=== PATIENT | male | born 1970 | race Caucasian/White ===

== ENCOUNTER 2020-08-12 10:00 | Outpatient (REF) | payer OTHER, SELFPAY ==
[2020-08-12 13:56] LABS: MANUAL DIFF FLAG NO
[2020-08-12 14:04] LABS: Basophils Absolute Auto 0.1 X10*3/uL (0.0-0.2); Basophils Percent Auto 1.5 % (0-2); Eosinophils Absolute Auto 0.2 X10*3/uL (0.0-0.4); Eosinophils Percent Auto 1.8 % (0-4); Hematocrit 46.7 % (42-52); Hemoglobin 15.3 g/dl (14.0-18.0); Imm Gran Abs Auto 0.03 X10*3/uL (0.00-0.03); Imm Gran Pct Auto 0.4 % (0.0-0.4); Lymphocytes Percent Auto 23.3 % (20-40); Mean Corpuscular HGB Conc 32.8 g/dl (31.0-36.0); Mean Corpuscular Hemoglobin 30.8 pg (27.0-33.0); Mean Platelet Volume 10.3 fL (9.4-12.4); Monocytes Absolute Auto 0.8 X10*3/uL (0.1-1.2); Monocytes Percent Auto 9.3 % (2-11); Neutrophils Absolute Auto 5.4 X10*3/uL (2.0-8.3); Neutrophils Percent Auto 63.7 % (45-73); Platelet Count 306 X10*3/uL (160-400); Red Blood Count 4.97 X10*6/uL (4.60-5.80); White Blood Count 8.5 X10*3/uL (4.8-10.8)
[2020-08-12 14:21] LABS: Estimated Average Glucose 146 mg/dL; Hemoglobin A1c % 6.7 %
[2020-08-12 14:29] LABS: Alanine Aminotransferase 18 U/L (0-40); Albumin Level 4.5 g/dL (3.5-5.0); Alkaline Phosphatase 87 U/L (39-117); Anion Gap 15 (12-20); Aspartate Amino Transferase 15 U/L (5-37); Bilirubin Total 0.6 mg/dL (0.0-1.0); Blood Urea Nitrogen 14 mg/dL (9-16); Calcium 9.1 mg/dL (8.4-10.2); Carbon Dioxide 24 mmol/L (22-29); Chloride 102 mmol/L (96-108); Cholesterol 213 mg/dL; Estimated Glomerular Filt Rate > 60; Glucose Fasting 120 mg/dL (60-99); HDL Cholesterol 40 mg/dL; LDL Cholesterol Calculated 154 mg/dl; Potassium 4.4 mmol/l (3.3-5.1); Sodium 137 mmol/L (135-145); Total Protein 7.1 g/dL (6.5-8.0); Triglycerides 99 mg/dL
[2020-08-12 14:50] LABS: Thyroid Stimulating Hormone 1.18 uIU/mL (0.32-4.0)
== END 2020-08-12 10:01 | disposition home or self-care (01) ==
LOC: HO.10HDL 10:00
PROVIDERS: Visit Provider Internal Medicine
DX: Z00.01 Encounter for general adult medical examination with abnormal findings (principal); E11.40 Type 2 diabetes mellitus with diabetic neuropathy, unspecified; E78.00 Pure hypercholesterolemia, unspecified; F31.70 Bipolar disorder, currently in remission, most recent episode unspecified
CPT/HCPCS: 36415; 80053; 80061; 83036; 84443; 85025

== ENCOUNTER 2021-01-03 08:11 | Outpatient (REF) | payer MEDICARE, MEDICAID, SELFPAY ==
[2021-01-03 10:49] LABS: Alanine Aminotransferase 17 U/L (0-40); Albumin Level 4.3 g/dL (3.5-5.0); Alkaline Phosphatase 70 U/L (39-117); Anion Gap 15 (12-20); Aspartate Amino Transferase 12 U/L (5-37); Bilirubin Total 0.4 mg/dL (0.0-1.0); Blood Urea Nitrogen 12 mg/dL (9-16); Calcium 9.4 mg/dL (8.4-10.2); Carbon Dioxide 28 mmol/L (22-29); Chloride 100 mmol/L (96-108); Cholesterol 172 mg/dL; Estimated Glomerular Filt Rate > 60; Glucose Fasting 107 mg/dL (60-99); HDL Cholesterol 40 mg/dL; LDL Cholesterol Calculated 113 mg/dl; Potassium 4.2 mmol/L (3.3-5.1); Sodium 139 mmol/L (135-145); Total Protein 6.9 g/dL (6.5-8.0); Triglycerides 96 mg/dL
[2021-01-03 10:53] LABS: Estimated Average Glucose 148 mg/dL; Hemoglobin A1c % 6.8 %
== END 2021-01-03 08:12 | disposition home or self-care (01) ==
LOC: HO.10HDL 08:11
PROVIDERS: Visit Provider Internal Medicine
DX: E11.40 Type 2 diabetes mellitus with diabetic neuropathy, unspecified (principal); E78.00 Pure hypercholesterolemia, unspecified; I10 Essential (primary) hypertension; Z72.0 Tobacco use
CPT/HCPCS: 36415; 80053; 80061; 83036

== ENCOUNTER 2021-06-06 09:59 | Outpatient (REF) | payer MEDICARE, MEDICAID, SELFPAY ==
[2021-06-06 10:53] LABS: MANUAL DIFF FLAG NO
[2021-06-06 11:04] LABS: Basophils Absolute Auto 0.1 X10*3/uL (0.0-0.2); Basophils Percent Auto 1.1 % (0-2); Eosinophils Absolute Auto 0.2 X10*3/uL (0.0-0.4); Eosinophils Percent Auto 1.3 % (0-4); Hematocrit 42.3 % (42-52); Hemoglobin 14.9 g/dl (14.0-18.0); Imm Gran Abs Auto 0.04 X10*3/uL (0.00-0.03); Imm Gran Pct Auto 0.4 % (0.0-0.4); Lymphocytes Absolute Auto 2.5 X10*3/uL (1.2-4.9); Lymphocytes Percent Auto 21.8 % (20-40); Mean Corpuscular HGB Conc 35.2 g/dl (31.0-36.0); Mean Corpuscular Hemoglobin 31.4 pg (27.0-33.0); Mean Corpuscular Volume 89.1 fL (80-98); Mean Platelet Volume 9.4 fL (9.4-12.4); Monocytes Absolute Auto 1.1 X10*3/uL (0.1-1.2); Monocytes Percent Auto 9.5 % (2-11); Neutrophils Absolute Auto 7.5 X10*3/uL (2.0-8.3); Neutrophils Percent Auto 65.9 % (45-73); Platelet Count 311 X10*3/uL (160-400); Red Blood Count 4.75 X10*6/uL (4.60-5.80); White Blood Count 11.4 X10*3/uL (4.8-10.8)
[2021-06-06 11:15] LABS: Estimated Average Glucose 131 mg/dL; Hemoglobin A1c % 6.2 %
[2021-06-06 11:30] LABS: Alanine Aminotransferase 16 U/L (0-40); Albumin Level 4.4 g/dL (3.5-5.0); Alkaline Phosphatase 66 U/L (39-117); Anion Gap 12 (12-20); Aspartate Amino Transferase 13 U/L (5-37); Bilirubin Total 0.4 mg/dL (0.0-1.0); Blood Urea Nitrogen 13 mg/dL (9-16); Calcium 10.1 mg/dL (8.4-10.2); Carbon Dioxide 32 mmol/L (22-29); Chloride 91 mmol/L (96-108); Cholesterol 153 mg/dL; Estimated Glomerular Filt Rate > 60; Glucose Fasting 124 mg/dL (60-99); HDL Cholesterol 40 mg/dL; LDL Cholesterol Calculated 96 mg/dl; Potassium 4.7 mmol/L (3.3-5.1); Sodium 130 mmol/L (135-145); Triglycerides 89 mg/dL
[2021-06-06 14:30] LABS: Creatinine Urine 69.63 mg/dL; Microalbumin Urine < 5.0 mg/L
== END 2021-06-06 10:00 | disposition home or self-care (01) ==
LOC: HO.10HDL 09:59
PROVIDERS: Visit Provider Internal Medicine
DX: E11.40 Type 2 diabetes mellitus with diabetic neuropathy, unspecified (principal); E78.00 Pure hypercholesterolemia, unspecified; I10 Essential (primary) hypertension; Z72.0 Tobacco use
CPT/HCPCS: 36415; 80053; 80061; 82043; 83036; 85025

== ENCOUNTER 2021-10-19 08:16 | Outpatient (REF) | payer MEDICARE, MEDICAID, SELFPAY ==
[2021-10-19 10:59] LABS: Estimated Average Glucose 140 mg/dL; Hemoglobin A1c % 6.5 %
[2021-10-19 11:00] LABS: Alanine Aminotransferase 12 U/L (0-40); Albumin Level 4.6 g/dL (3.5-5.0); Alkaline Phosphatase 73 U/L (39-117); Anion Gap 13 (12-20); Aspartate Amino Transferase 13 U/L (5-37); Bilirubin Total 0.5 mg/dL (0.0-1.0); Blood Urea Nitrogen 11 mg/dL (9-16); Calcium 9.4 mg/dL (8.4-10.2); Carbon Dioxide 29 mmol/L (22-29); Chloride 96 mmol/L (96-108); Cholesterol 199 mg/dL; Estimated Glomerular Filt Rate > 60; Glucose Fasting 137 mg/dL (60-99); HDL Cholesterol 34 mg/dL; LDL Cholesterol Calculated 149 mg/dl; Potassium 3.9 mmol/L (3.3-5.1); Sodium 134 mmol/L (135-145); Total Protein 7.6 g/dL (6.5-8.0); Triglycerides 81 mg/dL
== END 2021-10-19 08:17 | disposition home or self-care (01) ==
LOC: HO.10HDL 08:16
PROVIDERS: Visit Provider Internal Medicine
DX: E11.40 Type 2 diabetes mellitus with diabetic neuropathy, unspecified (principal); E78.00 Pure hypercholesterolemia, unspecified; I10 Essential (primary) hypertension
CPT/HCPCS: 36415; 80053; 80061; 83036

== ENCOUNTER 2022-02-10 15:10 | Outpatient (REF) | payer MEDICARE, MEDICAID, SELFPAY ==
--- NOTE | ~2022-02-10 | CT_ITS ---
EXAMINATION: CT CHEST SCREENING CLINICAL INFORMATION: Current smoker. 30 pack year history COMPARISON: Previous chest CT September 2019 TECHNIQUE: Multidetector volumetric CT imaging of the chest is performed without contrast using low dose technique. Additional 2D coronal and sagittal reformatted images and axial 3D maximum intensity projection (MIP) images are generated on the CT workstation. This CT examination was performed using dose optimization techniques as appropriate, variously including the following: *Automated exposure control *Adjustment of mA and/or kV according to patient size (this includes techniques or standardized protocols for targeted exams where dose is matched to indication/reason for exam; i.e. extremities or head) *Use of iterative reconstruction technique DLP: 68 mGy-cm FINDINGS: LUNGS: There is dependent atelectasis. The lungs are otherwise clear. No endobronchial or endotracheal lesion. MEDIASTINUM: Mild coronary artery calcification. Very small pericardial effusion. The mediastinum is otherwise normal. PLEURA: There is no pleural effusion. No pleural mass or thickening. AXILLA: No lymphadenopathy. UPPER ABDOMEN: Unremarkable. OSSEOUS STRUCTURES: Unremarkable. CT/CT lung screening IMPRESSION: Minimal dependent subsegmental atelectasis. Coronary artery calcification. ASSESSMENT: Lung-RADS category 1: Negative RECOMMENDATION: Annual low-dose chest CT follow-up recommended.
== END 2022-02-10 15:11 | disposition home or self-care (01) ==
LOC: HO.CT 15:10
PROVIDERS: PCP Internal Medicine; Visit Provider Physician Assistant Medical
DX: Z12.2 Encounter for screening for malignant neoplasm of respiratory organs (principal); F17.210 Nicotine dependence, cigarettes, uncomplicated
CPT/HCPCS: 71271; G0296

== ENCOUNTER 2022-02-17 09:18 | Day surgery (SDC) | payer MEDICARE, MEDICAID, SELFPAY ==
[2022-02-13 10:10] VITALS: BMI 30.8
--- NOTE | 2022-02-16 09:32 | HO.ANESPROP2 ---
Documented by User: Cassy Judge NP 02/16/22 09:34 HPI - Anesthesia Eval Consult details Narrative: 51yo M for Colonoscopy PMFSH Active Problems Active Problems: All Active Problems (Updated 02/10/22 @ 15:21 by Naty Jacobo PA-C) Personal history of nicotine dependence (Acute) Past Medical History Medical History (Updated 02/17/22 @ 11:43 by Leticia Zhu MD) Anxiety and depression COPD (chronic obstructive pulmonary disease) Depression Fibromyalgia Glaucoma Hypercholesterolemia Hypertension Personal history of nicotine dependence Seizure disorder Tubular adenoma of colon Type 2 diabetes mellitus with diabetic neuropathy Surgical History Surgical History (Updated 02/17/22 @ 11:32 by Leticia Zhu MD) H/O colonoscopy History of cervical discectomy History of eye surgery Social History Social History (Updated 02/17/22 @ 11:46 by Leticia Zhu MD) Patient Tobacco Use Status: Current everyday Tobacco user Tobacco use type: Cigarette Cigarette Packs Per Day: 1 Cigarettes Per Day: 20.0 Years Smoked: onset 22 - 1ppd x 29yrs, 29pyh Smoked in Last 30 Days: Yes Patient Given Instructions on How to Stop Smoking: Yes Date Education Initiated: 02/17/22 Second Hand Smoke Exposure: Yes Substance Use Type: Marijuana Substance Use Frequency: Daily Last Used Substance: Hours (ago) Are you DNR?: No Advance Directives: No Advance Directives Information Provided: Yes Recently lost weight without trying: No Meds Allergies Allergy/AdvReac Type Severity Reaction Status Date / Time shellfish derived Allergy Severe ANAPHYLAXIS Unverified 06/10/20 16:37 [SHELLFISH DERIVED] buspirone [From BUSPAR] Allergy Unknown nausea Unverified 06/10/20 16:37 bupropion [From WELLBUTRIN] AdvReac Unknown NAUSEA Unverified 06/10/20 16:37 seafood Allergy Unknown Uncoded 10/14/19 00:00 Home Medications Medication Instructions Recorded Confirmed Last Taken Type amlodipine 5 mg tablet 1 tab PO DAILY 02/16/22 02/16/22 Unknown History budesonide 160 mcg-glycopyr 9 2 puff INHALATION BID 02/16/22 02/16/22 Unknown History mcg-formot 4.8 mcg/actuation HFA inhaler (Breztri Aerosphere) dorzolamide 22.3 mg-timolol 6.8 1 drp OPHTHALMIC (EYE) BID 02/16/22 02/16/22 Unknown History mg/mL eye drops gabapentin 400 mg capsule 1 cap PO TID 02/16/22 02/17/22 02/17/22 History lisinopril 20 1 tab PO DAILY 02/16/22 02/17/22 02/17/22 History mg-hydrochlorothiazide 25 mg tablet Exam Exam Date and Time: February 16, 2022 0932 Height,Weight and Vital Signs: Height 5 ft 7 in Weight 89.358 kg Pertinent Lab Results Pertinent Lab Results: Laboratory Tests 06/06/21 10/19/21 10:05 08:20 WBC 11.4 H Hgb 14.9 Hct 42.3 Plt Count 311 Sodium 134 L Potassium 3.9 Chloride 96 Carbon Dioxide 29 BUN 11 Creatinine 0.93 Assessment and Plan Assessment Anesthesia Assessment: Chart Reviewed Documented by User: Leticia Zhu MD 02/17/22 11:48 PMFSH Active Problems Active Problems: All Active Problems (Updated 02/10/22 @ 15:21 by Naty Jacobo PA-C) Personal history of nicotine dependence (Acute) Confidential history(obtained from chart- H/o ETOH abuse, H/o Major depression ??? H/o CVA, NE in chart but patient denies both COPD- Uses inhalers as needed Past Medical History Medical History (Updated 02/17/22 @ 11:43 by Leticia Zhu MD) Anxiety and depression COPD (chronic obstructive pulmonary disease) Depression Fibromyalgia Glaucoma Hypercholesterolemia Hypertension Personal history of nicotine dependence Seizure disorder Tubular adenoma of colon Type 2 diabetes mellitus with diabetic neuropathy Family History Family history of problems with anesthesia: No Surgical History Surgical History (Updated 02/17/22 @ 11:32 by Leticia Zhu MD) H/O colonoscopy History of cervical discectomy History of eye surgery History of Problems with Anesthesia: No Social History Social History (Updated 02/17/22 @ 11:46 by Leticia Zhu MD) Patient Tobacco Use Status: Current everyday Tobacco user Tobacco use type: Cigarette Cigarette Packs Per Day: 1 Cigarettes Per Day: 20.0 Years Smoked: onset 22 - 1ppd x 29yrs, 29pyh Smoked in Last 30 Days: Yes Patient Given Instructions on How to Stop Smoking: Yes Date Education Initiated: 02/17/22 Second Hand Smoke Exposure: Yes Substance Use Type: Marijuana Substance Use Frequency: Daily Last Used Substance: Hours (ago) Are you DNR?: No Advance Directives: No Advance Directives Information Provided: Yes Recently lost weight without trying: No Meds Allergies Allergy/AdvReac Type Severity Reaction Status Date / Time shellfish derived Allergy Severe ANAPHYLAXIS Unverified 06/10/20 16:37 [SHELLFISH DERIVED] buspirone [From BUSPAR] Allergy Unknown nausea Unverified 06/10/20 16:37 bupropion [From WELLBUTRIN] AdvReac Unknown NAUSEA Unverified 06/10/20 16:37 seafood Allergy Unknown Uncoded 10/14/19 00:00 Home Medications Medication Instructions Recorded Confirmed Last Taken Type amlodipine 5 mg tablet 1 tab PO DAILY 02/16/22 02/16/22 Unknown History budesonide 160 mcg-glycopyr 9 2 puff INHALATION BID 02/16/22 02/16/22 Unknown History mcg-formot 4.8 mcg/actuation HFA inhaler (Breztri Aerosphere) dorzolamide 22.3 mg-timolol 6.8 1 drp OPHTHALMIC (EYE) BID 02/16/22 02/16/22 Unknown History mg/mL eye drops gabapentin 400 mg capsule 1 cap PO TID 02/16/22 02/17/22 02/17/22 History lisinopril 20 1 tab PO DAILY 02/16/22 02/17/22 02/17/22 History mg-hydrochlorothiazide 25 mg tablet Exam Height,Weight and Vital Signs: Height 5 ft 7 in Weight 89.358 kg Vital Signs Temp Pulse Resp BP Pulse Ox 02/17/22 11:18 98.0 F 68 18 124/78 98 Pertinent Lab Results Pertinent Lab Results: Laboratory Tests 06/06/21 10/19/21 10:05 08:20 WBC 11.4 H Hgb 14.9 Hct 42.3 Plt Count 311 Sodium 134 L Potassium 3.9 Chloride 96 Carbon Dioxide 29 BUN 11 Creatinine 0.93 Lab Results 05/27/22 Range/Units 11:09 POC Glucose 103 (60-115) mg/dL Airway Mallampati Class: III TM Dist: >3cm Neck ROM: Full Loose/Missing/Broken Teeth: Yes (Some broken, some missing) Heart: RRR Lungs: CTAB Assessment and Plan Assessment Anesthesia Assessment: Anesthesia Plan Discussed Final Anesthetic Review Family History of Problems with Anesthesia: No History of Problems with Anesthesia: No NPO: Yes ASA Class: III Final Preanesthetic Review: No Changes in Pt Med Stat, Meds/Allgs Chart Reviewed, Consent Obtained/Reviewed and Anes Risks/Benef Reviewed Patient Risk: Intermediate Procedure Risk: Low Assessment/Block/Sedation in SS: Assess/Block/Sedation-SS Anesthetic Plan Anesthetic Plan: MAC: Disposition: Standard PACU
[2022-02-17 11:14] LABS: Glucose, Whole Blood 103 mg/dL (60-115)
[2022-02-17 11:18] VITALS: BP 124/78; PULSE 68; RESP 18; TEMP 36.7; O2SAT 98
[2022-02-17] MEDS: Lactated Ringers 1,000 ML 50 ML IVCONT (11:21)
--- NOTE | 2022-02-17 12:54 | P.BOP_ITS ---
Brief Operative Note Date of Service: 02/17/22 Pre-op diagnosis: Screening Post-op diagnosis: other (Colon polyp) Procedure: Colonoscopy to the cecum and TI with cold snare polypectomy Surgeon: Clitnon Huston Anesthesia: MAC Was an Development Officer used for this Procedure?: No Estimated blood loss (mL): 2.0 Pathology: other (Polyp at 20cm) Condition: stable Disposition: PACU
[2022-02-17 12:55] VITALS: BP 88/56; PULSE 75; RESP 16; TEMP 37; O2SAT 98
[2022-02-17 13:10] VITALS: BP 117/71; PULSE 80; RESP 18; TEMP 36.7; O2SAT 99
--- NOTE | 2022-02-17 22:14 | OP_ITS ---
SURGEON: Clinton Huston MD INDICATIONS: The patient presents for evaluation of colorectal cancer screening and personal history of colon polyps. Full consent was obtained from him for this, including risks of bleeding and perforation. PREOPERATIVE DIAGNOSIS: POSTOPERATIVE DIAGNOSIS: PROCEDURE PERFORMED: Colonoscopy to cecum and terminal ileum with cold snare polypectomy. ESTIMATED BLOOD LOSS: COMPLICATIONS: ANESTHESIA: Monitored anesthesia care. ASSISTANTS: SPECIMENS: PREOPERATIVE DIAGNOSES: Colorectal cancer screening and personal history of colon polyps. POSTOPERATIVE DIAGNOSES: Colorectal cancer screening and personal history of colon polyps, colon polyp, diverticulosis and internal hemorrhoids. DESCRIPTION OF PROCEDURE: The patient was placed in left lateral decubitus position. The digital rectal exam revealed no abnormalities. The Olympus video pediatric colonoscope was entered into the rectum and advanced easily to the cecum. Once in the cecum, I did identify cecal pouch with appendiceal orifice and a normal-appearing ileocecal valve. The terminal ileum was cannulated and appeared normal. The scope was withdrawn back into the colon. After copious irrigation and suction, I was able to obtain a good visualization of the cecum, which appeared normal. The scope was then slowly withdrawn assessing all mucosal surfaces carefully. Preparation throughout the colon for the most part was good, but there were other areas of liquid stool, particularly in the left colon. I visualized an approximately 6 mm polyp at 20 cm, which was removed with cold snare polypectomy and recovered by suction. The polypectomy site appeared clean, without any sign of residual polyp nor bleeding. I did not visualize any other polyps, colitis, or angiodysplasia. There was a mild amount of sigmoid diverticulosis. In the rectum, scope was retroflexed visualizing internal hemorrhoids, but no other pathology. The rectal mucosa appeared normal. The scope was straightened and withdrawn from the patient. He tolerated the procedure well and was returned to recovery area in stable condition. IMPRESSION: 1. Colon polyp, status post cold snare polypectomy. 2. Diverticulosis. 3. Internal hemorrhoids. 4. Limited prep. PLAN: The results of the pathology will be checked. I would recommend a repeat colonoscopy in 3 years for further surveillance. He was advised not to use any aspirin or NSAIDs for 1 week. MD AMANDA Ervin/ALYSIA / [id number] ALBERT
== END 2022-02-17 13:27 | disposition home or self-care (01) ==
PROVIDERS: PCP Internal Medicine; Visit Provider Internal Medicine
PROC: 0DJD8ZZ Inspection of Lower Intestinal Tract, Via Natural or Artificial Opening Endoscopic (ICD-10-PCS; CPT 45378; principal; 2022-02-17 12:00)
DX: Z12.11 Encounter for screening for malignant neoplasm of colon (principal); Z86.010 Personal history of colon polyps; K63.5 Polyp of colon; K57.30 Diverticulosis of large intestine without perforation or abscess without bleeding; K64.8 Other hemorrhoids; I10 Essential (primary) hypertension; E11.40 Type 2 diabetes mellitus with diabetic neuropathy, unspecified; E78.00 Pure hypercholesterolemia, unspecified; J45.909 Unspecified asthma, uncomplicated; F10.21 Alcohol dependence, in remission; F17.210 Nicotine dependence, cigarettes, uncomplicated; F12.90 Cannabis use, unspecified, uncomplicated; Z79.899 Other long term (current) drug therapy
CPT/HCPCS: 45385; 82947; 88305

== ENCOUNTER 2022-04-03 09:57 | Outpatient (REF) | payer MEDICARE, SELFPAY ==
[2022-04-03 10:55] LABS: Estimated Average Glucose 114 mg/dL; Hemoglobin A1c % 5.6 %
[2022-04-03 11:08] LABS: Alanine Aminotransferase 34 U/L (0-40); Albumin Level 4.2 g/dL (3.5-5.0); Alkaline Phosphatase 76 U/L (39-117); Anion Gap 12 (12-20); Aspartate Amino Transferase 22 U/L (5-37); Bilirubin Total 0.4 mg/dL (0.0-1.0); Blood Urea Nitrogen 12 mg/dL (9-16); Calcium 9.1 mg/dL (8.4-10.2); Carbon Dioxide 26 mmol/L (22-29); Chloride 96 mmol/L (96-108); Cholesterol 181 mg/dL; Estimated Glomerular Filt Rate > 60; Glucose Fasting 127 mg/dL (60-99); HDL Cholesterol 36 mg/dL; LDL Cholesterol Calculated 132 mg/dl; Potassium 3.8 mmol/L (3.3-5.1); Sodium 130 mmol/L (135-145); Total Protein 6.9 g/dL (6.5-8.0); Triglycerides 68 mg/dL
== END 2022-04-03 09:58 | disposition home or self-care (01) ==
LOC: HO.10HDL 09:57
PROVIDERS: Visit Provider Internal Medicine
DX: E11.40 Type 2 diabetes mellitus with diabetic neuropathy, unspecified (principal); E78.00 Pure hypercholesterolemia, unspecified; I10 Essential (primary) hypertension; J44.9 Chronic obstructive pulmonary disease, unspecified
CPT/HCPCS: 36415; 80053; 80061; 83036

== ENCOUNTER 2022-04-11 08:00 | Outpatient (RCR) | payer MEDICARE, SELFPAY ==
--- NOTE | ~2022-04-11 | XR_ITS ---
EXAMINATION: XR FOOT, LEFT CLINICAL INFORMATION: Nonhealing wound COMPARISON: Foot radiographs 10/11/2019 TECHNIQUE: AP, lateral, and oblique views of the left foot. FINDINGS: No acute fracture or dislocation. Chronic healed fracture deformity of the fifth metatarsal diaphysis. Marked soft tissue swelling associated with the first digit with irregularity along the plantar surface. No cortical erosion, focal osteopenia or periosteal reaction to favor osteomyelitis. Plantar calcaneal and Achilles tendon enthesopathy. No tibiotalar joint effusion. XR/XR foot LT min 3V IMPRESSION: Marked soft tissue swelling associated with the first digit with associated irregularity along the plantar surface which may correspond to the reported ulcer. No cortical erosion, focal osteopenia or periosteal reaction to favor osteomyelitis, however MRI would be more sensitive for evaluation.
== END 2023-01-22 15:00 | disposition home or self-care (01) ==
LOC: HO.WCC 08:00
PROVIDERS: PCP Internal Medicine; Visit Provider Physician Assistant
DX: E11.621 Type 2 diabetes mellitus with foot ulcer (principal); L97.523 Non-pressure chronic ulcer of other part of left foot with necrosis of muscle; E11.40 Type 2 diabetes mellitus with diabetic neuropathy, unspecified; E11.69 Type 2 diabetes mellitus with other specified complication; M86.472 Chronic osteomyelitis with draining sinus, left ankle and foot; R60.9 Edema, unspecified; I10 Essential (primary) hypertension; J44.9 Chronic obstructive pulmonary disease, unspecified; F17.210 Nicotine dependence, cigarettes, uncomplicated; Z79.2 Long term (current) use of antibiotics
CPT/HCPCS: 11042; 11043; 29445; 73630; 97597; 99212; 99213

== ENCOUNTER 2022-05-18 16:15 | Outpatient (REF) | payer MEDICARE, SELFPAY ==
--- NOTE | ~2022-05-18 | XR_ITS ---
EXAMINATION: PRE-MRI ORBITS CLINICAL INFORMATION: Foreign body exposure. COMPARISON: None TECHNIQUE: 3 views of orbits pre-MRI. FINDINGS: There is no radiopaque metallic foreign body seen in the orbits. The bony orbits are maintained normal. The paranasal sinuses and the soft tissues are normal. XR/XR pre mri screening IMPRESSION: No radiopaque metallic foreign body seen in the orbits.
--- NOTE | ~2022-05-18 | MR_ITS ---
EXAMINATION: MR FOOT WITH AND WITHOUT CONTRAST, LEFT CLINICAL INFORMATION: Nonhealing wound of the left great toe. Evaluate for osteomyelitis. COMPARISON: Radiograph dated 04/12/2022. TECHNIQUE: Multiplanar MR imaging was obtained through the left forefoot before and after intravenous administration of 9 mL Gadavist. FINDINGS: A plantar wound at the level of the great toe IP joint measures 1 x 1 cm in area and has a peripherally enhancing tract which extends to the underlying IP joint. Synovial enhancement and fluid at the IP joint is consistent with septic arthritis in the context of the wound. Foci of gas are present in the soft tissues surrounding the medial aspect of the distal phalangeal base. Hyperenhancement and edema signal are evident within the distal two-thirds of the great toe proximal phalanx and throughout the distal phalanx with slightly diminished signal intensity on T1-weighted images at the medial margin of the great toe proximal phalangeal head and the plantar aspect of the distal phalangeal base. The plantar joint capsule appears disrupted at the level of the IP joint with dorsal subluxation of the distal phalanx. There is mild osteoarthritis at the great toe MTP joint without appreciable findings of septic arthritis or osteomyelitis. The other bones of the forefoot appear normal in signal intensity. Joints are otherwise relatively well preserved. There is edema signal and fatty replacement of the intrinsic foot musculature, commonly seen in the setting of diabetes, likely related to diabetic neuropathy. No tenosynovitis. Imaged plantar fascia is unremarkable. MR/MR foot LT wo/w con IMPRESSION: Septic arthritis of the great toe interphalangeal joint with a peripherally enhancing tract extending to the underlying plantar wound. In the context of septic arthritis and an adjacent wound, the signal abnormality in the proximal and distal phalanges of the great toe indicate a high likelihood of osteomyelitis.
== END 2022-05-18 16:16 | disposition home or self-care (01) ==
LOC: HO.MRI 16:15
PROVIDERS: Visit Provider Surgery
DX: S91.102A Unspecified open wound of left great toe without damage to nail, initial encounter (principal); X58.XXXA Exposure to other specified factors, initial encounter; Y93.9 Activity, unspecified; Y92.9 Unspecified place or not applicable; Y99.9 Unspecified external cause status
CPT/HCPCS: 73720; A9585

== ENCOUNTER → 2022-06-12 10:11 | Outpatient (BNVA) | payer MEDICARE, SELFPAY | PROVIDERS: PCP Internal Medicine; Visit Provider Internal Medicine | DX: M86.9 Osteomyelitis, unspecified (principal) | CPT/HCPCS: 99202 ==

== ENCOUNTER 2022-06-13 09:05 | Outpatient (REF) | payer MEDICARE, SELFPAY ==
[2022-06-13 11:02] LABS: MANUAL DIFF FLAG NO
[2022-06-13 11:13] LABS: Basophils Absolute Auto 0.2 X10*3/uL (0.0-0.2); Basophils Percent Auto 1.1 % (0-2); Eosinophils Absolute Auto 0.2 X10*3/uL (0.0-0.4); Eosinophils Percent Auto 1.3 % (0-4); Hematocrit 42.4 % (42.0-52.0); Hemoglobin 14.8 g/dl (14.0-18.0); Imm Gran Abs Auto 0.07 X10*3/uL (0.00-0.03); Imm Gran Pct Auto 0.5 % (0.0-0.4); Lymphocytes Absolute Auto 2.3 X10*3/uL (1.2-4.9); Lymphocytes Percent Auto 15.5 % (20-40); Mean Corpuscular HGB Conc 34.9 g/dl (31.0-36.0); Mean Corpuscular Hemoglobin 31.9 pg (27.0-33.0); Mean Corpuscular Volume 91.4 fL (80.0-98.0); Mean Platelet Volume 10.1 fL (9.4-12.4); Monocytes Absolute Auto 1.1 X10*3/uL (0.1-1.2); Monocytes Percent Auto 7.3 % (2-11); Neutrophils Absolute Auto 10.8 x10*3/uL (2.0-8.3); Neutrophils Percent Auto 74.3 % (45-73); Platelet Count 260 X10*3/uL (160-400); Red Blood Count 4.64 X10*6/uL (4.60-5.80); Red Cell Distribution Width 12.7 % (11.0-16.0); White Blood Count 14.6 X10*3/uL (4.8-10.8)
[2022-06-13 11:40] LABS: Alanine Aminotransferase 20 U/L (0-40); Albumin Level 4.5 g/dL (3.5-5.0); Alkaline Phosphatase 62 U/L (39-117); Anion Gap 17 (12-20); Aspartate Amino Transferase 17 U/L (5-37); Bilirubin Direct 0.3 mg/dL (0.0-0.5); Bilirubin Total 0.6 mg/dL (0.0-1.0); Blood Urea Nitrogen 12 mg/dL (9-16); Calcium 9.5 mg/dL (8.4-10.2); Carbon Dioxide 24 mmol/L (22-29); Chloride 96 mmol/L (96-108); Estimated Glomerular Filt Rate > 60; Glucose Random 121 mg/dL (60-115); Potassium 4.2 mmol/L (3.3-5.1); Sodium 133 mmol/L (135-145); Total Protein 7.3 g/dL (6.5-8.0)
== END 2022-06-13 09:06 | disposition home or self-care (01) ==
LOC: HO.10HDL 09:05
PROVIDERS: Visit Provider Internal Medicine
DX: M86.9 Osteomyelitis, unspecified (principal)
CPT/HCPCS: 36415; 80048; 80076; 85025

== ENCOUNTER → 2022-06-27 08:03 | Day surgery (SDC) | payer MEDICARE, SELFPAY ==
--- NOTE | 2022-06-27 10:00 | HO.PICC ---
PICC Line Insertion NPICC Diagnosis: Osteomyelitis left foot Indication: machine long goods helper antibiotics Pertinent Labs: reviewed Technique: Following informed consent including risks, benefits and alternatives and using sterile technique including cap and mask, sterile gown, glove and drape, the right arm was prepped and draped in the usual sterile fashion of full barrier technique with CHG. Following completion of Fairborn Protocol the skin and soft tissues were anesthetized with 1% Lidocaine plain. Using ultrasound guidance, right basilic vein access was obtained. Over an 0.018 wire through peel-away sheath, a 4 mauritian PASV PowerPICC Solo line was positioned. Catheter length is 50 cm internal length, 0 cm external length, for a total trimmed length of 50cm. The procedure was performed in S272. Tip verification was performed by Cande Shirley with Jennifer 3CG. Tip located in SVC. Ultrasound was used to document vein patency and for needle entry. A formal ultrasound picture and cardiac rhythm strip was recorded. Vascular Processing Manager has released the line for use and it is currently dressed with a StatLock, Tegaderm, and CHG disc. Verification has been performed for blood return and line patency. Arm Circumference: 30 cm Equipment: PASV PowerPICC Catheter Type: 4 mauritian PASV PowerPICC Solo Lot #: [id number]
== END ==
PROVIDERS: PCP Internal Medicine; Visit Provider Radiology Diagnostic Radiology
DX: M86.9 Osteomyelitis, unspecified (principal)
CPT/HCPCS: 36573; C1751

== ENCOUNTER 2022-06-27 09:54 | Outpatient (REF) | payer MEDICARE, SELFPAY | END 2022-06-27 09:55 | disposition home or self-care (01) | LOC: HO.MDS 09:54 | PROVIDERS: PCP Internal Medicine; Visit Provider Internal Medicine | DX: Z45.2 Encounter for adjustment and management of vascular access device (principal); M86.172 Other acute osteomyelitis, left ankle and foot | CPT/HCPCS: 96365; J0878 ==

== ENCOUNTER 2022-06-28 07:38 | Outpatient (REF) | payer MEDICARE, MEDICAID, SELFPAY | END 2022-06-28 07:39 | disposition home or self-care (01) | LOC: HO.MDS 07:38 | PROVIDERS: Visit Provider Internal Medicine | DX: Z45.2 Encounter for adjustment and management of vascular access device (principal); M86.172 Other acute osteomyelitis, left ankle and foot | CPT/HCPCS: 96365; J0878 ==

== ENCOUNTER 2022-06-29 19:19 | Outpatient (REF) | payer MEDICARE, SELFPAY ==
[2022-06-29 19:25] LABS: MANUAL DIFF FLAG NO
[2022-06-29 19:34] LABS: Basophils Absolute Auto 0.2 X10*3/uL (0.0-0.2); Basophils Percent Auto 1.5 % (0-2); Eosinophils Absolute Auto 0.2 X10*3/uL (0.0-0.4); Hematocrit 42.2 % (42.0-52.0); Hemoglobin 14.5 g/dl (14.0-18.0); Imm Gran Abs Auto 0.03 X10*3/uL (0.00-0.03); Imm Gran Pct Auto 0.3 % (0.0-0.4); Lymphocytes Absolute Auto 3.1 X10*3/uL (1.2-4.9); Lymphocytes Percent Auto 29.5 % (20-40); Mean Corpuscular HGB Conc 34.4 g/dl (31.0-36.0); Mean Corpuscular Hemoglobin 30.9 pg (27.0-33.0); Mean Corpuscular Volume 89.8 fL (80.0-98.0); Monocytes Absolute Auto 0.9 X10*3/uL (0.1-1.2); Monocytes Percent Auto 8.2 % (2-11); Neutrophils Absolute Auto 6.2 x10*3/uL (2.0-8.3); Neutrophils Percent Auto 58.5 % (45-73); Platelet Count 268 X10*3/uL (160-400); Red Cell Distribution Width 12.6 % (11.0-16.0); White Blood Count 10.5 X10*3/uL (4.8-10.8)
[2022-06-29 19:49] LABS: Blood Urea Nitrogen 7 mg/dL (9-16); Cholesterol 114 mg/dL; Estimated Glomerular Filt Rate > 60; HDL Cholesterol 44 mg/dL; LDL Cholesterol Calculated 59 mg/dl; Triglycerides 57 mg/dL
[2022-06-29 20:17] LABS: Erythrocyte Sedimentation Rate 3 MM/HR (0-15)
== END 2022-06-29 19:20 | disposition home or self-care (01) ==
LOC: HO.LNP 19:19
PROVIDERS: Visit Provider Internal Medicine
DX: M86.9 Osteomyelitis, unspecified (principal)
CPT/HCPCS: 80061; 82550; 82565; 84520; 85025; 85652

== ENCOUNTER 2022-07-07 14:16 | Outpatient (REF) | payer MEDICARE, SELFPAY ==
[2022-07-07 14:55] LABS: Alanine Aminotransferase 18 U/L (0-40); Albumin Level 4.6 g/dL (3.5-5.0); Alkaline Phosphatase 65 U/L (39-117); Anion Gap 19 (12-20); Aspartate Amino Transferase 21 U/L (5-37); Bilirubin Total 0.7 mg/dL (0.0-1.0); Blood Urea Nitrogen 8 mg/dL (9-16); Calcium 9.5 mg/dL (8.4-10.2); Carbon Dioxide 24 mmol/L (22-29); Chloride 95 mmol/L (96-108); Estimated Glomerular Filt Rate > 60; Glucose Random 170 mg/dL (60-115); Potassium 3.7 mmol/L (3.3-5.1); Sodium 134 mmol/L (135-145); Total Protein 7.3 g/dL (6.5-8.0)
[2022-07-07 15:07] LABS: Erythrocyte Sedimentation Rate 1 MM/HR (0-15)
== END 2022-07-07 14:17 | disposition home or self-care (01) ==
LOC: HO.LNP 14:16
PROVIDERS: Visit Provider Internal Medicine
DX: M86.9 Osteomyelitis, unspecified (principal)
CPT/HCPCS: 80053; 82550; 85652

== ENCOUNTER 2022-07-13 14:55 | Outpatient (REF) | payer MEDICARE, SELFPAY ==
[2022-07-13 15:01] LABS: MANUAL DIFF FLAG NO
[2022-07-13 15:15] LABS: Basophils Absolute Auto 0.2 X10*3/uL (0.0-0.2); Basophils Percent Auto 1.4 % (0-2); Eosinophils Absolute Auto 0.2 X10*3/uL (0.0-0.4); Eosinophils Percent Auto 1.5 % (0-4); Hematocrit 44.2 % (42.0-52.0); Hemoglobin 14.9 g/dl (14.0-18.0); Imm Gran Abs Auto 0.04 X10*3/uL (0.00-0.03); Imm Gran Pct Auto 0.3 % (0.0-0.4); Lymphocytes Absolute Auto 3.5 X10*3/uL (1.2-4.9); Lymphocytes Percent Auto 28.1 % (20-40); Mean Corpuscular HGB Conc 33.7 g/dl (31.0-36.0); Mean Corpuscular Hemoglobin 30.5 pg (27.0-33.0); Mean Corpuscular Volume 90.6 fL (80.0-98.0); Mean Platelet Volume 10.1 fL (9.4-12.4); Monocytes Absolute Auto 0.9 X10*3/uL (0.1-1.2); Monocytes Percent Auto 7.5 % (2-11); Neutrophils Absolute Auto 7.5 x10*3/uL (2.0-8.3); Neutrophils Percent Auto 61.2 % (45-73); Platelet Count 282 X10*3/uL (160-400); Red Blood Count 4.88 X10*6/uL (4.60-5.80); Red Cell Distribution Width 12.7 % (11.0-16.0); White Blood Count 12.3 X10*3/uL (4.8-10.8)
[2022-07-13 15:29] LABS: Anion Gap 18 (12-20); Blood Urea Nitrogen 8 mg/dL (9-16); C Reactive Protein 0.14 mg/dL (< or = 0.50); Calcium 9.6 mg/dL (8.4-10.2); Carbon Dioxide 24 mmol/L (22-29); Chloride 94 mmol/L (96-108); Estimated Glomerular Filt Rate > 60; Glucose Random 133 mg/dL (60-115); Potassium 3.7 mmol/L (3.3-5.1); Sodium 132 mmol/L (135-145)
[2022-07-13 16:02] LABS: Erythrocyte Sedimentation Rate 5 MM/HR (0-15)
== END 2022-07-13 14:56 | disposition home or self-care (01) ==
LOC: HO.LNP 14:55
PROVIDERS: Visit Provider Internal Medicine
DX: M86.9 Osteomyelitis, unspecified (principal)
CPT/HCPCS: 80048; 85025; 85652; 86140

== ENCOUNTER 2022-07-20 11:32 | Outpatient (REF) | payer MEDICARE, SELFPAY ==
[2022-07-20 12:19] LABS: Basophils Absolute Auto 0.1 X10*3/uL (0.0-0.2); Basophils Percent Auto 0.4 % (0-2); Eosinophils Percent Auto 0.2 % (0-4); Hematocrit 42.5 % (42.0-52.0); Imm Gran Pct Auto 0.7 % (0.0-0.4); Lymphocytes Absolute Auto 1.4 X10*3/uL (1.2-4.9); Lymphocytes Percent Auto 10.2 % (20-40); Mean Corpuscular Volume 80.8 fL (80.0-98.0); Mean Platelet Volume 9.8 fL (9.4-12.4); Monocytes Absolute Auto 1.4 X10*3/uL (0.1-1.2); Monocytes Percent Auto 10.5 % (2-11); Neutrophils Absolute Auto 10.5 x10*3/uL (2.0-8.3); Platelet Count 262 X10*3/uL (160-400); Red Blood Count 5.26 X10*6/uL (4.60-5.80); Red Cell Distribution Width 11.9 % (11.0-16.0); White Blood Count 13.5 X10*3/uL (4.8-10.8)
[2022-07-20 12:22] LABS: Hemoglobin 14.3 g/dl (14.0-18.0); Mean Corpuscular Hemoglobin 27.1 pg (27.0-33.0)
[2022-07-20 12:23] LABS: Mean Corpuscular HGB Conc 33.6 g/dl (31.0-36.0)
[2022-07-20 13:55] LABS: Anion Gap 19 (12-20); Blood Urea Nitrogen 15 mg/dL (9-16); Calcium 9.6 mg/dL (8.4-10.2); Carbon Dioxide 24 mmol/L (22-29); Chloride 72 mmol/L (96-108); Estimated Glomerular Filt Rate > 60; Glucose Random 86 mg/dL (60-115); Potassium 2.3 mmol/L (3.3-5.1); Sodium 113 mmol/L (135-145)
[2022-07-20 16:01] LABS: Erythrocyte Sedimentation Rate 2 MM/HR (0-15)
== END 2022-07-20 11:33 | disposition home or self-care (01) ==
LOC: HO.LNP 11:32
PROVIDERS: Visit Provider Internal Medicine
DX: M86.9 Osteomyelitis, unspecified (principal)
CPT/HCPCS: 80048; 82550; 85025; 85652

== ENCOUNTER 2022-07-24 13:45 | Inpatient (IN) | payer MEDICARE, SELFPAY ==
[2022-07-24] VITALS (8 sets, daily range): BP systolic 108–126; BP diastolic 70–80; PULSE 64–95; RESP 15–26; TEMP 36.6–36.9; O2SAT 98–100; BMI 30.7; BMI 28.1
--- NOTE | ~2022-07-24 | XR_ITS ---
EXAMINATION: PORTABLE CHEST 1 VIEW CLINICAL INFORMATION: picc placement . COMPARISON: 02/10/2022 CT scan. TECHNIQUE: Portable frontal view of the chest was obtained. FINDINGS: The lungs are well expanded. No focal infiltrate, effusion, edema, or pneumothorax. Cardiac and mediastinal silhouettes are within normal limits for technique. Right arm PICC line is in place with the tip near the expected cavoatrial junction. No acute bony abnormality seen. XR/XR chest 1V IMPRESSION: No evidence of acute disease.
--- NOTE | 2022-07-24 15:20 | ECG_ITS ---
Test Reason : ELECTROLYTE IMBALANCE Blood Pressure : / mmHG Vent. Rate : 081 BPM Atrial Rate : 081 BPM P-R Int : 160 ms QRS Dur : 096 ms QT Int : 472 ms P-R-T Axes : 039 051 031 degrees QTc Int : 548 ms Normal sinus rhythm Prolonged QT Intra-ventricular conduction delay Nonspecific T wave abnormality Inferior leads Abnormal ECG When compared with ECG of 30-SEP-2019 11:12, QT has lengthened T wave inversion more evident in Inferior leads Referred By: Kristal Iglesias Electronically Signed By:TONE VEGA MD
--- NOTE | 2022-07-24 15:29 | ED.RECABL ---
HPI - Recheck/Abnormal Lab/Rx General Chief Complaint: Recheck/Abnormal Lab/Rx Stated Complaint: Abnormal labs sent by pcp Time Seen by Provider: 07/24/22 14:50 Source: patient Mode of arrival: ambulatory History of Present Illness HPI narrative: 52-year-old male history of diabetes and osteomyelitis who has been discharged home with a PICC line and on vancomycin but states that for the past week he has had little appetite and has not been eating or drinking. He denies any fever, chills, shortness of breath, chest pain/palpitations but does report muscle cramping and otherwise denies any GI or symptoms. Related Data Home Medications Medication Instructions Recorded Confirmed amlodipine 5 mg tablet 1 tab PO DAILY 02/16/22 02/16/22 budesonide 160 mcg-glycopyr 9 2 puff inhalation BID 02/16/22 02/16/22 mcg-formot 4.8 mcg/actuation HFA inhaler (Breztri Aerosphere) dorzolamide 22.3 mg-timolol 6.8 1 drp ophthalmic (eye) BID 02/16/22 02/16/22 mg/mL eye drops gabapentin 400 mg capsule 1 cap PO TID 02/16/22 02/17/22 lisinopril 20 1 tab PO DAILY 02/16/22 02/17/22 mg-hydrochlorothiazide 25 mg tablet Previous Rx's Medication Instructions Recorded daptomycin 500 mg intravenous 352 mg IV Q24H 42 days #42 ea 06/20/22 solution Allergies Allergy/AdvReac Type Severity Reaction Status Date / Time shellfish derived Allergy Severe ANAPHYLAXIS Unverified 06/10/20 16:37 [SHELLFISH DERIVED] buspirone [From BUSPAR] Allergy Unknown nausea Unverified 06/10/20 16:37 bupropion [From WELLBUTRIN] AdvReac Unknown NAUSEA Unverified 06/10/20 16:37 seafood Allergy Unknown Uncoded 10/14/19 00:00 Review of Systems Review of Systems: Pertinent positives and negatives as stated in HPI 10 point review of systems is otherwise negative. PMFSH Past Medical History Source: nursing notes reviewed Medical History (Updated 07/24/22 @ 17:03 by Kristal Iglesias MD) Anxiety and depression COPD (chronic obstructive pulmonary disease) COPD (chronic obstructive pulmonary disease) Depression Fibromyalgia Glaucoma Hypercholesterolemia Hypertension Osteomyelitis Personal history of nicotine dependence Seizure disorder Tubular adenoma of colon Type 2 diabetes mellitus Type 2 diabetes mellitus with diabetic neuropathy Surgical History H/O colonoscopy History of cervical discectomy History of eye surgery Social History Social History Patient Tobacco Use Status: Current everyday Tobacco user Tobacco use type: Cigarette Cigarette Packs Per Day: 1 Cigarettes Per Day: 20.0 Years Smoked: onset 22 - 1ppd x 29yrs, 29pyh Second Hand Smoke Exposure: Yes Substance Use Type: Marijuana Advance Directives: No Advance Directives Information Provided: No Physical Exam Vital Signs: Vital Signs: Last Vital Signs Temp 98 F 07/24/22 13:57 Pulse 80 07/24/22 15:50 Resp 20 07/24/22 15:50 BP 117/73 07/24/22 15:50 Pulse Ox 98 07/24/22 15:50 O2 Del Method 07/24/22 15:50 BMI result Body Mass Index 30.7 VITAL SIGNS: Reviewed. GENERAL: On well, cachectic, in no acute distress. HEAD: Normocephalic/atraumatic EYES: PERRLA, EOMI, scleral icterus EARS: Ext canals without abnormality OROPHARYNX: no oral lesions noted, posterior pharynx clear LUNGS: Normal breath sounds. No adventitious sounds or accessory muscle use. SpO2<100> CARDIOVASCULAR: Regular rate and rhythm without noted murmurs, no JVD or lower extremity edema. ABDOMEN: Soft, non-tender, non-distended with bowel sounds. MUSCULOSKELETAL: No tenderness, deformities, or effusions noted on gross inspection. EXTREMITIES: No cyanosis, clubbing or edema. SKIN: Inspection of the skin reveals no rashes, poor skin turgor,+jaundice NEUROLOGIC: Alert and oriented x 4. Strength and sensation to light touch were grossly intact x 4. Course Course Course Narrative: 52-year-old male is here for re-evaluation after lab work showed that he had a low potassium, low sodium on 07/20 and is just now presenting. Patient's CPK was also noted to be elevated but renal function at that time appeared to be intact. Patient appears clinically dehydrated will test for COVID, re-obtain lab work and given isolated bolus of 500 cc of normal saline until remaining lab results have returned. Also, will provide 2 g of magnesium sulfate. Review of all investigations significant for severe dehydration with TIM and rhabdomyolysis, patient evaluated by the energy and sustainability manager and is currently accepted for admission. MDM - Recheck/Abnormal Lab/Rx Lab Data Result diagrams: 07/24/22 15:31 07/24/22 15:31 Labs: Lab Results 07/24/22 07/24/22 07/24/22 Range/Units 15:31 15:31 15:31 WBC 19.5 H (4.8-10.8) X10*3/uL RBC 5.35 (4.60-5.80) X10*6/uL Hgb 16.5 (14.0-18.0) g/dl Hct 43.5 (42.0-52.0) % MCV 81.3 (80.0-98.0) fL MCH 30.8 (27.0-33.0) pg MCHC 37.9 H (31.0-36.0) g/dl RDW 11.9 (11.0-16.0) % Plt Count 230 (160-400) X10*3/uL MPV 10.1 (9.4-12.4) fL Immature Gran % (Auto) 1.0 H (0.0-0.4) % Neut % (Auto) 88.7 H (45-73) % Lymph % (Auto) 3.1 L (20-40) % [place] % (Auto) 6.9 (2-11) % Eos % (Auto) 0.3 (0-4) % Baso % (Auto) 0.0 (0-2) % Lymph # (Auto) 0.1 L (1.2-4.9) X10*3/uL [place] # (Auto) 0.3 (0.1-1.2) X10*3/uL Eos # (Auto) 0.0 (0.0-0.4) X10*3/uL Baso # (Auto) 0.0 (0.0-0.2) X10*3/uL Abs Immat Gran (auto) 0.04 H (0.00-0.03) X10*3/uL Absolute Neuts (auto) 3.5 (2.0-8.3) x10*3/uL Absolute Nucleated RBC 0.000 (0.0-0.012) X10*3/uL Nucleated RBC % (auto) 0.0 (0.0-0.2) /100WBC Smear Tech's Comments VERIFIED PT 10.9 (10.0-13.1) SEC INR 1.0 (0.9-1.1) VBG pH (7.32-7.43) VBG pCO2 mmHg VBG pO2 mmHg VBG HCO3 (22-26) mmol/L VBG O2 Saturation % VBG Base Excess mmol/L Sodium 116 L* (135-145) mmol/L Potassium 2.8 L D (3.3-5.1) mmol/L Chloride 70 L (96-108) mmol/L Carbon Dioxide 27 (22-29) mmol/L Anion Gap 22 H (12-20) BUN 24 H D (9-16) mg/dL Creatinine 1.42 H (0.5-1.4) mg/dL Estim Creat Clear Calc 63.3 Estimated GFR 53 Random Glucose 153 H D (60-115) mg/dL Calcium 10.6 H D (8.4-10.2) mg/dL Magnesium 2.3 (1.6-2.6) mg/dL Total Bilirubin 2.6 H (0.0-1.0) mg/dL AST 70 H (5-37) U/L ALT 69 H (0-40) U/L Alkaline Phosphatase 104 D (39-117) U/L Total Protein 8.9 H D (6.5-8.0) g/dL Albumin 5.5 H (3.5-5.0) g/dL COVID-19 (LUZ MARIA) (Negative) COVID-19 Clin Com 07/24/22 07/24/22 Range/Units 15:31 15:44 WBC (4.8-10.8) X10*3/uL RBC (4.60-5.80) X10*6/uL Hgb (14.0-18.0) g/dl Hct (42.0-52.0) % MCV (80.0-98.0) fL MCH (27.0-33.0) pg MCHC (31.0-36.0) g/dl RDW (11.0-16.0) % Plt Count (160-400) X10*3/uL MPV (9.4-12.4) fL Immature Gran % (Auto) (0.0-0.4) % Neut % (Auto) (45-73) % Lymph % (Auto) (20-40) % [place] % (Auto) (2-11) % Eos % (Auto) (0-4) % Baso % (Auto) (0-2) % Lymph # (Auto) (1.2-4.9) X10*3/uL [place] # (Auto) (0.1-1.2) X10*3/uL Eos # (Auto) (0.0-0.4) X10*3/uL Baso # (Auto) (0.0-0.2) X10*3/uL Abs Immat Gran (auto) (0.00-0.03) X10*3/uL Absolute Neuts (auto) (2.0-8.3) x10*3/uL Absolute Nucleated RBC (0.0-0.012) X10*3/uL Nucleated RBC % (auto) (0.0-0.2) /100WBC Smear Tech's Comments PT (10.0-13.1) SEC INR (0.9-1.1) VBG pH 7.43 (7.32-7.43) VBG pCO2 35 mmHg VBG pO2 36 mmHg VBG HCO3 24 (22-26) mmol/L VBG O2 Saturation 58.0 % VBG Base Excess 0.7 mmol/L Sodium (135-145) mmol/L Potassium (3.3-5.1) mmol/L Chloride (96-108) mmol/L Carbon Dioxide (22-29) mmol/L Anion Gap (12-20) BUN (9-16) mg/dL Creatinine (0.5-1.4) mg/dL Estim Creat Clear Calc Estimated GFR Random Glucose (60-115) mg/dL Calcium (8.4-10.2) mg/dL Magnesium (1.6-2.6) mg/dL Total Bilirubin (0.0-1.0) mg/dL AST (5-37) U/L ALT (0-40) U/L Alkaline Phosphatase (39-117) U/L Total Protein (6.5-8.0) g/dL Albumin (3.5-5.0) g/dL COVID-19 (LUZ MARIA) Negative (Negative) COVID-19 Clin Com See Note ECG Data Attestation: I personally reviewed and interpreted this ECG as follows: Prior ECG tracings: not available for review Interpretation: Normal sinus rhythm, HR-81, no STEMI, OK/QRS is within normal limits but QTC is prolonged at 548 Critical Care Time Critical Care Time Critical Care Time: Yes Total Critical Care Time: 30 Attestation: I personally attest to this time spent taking care of the patient. Discharge Plan Discharge Clinical Impression: Severe dehydration, TIM (acute kidney injury), Rhabdomyolysis, Hyponatremia, Hypokalemia Patient Disposition: Admitted As Inpatient Prescriptions: No Action gabapentin 400 mg capsule 1 cap PO TID amlodipine 5 mg tablet 1 tab PO DAILY lisinopril-hydrochlorothiazide 20-25 mg tablet 1 tab PO DAILY dorzolamide-timolol 22.3-6.8 mg/mL drops 1 drp ophthalmic (eye) BID Breztri Aerosphere 160-9-4.8 mcg/actuation HFA aerosol inhaler 2 puff inhalation BID daptomycin 500 mg recon soln 352 mg IV Q24H 42 Days Qty: 42 0RF Rx Instructions: administer over 30 mins
[2022-07-24] MEDS: Magnesium Sulfate/H2O 2 GM/50 ML PIGGYBACK IV (15:39)
[2022-07-24 15:54] LABS: COVID-19 Test Negative (Negative); IDNOW Serial# 55D5AD1C
[2022-07-24 15:55] LABS: VBG Base Excess 0.7 mmol/L; VBG HCO3 24 mmol/L (22-26); VBG pCO2 35 mmHg; VBG pH 7.43 (7.32-7.43); VBG pO2 36 mmHg
[2022-07-24 16:04] LABS: Venous Blood Gas Refer to POC result
[2022-07-24 16:07] LABS: Prothrombin Time 10.9 SEC (10.0-13.1)
[2022-07-24 16:21] LABS: Alanine Aminotransferase 69 U/L (0-40); Albumin Level 5.5 g/dL (3.5-5.0); Alkaline Phosphatase 104 U/L (39-117); Anion Gap 22 (12-20); Aspartate Amino Transferase 70 U/L (5-37); Bilirubin Total 2.6 mg/dL (0.0-1.0); Blood Urea Nitrogen 24 mg/dL (9-16); Calcium 10.6 mg/dL (8.4-10.2); Carbon Dioxide 27 mmol/L (22-29); Chloride 70 mmol/L (96-108); Creatinine Clr Calc Pharmacy 63.3; Estimated Glomerular Filt Rate 53; Glucose Random 153 mg/dL (60-115); Magnesium 2.3 mg/dL (1.6-2.6); Potassium 2.8 mmol/L (3.3-5.1); Sodium 116 mmol/L (135-145); Total Protein 8.9 g/dL (6.5-8.0)
[2022-07-24 16:30] LABS: Eosinophils Percent Auto 0.3 % (0-4); Imm Gran Abs Auto 0.04 X10*3/uL (0.00-0.03); Lymphocytes Absolute Auto 0.1 X10*3/uL (1.2-4.9); Lymphocytes Percent Auto 3.1 % (20-40); Mean Corpuscular Hemoglobin 30.8 pg (27.0-33.0); Mean Corpuscular Volume 81.3 fL (80.0-98.0); Mean Platelet Volume 10.1 fL (9.4-12.4); Monocytes Absolute Auto 0.3 X10*3/uL (0.1-1.2); Monocytes Percent Auto 6.9 % (2-11); Neutrophils Absolute Auto 3.5 x10*3/uL (2.0-8.3); Neutrophils Percent Auto 88.7 % (45-73); Red Cell Distribution Width 11.9 % (11.0-16.0); SCAN SMEAR FLAG 1
[2022-07-24 16:31] LABS: Hematocrit 43.5 % (42.0-52.0); Hemoglobin 16.5 g/dl (14.0-18.0); Mean Corpuscular HGB Conc 37.9 g/dl (31.0-36.0); Platelet Count 230 X10*3/uL (160-400); Red Blood Count 5.35 X10*6/uL (4.60-5.80); White Blood Count 19.5 X10*3/uL (4.8-10.8)
[2022-07-24 16:32] LABS: MANUAL DIFF FLAG SCAN
[2022-07-24 16:33] LABS: SLIDE REVIEW VERIFIED
[2022-07-24] MEDS: Potassium Chloride Packet 20 MEQ PACKET 40 MEQ PO (16:40)
[2022-07-24] MEDS: 0.9 % Sodium Chloride 500 ML IV (16:42)
--- NOTE | 2022-07-24 16:42 | P.HPCC_ITS ---
History of Present Illness Date of Service: 07/24/22 Attending physician on admission: Ofelia Douglass Chief Complaint: Weakness 52-year-old type 2 diabetic with underlying COPD an active smoking who was fishing a little over a month ago standing in some muddy river water and already had an open wound on the bottom of his left 1st toe after that he developed a swelling and redness do a deep tissue infection was noted and MRI positive for osteomyelitis patient had been on vancomycin the no through a PICC line and apparently most recently daptomycin and developed anorexia and weakness and had this for several days presented today and was noted to be markedly hypo Jesse remake and hypokalemic EKG with prolonged QT interval of 560 milliseconds probably in part because of AU wave but in sinus rhythm and said he had no cardiac history and only uses inhalers on a p.r.n. basis for his COPD which is not bad is no oxygen dependence and he was awake alert with no altered mental status no loss of consciousness no witnessed seizure activity etc. but has an elevated CPK as well as well as those electrolyte abnormalities and my bedside echo revealed excellent LV and RV function with no primary valve or pericardial disease and I hyperdynamic ventricle with a flat inferior vena cava so he clearly is markedly hypovolemic with a BUN and creatinine that are double his baseline so there is an acute kidney injury in part pre renal in all likelihood but in part potentially nephrotoxicity related to 1 of the above antibiotics either vancomycin or daptomycin Review of Systems Review of Systems: most importantly no recent constitutional complaints of fever shaking chills and no other system apparently positive Yes all other systems are reviewed and are negative PMFSH Past Medical History Medical History (Updated 07/24/22 @ 16:49 by Ofelia Douglass MD) Anxiety and depression COPD (chronic obstructive pulmonary disease) COPD (chronic obstructive pulmonary disease) Depression Fibromyalgia Glaucoma Hypercholesterolemia Hypertension Osteomyelitis Personal history of nicotine dependence Seizure disorder Tubular adenoma of colon Type 2 diabetes mellitus Type 2 diabetes mellitus with diabetic neuropathy Surgical History Surgical History H/O colonoscopy History of cervical discectomy History of eye surgery Social History Social History Patient Tobacco Use Status: Current everyday Tobacco user Tobacco use type: Cigarette Cigarette Packs Per Day: 1 Cigarettes Per Day: 20.0 Years Smoked: onset 22 - 1ppd x 29yrs, 29pyh Second Hand Smoke Exposure: Yes Substance Use Type: Marijuana Advance Directives: No Advance Directives Information Provided: No Meds Allergies Allergy/AdvReac Type Severity Reaction Status Date / Time shellfish derived Allergy Severe ANAPHYLAXIS Unverified 06/10/20 16:37 [SHELLFISH DERIVED] buspirone [From BUSPAR] Allergy Unknown nausea Unverified 06/10/20 16:37 bupropion [From WELLBUTRIN] AdvReac Unknown NAUSEA Unverified 06/10/20 16:37 seafood Allergy Unknown Uncoded 10/14/19 00:00 Active Medications: Current Medications Heparin Sodium (Porcine) (Heparin Sodium,Porcine 5,000 Unit/Ml Vial) 5,000 unit SUBCUT Q8H ISAIAH Hydromorphone HCl (Hydromorphone Hcl 1 Mg/Ml Syringe) 0.5 mg IVPUSH Q6H PRN; Protocol PRN Reason: Pain, Severe (Pain Scale 7-10) Magnesium Sulfate (Magnesium Sulfate/H2o) 2 gm in 50 mls @ 25 mls/hr IV ONCE ONE Stop: 07/24/22 17:19 Last Admin: 07/24/22 15:39 Dose: 25 mls/hr Potassium Chloride/Sodium Chloride (Kcl 40 Meq In 0.9 % Sodium Chl) 40 meq in 1,000 mls @ 125 mls/hr IVCONT .Q8H ISAIAH Insulin Human Lispro (Insulin Lispro 100 Unit/Ml 3 Ml Vial) 0 unit SUBCUT QIDACHS ISAIAH; Protocol Home Medications Medication Instructions Recorded Confirmed Last Taken Type amlodipine 5 mg tablet 1 tab PO DAILY 02/16/22 02/16/22 Unknown History budesonide 160 mcg-glycopyr 9 2 puff inhalation BID 02/16/22 02/16/22 Unknown History mcg-formot 4.8 mcg/actuation HFA inhaler (Breztri Aerosphere) dorzolamide 22.3 mg-timolol 6.8 1 drp ophthalmic (eye) BID 02/16/22 02/16/22 Unknown History mg/mL eye drops gabapentin 400 mg capsule 1 cap PO TID 02/16/22 02/17/22 02/17/22 History lisinopril 20 1 tab PO DAILY 05/26/22 05/27/22 05/27/22 History mg-hydrochlorothiazide 25 mg tablet Physical Exam Vital Signs: Vital Signs: Last Vital Signs Temp 98 F 07/24/22 13:57 Pulse 80 07/24/22 15:50 Resp 20 07/24/22 15:50 BP 117/73 07/24/22 15:50 Pulse Ox 98 07/24/22 15:50 O2 Del Method 07/24/22 15:50 BMI result Body Mass Index 30.7 awake alert oriented and nonfocal neurologically lungs clear without adventitious sounds bedside echo normal/hyperdynamic EKG with prolonged QT probable U wave due to hypokalemia abdomen soft no organomegaly left greater toe is covered with a bandage but there is no extended redness or warmth over his foot Results Labs CBC and Chem 7: 07/24/22 15:31 07/24/22 15:31 Labs: Laboratory Results - last 24 hr 07/24/22 07/24/22 07/24/22 15:31 15:31 15:31 MCV 81.3 MCH 30.8 MCHC 37.9 H RDW 11.9 Plt Count 230 MPV 10.1 Immature Gran % (Auto) 1.0 H Neut % (Auto) 88.7 H Lymph % (Auto) 3.1 L [place] % (Auto) 6.9 Eos % (Auto) 0.3 Baso % (Auto) 0.0 Lymph # (Auto) 0.1 L [place] # (Auto) 0.3 Eos # (Auto) 0.0 Baso # (Auto) 0.0 Abs Immat Gran (auto) 0.04 H Absolute Neuts (auto) 3.5 Absolute Nucleated RBC 0.000 Nucleated RBC % (auto) 0.0 Smear Tech's Comments VERIFIED PT 10.9 INR 1.0 VBG pH VBG pCO2 VBG pO2 VBG HCO3 VBG O2 Saturation VBG Base Excess Anion Gap 22 H Estim Creat Clear Calc 63.3 Estimated GFR 53 Random Glucose 153 H D Calcium 10.6 H D Magnesium 2.3 Total Bilirubin 2.6 H AST 70 H ALT 69 H Alkaline Phosphatase 104 D Total Protein 8.9 H D Albumin 5.5 H COVID-19 ([facility]Z MARIA) COVID-19 Clin Com 07/24/22 07/24/22 15:31 15:44 MCV MCH MCHC RDW Plt Count MPV Immature Gran % (Auto) Neut % (Auto) Lymph % (Auto) [place] % (Auto) Eos % (Auto) Baso % (Auto) Lymph # (Auto) [place] # (Auto) Eos # (Auto) Baso # (Auto) Abs Immat Gran (auto) Absolute Neuts (auto) Absolute Nucleated RBC Nucleated RBC % (auto) Smear Tech's Comments PT INR VBG pH 7.43 VBG pCO2 35 VBG pO2 36 VBG HCO3 24 VBG O2 Saturation 58.0 VBG Base Excess 0.7 Anion Gap Estim Creat Clear Calc Estimated GFR Random Glucose Calcium Magnesium Total Bilirubin AST ALT Alkaline Phosphatase Total Protein Albumin COVID-19 (LUZ MARIA) Negative COVID-19 Clin Com See Note Assessment and Plan (1) Osteomyelitis: Status: Acute (2) Personal history of nicotine dependence: Status: Acute (3) COPD (chronic obstructive pulmonary disease): Status: Acute (4) Acute kidney injury due to nephrotoxicity: Status: Acute (5) Hyponatremia: Status: Acute (6) Hypokalemia due to excessive renal loss of potassium: Status: Acute (7) Hypovolemia associated with diuresis: Status: Acute (8) Prolonged QT interval syndrome: Status: Acute (9) Type 2 diabetes mellitus: Status: Acute Plan this 52-year-old male with type 2 diabetes clearly has an acute kidney kidney injury I believe in part related to dehydration because of his appetite loss but I am sure that the either daptomycin or vancomycin is playing a role and as a result and because 1 of his medicines includes lisinopril and hydroch lorothiazide he is not just hypo volemic but clearly has lost electrolyte to a greater degree than then water loss needs to have of volume replacement initially preferentially with normal saline but due to profound hypokalemia and a prolonged QT interval on EKG potassium needs to be replaced aggressively as well and follow-up of renal function in the while withholding his antibiotic because of presumptive nephrotoxicity and then discuss with Infectious Disease possible alternative medicine if this is believed to have caused tubular injury
[2022-07-24 17:40] LABS: Acetone, serum QL Moderate (Negative)
[2022-07-24] MEDS: Heparin Sodium,Porcine 5,000 UNIT/ML VIAL 5000 UNIT SUBCUT (18:03)
[2022-07-24] MEDS: KCl 40 mEq in 0.9 % Sodium Chl 40 MEQ/1,000 ML IV.SOLN 125 MEQ IVCONT (18:26)
--- NOTE | 2022-07-24 18:46 | PHA.MEDREC ---
Pharmacy Consult ? Medication Reconciliation Pharmacy has completed the medication reconciliation.
[2022-07-24 20:42] LABS: Glucose, Whole Blood 115 mg/dL (60-115)
[2022-07-24 21:02] LABS: Anion Gap 18 (12-20); Blood Urea Nitrogen 24 mg/dL (9-16); Calcium 9.3 mg/dL (8.4-10.2); Carbon Dioxide 24 mmol/L (22-29); Chloride 77 mmol/L (96-108); Creatinine Clr Calc Pharmacy 89.1; Estimated Glomerular Filt Rate > 60; Glucose Random 101 mg/dL (60-115); Magnesium 2.7 mg/dL (1.6-2.6); Sodium 116 mmol/L (135-145)
[2022-07-24] MEDS: 0.9 % Sodium Chloride 1,000 ML 999 ML IV (21:31)
[2022-07-24 22:21] LABS: Appearance Urine Clear; Color Urine Dark Yellow; Glucose Urine UA Negative (Negative); Leukocyte Esterase Urine Negative (Negative); Nitrite Urine Negative (Negative); UMIC TRIGGER UACC YES; Urine Blood Negative (Negative); Urine Ketones 40 mg/dL (Negative); Urine Protein 30 (1+) mg/dL (Neg-Trace)
[2022-07-24 22:26] LABS: Bacteria Urine None Seen (None Seen); Hyaline Casts Urine 0-2 /LPF (0-2); RBC Urine 0-2 /HPF (0-2); WBC Urine 0-5 /HPF (0-5)
[2022-07-25] VITALS (13 sets, daily range): BP systolic 98–122; BP diastolic 55–69; PULSE 62–89; RESP 12–20; TEMP 36.3–36.8; O2SAT 95–99; BMI 29.9
[2022-07-25] MEDS: HYDROmorphone HCl 1 MG/ML SYRINGE 0.5 MG IVPUSH ×4 (00:36→21:20)
[2022-07-25] MEDS: Heparin Sodium,Porcine 5,000 UNIT/ML VIAL 5000 UNIT SUBCUT ×3 (00:54→17:50)
[2022-07-25 01:20] LABS: Alanine Aminotransferase 46 U/L (0-40); Alkaline Phosphatase 70 U/L (39-117); Anion Gap 17 (12-20); Aspartate Amino Transferase 51 U/L (5-37); Bilirubin Total 1.4 mg/dL (0.0-1.0); Blood Urea Nitrogen 22 mg/dL (9-16); Calcium 8.5 mg/dL (8.4-10.2); Carbon Dioxide 23 mmol/L (22-29); Chloride 82 mmol/L (96-108); Creatinine Clr Calc Pharmacy 106.7; Estimated Glomerular Filt Rate > 60; Glucose Random 91 mg/dL (60-115); Magnesium 2.2 mg/dL (1.6-2.6); Potassium 2.8 mmol/L (3.3-5.1); Sodium 119 mmol/L (135-145); Total Protein 6.3 g/dL (6.5-8.0)
[2022-07-25] MEDS: Pantoprazole Sodium 40 MG/10 ML VIAL IVPUSH (01:40)
[2022-07-25] MEDS: KCl 40 mEq in 0.9 % Sodium Chl 40 MEQ/1,000 ML IV.SOLN 125 MEQ IVCONT ×2 (01:42→15:14)
[2022-07-25 05:14] LABS: Basophils Absolute Auto 0.2 X10*3/uL (0.0-0.2); Eosinophils Absolute Auto 0.6 X10*3/uL (0.0-0.4); Eosinophils Percent Auto 3.5 % (0-4); Hematocrit 36.9 % (42.0-52.0); Imm Gran Abs Auto 0.09 X10*3/uL (0.00-0.03); Imm Gran Pct Auto 0.5 % (0.0-0.4); Lymphocytes Absolute Auto 2.1 X10*3/uL (1.2-4.9); Lymphocytes Percent Auto 12.7 % (20-40); Mean Corpuscular Volume 81.6 fL (80.0-98.0); Mean Platelet Volume 9.5 fL (9.4-12.4); Monocytes Absolute Auto 1.5 X10*3/uL (0.1-1.2); Neutrophils Absolute Auto 12.1 x10*3/uL (2.0-8.3); Neutrophils Percent Auto 73.3 % (45-73); Platelet Count 197 X10*3/uL (160-400); Red Blood Count 4.52 X10*6/uL (4.60-5.80); Red Cell Distribution Width 11.9 % (11.0-16.0); SCAN SMEAR FLAG 1; White Blood Count 16.5 X10*3/uL (4.8-10.8)
[2022-07-25 05:40] LABS: Alanine Aminotransferase 43 U/L (0-40); Albumin Level 3.8 g/dL (3.5-5.0); Alkaline Phosphatase 67 U/L (39-117); Aspartate Amino Transferase 46 U/L (5-37); Bilirubin Direct 0.7 mg/dL (0.0-0.5); Bilirubin Total 1.3 mg/dL (0.0-1.0); Blood Urea Nitrogen 20 mg/dL (9-16); Creatinine Clr Calc Pharmacy 115.3; Estimated Glomerular Filt Rate > 60; Glucose Random 82 mg/dL (60-115); Magnesium 2.1 mg/dL (1.6-2.6); Phosphorus 1.8 mg/dL (2.7-4.5)
[2022-07-25 05:41] LABS: Anion Gap 14 (12-20); Calcium 8.3 mg/dL (8.4-10.2); Carbon Dioxide 24 mmol/L (22-29); Chloride 85 mmol/L (96-108); Potassium 2.9 mmol/L (3.3-5.1); Sodium 121 mmol/L (135-145)
[2022-07-25 05:51] LABS: Hemoglobin 12.4 g/dl (14.0-18.0); MANUAL DIFF FLAG SCAN; Mean Corpuscular HGB Conc 33.6 g/dl (31.0-36.0); Mean Corpuscular Hemoglobin 27.4 pg (27.0-33.0)
[2022-07-25 05:52] LABS: SLIDE REVIEW VERIFIED
[2022-07-25] MEDS: Potassium Chloride Packet 20 MEQ PACKET 40 MEQ PO (06:45)
[2022-07-25] MEDS: Potassium Phosphate/NS 15 MMOL/250 ML PLAST..BAG 62.5 MMOL IV (06:48)
[2022-07-25 07:43] LABS: Glucose, Whole Blood 83 mg/dL (60-115)
--- NOTE | 2022-07-25 08:44 | PM.CCPN ---
Subjective Subjective Date of Service: 07/25/22 Interval History: 52-year-old male type 2 diabetic and hypertensive who is now 1 month into treatment with daptomycin via PICC line for a right big toe osteomyelitis presents with anorexia for several days with poor p.o. intake but continued use of antihypertensive and diuretic medication and has mild rhabdomyolysis with CPK of 1200 and acute renal insufficiency a lot of constitutional issues with borderline blood pressure but marked hypokalemia and hyponatremia and without and altered mental status bedside echo showing normal LV and RV function with no primary valve or pericardial disease and flat inferior vena cava so clearly he was hypovolemic in the face of the hyponatremia and needed replacement of of volume in as well of course as a increase in his serum sodium and so fluids was to was chosen to replace both potassium as well as sodium and in in the form of normal saline 0.9% and in having done so his sodium increased from 10/06 to currently 121 with marked subjective improvement in overall status and able now to eat with good p.o. intake and because he was on a toward the statin I fear that that could also be related to the and elevated CPK so I would recommend withholding statin drugs as we continue to hydrate as his sodium renal or mellitus no diabetic complications he was neither hyperosmolar nor ketoacidotic and the other concern was because of some peripheral eosinophilia along with the acute renal injury is whether not this could be antibiotic related some form fruste of DRESS syndrome and thus far responding to rehydration but IA and withholding the antibiotic pending review by Infectious Disease because if they have concerns about this representing a reaction to medication medicines might have to be reviewed for what began as a methicillin-resistant Staph aureus infection in my history, interestingly enough, he I asked in the circumstances of how he obtained a wound which was already an open sore on the bottom of the big toe but he was fishing and had his shoes off and he was standing on [place] muddy [place] of the [place] raising questions about the no the potential mixed bag of organisms he might have picked up not just simply these Staph itself and I think that was an issue that if it is felt that he is only being partially treated might be reviewed again with Infectious Disease Critical Care Time (minutes): 35 Physical Exam Vital Signs: Vital Signs: Last Vital Signs Temp 97.8 F 07/25/22 08:00 Pulse 68 07/25/22 08:00 Resp 18 11/01/22 08:00 BP 110/62 07/25/22 08:00 Pulse Ox 99 07/25/22 08:00 O2 Del Method 07/25/22 08:00 BMI result Body Mass Index 29.9 doing very much better much brighter more alert without constitutional complaint adequate bilateral carotid upstrokes no bruits no neck vein distension chest percussing equally no adve ntitious sounds abdomen is soft no organomegaly peripheral scan Objective Data Labs CBC & Chem 7: 07/25/22 05:05 07/25/22 05:05 Labs: Laboratory Results - last 24 hr 07/24/22 07/24/22 07/24/22 15:31 15:31 15:31 WBC 19.5 H RBC 5.35 Hgb 16.5 Hct 43.5 MCV 81.3 MCH 30.8 MCHC 37.9 H RDW 11.9 Plt Count 230 MPV 10.1 Immature Gran % (Auto) 1.0 H Neut % (Auto) 88.7 H Lymph % (Auto) 3.1 L [place] % (Auto) 6.9 Eos % (Auto) 0.3 Baso % (Auto) 0.0 Lymph # (Auto) 0.1 L [place] # (Auto) 0.3 Eos # (Auto) 0.0 Baso # (Auto) 0.0 Abs Immat Gran (auto) 0.04 H Absolute Neuts (auto) 3.5 Absolute Nucleated RBC 0.000 Nucleated RBC % (auto) 0.0 Smear Tech's Comments VERIFIED PT 10.9 INR 1.0 VBG pH VBG pCO2 VBG pO2 VBG HCO3 VBG O2 Saturation VBG Base Excess Sodium 116 L* Potassium 2.8 L D Chloride 70 L Carbon Dioxide 27 Anion Gap 22 H BUN 24 H D Creatinine 1.42 H Estim Creat Clear Calc 63.3 Estimated GFR 53 POC Glucose Random Glucose 153 H D Calcium 10.6 H D Phosphorus Magnesium 2.3 Total Bilirubin 2.6 H Direct Bilirubin AST 70 H ALT 69 H Alkaline Phosphatase 104 D Total Creatine Kinase 781 H D Total Protein 8.9 H D Albumin 5.5 H Urine Color Urine Appearance Urine pH Ur Specific [place] Urine Protein Urine Glucose (UA) Urine Ketones Urine Blood Urine Nitrite Ur Leukocyte Esterase Urine RBC Urine WBC Ur Squamous Epith Cells Urine Bacteria Hyaline Casts Acetone, Qual Moderate H COVID-19 (LUZ MARIA) COVID-19 Clin Com 07/24/22 07/24/22 07/24/22 15:31 15:44 20:24 WBC RBC Hgb Hct MCV MCH MCHC RDW Plt Count MPV Immature Gran % (Auto) Neut % (Auto) Lymph % (Auto) [place] % (Auto) Eos % (Auto) Baso % (Auto) Lymph # (Auto) [place] # (Auto) Eos # (Auto) Baso # (Auto) Abs Immat Gran (auto) Absolute Neuts (auto) Absolute Nucleated RBC Nucleated RBC % (auto) Smear Tech's Comments PT INR VBG pH 7.43 VBG pCO2 35 VBG pO2 36 VBG HCO3 24 VBG O2 Saturation 58.0 VBG Base Excess 0.7 Sodium 116 L* Potassium 3.0 L Chloride 77 L Carbon Dioxide 24 Anion Gap 18 BUN 24 H Creatinine 0.97 Estim Creat Clear Calc 89.1 Estimated GFR > 60 POC Glucose Random Glucose 101 Calcium 9.3 D Phosphorus 3.0 Magnesium 2.7 H Total Bilirubin Direct Bilirubin AST ALT Alkaline Phosphatase Total Creatine Kinase 668 H Total Protein Albumin Urine Color Urine Appearance Urine pH Ur Specific [place] Urine Protein Urine Glucose (UA) Urine Ketones Urine Blood Urine Nitrite Ur Leukocyte Esterase Urine RBC Urine WBC Ur Squamous Epith Cells Urine Bacteria Hyaline Casts Acetone, Qual COVID-19 (LUZ MARIA) Negative COVID-19 [employer] See Note 07/24/22 07/24/22 07/25/22 20:38 Unknown 00:51 WBC RBC Hgb Hct MCV MCH MCHC RDW Plt Count MPV Immature Gran % (Auto) Neut % (Auto) Lymph % (Auto) [place] % (Auto) Eos % (Auto) Baso % (Auto) Lymph # (Auto) [place] # (Auto) Eos # (Auto) Baso # (Auto) Abs Immat Gran (auto) Absolute Neuts (auto) Absolute Nucleated RBC Nucleated RBC % (auto) Smear Tech's Comments PT INR VBG pH VBG pCO2 VBG pO2 VBG HCO3 VBG O2 Saturation VBG Base Excess Sodium 119 L* Potassium 2.8 L Chloride 82 L Carbon Dioxide 23 Anion Gap 17 BUN 22 H Creatinine 0.81 Estim Creat Clear Calc 106.7 Estimated GFR > 60 POC Glucose 115 Random Glucose 91 Calcium 8.5 D Phosphorus Magnesium 2.2 Total Bilirubin 1.4 H Direct Bilirubin AST 51 H ALT 46 H Alkaline Phosphatase 70 D Total Creatine Kinase 611 H Total Protein 6.3 L D Albumin 4.0 D Urine Color Dark Yellow Urine Appearance Clear Urine pH 7.0 Ur Specific [place] 1.020 Urine Protein 30 (1+) H Urine Glucose (UA) Negative Urine Ketones 40 Urine Blood Negative Urine Nitrite Negative Ur Leukocyte Esterase Negative Urine RBC 0-2 Urine WBC 0-5 Ur Squamous Epith Cells 3-5 Urine Bacteria None Seen Hyaline Casts 0-2 Acetone, Qual COVID-19 ([facility] MARIA) COVID-19 Clin Com 07/25/22 07/25/22 07/25/22 05:05 05:05 07:40 WBC 16.5 H RBC 4.52 L Hgb 12.4 L D Hct 36.9 L MCV 81.6 MCH 27.4 MCHC 33.6 RDW 11.9 Plt Count 197 MPV 9.5 Immature Gran % (Auto) 0.5 H Neut % (Auto) 73.3 H Lymph % (Auto) 12.7 L [place] % (Auto) 9.0 Eos % (Auto) 3.5 Baso % (Auto) 1.0 Lymph # (Auto) 2.1 [place] # (Auto) 1.5 H Eos # (Auto) 0.6 H Baso # (Auto) 0.2 Abs Immat Gran (auto) 0.09 H Absolute Neuts (auto) 12.1 H Absolute Nucleated RBC 0.000 Nucleated RBC % (auto) 0.0 Smear Tech's Comments VERIFIED PT INR VBG pH VBG pCO2 VBG pO2 VBG HCO3 VBG O2 Saturation VBG Base Excess Sodium 121 L Potassium 2.9 L Chloride 85 L Carbon Dioxide 24 Anion Gap 14 BUN 20 H Creatinine 0.75 Estim Creat Clear Calc 115.3 Estimated GFR > 60 POC Glucose 83 Random Glucose 82 Calcium 8.3 L Phosphorus 1.8 L Magnesium 2.1 Total Bilirubin 1.3 H Direct Bilirubin 0.7 H AST 46 H ALT 43 H Alkaline Phosphatase 67 Total Creatine Kinase 506 H Total Protein 6.0 L Albumin 3.8 Urine Color Urine Appearance Urine pH Ur Specific [place] Urine Protein Urine Glucose (UA) Urine Ketones Urine Blood Urine Nitrite Ur Leukocyte Esterase Urine RBC Urine WBC Ur Squamous Epith Cells Urine Bacteria Hyaline Casts Acetone, Qual COVID-19 ([facility] MARIA) COVID-19 Clin Com Progress Note: A&P Assessment and plan (1) Severe dehydration: Status: Acute (2) TIM (acute kidney injury): Status: Acute (3) Rhabdomyolysis: Status: Acute (4) Hyponatremia: Status: Acute (5) Hypokalemia: Status: Acute (6) Type 2 diabetes mellitus: Status: Acute (7) Prolonged QT interval syndrome: Status: Acute (8) Hypovolemia associated with diuresis: Status: Acute (9) Hypokalemia due to excessive renal loss of potassium: Status: Acute (10) Hyponatremia: Status: Acute (11) Acute kidney injury due to nephrotoxicity: Status: Acute (12) COPD (chronic obstructive pulmonary disease): Status: Acute (13) Osteomyelitis: Status: Acute Plan so the plan is to continue the in with potassium replacement allow him to eat and withhold antibiotic pending discussion with the Infectious Disease in in case they agree that this potentially could be contributed to by the existing antibiotic in addition because the elevated CPK which is improving now with rehydration as is the acute renal insufficiency I would withhold a tore the statin and any statin in case it contributed Quality Stroke Does the patient have a stroke diagnosis?: No VTE Prior VTE?: No VTE Risk Level:: Medical - moderate - high VTE Device Contraindication: N/A - Device Ordered VTE Drug Contraindication: N/A - Med Ordered
--- NOTE | 2022-07-25 10:46 | PM.EVENT ---
Event Note Date of Service: 07/25/22 Event Note: ICU transfer, discussed with Dr. Douglass Osteomyelitis Previous treatment with daptomycin for 4 weeks Rhabdomyolysis CPK 1200 Hold statin Hyponatremia Secondary to hypovolemia /dehydration and poor oral intake Continue IV fluids Hypokalemia Likely related to hypovolemia /dehydration and poor oral intake replete Hypophosphatemia Same as above Replete TIM. Resolved with IV fluids Diabetes mellitus Sliding scale, ADA diet COPD. No exacerbation Hypertension Hold antihypertensives for soft blood pressures Smoker Offered nicotine replacement Encouraged to stop smoking
[2022-07-25 11:32] LABS: Glucose, Whole Blood 113 mg/dL (60-115)
--- NOTE | 2022-07-25 11:34 | MHC.CM.PN ---
Met with pt who was slightly agitated by the continuous line of people coming to his room to ask questions. Pt states he resides alone, is independent, drives and has no barriers to care. He is active with [facility] for IV ATB (he self administers) - he states an RN comes 1x weely to change the PICC dressing and monitor the site. Pt is vaccinated x 1, declines completing HCP and states he will drive self home as his car is in the ED lot. Re-referred to [facility] for continuation of home IV services.
--- NOTE | 2022-07-25 14:20 | W.PM.IDCN ---
History of Present Illness Data of Consult Service Date: 07/25/22 Requesting physician: Ashley Byrne Primary Care Provider: Martine Mike MD HPI Reason for consult: electrolyte disturbance,muscle weakness He presents to hospital with weakness and nausea and inability to take po for last week. He reports being week four of six of IV Daptomycin for left great toe osteomyelitis. He was seen by ICU and is feeling better now. He has had elevated CPK to 500s. Daptomycin is held Review of Systems Review of Systems: Yes all other systems are reviewed and are negative PMFSH Past Medical History Medical History Anxiety and depression COPD (chronic obstructive pulmonary disease) COPD (chronic obstructive pulmonary disease) Depression Fibromyalgia Glaucoma Hypercholesterolemia Hypertension Osteomyelitis Personal history of nicotine dependence Seizure disorder Tubular adenoma of colon Type 2 diabetes mellitus Type 2 diabetes mellitus with diabetic neuropathy Family History Family History Mother Lung cancer metastatic to brain Family history: reviewed and not pertinent Surgical History Surgical History H/O colonoscopy History of cervical discectomy History of eye surgery Social History Social History Household Members: None Housing: Apartment Do you presently have visiting nurse or other home services: Yes Patient Tobacco Use Status: Current someday Tobacco user Tobacco use type: Cigarette Cigarette Packs Per Day: 1 Cigarettes Per Day: 30 Years Smoked: onset 22 - 1ppd x 29yrs, 29pyh Smoked in Last 30 Days: Yes e-Cigarette/Vaping Use: Never Used Patient Interested in Nicotine Replacement: Yes Patient Given Instructions on How to Stop Smoking: No Second Hand Smoke Exposure: Yes Use of substances other than those prescribed or required for medical reasons: Yes Substance Use Type: Marijuana Substance Use Frequency: Daily Last Used Substance: Weeks (ago) Last Used Substance Other:: 1 Currently Displaying Signs/Symptoms of Drug Intoxication Withdrawal: No Any prior treatment program specific to substance use: No Have you been hit, kicked, punched, or otherwise hurt by someone within the past year? If so, by whom?: No Do you feel safe in your current relationship?: No Is there a partner from a previous relationship who is making you feel unsafe now?: No Are you made to feel afraid or neglected: No Advance Directives: No Advance Directives Information Provided: No Advance Directives on File: No Healthcare Proxy: No Suicidal Behavior: History of suicide attemps Current/Past Psychiatric Disorders: PTSD Rosario Symptoms: Anxiety and Panic Access to Firearms: No Do you have thoughts of harming others: None Do you have a plan to hurt others: No Plan Do you have the means to hurt others: No Recently lost weight without trying: Yes How much weight loss: 14-23 pounds Eating poorly because of decreased appetite: Yes Nutrition screen score: 5 Nutrition Risks: Poor intake 0-25% >4 days Poor oral hygiene: Yes service: No Current occupational status: disabled Current occupational exposures/hazards: No Meds Allergies Allergy/AdvReac Type Severity Reaction Status Date / Time shellfish derived Allergy Severe ANAPHYLAXIS Unverified 06/10/20 16:37 [SHELLFISH DERIVED] buspirone [From BUSPAR] Allergy Unknown nausea Unverified 06/10/20 16:37 bupropion [From WELLBUTRIN] AdvReac Unknown NAUSEA Unverified 06/10/20 16:37 seafood Allergy Unknown Uncoded 10/14/19 00:00 Active Medications: Current Medications Heparin Sodium (Porcine) (Heparin Sodium,Porcine 5,000 Unit/Ml Vial) 5,000 unit SUBCUT Q8H [facility] Last Admin: 07/25/22 07:50 Dose: 5,000 unit Hydromorphone HCl (Hydromorphone Hcl 1 Mg/Ml Syringe) 0.5 mg IVPUSH Q6H PRN; Protocol PRN Reason: Pain, Severe (Pain Scale 7-10) Last Admin: 07/25/22 07:49 Dose: 0.5 mg Potassium Chloride/Sodium Chloride (Kcl 40 Meq In 0.9 % Sodium Chl) 40 meq in 1,000 mls @ 125 mls/hr IVCONT .Q8H [facility] Last Infusion: 07/25/22 12:35 Dose: 125 mls/hr Insulin Human Lispro (Insulin Lispro 100 Unit/Ml 3 Ml Vial) 0 unit SUBCUT QIDACHS [facility]; Protocol Last Admin: 07/25/22 11:30 Dose: Not Given Home Medications Medication Instructions Recorded Confirmed Last Taken Type amlodipine 5 mg tablet 1 tab PO DAILY 02/16/22 07/24/22 07/24/22 History budesonide 160 mcg-glycopyr 9 2 puff inhalation BID 02/16/22 07/24/22 Unknown History mcg-formot 4.8 mcg/actuation HFA inhaler (Breztri Aerosphere) dorzolamide 22.3 mg-timolol 6.8 1 drp ophthalmic (eye) BID 02/16/22 07/24/22 Unknown History mg/mL eye drops gabapentin 400 mg capsule 1 cap PO TID 02/16/22 07/24/22 02/17/22 History lisinopril 20 1 tab PO DAILY 02/16/22 07/24/22 07/24/22 History mg-hydrochlorothiazide 25 mg tablet atorvastatin 80 mg tablet 1 tab PO DAILY 07/24/22 07/24/22 Unknown History metformin 850 mg tablet 1 tab PO BID 07/24/22 07/24/22 Unknown History nicotine (polacrilex) 4 mg gum 4 mg PO Q2H PRN Withdrawal Symptoms 07/24/22 07/24/22 Unknown History nicotine 21 mg/24 hr daily 1 patch topical DAILY 07/24/22 07/24/22 Unknown History transdermal patch Physical Exam Vital Signs: Vital Signs: Last Vital Signs Temp 97.3 F 07/25/22 11:43 Pulse 75 07/25/22 11:43 Resp 18 07/25/22 11:43 BP 117/69 07/25/22 11:43 Pulse Ox 99 07/25/22 11:43 O2 Del Method 07/25/22 11:43 BMI result Body Mass Index 29.9 Const: General: cooperative HEENT: Head: Yes normal to inspection Face and sinus: Yes normal facial exam Mouth: Normal oral and palatal mucosa present Teeth and gingiva: dentition normal Eyes: General: appearance normal, both eyes and all related structures Pupils: Equal, round and reactive pupils present Resp: Effort & Inspection: normal respiratory effort Cardio: Rate: regular rate Rhythm: regular rhythm GI: Palpation (GI): Soft to palpation and nontender : General: Yes no CVA tenderness Back/Spine/Pelvis: Back: no CVA tenderness Skin: General skin exam: no rashes or lesions noted Neuro: General: moves all extremities Cranial nerves: Yes Equal, round and reactive pupils present Extrem: Other: pinpoint healing ulcer plantar left first toe Psych: Appearance: grossly normal Results Labs CBC & Chem 7: 07/25/22 05:05 07/25/22 05:05 Labs: Short CBC 07/24/22 07/25/22 Range/Units 15:31 05:05 WBC 19.5 H 16.5 H (4.8-10.8) X10*3/uL Hgb 16.5 12.4 L D (14.0-18.0) g/dl Hct 43.5 36.9 L (42.0-52.0) % Plt Count 230 197 (160-400) X10*3/uL BMP 07/24/22 07/24/22 07/25/22 15:31 20:24 00:51 Sodium 116 L* 116 L* 119 L* Potassium 2.8 L D 3.0 L 2.8 L Chloride 70 L 77 L 82 L Carbon Dioxide 27 24 23 BUN 24 H D 24 H 22 H Creatinine 1.42 H 0.97 0.81 Calcium 10.6 H D 9.3 D 8.5 D 07/25/22 05:05 Sodium 121 L Potassium 2.9 L Chloride 85 L Carbon Dioxide 24 BUN 20 H Creatinine 0.75 Calcium 8.3 L Cardiac Enzymes 07/24/22 07/24/22 07/25/22 Range/Units 15:31 20:24 00:51 Total Creatine Kinase 781 H D 668 H 611 H (38-174) U/L 07/25/22 Range/Units 05:05 Total Creatine Kinase 506 H (38-174) U/L Liver Function 07/24/22 07/25/22 07/25/22 Range/Units 15:31 00:51 05:05 Total Bilirubin 2.6 H 1.4 H 1.3 H (0.0-1.0) mg/dL Direct Bilirubin 0.7 H (0.0-0.5) mg/dL AST 70 H 51 H 46 H (5-37) U/L ALT 69 H 46 H 43 H (0-40) U/L Alkaline Phosphatase 104 D 70 D 67 (39-117) U/L Albumin 5.5 H 4.0 D 3.8 (3.5-5.0) g/dL Urine 07/24/22 Range/Units Unknown Urine Color Dark Yellow Urine Appearance Clear Urine pH 7.0 (5.0-9.0) Ur Specific [place] 1.020 (1.005-1.025) Urine Protein 30 (1+) H (Neg-Trace) mg/dL Urine Glucose (UA) Negative (Negative) mg/dL Assessment and Plan (1) Severe dehydration: Status: Acute (2) Rhabdomyolysis: Status: Acute (3) Hyponatremia: Status: Acute (4) Hypokalemia: Status: Acute (5) Prolonged QT interval syndrome: Status: Acute (6) Osteomyelitis: Qualifiers: Osteomyelitis type: subacute Status: Acute He has been on Daptomycin for treatment of osteomyelitis. He has probable elevated CK and hyponatremia and hypokalemia Foot looks improved Plan Would stop Daptomycin,label adverse reaction and finish treatment with po Doxycycline for a month Follow Wound Clinic as small wound still remains
[2022-07-25 15:32] LABS: Glucose, Whole Blood 86 mg/dL (60-115)
[2022-07-25 20:09] LABS: Glucose, Whole Blood 135 mg/dL (60-115)
[2022-07-26] VITALS (7 sets, daily range): BP systolic 108–135; BP diastolic 65–81; PULSE 66–78; RESP 16–20; TEMP 36.1–37.1; O2SAT 96–100; BMI 29.7; BMI 29.8
[2022-07-26] MEDS: Heparin Sodium,Porcine 5,000 UNIT/ML VIAL 5000 UNIT SUBCUT ×3 (00:02→15:53)
[2022-07-26] MEDS: KCl 40 mEq in 0.9 % Sodium Chl 40 MEQ/1,000 ML IV.SOLN 125 MEQ IVCONT ×2 (00:03→08:54)
[2022-07-26 07:48] LABS: Glucose, Whole Blood 81 mg/dL (60-115)
[2022-07-26] MEDS: HYDROmorphone HCl 1 MG/ML SYRINGE 0.5 MG IVPUSH ×2 (08:56→18:24)
[2022-07-26 09:58] LABS: Alanine Aminotransferase 41 U/L (0-40); Albumin Level 3.9 g/dL (3.5-5.0); Alkaline Phosphatase 67 U/L (39-117); Anion Gap 12 (12-20); Aspartate Amino Transferase 40 U/L (5-37); Bilirubin Direct 0.5 mg/dL (0.0-0.5); Bilirubin Total 1.1 mg/dL (0.0-1.0); Blood Urea Nitrogen 10 mg/dL (9-16); Calcium 8.4 mg/dL (8.4-10.2); Carbon Dioxide 28 mmol/L (22-29); Chloride 88 mmol/L (96-108); Creatinine Clr Calc Pharmacy 134.5; Estimated Glomerular Filt Rate > 60; Glucose Random 86 mg/dL (60-115); Magnesium 1.8 mg/dL (1.6-2.6); Potassium 3.5 mmol/L (3.3-5.1); Sodium 124 mmol/L (135-145); Total Protein 6.1 g/dL (6.5-8.0)
[2022-07-26 11:12] LABS: Glucose, Whole Blood 120 mg/dL (60-115)
--- NOTE | 2022-07-26 11:28 | HO.PM.IMPN ---
Subjective Subjective Date of Service: 07/26/22 Physical Exam Vital Signs: Vital Signs: Last Vital Signs Temp 97.4 F 07/26/22 11:03 Pulse 68 07/26/22 11:03 Resp 18 07/26/22 11:03 BP 116/74 07/26/22 11:03 Pulse Ox 99 07/26/22 11:03 O2 Del Method 07/26/22 11:03 FiO2 99 07/25/22 20:00 BMI result Body Mass Index 29.8 Objective Data Active Medications Amlodipine Besylate (Amlodipine Besylate 5 Mg Tablet) 5 mg PO DAILY REPLACED BY [facility]; Protocol Daptomycin (Daptomycin 500 Mg/10 Ml Vial) 550 mg IV Q24H REPLACED BY [facility] Dorzolamide/Timolol (Dorzolamide/Timolo 2.23%/0.68% 10 Ml Drbtl) 1 drop EYE-BOTH BID REPLACED BY [facility] Gabapentin (Gabapentin 400 Mg Capsule) 400 mg PO TID REPLACED BY [facility] Heparin Sodium (Porcine) (Heparin Sodium,Porcine 5,000 Unit/Ml Vial) 5,000 unit SUBCUT Q8H REPLACED BY [facility] Last Admin: 07/26/22 09:01 Dose: 5,000 unit Documented By: GHAZALA Hydromorphone HCl (Hydromorphone Hcl 1 Mg/Ml Syringe) 0.5 mg IVPUSH Q6H PRN; Protocol PRN Reason: Pain, Severe (Pain Scale 7-10) Last Admin: 07/26/22 08:56 Dose: 0.5 mg Documented By: GHAZALA Potassium Chloride/Sodium Chloride (Kcl 40 Meq In 0.9 % Sodium Chl) 40 meq in 1,000 mls @ 125 mls/hr IVCONT .Q8H REPLACED BY [facility] Last Admin: 07/26/22 08:54 Dose: 125 mls/hr Documented By: GHAZALA Insulin Human Lispro (Insulin Lispro 100 Unit/Ml 3 Ml Vial) 0 unit SUBCUT QIDACHS REPLACED BY [facility]; Protocol Last Admin: 07/26/22 08:55 Dose: Not Given Documented By: GHAZALA Non-Admin Reason: No Insulin Coverage Non-Formulary Medication ([id number] [Breztri Aerosphere]) 2 puff INHALE BID REPLACED BY [facility] Labs CBC & Chem 7: 07/25/22 05:05 07/26/22 08:57 Labs: Laboratory Results - last 24 hr 07/25/22 07/25/22 07/25/22 11:28 15:27 20:06 Anion Gap Estim Creat Clear Calc Estimated GFR POC Glucose 113 86 135 H Random Glucose Calcium Magnesium Total Bilirubin Direct Bilirubin AST ALT Alkaline Phosphatase Total Protein Albumin 07/26/22 07/26/22 07/26/22 07:01 08:57 11:01 Anion Gap 12 Estim Creat Clear Calc 134.5 Estimated GFR > 60 POC Glucose 81 120 H Random Glucose 86 Calcium 8.4 Magnesium 1.8 Total Bilirubin 1.1 H Direct Bilirubin 0.5 AST 40 H ALT 41 H Alkaline Phosphatase 67 Total Protein 6.1 L Albumin 3.9 Assessment and Plan (1) Severe dehydration: Status: Acute Plan 52 year old man admitted to the ICU for severe dehydration from viral illness with electrolyte abnormalities. He was subsequently transfered to medical floor. Hyponatremia. Trending up 124 Secondary to hypovolemia /dehydration and poor oral intake from viral illness Continue IV fluids Hypokalemia Likely related to hypovolemia /dehydration and poor oral intake replete Hypophosphatemia Same as above Replete TIM.? Resolved with IV fluids Osteomyelitis Previous treatment with daptomycin for 4 weeks, continue Leukocytosis History of osteomyelitis, currently on daptomycin at home Rhabdomyolysis CPK 1200 Hold statin Diabetes mellitus Sliding scale, ADA diet COPD.? No exacerbation Hypertension Hold antihypertensives for soft blood pressures Smoker Offered nicotine replacement Encouraged to stop smoking DVT prophylaxis heparin Attending Dr. Manzano Full code Continue hospitalization for treatment dehydration and electrolyte abnormalities Quality Stroke Does the patient have a stroke diagnosis?: No VTE Prior VTE?: No VTE Risk Level:: Medical - moderate - high VTE Device Contraindication: N/A - Device Ordered VTE Drug Contraindication: N/A - Med Ordered
[2022-07-26] MEDS: Gabapentin 400 MG CAPSULE PO ×2 (12:28→22:45)
[2022-07-26] MEDS: amLODIPine Besylate 5 MG TABLET PO (12:28)
[2022-07-26] MEDS: DAPTOMYCIN IV (13:44)
[2022-07-26] MEDS: SODIUM CHLORIDE 0.9% IV (13:44)
--- NOTE | 2022-07-26 15:01 | MHC.CM.PN ---
Per MD rounds patient is not ready for discharge today. Patients requires continued management of lytes. DP home with resumption of IV ABX. [facility] and [facility] are following. Patient will self transport home.
[2022-07-26 16:16] LABS: Glucose, Whole Blood 105 mg/dL (60-115)
[2022-07-26 16:41] LABS: Glucose, Whole Blood 100 mg/dL (60-115)
[2022-07-26 20:13] LABS: Glucose, Whole Blood 104 mg/dL (60-115)
[2022-07-27] VITALS (7 sets, daily range): BP systolic 121–139; BP diastolic 76–85; PULSE 63–71; RESP 15–20; TEMP 36.1–36.8; O2SAT 96–99
[2022-07-27] MEDS: HYDROmorphone HCl 1 MG/ML SYRINGE 0.5 MG IVPUSH ×3 (02:35→23:31)
[2022-07-27] MEDS: Heparin Sodium,Porcine 5,000 UNIT/ML VIAL 5000 UNIT SUBCUT ×4 (02:35→23:31)
[2022-07-27 07:05] LABS: Anion Gap 14 (12-20); Blood Urea Nitrogen 7 mg/dL (9-16); Calcium 8.9 mg/dL (8.4-10.2); Carbon Dioxide 28 mmol/L (22-29); Chloride 90 mmol/L (96-108); Creatinine Clr Calc Pharmacy 130.5; Estimated Glomerular Filt Rate > 60; Glucose Random 98 mg/dL (60-115); Potassium 3.8 mmol/L (3.3-5.1); Sodium 128 mmol/L (135-145)
[2022-07-27 07:17] LABS: Glucose, Whole Blood 100 mg/dL (60-115)
[2022-07-27] MEDS: Gabapentin 400 MG CAPSULE PO ×3 (08:42→19:59)
[2022-07-27] MEDS: amLODIPine Besylate 5 MG TABLET PO (08:42)
[2022-07-27 09:33] LABS: Hematocrit 40.6 % (42.0-52.0); Hemoglobin 14.6 g/dl (14.0-18.0); Mean Corpuscular Hemoglobin 30.7 pg (27.0-33.0); Mean Corpuscular Volume 85.3 fL (80.0-98.0); Mean Platelet Volume 9.8 fL (9.4-12.4); Platelet Count 229 X10*3/uL (160-400); Red Blood Count 4.76 X10*6/uL (4.60-5.80); Red Cell Distribution Width 12.1 % (11.0-16.0); White Blood Count 11.2 X10*3/uL (4.8-10.8)
[2022-07-27 09:53] LABS: Phosphorus 1.9 mg/dL (2.7-4.5)
[2022-07-27 11:13] LABS: Glucose, Whole Blood 103 mg/dL (60-115)
--- NOTE | 2022-07-27 11:49 | MHC.CM.PN ---
Per ROUNDS discussion, Patient will dc to home on PO Doxy rather than IV ABT. CM will follow.
--- NOTE | 2022-07-27 14:11 | P.PNIM_ITS ---
Subjective Subjective Date of Service: 07/27/22 Interval History: Seen and examined this morning Follow-up for dehydration, hyponatremia Patient now able to tolerate p.o.. Denies abdominal pain, nausea, vomiting Review of Systems Review of Systems: Yes all other systems are reviewed and are negative Constitutional Constitutional: Denies chills and Denies fever(s) Cardiovascular Cardiovascular: Denies chest pain, Denies palpitations and Denies dyspnea Respiratory Respiratory: Denies cough and Denies dyspnea Gastrointestinal Gastrointestinal: Denies abdominal pain, Denies nausea and Denies vomiting Endocrine Endocrine: Denies palpitations Physical Exam Vital Signs: Vital Signs: Last Vital Signs Temp 98.2 F 07/27/22 07:30 Pulse 65 07/27/22 11:07 Resp 18 07/27/22 11:07 BP 125/85 07/27/22 11:07 Pulse Ox 99 07/27/22 11:07 O2 Del Method 07/27/22 11:07 FiO2 99 07/25/22 20:00 BMI result Body Mass Index 0.1 Const: General: cooperative, comfortable, alert and awake Nutritional Appearance: average body habitus Orientation/consciousness: patient oriented x3 Resp: Effort & Inspection: normal respiratory effort and able to speak in complete sentences Auscultation: clear to auscultation bilaterally Cardio: Rate: regular rate Heart sounds: S1 normal heart sound present and S2 normal heart sound present GI: Inspection: No distended Palpation (GI): Soft to palpation and nontender Neuro: General: patient oriented x3 and CN's II-XI intact bilaterally Extrem: General: Yes no pedal edema Objective Data Active Medications Amlodipine Besylate (Amlodipine Besylate 5 Mg Tablet) 5 mg PO DAILY [facility]; Protocol Last Admin: 07/27/22 08:42 Dose: 5 mg Documented By: OZ Dorzolamide/Timolol (Dorzolamide/Timolo 2.23%/0.68% 10 Ml Drbtl) 1 drop EYE- BOTH BID [facility] Last Admin: 07/27/22 08:44 Dose: Not Given Documented By: OZ Non-Admin Reason: Patient Refused Doxycycline Hyclate (Doxycycline Hyclate 100 Mg Tablet) 100 mg PO Q12H [facility] Last Admin: 07/27/22 08:42 Dose: 100 mg Documented By: OZ Gabapentin (Gabapentin 400 Mg Capsule) 400 mg PO TID [facility] Last Admin: 07/27/22 08:42 Dose: 400 mg Documented By: OZ Heparin Sodium (Porcine) (Heparin Sodium,Porcine 5,000 Unit/Ml Vial) 5,000 unit SUBCUT Q8H [facility] Last Admin: 07/27/22 08:43 Dose: 5,000 unit Documented By: OZ Hydromorphone HCl (Hydromorphone Hcl 1 Mg/Ml Syringe) 0.5 mg IVPUSH Q6H PRN; Protocol PRN Reason: Pain, Severe (Pain Scale 7-10) Last Admin: 07/27/22 02:35 Dose: 0.5 mg Documented By: JASON Insulin Human Lispro (Insulin Lispro 100 Unit/Ml 3 Ml Vial) 0 unit SUBCUT QIDACHS [facility]; Protocol Last Admin: 07/27/22 13:04 Dose: Not Given Documented By: OZ Non-Admin Reason: No Insulin Coverage Non-Formulary Medication (Sshfoanoxw-Wktseoco-Htnxajqvet [Breztri Aerosphere]) 2 puff INHALE BID [facility] Labs CBC & Chem 7: 07/27/22 08:40 07/27/22 05:49 Labs: Laboratory Results - last 24 hr 07/26/22 07/26/22 07/26/22 16:12 16:35 19:59 MCV MCH MCHC RDW Plt Count MPV Absolute Nucleated RBC Nucleated RBC % (auto) Anion Gap Estim Creat Clear Calc Estimated GFR POC Glucose 105 100 104 Random Glucose Calcium Phosphorus 07/27/22 07/27/22 07/27/22 05:49 07:13 08:40 MCV 85.3 MCH 30.7 MCHC 36.0 RDW 12.1 Plt Count 229 MPV 9.8 Absolute Nucleated RBC 0.000 Nucleated RBC % (auto) 0.0 Anion Gap 14 Estim Creat Clear Calc 130.5 Estimated GFR > 60 POC Glucose 100 Random Glucose 98 Calcium 8.9 Phosphorus 07/27/22 07/27/22 08:40 11:09 MCV MCH MCHC RDW Plt Count MPV Absolute Nucleated RBC Nucleated RBC % (auto) Anion Gap Estim Creat Clear Calc Estimated GFR POC Glucose 103 Random Glucose Calcium Phosphorus 1.9 L Assessment and Plan (1) Rhabdomyolysis: Status: Acute (2) TIM (acute kidney injury): Status: Acute (3) Hyponatremia: Status: Acute Plan 52 year old man admitted to the ICU for severe dehydration from viral illness with electrolyte abnormalities. He was subsequently transfered to medical floor. Hyponatremia. Trending up sodium 128 Secondary to hypovolemia /dehydration and poor oral intake Encourage po intake Hypokalemia Likely related to hypovolemia /dehydration and poor oral intake Improved follow levels Hypophosphatemia Same as above TIM.? Resolved with IV fluids Osteomyelitis Previous treatment with daptomycin for 4 weeks. seen by ID, recommend to d/c daptomycin and treat with 4 weeks of PO doxycycline Leukocytosis History of osteomyelitis, currently on daptomycin at home Rhabdomyolysis CPK 1200 Hold statin Diabetes mellitus Sliding scale, ADA diet COPD.? No exacerbation Hypertension Hold antihypertensives for soft blood pressures Smoker Offered nicotine replacement Encouraged to stop smoking DVT prophylaxis heparin Attending Dr. Manzano Full code Continue hospitalization for treatment dehydration and electrolyte abnormalities Quality Stroke Does the patient have a stroke diagnosis?: No VTE Prior VTE?: No VTE Risk Level:: Medical - moderate - high VTE Device Contraindication: N/A - Device Ordered VTE Drug Contraindication: N/A - Med Ordered
[2022-07-27 15:45] LABS: Glucose, Whole Blood 99 mg/dL (60-115)
[2022-07-27] MEDS: Nicotine 14 MG PATCH.TD24 TRANSDERMA (18:39)
[2022-07-27 20:15] LABS: Glucose, Whole Blood 135 mg/dL (60-115)
--- NOTE | 2022-07-28 | ECG_ITS ---
Test Reason : qtc check Blood Pressure : / mmHG Vent. Rate : 060 BPM Atrial Rate : 060 BPM P-R Int : 154 ms QRS Dur : 088 ms QT Int : 424 ms P-R-T Axes : 043 018 010 degrees QTc Int : 424 ms Normal sinus rhythm Low voltage QRS Intra-ventricular conduction delay Borderline ECG When compared with ECG of 24-JUL-2022 15:54, QT has shortened Referred By: Pricilla Shane Electronically Signed By:TONE VEGA MD
[2022-07-28 07:22] LABS: Glucose, Whole Blood 126 mg/dL (60-115)
[2022-07-28 07:42] VITALS: BP 137/88; PULSE 72; RESP 20; TEMP 36.6; O2SAT 98
[2022-07-28] MEDS: HYDROmorphone HCl 1 MG/ML SYRINGE 0.5 MG IVPUSH (08:22)
[2022-07-28] MEDS: Heparin Sodium,Porcine 5,000 UNIT/ML VIAL 5000 UNIT SUBCUT (08:23)
[2022-07-28] MEDS: amLODIPine Besylate 5 MG TABLET PO (08:23)
[2022-07-28] MEDS: Gabapentin 400 MG CAPSULE PO (08:23)
[2022-07-28] MEDS: Nicotine 14 MG PATCH.TD24 TRANSDERMA (08:24)
[2022-07-28 09:42] LABS: Anion Gap 16 (12-20); Blood Urea Nitrogen 10 mg/dL (9-16); Calcium 9.6 mg/dL (8.4-10.2); Carbon Dioxide 29 mmol/L (22-29); Chloride 92 mmol/L (96-108); Creatinine Clr Calc Pharmacy 83.7; Estimated Glomerular Filt Rate > 60; Glucose Random 102 mg/dL (60-115); Potassium 4.6 mmol/L (3.3-5.1); Sodium 132 mmol/L (135-145)
[2022-07-28 11:04] LABS: Glucose, Whole Blood 109 mg/dL (60-115)
[2022-07-28 11:25] VITALS: BP 126/86; PULSE 66; RESP 18; TEMP 36.4; O2SAT 99
--- NOTE | 2022-07-28 11:25 | PM.DS ---
DS: Providers Provider Date of Service: 07/28/22 Date of admission: 07/24/22 17:03 Date of discharge: 07/28/22 Primary care physician: Martine Mike MD Consults: 07/25/22 12:49 Consult to Infectious Diseases Routine Consulting Provider: Twila Arredondo Reason for consultation: hx of MSSA Has provider been notified: No Attending physician on discharge: Thomas Manzano Discharging clinician: Pricilla Shane DS: Diagnosis Discharge Diagnosis (1) Rhabdomyolysis: Status: Acute (2) TIM (acute kidney injury): Status: Acute (3) Hyponatremia: Status: Acute DS: Summary Hospital Course Hospital Course: From H&P on day of admission ?52-year-old type 2 diabetic with underlying COPD an active smoking who was fishing a little over a month ago standing in some muddy river water and already had an open wound on the bottom of his left 1st toe after that he developed a swelling and redness do a deep tissue infection was noted and MRI positive for osteomyelitis patient had been on vancomycin the no through a PICC line and apparently most recently daptomycin and developed anorexia and weakness and had this for several days presented today and was noted to be markedly hyponatremic remake and hypokalemic EKG with prolonged QT interval of 560 milliseconds probably in part because of AU wave but in sinus rhythm and said he had no cardiac history and only uses inhalers on a p.r.n. basis for his COPD which is not bad is no oxygen dependence and he was awake alert with no altered mental status no loss of consciousness no witnessed seizure activity etc. but has an elevated CPK as well as well as those electrolyte abnormalities and my bedside echo revealed excellent LV and RV function with no primary valve or pericardial disease and I hyperdynamic ventricle with a flat inferior vena cava so he clearly is markedly hypovolemic with a BUN and creatinine that are double his baseline so there is an acute kidney injury in part pre renal in all likelihood but in part potentially nephrotoxicity related to 1 of the above antibiotics either vancomycin or daptomycin Hyponatremia.?Sodium initially 113 on admission. Secondary to hypovolemia /dehydration and poor oral intake. Increased to 132 on day of discharge after receiving IVF. Hypokalemia Likely related to hypovolemia /dehydration and poor oral intake. improved with replacement and dehydration. Hypophosphatemia. Phosphorus still low. will discharge with two days or oral replacement and repeat levels early next week. TIM.? Resolved with IV fluids. lisinopril/HCTZ has been on hold. Blood pressure has remained stable. Recommend follow-up with PCP as outpatient. Osteomyelitis Previous treatment with daptomycin planned for 4 weeks. seen by ID, recommend to d/c daptomycin and consider rhabdo adverse event and treat with 2 more weeks of PO doxycycline. Should follow up with the wound care clinic for ongoing wound care Rhabdomyolysis. CPK initially 2966, has been trending down with IV fluid. Statin has been placed on hold. Continue to hold statin for the next 1 week and then can resume. Recommend outpatient follow-up with PCP Prolonged QTC. QT on day of admission was well over 500, likely secondary to electrolyte abnormalities. Repeat EKG today shows QTC improved for 24. Time Spent with Patient Time attestation: Total time spent providing and/or coordinating discharge services: Discharge coordination time: Greater than 30 minutes Quality: Safe Use of Opioids Does Pt have an Active Cancer Diagnosis on the Problem List?: No Quality: Stroke Does the patient have a stroke diagnosis?: No Physical Exam Vital Signs: Vital Signs: Last Vital Signs Temp 98 F 07/28/22 07:42 Pulse 72 07/28/22 07:42 Resp 20 07/28/22 07:42 BP 137/88 07/28/22 07:42 Pulse Ox 98 07/28/22 07:42 O2 Del Method 07/28/22 07:42 FiO2 99 07/25/22 20:00 BMI result Body Mass Index 0.1 Const: General: cooperative, comfortable, alert and awake Nutritional Appearance: average body habitus Orientation/consciousness: patient oriented x3 Resp: Effort & Inspection: normal respiratory effort and able to speak in complete sentences Auscultation: clear to auscultation bilaterally Cardio: Rate: regular rate Heart sounds: S1 normal heart sound present and S2 normal heart sound present GI: Inspection: No distended Palpation (GI): Soft to palpation and nontender Neuro: General: patient oriented x3 and CN's II-XI intact bilaterally Extrem: General: Yes no pedal edema DS: Data Data Completed and Pending Labs on day of discharge: Laboratory Results - last 24 hr 07/27/22 07/27/22 07/28/22 15:33 19:40 07:18 Sodium Potassium Chloride Carbon Dioxide Anion Gap BUN Creatinine Estim Creat Clear Calc Estimated GFR POC Glucose 99 135 H 126 H Random Glucose Calcium 07/28/22 07/28/22 08:39 10:59 Sodium 132 L Potassium 4.6 D Chloride 92 L Carbon Dioxide 29 Anion Gap 16 BUN 10 Creatinine 0.79 Estim Creat Clear Calc 83.7 Estimated GFR > 60 POC Glucose 109 Random Glucose 102 Calcium 9.6 D Discharge Plan Discharge Anticipated Discharge Date/Time: 07/28/22 12:05 Patient Disposition: Home, Self-Care Discharge Diagnosis: Hyponatremia hypokalemia prolonged QT Rhabdomyolysis Referrals: Martine Mike MD [Primary Care Provider] - 1 Week Twila Arredondo MD [Physician] - 2 Weeks Mandi Slade MD [Physician] - 1 Week Discharge Medications: New potassium, sodium phosphates [Phos-NaK] 280-160-250 mg powder in packet 1 packet PO QID Qty: 8 0RF doxycycline hyclate 100 mg tablet 100 mg PO BID 14 Days Qty: 28 0RF Continued amlodipine 5 mg tablet 1 tab PO DAILY dorzolamide-timolol 22.3-6.8 mg/mL drops 1 drp ophthalmic (eye) BID Breztri Aerosphere 160-9-4.8 mcg/actuation HFA aerosol inhaler 2 puff inhalation BID metformin 850 mg tablet 1 tab PO BID nicotine (polacrilex) 4 mg gum 4 mg PO Q2H PRN (Reason: Withdrawal Symptoms) nicotine 21 mg/24 hr patch 24 hour 1 patch topical DAILY gabapentin 800 mg Tablet 800 mg PO TID Held lisinopril-hydrochlorothiazide 20-25 mg tablet 1 tab PO DAILY Hold Instructions: BP stable off meds; follow up with PCP for blood pressure monitoring atorvastatin 80 mg tablet 1 tab PO DAILY Hold Instructions: hold for one week or until follow up with PCP Discontinued gabapentin 400 mg capsule 1 cap PO TID daptomycin 500 mg recon soln 352 mg IV Q24H 42 Days Qty: 42 0RF Rx Instructions: administer over 30 mins Discharge Orders: Discharge Order (Routine); Ordered 07/28/22 Ordered By: Pricilla Shane Activity on Discharge: As tolerated Stand Alone Forms: Patient Portal Discharge page Other Ambulatory Orders: Basic Metabolic Panel (Routine) Timeframe: [id number] Facility: [facility], [place] - Location: Laboratory Ordered By: Pricilla Shane Phosphorus (Routine) Timeframe: [id number] Facility: [facility], [place] - Location: Laboratory Ordered By: Pricilla Shane Care Plan Goals: see below Health Concerns: Low potassium, low phosphorus, low sodium levels TIM - kidney function has returned to normal Plan of Treatment: don't take atorvastatin for the next one week, then resume don't take HCTZ/Lisinopril until repeat labs obtained and follow up with PCP to eval blood pressure take phosphorus supplementation as prescribed and repeat labs early next week Daptomycin has been stopped. Take two more weeks of Doxycycline for osteomyelitis Call to schedule follow up in wound care clinic Call to schedule follow up with PCP Assessment: see discharge summary Discharge Date/Time: 07/28/22 15:20
--- NOTE | 2022-07-28 11:56 | PC.NURSE ---
Howard was removed per Pricilla Shane order. due to void 1700 - 1900
--- NOTE | 2022-07-28 13:07 | MHC.CM.PN ---
pt dcd home no skilled servceis ordered by
== END 2022-07-28 15:20 | disposition home or self-care (01) | DRG 699 ==
LOC: HO.ED 17:03 → HO.EDOVER 17:04 → HO.ICU 17:08 → HO.IMC 07-25 09:29
PROVIDERS: Nurse Practitioner Acute Care; Physician Assistant; Admitting Provider Internal Medicine Cardiovascular Disease; Emergency Provider Student in an Organized Health Care Education/Training Program; PCP Internal Medicine; Visit Provider Physician Assistant Medical
DX: N14.19 Nephropathy induced by other drugs, medicaments and biological substances (principal); E87.1 Hypo-osmolality and hyponatremia; M62.82 Rhabdomyolysis; M86.272 Subacute osteomyelitis, left ankle and foot; T36.8X5A Adverse effect of other systemic antibiotics, initial encounter; N17.9 Acute kidney failure, unspecified; J44.9 Chronic obstructive pulmonary disease, unspecified; E11.69 Type 2 diabetes mellitus with other specified complication; M79.7 Fibromyalgia; F17.210 Nicotine dependence, cigarettes, uncomplicated; E86.0 Dehydration; E87.6 Hypokalemia; E86.1 Hypovolemia; E83.39 Other disorders of phosphorus metabolism; I45.81 Long QT syndrome; Z71.6 Tobacco abuse counseling; Z20.822 Contact with and (suspected) exposure to COVID-19; Z91.013 Allergy to seafood; Z88.8 Allergy status to other drugs, medicaments and biological substances; Z79.84 Long term (current) use of oral hypoglycemic drugs; Z79.899 Other long term (current) drug therapy
CPT/HCPCS: 36415; 36573; 71045; 80048; 80053; 80076; 81001; 82009; 82248; 82550; 82803; 82947; 83735; 84100; 85025; 85027; 85610; 87635; 93005; 99284; C1758; J0878; J1170; J3475

== ENCOUNTER 2022-10-23 09:33 | Outpatient (REF) | payer MEDICARE, SELFPAY ==
[2022-10-23 10:28] LABS: MANUAL DIFF FLAG NO
[2022-10-23 10:42] LABS: Basophils Absolute Auto 0.2 X10*3/uL (0.0-0.2); Basophils Percent Auto 1.6 % (0-2); Eosinophils Absolute Auto 0.1 X10*3/uL (0.0-0.4); Hematocrit 41.4 % (42.0-52.0); Hemoglobin 14.6 g/dl (14.0-18.0); Imm Gran Abs Auto 0.02 X10*3/uL (0.00-0.03); Imm Gran Pct Auto 0.2 % (0.0-0.4); Lymphocytes Absolute Auto 1.8 X10*3/uL (1.2-4.9); Lymphocytes Percent Auto 19.8 % (20-40); Mean Corpuscular HGB Conc 35.3 g/dl (31.0-36.0); Mean Corpuscular Hemoglobin 32.4 pg (27.0-33.0); Mean Corpuscular Volume 91.8 fL (80.0-98.0); Monocytes Absolute Auto 0.7 X10*3/uL (0.1-1.2); Monocytes Percent Auto 8.1 % (2-11); Neutrophils Absolute Auto 6.3 x10*3/uL (2.0-8.3); Neutrophils Percent Auto 69.3 % (45-73); Platelet Count 245 X10*3/uL (160-400); Red Blood Count 4.51 X10*6/uL (4.60-5.80); Red Cell Distribution Width 12.2 % (11.0-16.0); White Blood Count 9.1 X10*3/uL (4.8-10.8)
[2022-10-23 11:15] LABS: Creatinine Urine 107.98 mg/dL; Microalbumin Urine < 5.0 mg/L
[2022-10-23 11:24] LABS: Alanine Aminotransferase 13 U/L (0-40); Albumin Level 4.4 g/dL (3.5-5.0); Alkaline Phosphatase 68 U/L (39-117); Anion Gap 13 (12-20); Aspartate Amino Transferase 16 U/L (5-37); Bilirubin Total 0.7 mg/dL (0.0-1.0); Blood Urea Nitrogen 10 mg/dL (9-16); Calcium 9.5 mg/dL (8.4-10.2); Carbon Dioxide 27 mmol/L (22-29); Chloride 100 mmol/L (96-108); Cholesterol 117 mg/dL; Estimated Glomerular Filt Rate > 60; Glucose Fasting 106 mg/dL (60-99); HDL Cholesterol 34 mg/dL; LDL Cholesterol Calculated 71 mg/dl; Potassium 3.9 mmol/L (3.3-5.1); Sodium 136 mmol/L (135-145); Total Protein 7.1 g/dL (6.5-8.0); Triglycerides 62 mg/dL
[2022-10-23 11:56] LABS: Folate 9.5 ng/mL (> or = 4.0); Prostate Specific Antigen Scr 0.39 ng/mL (<0.05-4.0); Vitamin B12 393 pg/mL (200-900)
== END 2022-10-23 09:34 | disposition home or self-care (01) ==
LOC: HO.10HDL 09:33
PROVIDERS: Visit Provider Internal Medicine
DX: Z00.00 Encounter for general adult medical examination without abnormal findings (principal); Z12.5 Encounter for screening for malignant neoplasm of prostate; E11.40 Type 2 diabetes mellitus with diabetic neuropathy, unspecified; E11.621 Type 2 diabetes mellitus with foot ulcer; F32.9 Major depressive disorder, single episode, unspecified; I10 Essential (primary) hypertension; E78.00 Pure hypercholesterolemia, unspecified
CPT/HCPCS: 36415; 80053; 80061; 82043; 82607; 82746; 84153; 85025

== ENCOUNTER 2022-12-25 13:19 | Inpatient (IN) | payer MEDICARE, SELFPAY ==
--- NOTE | ~2022-12-25 | XR_ITS ---
EXAMINATION: XR TOES, LEFT CLINICAL INFORMATION: Great toe osteomyelitis COMPARISON: 04/12/2022 TECHNIQUE: 3 views of the left toes were obtained. FINDINGS: There is chronic deformity of the distal aspect of the first digit proximal phalanx. Suspect subtle additional erosion at the head of the proximal phalanx medially. There is prominent plantar ulcer noted with soft tissue swelling. No acute fracture. Chronic healed fifth metatarsal fracture. No ankle joint effusion. Prominent heel spurs. XR/XR toe LT min 2V IMPRESSION: Prominent plantar ulcer at the first digit with soft tissue swelling. Suspect subtle erosion at the head of the first digit proximal phalanx medially. Osteomyelitis is a consideration. Consider MRI evaluation.
--- NOTE | ~2022-12-25 | US_ITS ---
EXAMINATION: US VENOUS ULTRASOUND WITH DOPPLER LOWER EXTREMITY, LEFT CLINICAL INFORMATION: Left lower extremity swelling. COMPARISON: None available. TECHNIQUE: Ultrasound of the deep veins is performed from the hip to the calf with compression sonography and color and pulse Doppler assessment. Spectral analysis with color-flow imaging is performed. FINDINGS: There is normal venous compression and respiratory variation and augmented flow. The visualized common femoral vein, superficial femoral vein, profunda femoral vein, popliteal vein, and the trifurcation region shows no evidence of deep venous thrombosis. No left popliteal cyst. Left inguinal lymph node measures up to 2.9 cm in long axis. No surrounding abnormality. The subcutaneous soft tissues are unremarkable. US/US venous duplex LE LT IMPRESSION: 1. No evidence for deep venous thrombosis in the visualized veins of the left lower extremity. 2. Mildly enlarged left inguinal lymph node is nonspecific, but demonstrates benign features and may be reactive. Correlate with physical exam. If these findings persist or enlarge, short-term repeat targeted soft tissue ultrasound can be performed as clinically indicated to assess for change.
--- NOTE | ~2022-12-25 | US_ITS ---
EXAMINATION: NONINVASIVE ASSESSMENT OF THE ARTERIES OF LEFT LOWER EXTREMITY Elan Draper MD CLINICAL INFORMATION: Nonhealing ulcer TECHNIQUE: Left lower extremity duplex ultrasound was performed with velocity measurements and waveform analysis in the common femoral arteries, profunda femoris arteries, proximal mid and distal superficial femoral arteries, popliteal arteries and tibial vessels. This study was performed only at rest. COMPARISON: None FINDINGS: Velocities in cm/sec and phasicity as well as the presence of plaque are reported below. LEFT LEG: Triphasic flow is noted throughout minimal plaque is present. Common Femoral: 136 Profunda Femoris: 63 Proximal SFA: 86 Mid SFA: 109 Distal SFA: 100 Popliteal: 1:15 Tibial: 96 US/US arterial duplex LE LT IMPRESSION: There is no evidence of any hemodynamically significant lower extremity arterial disease by pressure, waveform or duplex Doppler criteria at rest.
[2022-12-25 13:33] VITALS: BP 138/76; PULSE 87; RESP 18; TEMP 37.2; O2SAT 98; BMI 30.5
--- NOTE | 2022-12-25 13:33 | ED.GENADULT ---
HPI - General Adult General Chief complaint: Wound/Laceration <ANDREW Delgado - Last Filed: 12/25/22 16:34> Stated complaint: wound check <ANDREW Delgado - Last Filed: 12/25/22 16:34> Time Seen by Provider: 12/25/22 16:42 <ANDREW Delgado - Last Filed: 12/25/22 16:34> Source: patient <Kristal Iglesias MD - Last Filed: 12/25/22 17:02> Mode of arrival: ambulatory <Kristal Iglesias MD - Last Filed: 12/25/22 17:02> History of Present Illness HPI narrative: 52-year-old male with diabetes and worsening left great toe infection and associated left lower extremity redness and mild swelling with warmth. <Kristal Iglesias MD - Last Filed: 12/25/22 17:02> Related Data Home medications: Home Medications Medication Instructions Recorded Confirmed amlodipine 5 mg tablet 1 tab PO DAILY 02/16/22 07/24/22 budesonide 160 mcg-glycopyr 9 2 puff inhalation BID 02/16/22 07/24/22 mcg-formot 4.8 mcg/actuation HFA inhaler (Breztri Aerosphere) dorzolamide 22.3 mg-timolol 6.8 1 drp ophthalmic (eye) BID 02/16/22 07/24/22 mg/mL eye drops lisinopril 20 1 tab PO DAILY 02/16/22 07/24/22 mg-hydrochlorothiazide 25 mg tablet metformin 850 mg tablet 1 tab PO BID 07/24/22 07/24/22 nicotine (polacrilex) 4 mg gum 4 mg PO Q2H PRN Withdrawal Symptoms 07/24/22 07/24/22 nicotine 21 mg/24 hr daily 1 patch topical DAILY 07/24/22 07/24/22 transdermal patch gabapentin 800 mg tablet 800 mg PO TID 07/28/22 07/28/22 atorvastatin 40 mg tablet 40 mg PO DAILY 12/25/22 bupropion HCl 150 mg 24 hr tablet, 150 mg PO DAILY 12/25/22 extended release gabapentin 400 mg capsule 400 mg PO TID 12/25/22 <ANDREW Delgado - Last Filed: 12/25/22 16:34> Allergies/adverse reactions: Allergies Allergy/AdvReac Type Severity Reaction Status Date / Time shellfish derived Allergy Severe ANAPHYLAXIS Verified 12/25/22 13:32 [SHELLFISH DERIVED] buspirone [From BUSPAR] Allergy Unknown nausea Verified 12/25/22 13:32 bupropion [From WELLBUTRIN] AdvReac Unknown NAUSEA Verified 12/25/22 13:32 daptomycin AdvReac Muscle Pain Verified 12/25/22 13:32 seafood Allergy Unknown Unknown Uncoded 12/25/22 13:32 <ANDREW Delgado - Last Filed: 12/25/22 16:34> Review of Systems Review of Systems: Pertinent positives and negatives as stated in HPI <Kristal Iglesias MD - Last Filed: 12/25/22 17:02> PMFSH Past Medical History Source: nursing notes reviewed <Kristal Iglesias MD - Last Filed: 12/25/22 17:02> Medical History: Medical History Anxiety and depression COPD (chronic obstructive pulmonary disease) COPD (chronic obstructive pulmonary disease) Depression Fibromyalgia Glaucoma Hypercholesterolemia Hypertension Osteomyelitis Personal history of nicotine dependence Seizure disorder Tubular adenoma of colon Type 2 diabetes mellitus Type 2 diabetes mellitus with diabetic neuropathy <ANDREW Delgado - Last Filed: 12/25/22 16:34> Surgical History: Surgical History H/O colonoscopy History of cervical discectomy History of eye surgery <ANDREW Delgado - Last Filed: 12/25/22 16:34> Family History Family History: Family History Mother Lung cancer metastatic to brain <ANDREW Delagdo - Last Filed: 12/25/22 16:34> Social History Social History: Social History Household Members: None Housing: Apartment Do you presently have visiting nurse or other home services: Yes Patient Tobacco Use Status: Current someday Tobacco user Tobacco use type: Cigarette Cigarette Packs Per Day: 1 Cigarettes Per Day: 30 Years Smoked: onset 22 - 1ppd x 29yrs, 29pyh e-Cigarette/Vaping Use: Never Used Second Hand Smoke Exposure: Yes Substance Use Type: Marijuana Advance Directives: No Advance Directives Information Provided: No service: No Current occupational status: disabled Current occupational exposures/hazards: No <ANDREW Delgado - Last Filed: 12/25/22 16:34> Physical Exam ED Vital Signs: Vital Signs - 24 hr 12/25/22 13:33 Temperature 98.9 F Pulse Rate 87 Respiratory Rate 18 Blood Pressure 138/76 Pulse Oximetry 98 BMI result Body Mass Index 30.5 <ANDREW Delgado - Last Filed: 12/25/22 16:34> Vital Signs - 24 hr 12/25/22 13:33 Temperature 98.9 F Pulse Rate 87 Respiratory Rate 18 Blood Pressure 138/76 Pulse Oximetry 98 BMI result Body Mass Index 30.5 VITAL SIGNS: Reviewed. GENERAL: Well developed, well nourished, in no acute distress. HEAD: Normocephalic/atraumatic EYES: PERRLA, EOMI LUNGS: Normal breath sounds. No adventitious sounds or accessory muscle use. SpO2<98> CARDIOVASCULAR: Regular rate and rhythm without noted murmurs ABDOMEN: Soft, non-tender, non-distended with bowel sounds. MUSCULOSKELETAL: No tenderness, deformities, or effusions noted on gross inspection. EXTREMITIES: No cyanosis, clubbing or edema; LEFT LOWER EXTREMITY: There is erythema and mild swelling with warmth noted to the distal left lower leg and the great toe is significantly edematous/erythematous with obvious mal perforans ulcer to the plantar surface of the toe pad. SKIN: Inspection of the skin reveals no rashes. NEUROLOGIC: Alert and oriented x 4. Strength and sensation to light touch were grossly intact x 4. <Kristal Iglesias MD - Last Filed: 12/25/22 17:02> Course Course Course Narrative: RME - 52 y/o male with history of DM2, COPD, active smoker, with history of left great toe osteomyelitis s/p IV abx in the past who [facility] of worsening great toe wound. Patient reports they told him it's beyond them and I need to get it cut off today. He has been on doxycyline for the last 1 week. Reports left lower leg was red, hot swollen last week but got better with doxy. No fevers at home. Reports syncope x2 last week and not feeling well. Plan: labs, XR, LE doppler, wound evaluation in treatment room w/ most likely admission <ANDREW Delgado - Last Filed: 12/25/22 16:34> Reevaluation(s) Reevaluation #1: Rena MORALES from Wound care called - she is advocating for surgical evaluation and amputation. toe is not salvagable. <ANDREW Delgado - Last Filed: 12/25/22 16:34> Time: 16:33 <ANDREW Delgado - Last Filed: 12/25/22 16:34> Medical Decision Making Medical Decision Making [facility] Narrative: 1645: I suspect infection, osteomyelitis, lactic acid and blood cultures already obtained in will pursue antibiotics. 52-year-old male with nonhealing left great toe wound and ulcer with associated left lower extremity swelling, I reviewed all investigations my interpretation is that this is an osteomyelitis involving the left great toe with associated lower leg cellulitis. Patient receiving antibiotics and does not meet the criteria for sepsis fluids. 1658: I discussed the case with the inpatient hospitalist who accepts admission <Kristal Iglesias MD - Last Filed: 12/25/22 17:02> Differential Diagnosis Please see the discussion above <Kristal Iglesias MD - Last Filed: 12/25/22 17:02> Consult Healthcare Provider Please see the discussion above <Kristal Iglesias MD - Last Filed: 12/25/22 17:02> Lab Data Please see the discussion above <Kristal Iglesias MD - Last Filed: 12/25/22 17:02> Result Diagrams: 12/25/22 16:07 12/25/22 16:07 <ANDREW Delgado - Last Filed: 12/25/22 16:34> Labs: Lab Results 12/25/22 12/25/22 12/25/22 Range/Units 16:07 16:07 16:07 WBC 14.8 H (4.8-10.8) X10*3/uL RBC 4.16 L (4.60-5.80) X10*6/uL Hgb 12.6 L (14.0-18.0) g/dl Hct 37.3 L (42.0-52.0) % MCV 89.7 (80.0-98.0) fL MCH 30.3 (27.0-33.0) pg MCHC 33.8 (31.0-36.0) g/dl RDW 12.6 (11.0-16.0) % Plt Count 288 (160-400) X10*3/uL MPV 9.0 L (9.4-12.4) fL Immature Gran % (Auto) 0.4 (0.0-0.4) % Neut % (Auto) 73.7 H (45-73) % Lymph % (Auto) 15.5 L (20-40) % Elliott % (Auto) 7.7 (2-11) % Eos % (Auto) 1.5 (0-4) % Baso % (Auto) 1.2 (0-2) % Lymph # (Auto) 2.3 (1.2-4.9) X10*3/uL Elliott # (Auto) 1.1 (0.1-1.2) X10*3/uL Eos # (Auto) 0.2 (0.0-0.4) X10*3/uL Baso # (Auto) 0.2 (0.0-0.2) X10*3/uL Abs Immat Gran (auto) 0.06 H (0.00-0.03) X10*3/uL Absolute Neuts (auto) 10.9 H (2.0-8.3) x10*3/uL Absolute Nucleated RBC 0.000 (0.0-0.012) X10*3/uL Nucleated RBC % (auto) 0.0 (0.0-0.2) /100WBC PT 11.2 (10.0-13.1) SEC INR 1.0 (0.9-1.1) APTT 31.1 (26.0-36.4) SEC Sodium 140 (135-145) mmol/L Potassium 3.4 (3.3-5.1) mmol/L Chloride 100 (96-108) mmol/L Carbon Dioxide 31 H (22-29) mmol/L Anion Gap 12 (12-20) BUN 9 (9-16) mg/dL Creatinine 0.83 (0.5-1.4) mg/dL Estim Creat Clear Calc 111.7 Estimated GFR > 60 Random Glucose 82 (60-115) mg/dL Lactic Acid (0.5-2.0) mmol/L Calcium 9.3 (8.4-10.2) mg/dL Magnesium 1.9 (1.6-2.6) mg/dL Total Bilirubin 0.8 (0.0-1.0) mg/dL Direct Bilirubin 0.2 (0.0-0.5) mg/dL AST 16 (5-37) U/L ALT 16 (0-40) U/L Alkaline Phosphatase 63 (39-117) U/L C-Reactive Protein 5.03 H (< or = 0.50) mg/dL Total Protein 6.7 (6.5-8.0) g/dL Albumin 4.0 (3.5-5.0) g/dL COVID-19 (LUZ MARIA) (Negative) COVID-19 Clin Com 12/25/22 12/25/22 Range/Units 16:07 16:07 WBC (4.8-10.8) X10*3/uL RBC (4.60-5.80) X10*6/uL Hgb (14.0-18.0) g/dl Hct (42.0-52.0) % MCV (80.0-98.0) fL MCH (27.0-33.0) pg MCHC (31.0-36.0) g/dl RDW (11.0-16.0) % Plt Count (160-400) X10*3/uL MPV (9.4-12.4) fL Immature Gran % (Auto) (0.0-0.4) % Neut % (Auto) (45-73) % Lymph % (Auto) (20-40) % Elliott % (Auto) (2-11) % Eos % (Auto) (0-4) % Baso % (Auto) (0-2) % Lymph # (Auto) (1.2-4.9) X10*3/uL Elliott # (Auto) (0.1-1.2) X10*3/uL Eos # (Auto) (0.0-0.4) X10*3/uL Baso # (Auto) (0.0-0.2) X10*3/uL Abs Immat Gran (auto) (0.00-0.03) X10*3/uL Absolute Neuts (auto) (2.0-8.3) x10*3/uL Absolute Nucleated RBC (0.0-0.012) X10*3/uL Nucleated RBC % (auto) (0.0-0.2) /100WBC PT (10.0-13.1) SEC INR (0.9-1.1) APTT (26.0-36.4) SEC Sodium (135-145) mmol/L Potassium (3.3-5.1) mmol/L Chloride (96-108) mmol/L Carbon Dioxide (22-29) mmol/L Anion Gap (12-20) BUN (9-16) mg/dL Creatinine (0.5-1.4) mg/dL Estim Creat Clear Calc Estimated GFR Random Glucose (60-115) mg/dL Lactic Acid 1.0 (0.5-2.0) mmol/L Calcium (8.4-10.2) mg/dL Magnesium (1.6-2.6) mg/dL Total Bilirubin (0.0-1.0) mg/dL Direct Bilirubin (0.0-0.5) mg/dL AST (5-37) U/L ALT (0-40) U/L Alkaline Phosphatase (39-117) U/L C-Reactive Protein (< or = 0.50) mg/dL Total Protein (6.5-8.0) g/dL Albumin (3.5-5.0) g/dL COVID-19 (LUZ MARIA) Negative (Negative) COVID-19 Clin Com See Note <ANDREW Delgado - Last Filed: 12/25/22 16:34> Lab Results 12/25/22 12/25/22 12/25/22 Range/Units 16:07 16:07 16:07 WBC 14.8 H (4.8-10.8) X10*3/uL RBC 4.16 L (4.60-5.80) X10*6/uL Hgb 12.6 L (14.0-18.0) g/dl Hct 37.3 L (42.0-52.0) % MCV 89.7 (80.0-98.0) fL MCH 30.3 (27.0-33.0) pg MCHC 33.8 (31.0-36.0) g/dl RDW 12.6 (11.0-16.0) % Plt Count 288 (160-400) X10*3/uL MPV 9.0 L (9.4-12.4) fL Immature Gran % (Auto) 0.4 (0.0-0.4) % Neut % (Auto) 73.7 H (45-73) % Lymph % (Auto) 15.5 L (20-40) % Elliott % (Auto) 7.7 (2-11) % Eos % (Auto) 1.5 (0-4) % Baso % (Auto) 1.2 (0-2) % Lymph # (Auto) 2.3 (1.2-4.9) X10*3/uL Elliott # (Auto) 1.1 (0.1-1.2) X10*3/uL Eos # (Auto) 0.2 (0.0-0.4) X10*3/uL Baso # (Auto) 0.2 (0.0-0.2) X10*3/uL Abs Immat Gran (auto) 0.06 H (0.00-0.03) X10*3/uL Absolute Neuts (auto) 10.9 H (2.0-8.3) x10*3/uL Absolute Nucleated RBC 0.000 (0.0-0.012) X10*3/uL Nucleated RBC % (auto) 0.0 (0.0-0.2) /100WBC PT 11.2 (10.0-13.1) SEC INR 1.0 (0.9-1.1) APTT 31.1 (26.0-36.4) SEC Sodium 140 (135-145) mmol/L Potassium 3.4 (3.3-5.1) mmol/L Chloride 100 (96-108) mmol/L Carbon Dioxide 31 H (22-29) mmol/L Anion Gap 12 (12-20) BUN 9 (9-16) mg/dL Creatinine 0.83 (0.5-1.4) mg/dL Estim Creat Clear Calc 111.7 Estimated GFR > 60 Random Glucose 82 (60-115) mg/dL Lactic Acid (0.5-2.0) mmol/L Calcium 9.3 (8.4-10.2) mg/dL Magnesium 1.9 (1.6-2.6) mg/dL Total Bilirubin 0.8 (0.0-1.0) mg/dL Direct Bilirubin 0.2 (0.0-0.5) mg/dL AST 16 (5-37) U/L ALT 16 (0-40) U/L Alkaline Phosphatase 63 (39-117) U/L C-Reactive Protein 5.03 H (< or = 0.50) mg/dL Total Protein 6.7 (6.5-8.0) g/dL Albumin 4.0 (3.5-5.0) g/dL COVID-19 (LU[facility] MARIA) (Negative) COVID-19 Clin Com 12/25/22 12/25/22 Range/Units 16:07 16:07 WBC (4.8-10.8) X10*3/uL RBC (4.60-5.80) X10*6/uL Hgb (14.0-18.0) g/dl Hct (42.0-52.0) % MCV (80.0-98.0) fL MCH (27.0-33.0) pg MCHC (31.0-36.0) g/dl RDW (11.0-16.0) % Plt Count (160-400) X10*3/uL MPV (9.4-12.4) fL Immature Gran % (Auto) (0.0-0.4) % Neut % (Auto) (45-73) % Lymph % (Auto) (20-40) % Elliott % (Auto) (2-11) % Eos % (Auto) (0-4) % Baso % (Auto) (0-2) % Lymph # (Auto) (1.2-4.9) X10*3/uL Elliott # (Auto) (0.1-1.2) X10*3/uL Eos # (Auto) (0.0-0.4) X10*3/uL Baso # (Auto) (0.0-0.2) X10*3/uL Abs Immat Gran (auto) (0.00-0.03) X10*3/uL Absolute Neuts (auto) (2.0-8.3) x10*3/uL Absolute Nucleated RBC (0.0-0.012) X10*3/uL Nucleated RBC % (auto) (0.0-0.2) /100WBC PT (10.0-13.1) SEC INR (0.9-1.1) APTT (26.0-36.4) SEC Sodium (135-145) mmol/L Potassium (3.3-5.1) mmol/L Chloride (96-108) mmol/L Carbon Dioxide (22-29) mmol/L Anion Gap (12-20) BUN (9-16) mg/dL Creatinine (0.5-1.4) mg/dL Estim Creat Clear Calc Estimated GFR Random Glucose (60-115) mg/dL Lactic Acid 1.0 (0.5-2.0) mmol/L Calcium (8.4-10.2) mg/dL Magnesium (1.6-2.6) mg/dL Total Bilirubin (0.0-1.0) mg/dL Direct Bilirubin (0.0-0.5) mg/dL AST (5-37) U/L ALT (0-40) U/L Alkaline Phosphatase (39-117) U/L C-Reactive Protein (< or = 0.50) mg/dL Total Protein (6.5-8.0) g/dL Albumin (3.5-5.0) g/dL COVID-19 ([facility]) Negative (Negative) COVID-19 Clin Com See Note <Kristal Iglesias MD - Last Filed: 12/25/22 17:02> Independent Interpretation I performed an independent interpretation of an: EKG <Kristal Iglesias MD - Last Filed: 12/25/22 17:02> Interpretation: Normal sinus rhythm, HR -68, no STEMI, MI/QRS/QTC is within normal limits <Kristal Iglesias MD - Last Filed: 12/25/22 17:02> Radiology Impression Radiologist Impression: My interpretation is in agreement with radiology's impression of the imaging studies. <Kristal Iglesias MD - Last Filed: 12/25/22 17:02> External Record Review External record reviewed: Outpatient record and Prior outpatient labs <Kristal Iglesias MD - Last Filed: 12/25/22 17:02> Discharge Plan Discharge Clinical Impression: Cellulitis of left lower extremity, Left hallux osteomyelitis <ANDREW Delgado - Last Filed: 12/25/22 16:34> Patient Disposition: Admitted As Inpatient <ANDREW Delgado - Last Filed: 12/25/22 16:34> Prescriptions: No Action amlodipine 5 mg tablet 1 tab PO DAILY lisinopril-hydrochlorothiazide 20-25 mg tablet 1 tab PO DAILY Hold Instructions: BP stable off meds; follow up with PCP for blood pressure monitoring dorzolamide-timolol 22.3-6.8 mg/mL drops 1 drp ophthalmic (eye) BID Breztri Aerosphere 160-9-4.8 mcg/actuation HFA aerosol inhaler 2 puff inhalation BID metformin 850 mg tablet 1 tab PO BID nicotine (polacrilex) 4 mg gum 4 mg PO Q2H PRN (Reason: Withdrawal Symptoms) nicotine 21 mg/24 hr patch 24 hour 1 patch topical DAILY gabapentin 800 mg Tablet 800 mg PO TID atorvastatin 40 mg tablet 40 mg PO DAILY gabapentin 400 mg capsule 400 mg PO TID bupropion HCl 150 mg tablet extended release 24 hr 150 mg PO DAILY <ANDREW Delgado - Last Filed: 12/25/22 16:34>
--- NOTE | 2022-12-25 13:36 | ECG_ITS ---
Test Reason : syncope Blood Pressure : / mmHG Vent. Rate : 068 BPM Atrial Rate : 068 BPM P-R Int : 148 ms QRS Dur : 086 ms QT Int : 402 ms P-R-T Axes : 020 028 009 degrees QTc Int : 427 ms Normal sinus rhythm Normal ECG When compared with ECG of 28-JUL-2022 11:42, No significant change was found Referred By: Dominique Bowles Electronically Signed By:Rocky Farias
[2022-12-25 16:14] LABS: MANUAL DIFF FLAG NO
[2022-12-25 16:15] LABS: Basophils Absolute Auto 0.2 X10*3/uL (0.0-0.2); Basophils Percent Auto 1.2 % (0-2); Eosinophils Absolute Auto 0.2 X10*3/uL (0.0-0.4); Eosinophils Percent Auto 1.5 % (0-4); Hematocrit 37.3 % (42.0-52.0); Hemoglobin 12.6 g/dl (14.0-18.0); Imm Gran Abs Auto 0.06 X10*3/uL (0.00-0.03); Imm Gran Pct Auto 0.4 % (0.0-0.4); Lymphocytes Absolute Auto 2.3 X10*3/uL (1.2-4.9); Lymphocytes Percent Auto 15.5 % (20-40); Mean Corpuscular HGB Conc 33.8 g/dl (31.0-36.0); Mean Corpuscular Hemoglobin 30.3 pg (27.0-33.0); Mean Corpuscular Volume 89.7 fL (80.0-98.0); Monocytes Absolute Auto 1.1 X10*3/uL (0.1-1.2); Monocytes Percent Auto 7.7 % (2-11); Neutrophils Absolute Auto 10.9 x10*3/uL (2.0-8.3); Neutrophils Percent Auto 73.7 % (45-73); Platelet Count 288 X10*3/uL (160-400); Red Blood Count 4.16 X10*6/uL (4.60-5.80); Red Cell Distribution Width 12.6 % (11.0-16.0); White Blood Count 14.8 X10*3/uL (4.8-10.8)
[2022-12-25 16:21] LABS: Prothrombin Time 11.2 SEC (10.0-13.1)
[2022-12-25 16:24] LABS: Partial Thromboplastin Time 31.1 SEC (26.0-36.4)
[2022-12-25 16:35] LABS: Alanine Aminotransferase 16 U/L (0-40); Alkaline Phosphatase 63 U/L (39-117); Anion Gap 12 (12-20); Aspartate Amino Transferase 16 U/L (5-37); Bilirubin Direct 0.2 mg/dL (0.0-0.5); Bilirubin Total 0.8 mg/dL (0.0-1.0); Blood Urea Nitrogen 9 mg/dL (9-16); C Reactive Protein 5.03 mg/dL (< or = 0.50); Calcium 9.3 mg/dL (8.4-10.2); Carbon Dioxide 31 mmol/L (22-29); Chloride 100 mmol/L (96-108); Creatinine Clr Calc Pharmacy 111.7; Estimated Glomerular Filt Rate > 60; Glucose Random 82 mg/dL (60-115); Magnesium 1.9 mg/dL (1.6-2.6); Potassium 3.4 mmol/L (3.3-5.1); Sodium 140 mmol/L (135-145); Total Protein 6.7 g/dL (6.5-8.0)
[2022-12-25 16:38] LABS: COVID-19 Test Negative (Negative); IDNOW Serial# 6674DD1D
[2022-12-25 17:11] VITALS: BP 148/92; PULSE 66; RESP 20; TEMP 36.8; O2SAT 100
--- NOTE | 2022-12-25 17:11 | P.HPHOSP_ITS ---
History of Present Illness Date of Service: 12/25/22 Attending physician on admission: Vicente Self Chief Complaint: nonhealing ulcer left great toe 52-year-old male with history of COPD, anxiety and depression, fibromyalgia, glaucoma, hyperlipidemia, hypertension, history of alcohol abuse with remote history of alcohol withdrawal seizure, bor-mifjyek-dobtrlnsb type 2 diabetes, diabetic polyneuropathy, nonhealing ulcer left great toe, and osteomyelitis of the left great toe who is a current 1ppd smoker presented to the ED earlier today [facility] for evaluation of nonhealing ulcer of the left great toe and cellulitis of the left lower extremity. He reports he has had ulceration on the plantar surface of the left great toe for about 7 years and has been following with the wound care clinic for the last 9 months. He was treated with 6 weeks of vancomycin and then daptomycin through PICC line for treatment of osteomyelitis which developed after standing in muddy water fishing about 6 months ago. However he developed rhabdomyolysis from the daptomycin resulting in his admission and was evaluated by ID recommending po doxycycline x 1 month which he completed. During recent visit to wound clinic, he was noted to have cellulitis of the left great toe and was given a course of po doxycycline which he reports taking as prescribed. However, has developed worsening erythema, swelling, warmth now spread to the distal half of the left lower leg and was advised to present to ED for further evaluation. He reports feeling fatigued and generally weak and reports 2 syncopal episodes one week ago which he feels is from poor water intake. Has not had any recurrence and denies lightheadedness. His only other complaint is urinary hesitancy and nocturia which has been ongoing for some time but denies any dysuria, hematuria, urinary incontinence. He is a current 1ppd smoker with 30 pack year history. Reports smoking MJ, no illicit drug use, no etoh use. On arrival, patient afebrile, VSS. Leukocytosis of 14.8. H/H 12.6/37.3%. Renal function baseline, electrolyte levels normal. ESR 34, CRP 5.03. UA unremarkable. X-ray of the left toe showing prominent plantar ulcer at the 1st digit with soft tissue swelling and suspect subtle erosion at the head of the 1st digit proximal phalanx medially with question of osteomyelitis. Venous duplex of the left lower extremity negative for DVT which showing mildly enlarged left inguinal lymph node, likely reactive. In the ED treated with IV vancomycin and zosyn for empiric treatment of osteomyelitis and cellulitis left great toe/lower extremity. Review of Systems Review of Systems: General: No fevers, malaise, unintentional weight loss. +fatigue, +general weakness HEENT: No blurred vision, diplopia. No sore throat, nasal congestion, rhinorrhea, sinus pain, ear pain Cardiovascular: No chest pain, palpitations, or leg edema Respiratory: No shortness of breath, wheezing, cough GI: No abdominal pain, nausea, vomiting, diarrhea, constipation, melena, hematochezia : +urinary hesitancy, +nocturia. No dysuria, hematuria, increased urinary frequency MSK: No myalgia, back pain Neuro: No headaches, weakness, paresthesias Skin: No rashes or lesions. +nonhealing ulcer left great toe, +erythema/swelling/warmth E [facility] Medical History (Updated 12/25/22 @ 18:26 by ANDREW Smith) Anxiety and depression COPD (chronic obstructive pulmonary disease) Depression Fibromyalgia Glaucoma Hypercholesterolemia Hypertension Osteomyelitis Personal history of nicotine dependence Seizure disorder Tubular adenoma of colon Type 2 diabetes mellitus Type 2 diabetes mellitus with diabetic neuropathy Family History Mother Lung cancer metastatic to brain Surgical History H/O colonoscopy History of cervical discectomy History of eye surgery Social History Household Members: None Housing: Apartment Do you presently have visiting nurse or other home services: Yes Patient Tobacco Use Status: Current everyday Tobacco user Tobacco use type: Cigarette Cigarette Packs Per Day: 1 Cigarettes Per Day: 30 Years Smoked: onset 22 - 1ppd x 29yrs, 29pyh e-Cigarette/Vaping Use: Never Used Second Hand Smoke Exposure: Yes Substance Use Type: Marijuana Advance Directives: No Advance Directives Information Provided: No Nutrition Risks: No Nutritional Risk service: No Current occupational status: disabled Current occupational exposures/hazards: No Meds Allergies Allergy/AdvReac Type Severity Reaction Status Date / Time shellfish derived Allergy Severe ANAPHYLAXIS Verified 12/25/22 13:32 [SHELLFISH DERIVED] buspirone [From BUSPAR] Allergy Unknown nausea Verified 12/25/22 13:32 bupropion [From WELLBUTRIN] AdvReac Unknown NAUSEA Verified 12/25/22 13:32 daptomycin AdvReac rhabdomyoli Verified 12/25/22 17:09 sis Active Medications: Current Medications Piperacillin Sod/Tazobactam (Sod 3.375 gm/ Sodium Chloride) 50 mls @ 100 mls/hr IV ONCE ONE Stop: 12/25/22 17:14 Vancomycin HCl 1,500 mg/ (Sodium Chloride) 500 mls @ 333.333 mls/hr IV ONCE ONE Stop: 12/25/22 18:14 Pharmacy Consult (Consult Rx Perform Med Rec) 1 each MISCELLANE ONCE PRN PRN Reason: Consult order Home Medications Medication Instructions Recorded Confirmed Last Taken Type lisinopril 20 1 tab PO DAILY 02/16/22 12/25/22 07/24/22 History mg-hydrochlorothiazide 25 mg tablet gabapentin 800 mg tablet 800 mg PO TID 07/28/22 12/25/22 Unknown History atorvastatin 40 mg tablet 40 mg PO DAILY 12/25/22 12/25/22 Unknown History multivitamin 1 tab PO DAILY 12/25/22 12/25/22 Unknown History Physical Exam 2 Vital Signs and Narrative: Vital Signs: Last Vital Signs Temp 98.9 F 12/25/22 13:33 Pulse 87 12/25/22 13:33 Resp 18 12/25/22 13:33 BP 138/76 12/25/22 13:33 Pulse Ox 98 12/25/22 13:33 BMI result Body Mass Index 30.5 Constitutional - Awake and Alert, No apparent distress Eyes - PERRLA, EOMI Cardiovascular - S1S2, RRR, 2+ pedal pulses Respiratory - Normal lung expansion, Normal respiratory effort, No respiratory distress, diffuse rhonchi and scattered expiratory wheezes Gastrointestinal - NT / ND; +BS; No rebound or guarding Extremities - no calf tenderness bilaterally. 2+ edema LLE with erythema/warmth distal half left lower leg most prominent at left great toe with about 1.5cm ulceration with skin breakdown plantar surface great toe without active drainage. see photo Skin - Warm/Dry. See above Neurological - Alert & oriented x3, CN II-XII in tact, 5/5 strength BUE and BLE Psychological - Appropriate affect Results Labs 12/25/22 16:07 12/25/22 16:07 Labs: Laboratory Results - last 24 hr 12/25/22 12/25/22 12/25/22 16:07 16:07 16:07 MCV 89.7 MCH 30.3 MCHC 33.8 RDW 12.6 Plt Count 288 MPV 9.0 L Immature Gran % (Auto) 0.4 Neut % (Auto) 73.7 H Lymph % (Auto) 15.5 L [place] % (Auto) 7.7 Eos % (Auto) 1.5 Baso % (Auto) 1.2 Lymph # (Auto) 2.3 [place] # (Auto) 1.1 Eos # (Auto) 0.2 Baso # (Auto) 0.2 Abs Immat Gran (auto) 0.06 H Absolute Neuts (auto) 10.9 H Absolute Nucleated RBC 0.000 Nucleated RBC % (auto) 0.0 PT 11.2 INR 1.0 APTT 31.1 Anion Gap 12 Estim Creat Clear Calc 111.7 Estimated GFR > 60 Random Glucose 82 Lactic Acid Calcium 9.3 Magnesium 1.9 Total Bilirubin 0.8 Direct Bilirubin 0.2 AST 16 ALT 16 Alkaline Phosphatase 63 C-Reactive Protein 5.03 H Total Protein 6.7 Albumin 4.0 COVID-19 ([facility]) COVID-19 Clin Com 12/25/22 12/25/22 16:07 16:07 MCV MCH MCHC RDW Plt Count MPV Immature Gran % (Auto) Neut % (Auto) Lymph % (Auto) [place] % (Auto) Eos % (Auto) Baso % (Auto) Lymph # (Auto) [place] # (Auto) Eos # (Auto) Baso # (Auto) Abs Immat Gran (auto) Absolute Neuts (auto) Absolute Nucleated RBC Nucleated RBC % (auto) PT INR APTT Anion Gap Estim Creat Clear Calc Estimated GFR Random Glucose Lactic Acid 1.0 Calcium Magnesium Total Bilirubin Direct Bilirubin AST ALT Alkaline Phosphatase C-Reactive Protein Total Protein Albumin COVID-19 ([facility]IA) Negative COVID-19 Clin Com See Note Imaging Radiologist's Impressions: Impressions Toe X-Ray 12/25/22 13:48 IMPRESSION: Prominent plantar ulcer at the first digit with soft tissue swelling. Suspect subtle erosion at the head of the first digit proximal phalanx medially. Osteomyelitis is a consideration. Consider MRI evaluation. Venous Duplex 12/25/22 15:08 IMPRESSION: 1. No evidence for deep venous thrombosis in the visualized veins of the left lower extremity. 2. Mildly enlarged left inguinal lymph node is nonspecific, but demonstrates benign features and may be reactive. Correlate with physical exam. If these findings persist or enlarge, short-term repeat targeted soft tissue ultrasound can be performed as clinically indicated to assess for change. Assessment and Plan (1) Cellulitis of left lower extremity: Status: Acute (2) Left hallux osteomyelitis: Status: Acute Plan 52-year-old male with history of COPD, anxiety and depression, fibromyalgia, glaucoma, hyperlipidemia, hypertension, history of alcohol abuse with remote history of alcohol withdrawal seizure, jcy-ficxtqa-rmksepwnl type 2 diabetes, diabetic polyneuropathy, nonhealing ulcer left great toe, and osteomyelitis of the left great toe who is a current 1ppd smoker admitted for osteomyelitis left great toe with cellulitis LLE. #Chronic osteomyelitis Left great toe- r/t nonhealing diabetic ulcer left great toe -Completed 6 week tx IV abx 06/2022. Has been following with wound clinic recommending amputation -Arterial doppler LLE pending -IV cefepime and vanco -ESR 34, CRP 5, WBC 14.5 -Appreciate vascular surgery input -Follow CBC #Acute cellulitis LLE -IV cefepime and vanco -As above # psw-[id number]-wfdonfkdm type 2 diabetes -hemoglobin A1c pending -POC glucose -diabetic diet -Humulin sliding scale # diabetic polyneuropathy -continue gabapentin # COPD-without acute exacerbation -lungs are rhonchorous bilaterally with scattered expiratory wheezing. no hypoxia -initiate Breo Ellipta -albuterol p.r.n. -outpatient follow-up for PFT -smoking cessation counseling # hypertension-reasonably controlled -continue home meds # HLD -continue statin # nicotine dependence -currently smokes 1 pack per day with 30 pack-year history -nicotine patches for NRT -smoking cessation counseling provided DVT prophylaxis-heparin Full code Patient requires inpatient stay at least 2 midnights for management of acute cellulitis of the left lower extremity with osteomyelitis of the left great toe requiring IV antibiotics, expert consultation and possible amputation Time Spent With Patient Time: Total time managing care of this patient today ____ minutes. Quality Stroke Does the patient have a stroke diagnosis?: No VTE Prior VTE?: No VTE Risk Level:: Medical - moderate - high VTE Device Contraindication: Treatment Not Indicated VTE Drug Contraindication: N/A - Med Ordered
[2022-12-25 17:18] LABS: Erythrocyte Sedimentation Rate 34 MM/HR (0-15)
--- NOTE | 2022-12-25 17:18 | PHA.MEDREC ---
Patient stated he is no longer taking amlodipine , metformin and bupropion xl . Pharmacy Consult ? Medication Reconciliation Pharmacy has completed the medication reconciliation.
[2022-12-25] MEDS: Piperacillin Sodium/Tazobactam 3.375 GM in 0.9 % Sodium Chloride 50 ML IV (17:37)
[2022-12-25] MEDS: vancomycin HCL 1,500 MG in 0.9 % Sodium Chloride 500 ML 333.33 MG IV (17:44)
[2022-12-25 17:48] LABS: Appearance Urine Clear; Color Urine Yellow; Glucose Urine UA Negative (Negative); Leukocyte Esterase Urine Negative (Negative); Nitrite Urine Negative (Negative); PH 7.5 (5.0-9.0); Specific Gravity - Urine <= 1.005 (1.005-1.025); Urine Blood Negative (Negative); Urine Ketones Negative (Negative); Urine Protein Negative (Neg-Trace)
[2022-12-25 18:28] LABS: Estimated Average Glucose 123 mg/dL; Hemoglobin A1C 138.5783 umol/L; Hemoglobin A1c % 5.9 %
[2022-12-25] MEDS: Heparin Sodium,Porcine 5,000 UNIT/ML VIAL 5000 UNIT SUBCUT (18:38)
--- NOTE | 2022-12-25 18:43 | PC.NURSE ---
report given to floor nurse, all questions answered, pt aware. Transport alerted of move
[2022-12-25 19:11] VITALS: BP 139/88; PULSE 67; RESP 18; TEMP 36.6; O2SAT 99
[2022-12-25 19:17] VITALS: BMI 30.7
--- NOTE | 2022-12-25 19:27 | PHA.PROG ---
Admission Date/Time: December 25, 2022 18:02 Indication: BONE AND JOINT Weight in k.451 kg Serum Creatinine - Last 168 Hours 12/25/22 16:07 Creatinine 0.83 Estimated CrCl and GFR - Last 168 Hours 12/25/22 16:07 Estim Creat Clear Calc 111.7 Estimated GFR > 60 Vancomycin Loading Dose:1500 Current Vancomycin Dosing Regimen: 1250 Q 12H Vancomycin Monitoring using AUC goal of 400 - 600 range with trough as surrogate marker: 512 Date and Time for next Vancomycin Level to be drawn: 12/27 @ 0600 Pharmacist Comments on Vancomycin Plan: Vancomycin dosing will take advantage of [employer] as a clinical decision support tool that uses Bayesian modeling to calculate individual patient's pharmacokinetic parameters and forecast the patient's drug concentration time course with the target goal AUC 24 range of 400 - 600 mg/L/hr.
[2022-12-25 20:20] LABS: Glucose, Whole Blood 102 mg/dL (60-115)
[2022-12-25] MEDS: Tamsulosin HCL 0.4 MG CAPSULE PO (21:07)
[2022-12-25] MEDS: 0.9 % Sodium Chloride Flush 3 ML SYRINGE IVFLUSH (21:07)
[2022-12-25] MEDS: oxyCODONE HCl Immed Release 5 MG TABLET PO (21:07)
[2022-12-25] MEDS: Gabapentin 400 MG CAPSULE 800 MG PO (21:07)
[2022-12-25] MEDS: cefEPime HCl 2 GM in 0.9 % Sodium Chloride 50 ML IV (23:19)
[2022-12-26] VITALS (9 sets, daily range): BP systolic 122–150; BP diastolic 71–87; PULSE 60–82; RESP 16–20; TEMP 36.2–36.7; O2SAT 96–97
[2022-12-26] MEDS: Heparin Sodium,Porcine 5,000 UNIT/ML VIAL 5000 UNIT SUBCUT ×2 (05:49→17:11)
[2022-12-26 06:00] LABS: MANUAL DIFF FLAG NO
[2022-12-26 06:02] LABS: Basophils Absolute Auto 0.2 X10*3/uL (0.0-0.2); Eosinophils Absolute Auto 0.3 X10*3/uL (0.0-0.4); Eosinophils Percent Auto 4.5 % (0-4); Hematocrit 35.2 % (42.0-52.0); Hemoglobin 12.2 g/dl (14.0-18.0); Imm Gran Abs Auto 0.01 X10*3/uL (0.00-0.03); Imm Gran Pct Auto 0.1 % (0.0-0.4); Lymphocytes Absolute Auto 1.9 X10*3/uL (1.2-4.9); Lymphocytes Percent Auto 25.9 % (20-40); Mean Corpuscular HGB Conc 34.7 g/dl (31.0-36.0); Mean Corpuscular Hemoglobin 30.7 pg (27.0-33.0); Mean Corpuscular Volume 88.7 fL (80.0-98.0); Mean Platelet Volume 9.1 fL (9.4-12.4); Monocytes Absolute Auto 0.7 X10*3/uL (0.1-1.2); Monocytes Percent Auto 9.9 % (2-11); Neutrophils Absolute Auto 4.3 x10*3/uL (2.0-8.3); Neutrophils Percent Auto 57.6 % (45-73); Platelet Count 288 X10*3/uL (160-400); Red Blood Count 3.97 X10*6/uL (4.60-5.80); Red Cell Distribution Width 12.5 % (11.0-16.0); White Blood Count 7.4 X10*3/uL (4.8-10.8)
[2022-12-26 06:49] LABS: Anion Gap 13 (12-20); Blood Urea Nitrogen 8 mg/dL (9-16); Calcium 8.7 mg/dL (8.4-10.2); Carbon Dioxide 27 mmol/L (22-29); Chloride 105 mmol/L (96-108); Creatinine Clr Calc Pharmacy 132.8; Estimated Glomerular Filt Rate > 60; Glucose Random 95 mg/dL (60-115); Potassium 3.6 mmol/L (3.3-5.1); Sodium 141 mmol/L (135-145)
[2022-12-26 07:14] LABS: Glucose, Whole Blood 105 mg/dL (60-115)
--- NOTE | 2022-12-26 07:41 | HE.PHANOTE ---
RE MARK CONTINUE CURRENT DOSE. BASED ON NEW SCR, SUSPECTED AUC IS 461. TROUGH IS 13.6. NEXT LEVEL IS 4/5 @0600 FABIAN
[2022-12-26] MEDS: Fluticasone/Vilanterol 100/25 BLST.W.DEV 1 PUFF INHALE (07:43)
--- NOTE | 2022-12-26 07:45 | P.CONGS_ITS ---
History of Present Illness Consult details Consult date: 12/26/22 Reason for consult: wound care Narrative: Complex 52-year-old gentleman presents for follow-up regarding nonhealing left great toe. It has been present for some time. Was actually admitted back in July of last year and was treated with daptomycin. [facility] a significant period of time. It is unclear of his progress but it continues to remain nonhealing. He now presents to us for vascular follow-up regarding this nonhealing left great toe ulcer. Of note he does smoke about a pack of cigarettes daily in addition he has a longstanding history of diabetes. Review of Systems Review of Systems: Yes all other systems are reviewed and are negative Constitutional: Constitutional: Reports no additional constitutional c omplaints ENT: Reports Normal hearing present Cardiovascular: Cardiovascular: Denies chest pain, Denies chest pain at rest, Denies chest pain with activity and Denies pedal edema Respiratory: Respiratory: Denies cough Gastrointestinal: Gastrointestinal: Denies abdominal pain Musculoskeletal: Musculoskeletal: Denies abnormal gait, Denies muscle cramps a nd Denies radiating pain into limb Integumentary/Breasts: Skin/Breast: Denies skin ulcer and Denies wounds Neurologic: Reports Normal hearing present and Denies abnormal gait Psychiatric: Psychiatric: Reports no additional psychiatric complaints PMFSH Past Medical History Medical History (Updated 12/26/22 @ 07:49 by Abdoulaye Lepe MD) Anxiety and depression COPD (chronic obstructive pulmonary disease) Depression Fibromyalgia Glaucoma Hypercholesterolemia Hypertension Osteomyelitis Personal history of nicotine dependence Seizure disorder Tubular adenoma of colon Type 2 diabetes mellitus Type 2 diabetes mellitus with diabetic neuropathy Family History Family History Mother Lung cancer metastatic to brain Surgical History Surgical History H/O colonoscopy History of cervical discectomy History of eye surgery Social History Social History Household Members: None Housing: Apartment Do you presently have visiting nurse or other home services: No Patient Tobacco Use Status: Current everyday Tobacco user Tobacco use type: Cigarette Cigarette Packs Per Day: 1 Cigarettes Per Day: 20.0 Years Smoked: 13 e-Cigarette/Vaping Use: Never Used Second Hand Smoke Exposure: No Substance Use Type: Marijuana service: No Current occupational status: disabled Current occupational exposures/hazards: No Meds Allergies Allergy/AdvReac Type Severity Reaction Status Date / Time shellfish derived Allergy Severe ANAPHYLAXIS Verified 12/25/22 13:32 [SHELLFISH DERIVED] buspirone [From BUSPAR] Allergy Unknown nausea Verified 12/25/22 13:32 bupropion [From WELLBUTRIN] AdvReac Unknown NAUSEA Verified 12/25/22 13:32 daptomycin AdvReac rhabdomyoli Verified 12/25/22 17:09 sis Active Medications: Current Medications Acetaminophen (Acetaminophen 325 Mg Tablet) 650 mg PO Q6H PRN PRN Reason: Pain, Mild (Pain Scale 1-3) Albuterol Sulfate (Albuterol Sulfate 90 Mcg 8 Gm Inhaler) 2 puff INHALE RQ4H PRN PRN Reason: Shortness of Breath/Wheezing Atorvastatin Calcium (Atorvastatin Calcium 40 Mg Tablet) 40 mg PO DAILY [facility] Docusate Sodium (Docusate Sodium 100 Mg Capsule) 100 mg PO DAILY PRN PRN Reason: Constipation Fluticasone/Vilanterol (Fluticasone/Vilanterol 100/25 Blst.W.Dev) 1 puff INHALE RDAILY [facility] Last Admin: 12/26/22 07:43 Dose: 1 puff Gabapentin (Gabapentin 400 Mg Capsule) 800 mg PO TID [facility] Last Admin: 12/25/22 21:07 Dose: 800 mg Glucose (Glucose Gel 15 Gm Gel..Gram.) 15 gm PO Q15M PRN; Protocol PRN Reason: per Hypoglycemia Standing Ord. Heparin Sodium (Porcine) (Heparin Sodium,Porcine 5,000 Unit/Ml Vial) 5,000 unit SUBCUT Q12H [facility] Last Admin: 12/26/22 05:49 Dose: 5,000 unit Hydrochlorothiazide (Hydrochlorothiazide 25 Mg Tablet) 25 mg PO DAILY [facility] Dextrose (D10) 250 mls @ 750 mls/hr IV Q15M PRN; Protocol PRN Reason: per Hypoglycemia Standing Ord. Cefepime HCl 2 gm/ Sodium (Chloride) 50 mls @ 100 mls/hr IV Q8H [facility] Last Infusion: 12/25/22 23:57 Dose: Infused Vancomycin HCl 1,250 mg/ (Sodium Chloride) 250 mls @ 166.667 mls/hr IV Q12H [facility] Insulin Human Lispro (Insulin Lispro 100 Unit/Ml 3 Ml Vial) 0 unit SUBCUT QIDACHS [facility]; Protocol Last Admin: 12/26/22 07:15 Dose: Not Given Lisinopril (Lisinopril 20 Mg Tablet) 20 mg PO DAILY [facility] Morphine Sulfate (Morphine Sulfate 2 Mg/Ml Cartridge) 2 mg IVPUSH Q4H PRN; Protocol PRN Reason: moderate pain Multivitamins/Vitamin C (Multivitamin Tablet) 1 tab PO DAILY [facility] Nicotine (Nicotine 21 Mg Patch.Td24) 21 mg TRANSDERMA DAILY [facility] Ondansetron HCl (Ondansetron Hcl 4 Mg/2 Ml Vial) 4 mg IVPUSH Q8H PRN PRN Reason: Nausea and Vomiting Pharmacy Consult (Consult Rx Perform Med Rec) 1 each MISCELLANE ONCE PRN PRN Reason: Consult order Pharmacy Consult (Consult Rx Vancomycin Dosing) 1 each MISCELLANE DAILY PRN PRN Reason: Consult order Sodium Chloride (0.9 % Sodium Chloride Flush 3 Ml Syringe) 3 ml IVFLUSH QSHIFT [facility] Last Admin: 12/25/22 21:07 Dose: 3 ml Tamsulosin HCl (Tamsulosin Hcl 0.4 Mg Capsule) 0.4 mg PO BEDTIME [facility] Last Admin: 12/25/22 21:07 Dose: 0.4 mg Home Medications Medication Instructions Recorded Confirmed Last Taken Type lisinopril 20 1 tab PO DAILY 02/16/22 12/25/22 07/24/22 History mg-hydrochlorothiazide 25 mg tablet gabapentin 800 mg tablet 800 mg PO TID 07/28/22 12/25/22 Unknown History atorvastatin 40 mg tablet 40 mg PO DAILY 12/25/22 12/25/22 Unknown History multivitamin 1 tab PO DAILY 12/25/22 12/25/22 Unknown History Physical Exam Vital Signs: Vital Signs: Last Vital Signs Temp 97.2 F 12/26/22 07:25 Pulse 60 12/26/22 07:25 Resp 18 12/26/22 07:25 BP 124/84 12/26/22 07:25 Pulse Ox 96 12/26/22 07:25 O2 Del Method Room Air 12/26/22 07:25 BMI result Body Mass Index 30.7 Const: General: cooperative, healthy appearing and comfortable Orientation/consciousness: oriented to person, oriented to place and oriented to time HEENT: Head: Yes normal to inspection Neck: Neck: Yes normal visual inspection Carotids: no bruits Chest: Chest palpation & inspection: normal inspection of the chest Resp: Effort & Inspection: normal respiratory effort and able to speak in complete sentences Auscultation: clear to auscultation bilaterally, no crackles, no rales, no rhonchi and no wheezes Cardio: Rate: regular rate Rhythm: regular rhythm Heart sounds: S1 normal heart sound present and S2 normal heart sound present Bruits: no carotid bruits Peripheral pulses: Peripheral pulses 2+ throughout GI: Inspection: Yes normal to inspection Skin: Other: Nonhealing left great toe Wounds: no wounds Hair: normal Neuro: General: oriented to person, oriented to place and oriented to time Cranial nerves: Yes CN's II-XII intact bilaterally and Yes Normal hearing pres ent Cognition (Neuro): normal cognition Motor exam (neuro): 5/5 motor strength present throughout Extrem: Other: venous exam: No significant superficial varicosities or spider te langiectasias, minimal edema General: No clubbing, No cyanosis and No edema Psych: Appearance: grossly normal Mental Status: mental status grossly normal Speech and movement: Normal speech and movement present Results Labs 12/26/22 05:20 12/26/22 05:20 Labs: Abnormal lab results 12/25/22 12/25/22 12/25/22 Range/Units 16:07 16:07 16:07 WBC 14.8 H (4.8-10.8) X10*3/uL RBC 4.16 L (4.60-5.80) X10*6/uL Hgb 12.6 L (14.0-18.0) g/dl Hct 37.3 L (42.0-52.0) % MPV 9.0 L (9.4-12.4) fL Neut % (Auto) 73.7 H (45-73) % Lymph % (Auto) 15.5 L (20-40) % Eos % (Auto) (0-4) % Abs Immat Gran (auto) 0.06 H (0.00-0.03) X10*3/uL Absolute Neuts (auto) 10.9 H (2.0-8.3) x10*3/uL ESR 34 H (0-15) MM/HR Carbon Dioxide 31 H (22-29) mmol/L BUN (9-16) mg/dL C-Reactive Protein 5.03 H (< or = 0.50) mg/dL 12/26/22 12/26/22 Range/Units 05:20 05:20 WBC (4.8-10.8) X10*3/uL RBC 3.97 L (4.60-5.80) X10*6/uL Hgb 12.2 L (14.0-18.0) g/dl Hct 35.2 L (42.0-52.0) % MPV 9.1 L (9.4-12.4) fL Neut % (Auto) (45-73) % Lymph % (Auto) (20-40) % Eos % (Auto) 4.5 H (0-4) % Abs Immat Gran (auto) (0.00-0.03) X10*3/uL Absolute Neuts (auto) (2.0-8.3) x10*3/uL ESR (0-15) MM/HR Carbon Dioxide (22-29) mmol/L BUN 8 L (9-16) mg/dL C-Reactive Protein (< or = 0.50) mg/dL Short CBC 12/25/22 12/26/22 Range/Units 16:07 05:20 WBC 14.8 H 7.4 (4.8-10.8) X10*3/uL Hgb 12.6 L 12.2 L (14.0-18.0) g/dl Hct 37.3 L 35.2 L (42.0-52.0) % Plt Count 288 288 (160-400) X10*3/uL BMP 12/25/22 12/26/22 16:07 05:20 Sodium 140 141 Potassium 3.4 3.6 Chloride 100 105 Carbon Dioxide 31 H 27 BUN 9 8 L Creatinine 0.83 0.70 Calcium 9.3 8.7 D Liver Function 12/25/22 Range/Units 16:07 Total Bilirubin 0.8 (0.0-1.0) mg/dL Direct Bilirubin 0.2 (0.0-0.5) mg/dL AST 16 (5-37) U/L ALT 16 (0-40) U/L Alkaline Phosphatase 63 (39-117) U/L Albumin 4.0 (3.5-5.0) g/dL Urine 12/25/22 Range/Units 17:09 Urine Color Yellow Urine Appearance Clear Urine pH 7.5 (5.0-9.0) Ur Specific [place] <= 1.005 (1.005-1.025) Urine Protein Negative (Neg-Trace) mg/dL Urine Glucose (UA) Negative (Negative) mg/dL All other labs normal. Imaging Additional studies: Arterial ultrasound was reviewed and was within normal limits. Assessment and Plan (1) Diabetic ulcer of left foot: Status: Acute Plan In short patient has diabetic foot ulcer. Arterial appears to be within normal limits. Will have to touch base with the primary team and Infectious Disease team. It appears that this has been treated in the past with antibiotics and has failed to heal. He may require an amputation. We will continue to follow with you. Thank you for allowing us to assist in his care. Time Spent With Patient Time: Total time managing care of this patient today ____ minutes. Procedures Date of Service Date of Service: 12/26/22
[2022-12-26] MEDS: 0.9 % Sodium Chloride Flush 3 ML SYRINGE IVFLUSH ×3 (07:51→19:58)
[2022-12-26] MEDS: hydroCHLOROthiazide 25 MG TABLET PO (07:51)
[2022-12-26] MEDS: Morphine Sulfate 2 MG/ML CARTRIDGE IVPUSH ×2 (07:51→13:15)
[2022-12-26] MEDS: Nicotine 21 MG PATCH.TD24 TRANSDERMA (07:51)
[2022-12-26] MEDS: Multivitamin TABLET 1 TAB PO (07:52)
[2022-12-26] MEDS: cefEPime HCl 2 GM in 0.9 % Sodium Chloride 50 ML IV ×3 (07:52→23:43)
[2022-12-26] MEDS: Gabapentin 400 MG CAPSULE 800 MG PO ×3 (07:52→19:58)
[2022-12-26] MEDS: Atorvastatin Calcium 40 MG TABLET PO (07:52)
[2022-12-26] MEDS: lisinopriL 20 MG TABLET PO (07:52)
--- NOTE | 2022-12-26 08:31 | P.PNIM_ITS ---
Subjective Subjective Date of Service: 12/26/22 Interval History: toe pain Physical Exam Vital Signs: Vital Signs: Last Vital Signs Temp 97.2 F 12/26/22 07:25 Pulse 60 12/26/22 07:45 Resp 19 12/26/22 07:51 BP 124/84 12/26/22 07:25 Pulse Ox 96 12/26/22 07:25 O2 Del Method Room Air 12/26/22 07:25 BMI result Body Mass Index 30.7 LLE erythema, left 1st toe ulcer Objective Data Active Medications Acetaminophen (Acetaminophen 325 Mg Tablet) 650 mg PO Q6H PRN PRN Reason: Pain, Mild (Pain Scale 1-3) Albuterol Sulfate (Albuterol Sulfate 90 Mcg 8 Gm Inhaler) 2 puff INHALE RQ4H PRN PRN Reason: Shortness of Breath/Wheezing Atorvastatin Calcium (Atorvastatin Calcium 40 Mg Tablet) 40 mg PO DAILY [facility] Last Admin: 12/26/22 07:52 Dose: 40 mg Documented By: ABIOLAEMA Docusate Sodium (Docusate Sodium 100 Mg Capsule) 100 mg PO DAILY PRN PRN Reason: Constipation Fluticasone/Vilanterol (Fluticasone/Vilanterol 100/25 Blst.W.Dev) 1 puff INHALE RDAILY [facility] Last Admin: 12/26/22 07:43 Dose: 1 puff Documented By: ULRICC Gabapentin (Gabapentin 400 Mg Capsule) 800 mg PO TID [facility] Last Admin: 12/26/22 07:52 Dose: 800 mg Documented By: ABIOLAEMA Glucose (Glucose Gel 15 Gm Gel..Gram.) 15 gm PO Q15M PRN; Protocol PRN Reason: per Hypoglycemia Standing Ord. Heparin Sodium (Porcine) (Heparin Sodium,Porcine 5,000 Unit/Ml Vial) 5,000 unit SUBCUT Q12H [facility] Last Admin: 12/26/22 05:49 Dose: 5,000 unit Documented By: LIZA Hydrochlorothiazide (Hydrochlorothiazide 25 Mg Tablet) 25 mg PO DAILY [facility] Last Admin: 12/26/22 07:51 Dose: 25 mg Documented By: ABIOLAEMA Dextrose (D10) 250 mls @ 750 mls/hr IV Q15M PRN; Protocol PRN Reason: per Hypoglycemia Standing Ord. Cefepime HCl 2 gm/ Sodium (Chloride) 50 mls @ 100 mls/hr IV Q8H [facility] Last Admin: 12/26/22 07:52 Dose: 100 mls/hr Documented By: COTEMA Vancomycin HCl 1,250 mg/ (Sodium Chloride) 250 mls @ 166.667 mls/hr IV Q12H [facility] Insulin Human Lispro (Insulin Lispro 100 Unit/Ml 3 Ml Vial) 0 unit SUBCUT QIDACHS [facility]; Protocol Last Admin: 12/26/22 07:15 Dose: Not Given Documented By: ABIOLAEMA Non-Admin Reason: No Insulin Coverage Lisinopril (Lisinopril 20 Mg Tablet) 20 mg PO DAILY [facility] Last Admin: 12/26/22 07:52 Dose: 20 mg Documented By: COTEMA Morphine Sulfate (Morphine Sulfate 2 Mg/Ml Cartridge) 2 mg IVPUSH Q4H PRN; Protocol PRN Reason: moderate pain Last Admin: 12/26/22 07:51 Dose: 2 mg Documented By: SILKE Multivitamins/Vitamin C (Multivitamin Tablet) 1 tab PO DAILY [facility] Last Admin: 12/26/22 07:52 Dose: 1 tab Documented By: SILKE Nicotine (Nicotine 21 Mg Patch.Td24) 21 mg TRANSDERMA DAILY [facility] Last Admin: 12/26/22 07:51 Dose: 21 mg Documented By: SILKE Ondansetron HCl (Ondansetron Hcl 4 Mg/2 Ml Vial) 4 mg IVPUSH Q8H PRN PRN Reason: Nausea and Vomiting Pharmacy Consult (Consult Rx Perform Med Rec) 1 each MISCELLANE ONCE PRN PRN Reason: Consult order Pharmacy Consult (Consult Rx Vancomycin Dosing) 1 each MISCELLANE DAILY PRN PRN Reason: Consult order Sodium Chloride (0.9 % Sodium Chloride Flush 3 Ml Syringe) 3 ml IVFLUSH QSHIFT [facility] Last Admin: 12/26/22 07:51 Dose: 3 ml Documented By: COTEMA Tamsulosin HCl (Tamsulosin Hcl 0.4 Mg Capsule) 0.4 mg PO BEDTIME [facility] Last Admin: 12/25/22 21:07 Dose: 0.4 mg Documented By: JAMMIEP Labs 12/26/22 05:20 12/26/22 05:20 Labs: Laboratory Results - last 24 hr 12/25/22 12/25/22 12/25/22 16:07 16:07 16:07 MCV 89.7 MCH 30.3 MCHC 33.8 RDW 12.6 Plt Count 288 MPV 9.0 L Immature Gran % (Auto) 0.4 Neut % (Auto) 73.7 H Lymph % (Auto) 15.5 L Cannon % (Auto) 7.7 Eos % (Auto) 1.5 Baso % (Auto) 1.2 Lymph # (Auto) 2.3 Cannon # (Auto) 1.1 Eos # (Auto) 0.2 Baso # (Auto) 0.2 Abs Immat Gran (auto) 0.06 H Absolute Neuts (auto) 10.9 H Absolute Nucleated RBC 0.000 Nucleated RBC % (auto) 0.0 ESR 34 H PT 11.2 INR 1.0 APTT 31.1 Anion Gap Estim Creat Clear Calc Estimated GFR POC Glucose Random Glucose Estimat Average Glucose Hemoglobin A1c % Lactic Acid Calcium Magnesium Total Bilirubin Direct Bilirubin AST ALT Alkaline Phosphatase C-Reactive Protein Total Protein Albumin Urine Color Urine Appearance Urine pH Ur Specific [place] Urine Protein Urine Glucose (UA) Urine Ketones Urine Blood Urine Nitrite Ur Leukocyte Esterase COVID-19 (LUZ MARIA) COVID-19 [employer] [place] 12/25/22 12/25/22 12/25/22 16:07 16:07 16:07 MCV MCH MCHC RDW Plt Count MPV Immature Gran % (Auto) Neut % (Auto) Lymph % (Auto) Cannon % (Auto) Eos % (Auto) Baso % (Auto) Lymph # (Auto) Cannon # (Auto) Eos # (Auto) Baso # (Auto) Abs Immat Gran (auto) Absolute Neuts (auto) Absolute Nucleated RBC Nucleated RBC % (auto) ESR PT INR APTT Anion Gap 12 Estim Creat Clear Calc 111.7 Estimated GFR > 60 POC Glucose Random Glucose 82 Estimat Average Glucose Hemoglobin A1c % Lactic Acid 1.0 Calcium 9.3 Magnesium 1.9 Total Bilirubin 0.8 Direct Bilirubin 0.2 AST 16 ALT 16 Alkaline Phosphatase 63 C-Reactive Protein 5.03 H Total Protein 6.7 Albumin 4.0 Urine Color Urine Appearance Urine pH Ur Specific [place] Urine Protein Urine Glucose (UA) Urine Ketones Urine Blood Urine Nitrite Ur Leukocyte Esterase COVID-19 (LUZ MARIA) Negative COVID-19 Clin Com See Note 04/03/23 04/03/23 04/03/23 16:07 17:09 20:08 MCV MCH MCHC RDW Plt Count MPV Immature Gran % (Auto) Neut % (Auto) Lymph % (Auto) Cannon % (Auto) Eos % (Auto) Baso % (Auto) Lymph # (Auto) Cannon # (Auto) Eos # (Auto) Baso # (Auto) Abs Immat Gran (auto) Absolute Neuts (auto) Absolute Nucleated RBC Nucleated RBC % (auto) ESR PT INR APTT Anion Gap Estim Creat Clear Calc Estimated GFR POC Glucose 102 Random Glucose Estimat Average Glucose 123 Hemoglobin A1c % 5.9 Lactic Acid Calcium Magnesium Total Bilirubin Direct Bilirubin AST ALT Alkaline Phosphatase C-Reactive Protein Total Protein Albumin Urine Color Yellow Urine Appearance Clear Urine pH 7.5 Ur Specific [place] <= 1.005 Urine Protein Negative Urine Glucose (UA) Negative Urine Ketones Negative Urine Blood Negative Urine Nitrite Negative Ur Leukocyte Esterase Negative COVID-19 ([facility]Z MARIA) COVID-19 Clin Com 12/26/22 12/26/22 12/26/22 05:20 05:20 07:10 MCV 88.7 MCH 30.7 MCHC 34.7 RDW 12.5 Plt Count 288 MPV 9.1 L Immature Gran % (Auto) 0.1 Neut % (Auto) 57.6 Lymph % (Auto) 25.9 Cannon % (Auto) 9.9 Eos % (Auto) 4.5 H Baso % (Auto) 2.0 Lymph # (Auto) 1.9 Cannon # (Auto) 0.7 Eos # (Auto) 0.3 Baso # (Auto) 0.2 Abs Immat Gran (auto) 0.01 Absolute Neuts (auto) 4.3 Absolute Nucleated RBC 0.000 Nucleated RBC % (auto) 0.0 ESR PT INR APTT Anion Gap 13 Estim Creat Clear Calc 132.8 Estimated GFR > 60 POC Glucose 105 Random Glucose 95 Estimat Average Glucose Hemoglobin A1c % Lactic Acid Calcium 8.7 D Magnesium Total Bilirubin Direct Bilirubin AST ALT Alkaline Phosphatase C-Reactive Protein Total Protein Albumin Urine Color Urine Appearance Urine pH Ur Specific [place] Urine Protein Urine Glucose (UA) Urine Ketones Urine Blood Urine Nitrite Ur Leukocyte Esterase COVID-19 ([facility] MARIA) COVID-19 Clin Com Assessment and Plan (1) Diabetic ulcer of left foot: Status: Acute Plan 52M PMH COPD, anxiety and depression, fibromyalgia, glaucoma, hyperlipidemia, hypertension, history of alcohol abuse with remote history of alcohol withdrawal seizure, [id number] type 2 diabetes, diabetic polyneuropathy, nonhealing ulcer left great toe, and osteomyelitis of the left great toe who is a current 1ppd smoker admitted for osteomyelitis left great toe with cellulitis LLE. Chronic osteomyelitis Left great toe- due to nonhealing diabetic ulcer left g reat toe complicated by acute bacterial cellulitis Completed 6 week tx IV abx 06/2022. Has been following with wound clinic recommending amputation Arterial doppler unremarkable IV cefepime and vanco vascular and ID eval [id number] type 2 diabetes Humulin sliding scale diabetic polyneuropathy continue gabapentin COPD-without acute exacerbation Breo Ellipta albuterol p.r.n. outpatient follow-up for PFT smoking cessation counseling hypertension lisinopril HLD continue statin nicotine dependence currently smokes 1 pack per day with 30 pack-year history nicotine patches for NRT smoking cessation counseling provided DVT prophylaxis-heparin Full code reason for continued hospitalization:infection needing iv abx, plan for possible amputation Time Spent With Patient Time: Total time managing care of this patient today ____ minutes. Quality Stroke Does the patient have a stroke diagnosis?: No VTE Prior VTE?: No VTE Risk Level:: Medical - moderate - high VTE Device Contraindication: Treatment Not Indicated VTE Drug Contraindication: N/A - Med Ordered
[2022-12-26] MEDS: vancomycin HCL 1,250 MG in 0.9 % Sodium Chloride 250 ML 166.67 MG IV ×2 (08:43→19:48)
[2022-12-26 11:30] LABS: Glucose, Whole Blood 86 mg/dL (60-115)
--- NOTE | 2022-12-26 12:39 | MHC.CM.PN ---
pt lives alone is covid vax x 1 will need a ride home dc plan home no servceis
--- NOTE | 2022-12-26 15:05 | P.CNID_ITS ---
History of Present Illness Data of Consult Service Date: 12/26/22 Requesting physician: Vicente Self Primary Care Provider: Martine Mike MD [facility] Reason for consult: left foot infection He presents to hospital with left foot worsening redness and swelling advised to come by [facility]. He has has open wound under left foot and has seen Wound Clinic about nine months. He reports having open ulcer for several years,up to seven. He has had worsening over last several months and I started him on IV Daptomycin June 24 and developed increased CK muscle enzymes and this discontinued July 25 He started to have some improvement which he didnt have with Vancomycin earlier. He has seen Dr Lepe of Vascular as well. He is very angry about foot not healing. Review of Systems Review of Systems: Yes all other systems are reviewed and are negative PMFSH Past Medical History Medical History Anxiety and depression COPD (chronic obstructive pulmonary disease) Depression Fibromyalgia Glaucoma Hypercholesterolemia Hypertension Osteomyelitis Personal history of nicotine dependence Seizure disorder Tubular adenoma of colon Type 2 diabetes mellitus Type 2 diabetes mellitus with diabetic neuropathy Family History Family History Mother Lung cancer metastatic to brain Family history: reviewed and not pertinent Surgical History Surgical History H/O colonoscopy History of cervical discectomy History of eye surgery Social History Social History Household Members: None Housing: Apartment Do you presently have visiting nurse or other home services: No Patient Tobacco Use Status: Current everyday Tobacco user Tobacco use type: Cigarette Cigarette Packs Per Day: 1 Cigarettes Per Day: 20.0 Years Smoked: 13 e-Cigarette/Vaping Use: Never Used Second Hand Smoke Exposure: No Substance Use Type: Marijuana service: No Current occupational status: disabled Current occupational exposures/hazards: No Meds Allergies Allergy/AdvReac Type Severity Reaction Status Date / Time shellfish derived Allergy Severe ANAPHYLAXIS Verified 12/25/22 13:32 [SHELLFISH DERIVED] buspirone [From BUSPAR] Allergy Unknown nausea Verified 12/25/22 13:32 bupropion [From WELLBUTRIN] AdvReac Unknown NAUSEA Verified 12/25/22 13:32 daptomycin AdvReac rhabdomyoli Verified 12/25/22 17:09 sis Active Medications: Current Medications Acetaminophen (Acetaminophen 325 Mg Tablet) 650 mg PO Q6H PRN PRN Reason: Pain, Mild (Pain Scale 1-3) Albuterol Sulfate (Albuterol Sulfate 90 Mcg 8 Gm Inhaler) 2 puff INHALE RQ4H PRN PRN Reason: Shortness of Breath/Wheezing Atorvastatin Calcium (Atorvastatin Calcium 40 Mg Tablet) 40 mg PO DAILY [facility] Last Admin: 12/26/22 07:52 Dose: 40 mg Docusate Sodium (Docusate Sodium 100 Mg Capsule) 100 mg PO DAILY PRN PRN Reason: Constipation Fluticasone/Vilanterol (Fluticasone/Vilanterol 100/25 Blst.W.Dev) 1 puff INHALE RDAILY [facility] Last Admin: 12/26/22 07:43 Dose: 1 puff Gabapentin (Gabapentin 400 Mg Capsule) 800 mg PO TID [facility] Last Admin: 12/26/22 07:52 Dose: 800 mg Glucose (Glucose Gel 15 Gm Gel..Gram.) 15 gm PO Q15M PRN; Protocol PRN Reason: per Hypoglycemia Standing Ord. Heparin Sodium (Porcine) (Heparin Sodium,Porcine 5,000 Unit/Ml Vial) 5,000 unit SUBCUT Q12H [facility] Last Admin: 12/26/22 05:49 Dose: 5,000 unit Hydrochlorothiazide (Hydrochlorothiazide 25 Mg Tablet) 25 mg PO DAILY [facility] Last Admin: 12/26/22 07:51 Dose: 25 mg Dextrose (D10) 250 mls @ 750 mls/hr IV Q15M PRN; Protocol PRN Reason: per Hypoglycemia Standing Ord. Cefepime HCl 2 gm/ Sodium (Chloride) 50 mls @ 100 mls/hr IV Q8H [facility] Last Infusion: 12/26/22 08:40 Dose: Infused Vancomycin HCl 1,250 mg/ (Sodium Chloride) 250 mls @ 166.667 mls/hr IV Q12H [facility] Last Infusion: 12/26/22 10:23 Dose: Infused Insulin Human Lispro (Insulin Lispro 100 Unit/Ml 3 Ml Vial) 0 unit SUBCUT QIDACHS [facility]; Protocol Last Admin: 12/26/22 11:44 Dose: Not Given Lisinopril (Lisinopril 20 Mg Tablet) 20 mg PO DAILY [facility] Last Admin: 12/26/22 07:52 Dose: 20 mg Morphine Sulfate (Morphine Sulfate 2 Mg/Ml Cartridge) 2 mg IVPUSH Q4H PRN; Protocol PRN Reason: moderate pain Last Admin: 12/26/22 13:15 Dose: 2 mg Multivitamins/Vitamin C (Multivitamin Tablet) 1 tab PO DAILY [facility] Last Admin: 12/26/22 07:52 Dose: 1 tab Nicotine (Nicotine 21 Mg Patch.Td24) 21 mg TRANSDERMA DAILY [facility] Last Admin: 12/26/22 07:51 Dose: 21 mg Ondansetron HCl (Ondansetron Hcl 4 Mg/2 Ml Vial) 4 mg IVPUSH Q8H PRN PRN Reason: Nausea and Vomiting Pharmacy Consult (Consult Rx Perform Med Rec) 1 each MISCELLANE ONCE PRN PRN Reason: Consult order Pharmacy Consult (Consult Rx Vancomycin Dosing) 1 each MISCELLANE DAILY PRN PRN Reason: Consult order Sodium Chloride (0.9 % Sodium Chloride Flush 3 Ml Syringe) [facility] Last Admin: 12/26/22 07:51 Dose: 3 ml Tamsulosin HCl (Tamsulosin Hcl 0.4 Mg Capsule) 0.4 mg PO BEDTIME [facility] Last Admin: 12/25/22 21:07 Dose: 0.4 mg Home Medications Medication Instructions Recorded Confirmed Last Taken Type lisinopril 20 1 tab PO DAILY 02/16/22 12/25/22 07/24/22 History mg-hydrochlorothiazide 25 mg tablet gabapentin 800 mg tablet 800 mg PO TID 07/28/22 12/25/22 Unknown History atorvastatin 40 mg tablet 40 mg PO DAILY 12/25/22 12/25/22 Unknown History multivitamin 1 tab PO DAILY 12/25/22 12/25/22 Unknown History Physical Exam Vital Signs: Vital Signs: Last Vital Signs Temp 97.2 F 12/26/22 07:25 Pulse 60 12/26/22 07:45 Resp 20 12/26/22 13:15 BP 124/84 12/26/22 07:25 Pulse Ox 96 12/26/22 07:25 O2 Del Method Room Air 12/26/22 07:25 BMI result Body Mass Index 30.7 Const: Other: angry frustrated male HEENT: Head: Yes normal to inspection Face and sinus: Yes normal facial exam Mouth: Normal oral and palatal mucosa present Teeth and gingiva: dentition normal Eyes: General: appearance normal, both eyes and all related structures Pupils: Equal, round and reactive pupils present Resp: Effort & Inspection: normal respiratory effort Cardio: Rate: regular rate Rhythm: regular rhythm GI: Palpation (GI): Soft to palpation and nontender : General: Yes no CVA tenderness Back/Spine/Pelvis: Back: no CVA tenderness Skin: General skin exam: no rashes or lesions noted Neuro: General: moves all extremities Cranial nerves: Yes Equal, round and reactive pupils present Extrem: Other: left great toe swollen and painful Psych: Appearance: grossly normal Results Labs 12/26/22 05:20 12/26/22 05:20 Labs: Short CBC 12/25/22 12/26/22 Range/Units 16:07 05:20 WBC 14.8 H 7.4 (4.8-10.8) X10*3/uL Hgb 12.6 L 12.2 L (14.0-18.0) g/dl Hct 37.3 L 35.2 L (42.0-52.0) % Plt Count 288 288 (160-400) X10*3/uL BMP 12/25/22 12/26/22 16:07 05:20 Sodium 140 141 Potassium 3.4 3.6 Chloride 100 105 Carbon Dioxide 31 H 27 BUN 9 8 L Creatinine 0.83 0.70 Calcium 9.3 8.7 D Liver Function 12/25/22 Range/Units 16:07 Total Bilirubin 0.8 (0.0-1.0) mg/dL Direct Bilirubin 0.2 (0.0-0.5) mg/dL AST 16 (5-37) U/L ALT 16 (0-40) U/L Alkaline Phosphatase 63 (39-117) U/L Albumin 4.0 (3.5-5.0) g/dL Urine 12/25/22 Range/Units 17:09 Urine Color Yellow Urine Appearance Clear Urine pH 7.5 (5.0-9.0) Ur Specific [place] <= 1.005 (1.005-1.025) Urine Protein Negative (Neg-Trace) mg/dL Urine Glucose (UA) Negative (Negative) mg/dL Assessment and Plan (1) Diabetic ulcer of left foot: Status: Acute He has chronic nonhealing foot with appearance of nonhealing area chronically Staph strep other organisms and possible general debility issues Plan Would continue current antibiotics broadspectrum for now. Would also advise amputation,definitive cure. Time Spent With Patient Time: Total time managing care of this patient today ____ minutes.
[2022-12-26 16:46] LABS: Glucose, Whole Blood 87 mg/dL (60-115)
[2022-12-26] MEDS: Morphine Sulfate 2 MG/ML CARTRIDGE 4 MG IVPUSH ×2 (17:10→21:26)
--- NOTE | 2022-12-26 18:37 | PC.NURSE ---
pt had a previous fall so pt scores as high fall risk. pt refuses bed alarm and chair alarm. pt educated about risks and encouraged to ring when needing to use the bathroom or getting up.
[2022-12-26] MEDS: Tamsulosin HCL 0.4 MG CAPSULE PO (19:58)
[2022-12-26 20:26] LABS: Glucose, Whole Blood 178 mg/dL (60-115)
[2022-12-26] MEDS: Insulin Lispro 100 UNIT/ML 3 ML VIAL SUBCUT (21:25)
[2022-12-27 03:41] VITALS: BP 123/68; PULSE 66; RESP 18; TEMP 36.2; O2SAT 97
[2022-12-27] MEDS: Morphine Sulfate 2 MG/ML CARTRIDGE 4 MG IVPUSH (06:01)
[2022-12-27 06:32] LABS: Hematocrit 39.4 % (42.0-52.0); Hemoglobin 13.5 g/dl (14.0-18.0); Mean Corpuscular HGB Conc 34.3 g/dl (31.0-36.0); Mean Corpuscular Hemoglobin 30.8 pg (27.0-33.0); Mean Platelet Volume 9.3 fL (9.4-12.4); Platelet Count 312 X10*3/uL (160-400); Red Blood Count 4.38 X10*6/uL (4.60-5.80); Red Cell Distribution Width 12.4 % (11.0-16.0); White Blood Count 8.5 X10*3/uL (4.8-10.8)
[2022-12-27 06:54] LABS: Vancomycin Random 12.6 mcg/mL (15-20)
[2022-12-27 06:55] LABS: Anion Gap 17 (12-20); Blood Urea Nitrogen 10 mg/dL (9-16); Calcium 9.1 mg/dL (8.4-10.2); Carbon Dioxide 25 mmol/L (22-29); Chloride 103 mmol/L (96-108); Creatinine Clr Calc Pharmacy 127.4; Estimated Glomerular Filt Rate > 60; Glucose Fasting 82 mg/dL (60-99); Potassium 3.9 mmol/L (3.3-5.1); Sodium 141 mmol/L (135-145)
--- NOTE | 2022-12-27 07:14 | HE.PHANOTE ---
VANCOMYCIN DOSE ADJUSTMENT BASED ON SCR OF 0.73 AND TROUGH 12.6 DOSE INCREASED TO [id number]. NEXT TROUGH AT 1800 4/6 EXPECTED AUC OF 542
[2022-12-27 07:28] VITALS: BP 121/75; PULSE 68; RESP 18; TEMP 36.6; O2SAT 96
[2022-12-27 07:35] LABS: Glucose, Whole Blood 94 mg/dL (60-115)
[2022-12-27] MEDS: cefEPime HCl 2 GM in 0.9 % Sodium Chloride 50 ML IV (07:55)
[2022-12-27] MEDS: Gabapentin 400 MG CAPSULE 800 MG PO ×2 (07:56→14:21)
[2022-12-27] MEDS: Nicotine 21 MG PATCH.TD24 TRANSDERMA (07:57)
[2022-12-27] MEDS: Atorvastatin Calcium 40 MG TABLET PO (07:57)
[2022-12-27] MEDS: hydroCHLOROthiazide 25 MG TABLET PO (07:57)
[2022-12-27] MEDS: lisinopriL 20 MG TABLET PO (07:57)
[2022-12-27] MEDS: 0.9 % Sodium Chloride Flush 3 ML SYRINGE IVFLUSH (07:58)
[2022-12-27] MEDS: traMADoL HCL 50 MG TABLET PO ×2 (08:41→12:53)
[2022-12-27] MEDS: vancomycin HCL 1,500 MG in 0.9 % Sodium Chloride 500 ML 333.33 MG IV (08:42)
--- NOTE | 2022-12-27 10:41 | P.PNIM_ITS ---
Subjective Subjective Date of Service: 12/27/22 Interval History: seen and evaluated feels more comfortable decrease swelling plan for amputation tomorrow Review of Systems Review of Systems: Yes all other systems are reviewed and are negative Physical Exam Vital Signs: Vital Signs: Last Vital Signs Temp 97.8 F 12/27/22 07:28 Pulse 68 12/27/22 07:28 Resp 18 12/27/22 07:28 BP 121/75 12/27/22 07:28 Pulse Ox 96 12/27/22 07:28 O2 Del Method Room Air 12/27/22 07:28 BMI result Body Mass Index 30.7 Const: Other: Constitutional : Awake, interactive, not in distress Neck : Normal inspection, Supple Cardiovascular : RRR, no JVP, no lower extremity edema Respiratory : good bilateral air entry, no crackles, wheezes or rhonchi Gastrointestinal: soft, lax, Normal bowel sounds, Non tender Skin : Warm, Dry, +nonhealing ulcer left great toe, +erythema/swelling/warmth LLE Neurological : Alert & oriented x3, No focal deficit Objective Data Active Medications Acetaminophen (Acetaminophen 325 Mg Tablet) 650 mg PO Q6H PRN PRN Reason: Pain, Mild (Pain Scale 1-3) Albuterol Sulfate (Albuterol Sulfate 90 Mcg 8 Gm Inhaler) 2 puff INHALE RQ4H PRN PRN Reason: Shortness of Breath/Wheezing Atorvastatin Calcium (Atorvastatin Calcium 40 Mg Tablet) 40 mg PO DAILY [facility] Last Admin: 12/27/22 07:57 Dose: 40 mg Documented By: YOSELYN Docusate Sodium (Docusate Sodium 100 Mg Capsule) 100 mg PO DAILY PRN PRN Reason: Constipation Fluticasone/Vilanterol (Fluticasone/Vilanterol 100/25 Blst.W.Dev) 1 puff INHALE RDAILY [facility] Last Admin: 12/27/22 07:38 Dose: Not Given Documented By: BO Non-Admin Reason: Patient Refused Gabapentin (Gabapentin 400 Mg Capsule) 800 mg PO TID [facility] Last Admin: 12/27/22 07:56 Dose: 800 mg Documented By: YOSELYN Glucose (Glucose Gel 15 Gm Gel..Gram.) 15 gm PO Q15M PRN; Protocol PRN Reason: per Hypoglycemia Standing Ord. Heparin Sodium (Porcine) (Heparin Sodium,Porcine 5,000 Unit/Ml Vial) 5,000 unit SUBCUT Q12H [facility] Last Admin: 12/27/22 05:32 Dose: Not Given Documented By: RACHELL Non-Admin Reason: possible surgery Hydrochlorothiazide (Hydrochlorothiazide 25 Mg Tablet) 25 mg PO DAILY [facility] Last Admin: 12/27/22 07:57 Dose: 25 mg Documented By: YOSELYN Dextrose (D10) 250 mls @ 750 mls/hr IV Q15M PRN; Protocol PRN Reason: per Hypoglycemia Standing Ord. Cefepime HCl 2 gm/ Sodium (Chloride) 50 mls @ 100 mls/hr IV Q8H [facility] Last Infusion: 12/27/22 08:41 Dose: 0 mls/hr Documented By: YOSELYN Vancomycin HCl 1,500 mg/ (Sodium Chloride) 500 mls @ 333.333 mls/hr IV Q12H [facility] Last Infusion: 12/27/22 10:20 Dose: 0 mls/hr Documented By: YOSELYN Insulin Human Lispro (Insulin Lispro 100 Unit/Ml 3 Ml Vial) 0 unit SUBCUT QIDACHS [facility]; Protocol Last Admin: 12/27/22 07:38 Dose: Not Given Documented By: YOSELYN Non-Admin Reason: No Insulin Coverage Lisinopril (Lisinopril 20 Mg Tablet) 20 mg PO DAILY [facility] Last Admin: 12/27/22 07:57 Dose: 20 mg Documented By: YOSELYN Morphine Sulfate (Morphine Sulfate 2 Mg/Ml Cartridge) 4 mg IVPUSH Q4H PRN; Protocol PRN Reason: moderate pain Last Admin: 12/27/22 06:01 Dose: 4 mg Documented By: RACHELL Multivitamins/Vitamin C (Multivitamin Tablet) 1 tab PO DAILY [facility] Last Admin: 12/27/22 07:57 Dose: Not Given Documented By: YOSELYN Non-Admin Reason: Patient Refused Nicotine (Nicotine 21 Mg Patch.Td24) 21 mg TRANSDERMA DAILY [facility] Last Admin: 12/27/22 07:57 Dose: 21 mg Documented By: YOSELYN Ondansetron HCl (Ondansetron Hcl 4 Mg/2 Ml Vial) 4 mg IVPUSH Q8H PRN PRN Reason: Nausea and Vomiting Pharmacy Consult (Consult Rx Perform Med Rec) 1 each MISCELLANE ONCE PRN PRN Reason: Consult order Pharmacy Consult (Consult Rx Vancomycin Dosing) 1 each MISCELLANE DAILY PRN PRN Reason: Consult order Sodium Chloride (0.9 % Sodium Chloride Flush 3 Ml Syringe) 3 ml IVFLUSH QSHIFT [facility] Last Admin: 12/27/22 07:58 Dose: 3 ml Documented By: YOSELYN Tamsulosin HCl (Tamsulosin Hcl 0.4 Mg Capsule) 0.4 mg PO BEDTIME [facility] Last Admin: 12/26/22 19:58 Dose: 0.4 mg Documented By: RACHELL Tramadol HCl (Tramadol Hcl 50 Mg Tablet) 50 mg PO Q4H PRN PRN Reason: Pain, Moderate (Pain Scale 4-6 Last Admin: 12/27/22 08:41 Dose: 50 mg Documented By: YOSELYN Labs 12/27/22 05:40 12/27/22 05:40 Labs: Laboratory Results - last 24 hr 12/26/22 12/26/22 12/26/22 11:13 16:32 20:23 MCV MCH MCHC RDW Plt Count MPV Absolute Nucleated RBC Nucleated RBC % (auto) Anion Gap Estim Creat Clear Calc Estimated GFR POC Glucose 86 87 178 H Fasting Glucose Calcium Random Vancomycin 12/27/22 12/27/22 12/27/22 05:40 05:40 05:40 MCV 90.0 MCH 30.8 MCHC 34.3 RDW 12.4 Plt Count 312 MPV 9.3 L Absolute Nucleated RBC 0.000 Nucleated RBC % (auto) 0.0 Anion Gap 17 Estim Creat Clear Calc 127.4 Estimated GFR > 60 POC Glucose Fasting Glucose 82 Calcium 9.1 Random Vancomycin 12.6 L 12/27/22 07:30 MCV MCH MCHC RDW Plt Count MPV Absolute Nucleated RBC Nucleated RBC % (auto) Anion Gap Estim Creat Clear Calc Estimated GFR POC Glucose 94 Fasting Glucose Calcium Random Vancomycin Microbiology Microbiology Results: Microbiology 12/25/22 17:37 Blood Culture - Preliminary Blood - Venous No growth after 24 hours. 12/25/22 17:09 Blood Culture - Preliminary Blood - Venous No growth after 24 hours. Assessment and Plan (1) Diabetic ulcer of left foot: Status: Acute (2) Left hallux osteomyelitis: Status: Acute (3) Cellulitis of left lower extremity: Status: Acute Plan 52M PMH COPD, anxiety and depression, fibromyalgia, glaucoma, hyperlipidemia, hypertension, history of alcohol abuse with remote history of alcohol withdrawal seizure, [id number] type 2 diabetes, diabetic polyneuropathy, nonhealing ulcer left great toe, and osteomyelitis of the left great toe who is a current 1ppd smoker admitted for osteomyelitis left great toe with cellulitis LLE. Chronic osteomyelitis Left great toe- due to nonhealing diabetic ulcer left great toe complicated by acute bacterial cellulitis Completed 6 week tx IV abx 06/2022. Has been following with wound clinic recommending amputation Arterial doppler unremarkable IV cefepime and vanco vascular and ID suggested amputation, to be scheduled for tomorrow follow vanco trough NPO post midnight [id number] type 2 diabetes Humulin sliding scale diabetic polyneuropathy continue gabapentin COPD-without acute exacerbation Breo Ellipta albuterol p.r.n. outpatient follow-up for PFT smoking cessation counseling hypertension lisinopril HLD continue statin nicotine dependence currently smokes 1 pack per day with 30 pack-year history nicotine patches for NRT smoking cessation counseling provided DVT prophylaxis-heparin Full code reason for continued hospitalization:infection needing iv abx, plan for amputation Time Spent With Patient Time: Total time managing care of this patient today ____ minutes. Quality Stroke Does the patient have a stroke diagnosis?: No VTE Prior VTE?: No VTE Risk Level:: Medical - moderate - high VTE Device Contraindication: Treatment Not Indicated VTE Drug Contraindication: N/A - Med Ordered
[2022-12-27 11:18] LABS: Glucose, Whole Blood 79 mg/dL (60-115)
--- NOTE | 2022-12-27 11:58 | HO.VASCPN ---
Subjective Subjective Date of Service: 12/27/22 Patient reports: no new complaints Interval history: Very pleasant 52-year-old gentleman presents for follow-up regarding nonhealing left great toe ulcer. He has had prior history of this diabetic foot ulcer which has been treated with antibiotics. Id remains nonhealing and a source of discomfort for him. He now presents to us for vascular follow-up. Physical Exam Vital Signs: Vital Signs: Last Vital Signs Temp 97.8 F 12/27/22 07:28 Pulse 68 12/27/22 07:28 Resp 18 12/27/22 07:28 BP 121/75 12/27/22 07:28 Pulse Ox 96 12/27/22 07:28 O2 Del Method Room Air 12/27/22 07:28 BMI result Body Mass Index 30.7 Const: General: cooperative, healthy appearing and no acute distress Orientation/consciousness: oriented to person, oriented to place and oriented to time HEENT: Head: Yes normal to inspection Neck: Carotids: no bruits Chest: Chest palpation & inspection: normal inspection of the chest Resp: Effort & Inspection: normal respiratory effort and able to speak in complete sentences Auscultation: clear to auscultation bilaterally Cardio: Rate: regular rate Heart sounds: S1 normal heart sound present and S2 normal heart sound present GI: Inspection: Yes normal to inspection Skin: Other: Left great toe ulcer General skin exam: no rashes or lesions noted Wounds: wounds noted Neuro: General: oriented to person, oriented to place, oriented to time and CN's II-XI intact bilaterally Extrem: General: Yes normal to inspection, Yes full ROM and Yes no clubbing, cyanosis or edema Psych: Appearance: grossly normal and well kempt Speech and movement: Normal speech and movement present Affect: normal affect Progress Note: A&P Assessment and plan (1) Diabetic ulcer of left foot: Status: Acute Assessment and Plan: In short the patient has a nonhealing left great toe ulcer with underlying osteomyelitis. This has been recurrent despite multiple attempts for treatment with conservative measures including IV antibiotics. Upon discussion with the medical team may was determined that amputation is best option for this patient. This was discussed with the patient and he is in agreement. The patient will require left great toe amputation. Risks benefits complications including bleeding infection and nonhealing were discussed in detail with the patient. He understood and consented and would like to move forward. We will schedule for tomorrow. Thank you for allowing us to assist in his care. (2) Osteomyelitis: Status: Acute Time Spent With Patient Time: Total time managing care of this patient today ____ minutes. Procedures Date of Service Date of Service: 12/27/22 Quality Stroke Does the patient have a stroke diagnosis?: No VTE Prior VTE?: No VTE Risk Level:: Medical - moderate - high VTE Device Contraindication: Treatment Not Indicated VTE Drug Contraindication: N/A - Med Ordered
--- NOTE | 2022-12-27 13:10 | MHC.CM.PN ---
Addendum entered by Eve Soto 12/27/22 13:56: Correction LT GR Toe. The Hospitalist met with the patient re surgical intervention. The patient will discharge today at his request. He will follow up with Dr Lepe to schedule amp of LT GR toe. Patient will need assist from [facility] with transport home. Original Note: CM was called to room by RN at the request of the Surgeon. Surgery had been planned for tomorrow. Initially the patient was in agreement with amputation tomorrow. After speaking with his father(lives in [place]), He realized that he needs to prepare his home for the post op course. The Surgeon and hospitalist have been notified that the patient requests discharge; which will allow him time to prepare for the surgery. He requests to be scheduled or be allowed to return in a few days for the RT GR toe amp.
--- NOTE | 2022-12-27 14:17 | P.DS_ITS ---
DS: Providers Provider Date of Service: 12/27/22 Date of admission: 12/25/22 18:02 Primary care physician: Martine Mike MD Consults: 12/25/22 18:05 Consult to Vascular Surgery Routine Consulting Provider: [facility] Reason for consultation: nonhealing DM ulcer L great toe, osteo, failed abx 12/26/22 08:30 Consult to Infectious Diseases Routine Consulting Provider: [facility] Reason for consultation: DFU/OM recurrent after IV abx DS: Diagnosis Discharge Diagnosis (1) Diabetic ulcer of left foot: Status: Acute (2) Osteomyelitis: Status: Acute (3) Cellulitis of left lower extremity: Status: Acute (4) Left hallux osteomyelitis: Status: Acute DS: Summary Hospital Course Hospital Course: Admission note HPI 52-year-old male with history of COPD, anxiety and depression, fibromyalgia, glaucoma, hyperlipidemia, hypertension, history of alcohol abuse with remote history of alcohol withdrawal seizure, [id number] type 2 diabetes, diabetic polyneuropathy, nonhealing ulcer left great toe, and osteomyelitis of the left great toe who is a current 1ppd smoker presented to the ED [facility] evaluation of nonhealing ulcer of the left great toe and cellulitis of the left lower extremity.? He reports he has had ulceration on the plantar surface of the left great toe for about 7 years and has been following with the wound care clinic for the last 9 months.? He was treated with 6 weeks of vancomycin and then daptomycin through PICC line for treatment of osteomyelitis which developed after standing in muddy water fishing about 6 months ago. However he developed rhabdomyolysis from the daptomycin resulting in his admission and was evaluated by ID recommending po doxycycline x 1 month which he completed. During recent visit to wound clinic, he was noted to have cellulitis of the left great toe and was given a course of po doxycycline which he reports taking as prescribed. However, has developed worsening erythema, swelling, warmth now spread to the distal half of the left lower leg and was advised to present to ED for further evaluation. He reports feeling fatigued and generally weak and reports 2 syncopal episodes one week ago which he feels is from poor water intake. Has not had any recurrence and denies lightheadedness. His only other complaint is urinary hesitancy and nocturia which has been ongoing for some time but denies any dysuria, hematuria, urinary incontinence. He is a current 1ppd smoker with 30 pack year history. Reports smoking MJ, no illicit drug use, no etoh use. On arrival, patient afebrile, VSS.? Leukocytosis of 14.8.? H/H 12.6/37.3%.? Renal function baseline, electrolyte levels normal.? ESR 34, CRP 5.03.? UA unremarkable.? X-ray of the left toe showing prominent plantar ulcer at the 1st digit with soft tissue swelling and suspect subtle erosion at the head of the 1st digit proximal phalanx medially with question of osteomyelitis.? Venous duplex of the left lower extremity negative for DVT which showing mildly enlarged left inguinal lymph node, likely reactive. In the ED treated with IV vancomycin and zosyn for empiric treatment of osteomyelitis and cellulitis left great toe/lower extremity. Hospital course The patient was admitted for treatment of cellulitis 2/2 Chronic osteomyelitis Left great toe due to nonhealing diabetic ulcer left great toe complicated by acute bacterial cellulitis. Treated with IV Abx of Vancomycin and Cefepime. blood cultures remained negative at time of discharge. Arterial doppler unremarkable. evaluated by vascular and ID teams who suggested amputation, the patient was scheduled for 12/28/22 to do surgery but he became anxious about being unable to bear weight for 2 weeks after it and asked to be discharged home so he can take care of urgent errands he needs to run before any surgery as he has no support and lives alone. i explained to him the urgency and need to get the surgery done GHASSAN but he insisted on leaving and following up as outpatient to arrange for surgery. not interested in IV Abx treatment right now as he finished a 6 weeks course last June. Will be discharged on Doxycyline and Augmentin for 1 week with a plan to follow up with dr Lepe in office. Call dr Lepe office for follow up and arrangements for surgery as soon as possible Continue Augmentin and Doxycycline for 1 week Start Tamsulosin to help with urine flow Come back to the hospital with any fever, worsening swelling and drainage from the infection site. Time Spent with Patient Time attestation: Total time managing care of this patient today ____ minutes. Discharge coordination time: Greater than 30 minutes Quality: Safe Use of Opioids Does Pt have an Active Cancer Diagnosis on the Problem List?: No Quality: Stroke Does the patient have a stroke diagnosis?: No Physical Exam Vital Signs: Vital Signs: Last Vital Signs Temp 97.8 F 12/27/22 07:28 Pulse 68 12/27/22 07:28 Resp 18 12/27/22 07:28 BP 121/75 12/27/22 07:28 Pulse Ox 96 12/27/22 07:28 O2 Del Method Room Air 12/27/22 07:28 BMI result Body Mass Index 30.7 Const: Other: Constitutional : Awake, interactive, not in distress Neck : Normal inspection, Supple Cardiovascular : RRR, no JVP, no lower extremity edema Respiratory : good bilateral air entry, no crackles, wheezes or rhonchi Gastrointestinal: soft, lax, Normal bowel sounds, Non tender Skin : Warm, Dry, +nonhealing ulcer left great toe, no significant erythema swelling warmth LLE Neurological : Alert & oriented x3, No focal deficit DS: Data Data Completed and Pending Labs on day of discharge: Laboratory Results - last 24 hr 12/26/22 12/26/22 12/27/22 16:32 20:23 05:40 WBC RBC Hgb Hct MCV MCH MCHC RDW Plt Count MPV Absolute Nucleated RBC Nucleated RBC % (auto) Sodium 141 Potassium 3.9 Chloride 103 Carbon Dioxide 25 Anion Gap 17 BUN 10 Creatinine 0.73 Estim Creat Clear Calc 127.4 Estimated GFR > 60 POC Glucose 87 178 H Fasting Glucose 82 Calcium 9.1 Random Vancomycin 12/27/22 12/27/22 12/27/22 05:40 05:40 07:30 WBC 8.5 RBC 4.38 L Hgb 13.5 L Hct 39.4 L MCV 90.0 MCH 30.8 MCHC 34.3 RDW 12.4 Plt Count 312 MPV 9.3 L Absolute Nucleated RBC 0.000 Nucleated RBC % (auto) 0.0 Sodium Potassium Chloride Carbon Dioxide Anion Gap BUN Creatinine Estim Creat Clear Calc Estimated GFR POC Glucose 94 Fasting Glucose Calcium Random Vancomycin 12.6 L 12/27/22 11:15 WBC RBC Hgb Hct MCV MCH MCHC RDW Plt Count MPV Absolute Nucleated RBC Nucleated RBC % (auto) Sodium Potassium Chloride Carbon Dioxide Anion Gap BUN Creatinine Estim Creat Clear Calc Estimated GFR POC Glucose 79 Fasting Glucose Calcium Random Vancomycin Preliminary micro results at discharge 12/25/22 17:37 Blood Culture - Preliminary Blood - Venous No growth after 24 hours. 12/25/22 17:09 Blood Culture - Preliminary Blood - Venous No growth after 24 hours. Imaging XR : Radiologist's impression: ITS Impressions Toe X-Ray 12/25/22 13:48 IMPRESSION: Prominent plantar ulcer at the first digit with soft tissue swelling. Suspect subtle erosion at the head of the first digit proximal phalanx medially. Osteomyelitis is a consideration. Consider MRI evaluation. Venous Duplex 12/25/22 15:08 IMPRESSION: 1. No evidence for deep venous thrombosis in the visualized veins of the left lower extremity. 2. Mildly enlarged left inguinal lymph node is nonspecific, but demonstrates benign features and may be reactive. Correlate with physical exam. If these findings persist or enlarge, short-term repeat targeted soft tissue ultrasound can be performed as clinically indicated to assess for change. Duplex Scan Lower Extremity Artery 12/25/22 18:20 IMPRESSION: There is no evidence of any hemodynamically significant lower extremity arterial disease by pressure, waveform or duplex Doppler criteria at rest. Discharge Plan Discharge Anticipated Discharge Date/Time: 12/27/22 14:16 Patient Disposition: Home, Self-Care Discharge Diagnosis: Osteomyelitis left big toe Referrals: Martine Mike MD [Primary Care Provider] - 1 Week Discharge Medications: New tamsulosin 0.4 mg Capsule 0.4 mg PO BEDTIME Qty: 30 0RF doxycycline monohydrate 100 mg capsule 100 mg PO BID Qty: 14 0RF amoxicillin-pot clavulanate 875-125 mg tablet 1 tab PO BID Qty: 14 0RF Continued lisinopril-hydrochlorothiazide 20-25 mg tablet 1 tab PO DAILY Hold Instructions: BP stable off meds; follow up with PCP for blood pressure monitoring gabapentin 800 mg Tablet 800 mg PO TID atorvastatin 40 mg tablet 40 mg PO DAILY multivitamin Tablet 1 tab PO DAILY Discharge Orders: Discharge Order (Routine); Ordered 12/27/22 Ordered By: Miriam Rouse Diet: Advance to usual diet Activity on Discharge: As tolerated Stand Alone Forms: Patient Portal Discharge page Care Plan Goals: Read below Health Concerns: Read below Plan of Treatment: Read below Assessment: Call dr Lepe office for follow up and arrangements for surgery as soon as possible Continue Augmentin and Doxycycline for 1 week Start Tamsulosin to help with urine flow Come back to the hospital with any fever, worsening swelling and drainage from the infection site. Discharge Date/Time: 12/27/22 14:51
--- NOTE | 2022-12-27 14:37 | MHC.CM.PN ---
pt dcd home no skilled servcies ordered by
== END 2022-12-27 14:51 | disposition home or self-care (01) | DRG 638 ==
LOC: HO.ED 17:02 → HO.EDOVER 18:11 → HO.S3 18:19
PROVIDERS: Internal Medicine; Physician Assistant; Admitting Provider Physician Assistant; Emergency Provider Student in an Organized Health Care Education/Training Program; PCP Internal Medicine; Visit Provider Student in an Organized Health Care Education/Training Program
DX: E11.69 Type 2 diabetes mellitus with other specified complication (principal); L03.116 Cellulitis of left lower limb; M86.672 Other chronic osteomyelitis, left ankle and foot; J44.9 Chronic obstructive pulmonary disease, unspecified; E78.00 Pure hypercholesterolemia, unspecified; F17.210 Nicotine dependence, cigarettes, uncomplicated; Z71.6 Tobacco abuse counseling; E11.40 Type 2 diabetes mellitus with diabetic neuropathy, unspecified; F10.11 Alcohol abuse, in remission; E11.621 Type 2 diabetes mellitus with foot ulcer; L97.529 Non-pressure chronic ulcer of other part of left foot with unspecified severity; Z20.822 Contact with and (suspected) exposure to COVID-19; Z79.899 Other long term (current) drug therapy
CPT/HCPCS: 36415; 73660; 80048; 80076; 80202; 81003; 82947; 83036; 83605; 83735; 85025; 85027; 85610; 85652; 85730; 86140; 87040; 87635; 93005; 93926; 93971; 94640; 99285; J0692; J1643; J2270; J2543; J3371

== ENCOUNTER → 2023-01-16 10:45 | Outpatient (BNVA) | payer MEDICARE, SELFPAY | PROVIDERS: PCP Internal Medicine; Visit Provider Surgery Vascular Surgery | DX: E11.621 Type 2 diabetes mellitus with foot ulcer (principal); L97.529 Non-pressure chronic ulcer of other part of left foot with unspecified severity | CPT/HCPCS: 99212 ==

== ENCOUNTER 2023-01-22 09:34 | Inpatient (IN) | payer MEDICARE, SELFPAY ==
--- NOTE | 2023-01-19 10:53 | HO.ANESPROP2 ---
Documented by User: Cassy Judge NP 01/19/23 10:54 HPI - Anesthesia Eval Consult details Narrative: 52yo M for Left Great Toe Amputation PMFSH Active Problems Active Problems: All Active Problems (Updated 12/26/22 @ 07:49 by Abdoulaye Lepe MD) Diabetic ulcer of left foot (Acute) Cellulitis of left lower extremity (Acute) Left hallux osteomyelitis (Acute) Osteomyelitis (Acute) Personal history of nicotine dependence (Acute) Past Medical History Medical History Anxiety and depression COPD (chronic obstructive pulmonary disease) Depression Fibromyalgia Glaucoma Hypercholesterolemia Hypertension Osteomyelitis Personal history of nicotine dependence Seizure disorder Tubular adenoma of colon Type 2 diabetes mellitus Type 2 diabetes mellitus with diabetic neuropathy Family History Family History Mother Lung cancer metastatic to brain Family history of problems with anesthesia: No Surgical History Surgical History H/O colonoscopy History of cervical discectomy History of eye surgery History of Problems with Anesthesia: No Social History Social History Household Members: None Housing: Apartment Do you presently have visiting nurse or other home services: No Patient Tobacco Use Status: Current everyday Tobacco user Tobacco use type: Cigarette Cigarette Packs Per Day: 1 Cigarettes Per Day: 20.0 Years Smoked: 13 e-Cigarette/Vaping Use: Never Used Second Hand Smoke Exposure: No Use of substances other than those prescribed or required for medical reasons: No Substance Use Type: Marijuana Are you DNR?: No Advance Directives: No Advance Directives Information Provided: No Nutrition Risks: No Nutritional Risk service: No Current occupational status: disabled Current occupational exposures/hazards: No Meds Allergies Allergy/AdvReac Type Severity Reaction Status Date / Time shellfish derived Allergy Severe ANAPHYLAXIS Verified 01/16/23 10:57 [SHELLFISH DERIVED] buspirone [From BUSPAR] Allergy Unknown nausea Verified 01/16/23 10:57 bupropion [From WELLBUTRIN] AdvReac Unknown NAUSEA Verified 01/16/23 10:57 daptomycin AdvReac rhabdomyoli Verified 01/16/23 10:57 sis Home Medications Medication Instructions Recorded Confirmed Last Taken Type lisinopril 20 1 tab PO DAILY 02/16/22 01/22/23 01/22/23 History mg-hydrochlorothiazide 25 mg tablet gabapentin 800 mg tablet 800 mg PO TID 07/28/22 01/22/23 01/22/23 History atorvastatin 40 mg tablet 40 mg PO DAILY 12/25/22 01/22/23 01/21/23 History multivitamin 1 tab PO DAILY 12/25/22 01/22/23 01/21/23 History Exam Exam Date and Time: January 19, 2023 1053 Pertinent Lab Results Pertinent Lab Results: Laboratory Tests 12/27/22 12/27/22 05:40 05:40 WBC 8.5 Hgb 13.5 L Hct 39.4 L Plt Count 312 Sodium 141 Potassium 3.9 Chloride 103 Carbon Dioxide 25 BUN 10 Creatinine 0.73 Narrative Narrative: EKG 12/2022 Vent. Rate : 068 BPM ? ? Atrial Rate : 068 BPM ?? P-R Int : 148 ms? QRS Dur : 086 ms ? ? QT Int : 402 ms ? ? ? P-R-T Axes : 020 028 009 degrees ?? QTc Int : 427 ms ? Normal sinus rhythm Normal ECG When compared with ECG of 28-JUL-2022 11:42, No significant change was found Assessment and Plan Assessment Anesthesia Assessment: Chart Reviewed Final Anesthetic Review Family History of Problems with Anesthesia: No History of Problems with Anesthesia: No Documented by User: Monalisa Triana MD 01/22/23 13:02 [facility] Past Medical History Medical History Anxiety and depression COPD (chronic obstructive pulmonary disease) Depression Fibromyalgia Glaucoma Hypercholesterolemia Hypertension Osteomyelitis Personal history of nicotine dependence Seizure disorder Tubular adenoma of colon Type 2 diabetes mellitus Type 2 diabetes mellitus with diabetic neuropathy Family History Family History Mother Lung cancer metastatic to brain Surgical History Surgical History H/O colonoscopy History of cervical discectomy History of eye surgery Social History Social History Household Members: None Housing: Apartment Do you presently have visiting nurse or other home services: No Patient Tobacco Use Status: Current everyday Tobacco user Tobacco use type: Cigarette Cigarette Packs Per Day: 1 Cigarettes Per Day: 20.0 Years Smoked: 13 e-Cigarette/Vaping Use: Never Used Second Hand Smoke Exposure: No Use of substances other than those prescribed or required for medical reasons: No Substance Use Type: Marijuana Are you DNR?: No Advance Directives: No Advance Directives Information Provided: No Nutrition Risks: No Nutritional Risk service: No Current occupational status: disabled Current occupational exposures/hazards: No Meds Allergies Allergy/AdvReac Type Severity Reaction Status Date / Time shellfish derived Allergy Severe ANAPHYLAXIS Verified 01/16/23 10:57 [SHELLFISH DERIVED] buspirone [From BUSPAR] Allergy Unknown nausea Verified 01/16/23 10:57 bupropion [From WELLBUTRIN] AdvReac Unknown NAUSEA Verified 01/16/23 10:57 daptomycin AdvReac rhabdomyoli Verified 01/16/23 10:57 sis Home Medications Medication Instructions Recorded Confirmed Last Taken Type lisinopril 20 1 tab PO DAILY 02/16/22 01/22/23 01/22/23 History mg-hydrochlorothiazide 25 mg tablet gabapentin 800 mg tablet 800 mg PO TID 07/28/22 01/22/23 01/22/23 History atorvastatin 40 mg tablet 40 mg PO DAILY 12/25/22 01/22/23 01/21/23 History multivitamin 1 tab PO DAILY 12/25/22 01/22/23 01/21/23 History Exam Airway Mallampati Class: III TM Dist: >3cm Neck ROM: Full Assessment and Plan Assessment Anesthesia Assessment: Anesthesia Plan Discussed Final Anesthetic Review NPO: Yes ASA Class: III Final Preanesthetic Review: No Changes in Pt Med Stat, Meds/Allgs Chart Reviewed, Consent Obtained/Reviewed and Anes Risks/Benef Reviewed Anesthetic Plan Anesthetic Plan: GA Disposition: Standard PACU
[2023-01-22] VITALS (9 sets, daily range): BP systolic 119–138; BP diastolic 77–86; PULSE 53–76; RESP 16–20; TEMP 36.1–37; O2SAT 96–99; BMI 30.5; BMI 31.8
--- OUTSIDE RECORDS SUMMARY | 2023-01-22 09:38 | XMS_ITS ---
Author Name Clinton Huston Address [address] [place] [address] Organization [facility] Address [address] [place] [address] Care Team Providers Care Child Protective Services Specialist Name Role Phone Clinton Huston Unavailable [phone] PROBLEMS Type Condition ICD9-CM Code [id number] Code Onset Dates Condition Status SNOMED Code Problem History of colon polyps Z86.010 Active 281900428 Problem Diverticulosis of colon K57.30 Active 797082094 Problem Preprocedural examination Z01.818 Active 653905946959415 Problem Encounter for screening for malignant neoplasm of colon Z12.11 Active 432003142 ALLERGIES Substance Reaction Event Type Date Status Shellfish-derived Products Unknown Drug Allergy Dec, Active ENCOUNTERS Encounter Location Date Diagnosis [facility] [address] [place] [id number] January, Colon polyp K63.5 ; Diverticulosis of colon K57.30 and Internal hemorrhoid K64.8 [facility] [address] [place] [phone] January, [facility] [address] [place] [phone] Dec, [facility] [address] [place] [phone] Dec, Encounter for screening for malignant neoplasm of colon Z12.11 ; Preprocedural examination Z01.818 and History of colon polyps Z86.010 [facility] [address] [place] [address] Sep, IMMUNIZATIONS No Known Immunizations SOCIAL HISTORY Qualifiers Date Current Smoker REASON FOR REFERRAL FUNCTIONAL STATUS PLAN OF CARE Activity Details VITAL SIGNS Weight 197 lbs 2022-01-19 Height 67 in 2022-01-19 BMI 30.85 kg/m2 2022-01-19 Temperature 97.7 degrees Fahrenheit Blood pressure systolic 000 mm Hg Blood pressure diastolic 00 mm Hg 2021-12 MEDICATIONS Medication Instructions Dosage Frequency Start Date End Date Duration Status Breztri Aerosphere 160-9-4.8 MCG/ACT INHALE 2 PUFFS INTO THE LUNGS TWICE DAILY 30 Active MiraLax (colon prep) 17 GM/SCOOP Orally begin at 5:00 p.m. the day before the procedure 1 238Gm bottle mixed with Gatorade or Crystal Light January, 1 day Active Lisinopril-hydr oCHLOROthiazide 20-25 MG 90 Active MiraLax (colon prep) 17 GM/SCOOP Orally begin at 5:00 p.m. the day before the procedure 1 238Gm bottle mixed with Gatorade or Crystal Light Dec, 1 day Active Dulcolax (colon prep) 5 MG Orally two tablets twice a day for one day take at 3:00 p.m and 7:00p.m. Dec, 1 day Active amLODIPine Besylate 5 MG TAKE 1 TABLET BY MOUTH EVERY DAY 90 Active Gabapentin 400 MG TAKE ONE CAPSULE BY MOUTH THREE TIMES DAILY 90 Active Dulcolax (colon prep) 5 MG Orally two tablets twice a day for one day take at 3:00 p.m and 7:00p.m. January, 1 day Active Dorzolamide HCl-Timolol Mal 22.3-6.8 MG/ML INSTILL 1 DROP IN BOTH EYES TWICE DAILY 50 Active PROCEDURES Procedure Date Ordered Result Body Site [facility] [place] [facility] January 19, 2022 BP SCR NOT PRFRM REC REASON NOS January 19, 2022 RCMND FLW-UP 10 YRS DOCD February 17, 2022 INTRVL 3+YRS PTS CLNSCP DOCD February 17, 2022 DOC MEDS VERIFIED W/PT OR RE January 19, 2022 COLORECTAL CA SCREEN DOC REV January 19, 2022 LESION REMOVAL COLONOSCOPY February 17, 2022 RESULTS Name Result Date Reference Range Glucose, Whole Blood 2022-02-17 Glucose, Whole Blood 103 60-115 REASON FOR VISIT hx polyps,screening, Needs prep sent to pharmacy, bowel prep, Patient presents for a colon screening, New pt no show, Patient presents today for a COLON SCREENING Insurance Providers Health Insurance Type Health Plan Insurance Address Health Plan Insurance Phone Health Plan Insurance Name Health Plan Coverage Dates Member ID Patient Relationship to Subscriber Patient Address Patient Phone Patient Name Patient Date of Subscriber ID Subscriber Name Subscriber Date of Group No [place] OF [place] [address] [facility] [address] [place] self LUIZA RAO [id number] MEDICAID OF [facility] [address] [facility] [phone] MEDICAID OF [facility] self LUIZA RAO [id number]
[2023-01-22 09:55] LABS: Glucose, Whole Blood 113 mg/dL (60-115)
[2023-01-22 10:04] LABS: Hematocrit 41.6 % (42.0-52.0); Mean Corpuscular HGB Conc 33.7 g/dl (31.0-36.0); Mean Corpuscular Hemoglobin 30.8 pg (27.0-33.0); Mean Corpuscular Volume 91.4 fL (80.0-98.0); Mean Platelet Volume 9.7 fL (9.4-12.4); Platelet Count 260 X10*3/uL (160-400); Red Blood Count 4.55 X10*6/uL (4.60-5.80); Red Cell Distribution Width 13.6 % (11.0-16.0)
[2023-01-22] MEDS: Lactated Ringers 1,000 ML 100 ML IVCONT (10:11)
[2023-01-22] MEDS: Albuterol Sulfate (0.083%) 2.5 MG/3 ML VIAL.NEB INHALE (10:12)
[2023-01-22 10:30] LABS: COVID-19 Test Negative (Negative); IDNOW Serial# 08D9AD1C
[2023-01-22 11:39] LABS: Anion Gap 13 (12-20); Blood Urea Nitrogen 16 mg/dL (9-16); Calcium 9.6 mg/dL (8.4-10.2); Carbon Dioxide 26 mmol/L (22-29); Chloride 103 mmol/L (96-108); Creatinine Clr Calc Pharmacy 104.2; Estimated Glomerular Filt Rate > 60; Glucose Random 112 mg/dL (60-115); Potassium 4.1 mmol/L (3.3-5.1); Sodium 138 mmol/L (135-145)
--- NOTE | 2023-01-22 12:45 | MHC.SHP ---
Pre-Procedural Eval Section A Date of Service: 01/22/23 The patient is an INPATIENT: No Changes since office visit: Yes Patient answered all questions The History & Physical has been completed within 30 days and I have reviewed it.: Yes Section B Chief Complaint: Postop Allergies: Allergies Allergy/AdvReac Type Severity Reaction Status Date / Time shellfish derived Allergy Severe ANAPHYLAXIS Verified 01/16/23 10:57 [SHELLFISH DERIVED] buspirone [From BUSPAR] Allergy Unknown nausea Verified 01/16/23 10:57 bupropion [From WELLBUTRIN] AdvReac Unknown NAUSEA Verified 01/16/23 10:57 daptomycin AdvReac rhabdomyoli Verified 01/16/23 10:57 sis Plan I have reviewed the history and physical and performed a pertinent physical examination on my patient. No changes have occurred unless specified. Time Spent With Patient Time: Total time managing care of this patient today ____ minutes.
--- NOTE | 2023-01-22 13:32 | P.OP_ITS ---
Operative Note Operative Note Date of Service: 01/22/23 Narrative: Operative note by [facility] Preoperative diagnosis: Atherosclerosis with Nonhealing left great toe ulcer Postoperative diagnosis: Same Procedure: Left great toe amputation Surgeon:Abdoulaye Lepe M.D. [employer] Teacher: Angie Anesthesia: General Specimens: 1 Drains: None Estimated blood loss: 25 mL Indications: 52-year-old gentleman with history of nonhealing ulcer and diet- controlled diabetes presents with a nonhealing left great toe ulcer fracture. Has been [facility] by the [facility] and has been nonhealing. He now presents for amputation. The patient has signed the informed consent after reviewing risks, complications, benefits, and alternatives previously discussed with the patient. The patient was given the opportunity to ask any additional questions or voice any concerns. All questions were answered to the patient's satisfaction. Procedure in detail: Patient was brought to the operating room prior to which a time-out was called for patient identification site verification. Left foot was prepped and draped in standard surgical fashion. [place] incision was created over the great toe down to the metatarsal head. We then dissected around to the metatarsal. We removed the toe in its entirety. The toe was fractured. Once the toe was removed in its entirety of thoroughly irrigated clean. Adequate hemostasis was achieved. Deep layer was reapproximated using 2 0 Polysorb superficial layer with a 2-0 nylon in a mattress fashion. Xeroform and a sterile dressing were applied. At the end of the case sponge instrument counts were correct. Patient tolerated the procedure well returned to recovery with stable vitals. This note is constructed using voice recognition software. While every effort has been made to ensure accuracy, supervisor grinding errors may have been included. Thank you for allowing me to participate in the care of your patient. Yours sincerely, Abdoulaye Lepe MD, FACS, R.P.V.I.
[2023-01-22] MEDS: oxyCODONE HCl Immed Release 5 MG TABLET PO ×3 (13:46→22:01)
[2023-01-22] MEDS: Acetaminophen 325 MG TABLET 650 MG PO ×2 (13:46→21:19)
[2023-01-22] MEDS: 0.9 % Sodium Chloride 1,000 ML 80 ML IVCONT (14:41)
[2023-01-22] MEDS: Morphine Sulfate 2 MG/ML CARTRIDGE IVPUSH ×3 (14:41→22:56)
--- NOTE | 2023-01-22 15:00 | PC.NURSE ---
Assumed care of patient at this time.
[2023-01-22] MEDS: 0.9 % Sodium Chloride Flush 3 ML SYRINGE IVFLUSH ×2 (15:13→21:25)
[2023-01-22] MEDS: Gabapentin 400 MG CAPSULE 800 MG PO ×2 (15:13→21:19)
[2023-01-22 16:38] LABS: Glucose, Whole Blood 98 mg/dL (60-115)
--- NOTE | 2023-01-22 19:46 | HO.PM.IMCN ---
History of Present Illness Data of Consult Service Date: 01/22/23 Primary Care Provider: Martine Mike MD [facility] Reason for consult: Medical mangement Patient is a 52-year-old male with a PMH significant for COPD, anxiety, depression, fibromyalgia, glaucoma, hyperlipidemia, hypertension, history of alcohol abuse with remote history of alcohol withdrawal seizure, non insulin-dependent diabetes type 2, diabetic polyneuropathy, nonhealing ulcer with osteomyelitis of left great toe who was admitted to the hospital for amputation of his left great toe earlier this morning. Hospitalist consult for medical management. Pt currently complains of mild throbbing pain at surgical site. Otherwise has no acute complaints. Denies chest pain/pressure, palpitations. No shortness of breath, wheezing, dyspnea. No fever, chills, nausea, vomiting, diarrhea, abdominal pain. Review of Systems Review of Systems: Mild throbbing pain at surgical site No fever, chills, N/V Denies chest pain/pressure, palpitations No SOB Denies abdominal pain Yes all other systems are reviewed and are negative [facility] Medical History Anxiety and depression COPD (chronic obstructive pulmonary disease) Depression Fibromyalgia Glaucoma Hypercholesterolemia Hypertension Osteomyelitis Personal history of nicotine dependence Seizure disorder Tubular adenoma of colon Type 2 diabetes mellitus Type 2 diabetes mellitus with diabetic neuropathy Family History Mother Lung cancer metastatic to brain Surgical History H/O colonoscopy History of cervical discectomy History of eye surgery Social History Household Members: None Housing: Apartment Do you presently have visiting nurse or other home services: No Patient Tobacco Use Status: Current everyday Tobacco user Tobacco use type: Cigarette Cigarette Packs Per Day: 1 Cigarettes Per Day: 20.0 Years Smoked: 13 Smoked in Last 30 Days: No e-Cigarette/Vaping Use: Never Used Patient Interested in Nicotine Replacement: Yes Patient Given Instructions on How to Stop Smoking: Yes Date Education Initiated: 01/22/23 Second Hand Smoke Exposure: No Use of substances other than those prescribed or required for medical reasons: Yes Substance Use Type: Marijuana Substance Use Frequency: Daily Currently Displaying Signs/Symptoms of Drug Intoxication Withdrawal: No Any prior treatment program specific to substance use: No Have you been hit, kicked, punched, or otherwise hurt by someone within the past year? If so, by whom?: No Do you feel safe in your current relationship?: No Current Relationship Is there a partner from a previous relationship who is making you feel unsafe now?: No Are you made to feel afraid or neglected: No Are you DNR?: No Advance Directives: No Advance Directives Information Provided: No Do you have thoughts of harming others: None Do you have a plan to hurt others: No Plan Recently lost weight without trying: No Eating poorly because of decreased appetite: No Nutrition Risks: No Nutritional Risk Poor oral hygiene: No service: No Current occupational status: disabled Current occupational exposures/hazards: No Meds Allergies Allergy/AdvReac Type Severity Reaction Status Date / Time shellfish derived Allergy Severe ANAPHYLAXIS Verified 01/16/23 10:57 [SHELLFISH DERIVED] buspirone [From BUSPAR] Allergy Unknown nausea Verified 01/16/23 10:57 bupropion [From WELLBUTRIN] AdvReac Unknown NAUSEA Verified 01/16/23 10:57 daptomycin AdvReac rhabdomyoli Verified 01/16/23 10:57 sis Active Medications: Current Medications Acetaminophen (Acetaminophen 325 Mg Tablet) 650 mg PO Q6H PRN PRN Reason: Pain, Mild (Pain Scale 1-3) Last Admin: 01/22/23 13:46 Dose: 650 mg Atorvastatin Calcium (Atorvastatin Calcium 40 Mg Tablet) 40 mg PO BEDTIME [facility] Gabapentin (Gabapentin 400 Mg Capsule) 800 mg PO TID [facility] Last Admin: 01/22/23 15:13 Dose: 800 mg Hydrochlorothiazide (Hydrochlorothiazide 25 Mg Tablet) 25 mg PO DAILY [facility] Sodium Chloride (Ns) 1,000 mls @ 80 mls/hr IVCONT .[id number] [facility] Last Admin: 01/22/23 14:41 Dose: 80 mls/hr Cefazolin Sodium/Dextrose (Ancef) 2 gm in 50 mls @ 100 mls/hr IV Q8H [facility] Lisinopril (Lisinopril 20 Mg Tablet) 20 mg PO DAILY [facility] Morphine Sulfate (Morphine Sulfate 2 Mg/Ml Cartridge) 2 mg IVPUSH Q4H PRN; Protocol PRN Reason: Pain, Severe (Pain Scale 8-10) Last Admin: 01/22/23 18:56 Dose: 2 mg Nicotine (Nicotine 21 Mg Patch.Td24) 21 mg TRANSDERMA DAILY [facility] Non-Formulary Medication (Uygydzqiir-Puvowbad-Xtumntlvxp [Breztri Aerosphere]) 2 inhalation INHALE BID [facility] Oxycodone HCl (Oxycodone Hcl Immed Release 5 Mg Tablet) 5 mg PO Q4H PRN PRN Reason: Pain, Moderate(Pain Scale 4-7) Last Admin: 01/22/23 17:41 Dose: 5 mg Sodium Chloride (0.9 % Sodium Chloride Flush 3 Ml Syringe) 3 ml IVFLUSH QSHIFT [facility] Last Admin: 01/22/23 15:13 Dose: 3 ml Home Medications Medication Instructions Recorded Confirmed Last Taken Type lisinopril 20 1 tab PO DAILY 02/16/22 01/22/23 01/22/23 History mg-hydrochlorothiazide 25 mg tablet gabapentin 800 mg tablet 800 mg PO TID 07/28/22 01/22/23 01/22/23 History atorvastatin 40 mg tablet 40 mg PO DAILY 12/25/22 01/22/23 01/21/23 History multivitamin 1 tab PO DAILY 12/25/22 01/22/23 01/21/23 History amoxicillin 875 mg tablet 875 mg PO Q12H 01/22/23 01/22/23 01/22/23 History budesonide 160 mcg-glycopyr 9 2 inh inhalation BID 01/22/23 01/22/23 Unknown History mcg-formot 4.8 mcg/actuation HFA inhaler (Breztri Aerosphere) Physical Exam Vital Signs and Narrative: Vital Signs: Last Vital Signs Temp 96.9 F 01/22/23 16:00 Pulse 53 01/22/23 16:00 Resp 16 01/22/23 16:00 BP 124/77 01/22/23 16:00 Pulse Ox 97 01/22/23 16:00 O2 Del Method Room Air 01/22/23 16:00 BMI result Body Mass Index 31.8 General: AOx3, no acute distress Resp: CTA bilaterally CVS: S1, S2, RRR GI: +BS, NT, no distention Skin: No rash Neuro: Cranial nerves II-XII grossly intact bilaterally. Motor grossly intact bilaterally Extremities: No edema, clean intact bandage over left foot Psych: Appropriate affect Results Labs 01/22/23 09:57 01/22/23 09:57 Labs: Laboratory Results - last 24 hr 01/22/23 01/22/23 01/22/23 09:51 09:57 09:57 MCV 91.4 MCH 30.8 MCHC 33.7 RDW 13.6 Plt Count 260 MPV 9.7 Absolute Nucleated RBC 0.000 Nucleated RBC % (auto) 0.0 Anion Gap 13 Estim Creat Clear Calc 104.2 Estimated GFR > 60 POC Glucose 113 Random Glucose 112 Calcium 9.6 COVID-19 (LUZ MARIA) COVID-19 Clin Com 01/22/23 01/22/23 16:34 Unknown MCV MCH MCHC RDW Plt Count MPV Absolute Nucleated RBC Nucleated RBC % (auto) Anion Gap Estim Creat Clear Calc Estimated GFR POC Glucose 98 Random Glucose Calcium COVID-19 (LUZ AMRIA) Negative COVID-19 Clin Com See Note Assessment and Plan (1) Diabetic ulcer of left foot: Status: Acute (2) Amputation of left great toe: Status: Acute Plan Patient is a 52-year-old male with a PMH significant for COPD, anxiety, depression, fibromyalgia, glaucoma, hyperlipidemia, hypertension, history of alcohol abuse with remote history of alcohol withdrawal seizure, non insulin-dependent diabetes type 2, diabetic polyneuropathy, nonhealing ulcer with osteomyelitis of left great toe who was admitted to the hospital for amputation of his left great toe earlier this morning. Hospitalist consult for medical management. Pt currently complains of mild throbbing pain at surgical site. Otherwise has no acute complaints. Amputation of left great toe d/t to osteomyelitis and nonhealing diabetic ulcer Pain management Plan as per vascular surgery Zxe-lcnyiik-rlpmvanup type 2 diabetes Patient not on home meds SSI Diabetic diet Diabetic neuropathy Continue gabapentin HLD Continue statin HTN Continue lisinopril hydrochlorothiazide Nicotine dependence Currently a 1 pack-a-day smoker Nicotine patches for NRT Thank you for allowing us to participate in the care of this patient. Will continue to follow at this time. Please let us know if there are any acute complaints or questions. Time Spent With Patient Time: Total time managing care of this patient today ____ minutes.
[2023-01-22 20:39] LABS: Glucose, Whole Blood 124 mg/dL (60-115)
[2023-01-22] MEDS: Atorvastatin Calcium 40 MG TABLET PO (21:19)
[2023-01-22] MEDS: ceFAZolin Sodium/Dextrose,Iso 2 GM/50 ML PIGGYBACK IV (21:20)
[2023-01-23] MEDS: 0.9 % Sodium Chloride 1,000 ML 80 ML IVCONT (03:05)
[2023-01-23] MEDS: ceFAZolin Sodium/Dextrose,Iso 2 GM/50 ML PIGGYBACK IV ×3 (03:05→21:28)
[2023-01-23] MEDS: Morphine Sulfate 2 MG/ML CARTRIDGE IVPUSH ×4 (03:05→20:23)
[2023-01-23 03:15] VITALS: BP 145/77; PULSE 71; RESP 16; TEMP 37; O2SAT 96
[2023-01-23 05:44] LABS: MANUAL DIFF FLAG NO
[2023-01-23 05:46] LABS: Basophils Absolute Auto 0.2 X10*3/uL (0.0-0.2); Basophils Percent Auto 1.2 % (0-2); Eosinophils Absolute Auto 0.3 X10*3/uL (0.0-0.4); Eosinophils Percent Auto 1.7 % (0-4); Hematocrit 39.8 % (42.0-52.0); Hemoglobin 13.2 g/dl (14.0-18.0); Imm Gran Abs Auto 0.08 X10*3/uL (0.00-0.03); Imm Gran Pct Auto 0.5 % (0.0-0.4); Lymphocytes Absolute Auto 1.9 X10*3/uL (1.2-4.9); Lymphocytes Percent Auto 12.5 % (20-40); Mean Corpuscular HGB Conc 33.2 g/dl (31.0-36.0); Mean Corpuscular Hemoglobin 30.9 pg (27.0-33.0); Mean Corpuscular Volume 93.2 fL (80.0-98.0); Mean Platelet Volume 9.9 fL (9.4-12.4); Monocytes Absolute Auto 1.3 X10*3/uL (0.1-1.2); Monocytes Percent Auto 8.3 % (2-11); Neutrophils Absolute Auto 11.5 x10*3/uL (2.0-8.3); Neutrophils Percent Auto 75.8 % (45-73); Platelet Count 204 X10*3/uL (160-400); Red Blood Count 4.27 X10*6/uL (4.60-5.80); Red Cell Distribution Width 13.8 % (11.0-16.0); White Blood Count 15.1 X10*3/uL (4.8-10.8)
[2023-01-23 06:10] LABS: Anion Gap 12 (12-20); Blood Urea Nitrogen 9 mg/dL (9-16); Carbon Dioxide 27 mmol/L (22-29); Chloride 106 mmol/L (96-108); Creatinine Clr Calc Pharmacy 115.2; Estimated Glomerular Filt Rate > 60; Glucose Random 106 mg/dL (60-115); Potassium 4.2 mmol/L (3.3-5.1); Sodium 141 mmol/L (135-145)
[2023-01-23 07:14] VITALS: BP 150/90; PULSE 68; RESP 18; TEMP 36.6; O2SAT 98
[2023-01-23 07:21] LABS: Glucose, Whole Blood 102 mg/dL (60-115)
[2023-01-23] MEDS: Gabapentin 400 MG CAPSULE 800 MG PO ×3 (08:16→21:28)
[2023-01-23] MEDS: Nicotine 21 MG PATCH.TD24 TRANSDERMA (08:16)
[2023-01-23] MEDS: hydroCHLOROthiazide 25 MG TABLET PO (08:16)
[2023-01-23] MEDS: lisinopriL 20 MG TABLET PO (08:16)
--- NOTE | 2023-01-23 09:43 | P.PNIM_ITS ---
Subjective Subjective Date of Service: 01/23/23 Review of Systems Follow up toe amputation, consult having difficulty with wifi and is upset he cant get his work done denies pain Physical Exam Vital Signs: Vital Signs: Last Vital Signs Temp 98 F 01/23/23 07:14 Pulse 68 01/23/23 07:14 Resp 18 01/23/23 07:14 BP 150/90 H 01/23/23 07:14 Pulse Ox 98 01/23/23 07:14 O2 Del Method Room Air 01/23/23 07:14 BMI result Body Mass Index 31.8 Appearing in no acute distress lung sounds are clear to auscultation heart regular rate rhythm, clear S1, S2 positive bowel sounds, abdomen is soft, nontender neuro patient is alert x3, no focal deficits Right foot, dressing intact Objective Data Active Medications Acetaminophen (Acetaminophen 325 Mg Tablet) 650 mg PO Q6H PRN PRN Reason: Pain, Mild (Pain Scale 1-3) Last Admin: 01/22/23 21:19 Dose: 650 mg Documented By: SYDNEY Atorvastatin Calcium (Atorvastatin Calcium 40 Mg Tablet) 40 mg PO BEDTIME [facility] Last Admin: 01/22/23 21:19 Dose: 40 mg Documented By: SYDNEY Gabapentin (Gabapentin 400 Mg Capsule) 800 mg PO TID [facility] Last Admin: 01/23/23 08:16 Dose: 800 mg Documented By: RUSTAM Hydrochlorothiazide (Hydrochlorothiazide 25 Mg Tablet) 25 mg PO DAILY [facility] Last Admin: 01/23/23 08:16 Dose: 25 mg Documented By: RUSTAM Sodium Chloride (Ns) 1,000 mls @ 80 mls/hr IVCONT .[id number] [facility] Last Admin: 01/23/23 03:05 Dose: 80 mls/hr Documented By: NAVEEN Cefazolin Sodium/Dextrose (Ancef) 2 gm in 50 mls @ 100 mls/hr IV Q8H [facility] Last Infusion: 01/23/23 03:56 Dose: 0 mls/hr Documented By: NAVEEN Lisinopril (Lisinopril 20 Mg Tablet) 20 mg PO DAILY [facility] Last Admin: 01/23/23 08:16 Dose: 20 mg Documented By: RUSTAM Morphine Sulfate (Morphine Sulfate 2 Mg/Ml Cartridge) 2 mg IVPUSH Q4H PRN; Protocol PRN Reason: Pain, Severe (Pain Scale 8-10) Last Admin: 01/23/23 08:13 Dose: 2 mg Documented By: RUSTAM Nicotine (Nicotine 21 Mg Patch.Td24) 21 mg TRANSDERMA DAILY [facility] Last Admin: 01/23/23 08:16 Dose: 21 mg Documented By: RUSTAM Non-Formulary Medication (Fzoomlqzmh-Egdjrflv-Vygxmfqyzb [Breztri Aerosphere]) 2 inhalation INHALE BID [facility] Oxycodone HCl (Oxycodone Hcl Immed Release 5 Mg Tablet) 5 mg PO Q4H PRN PRN Reason: Pain, Moderate(Pain Scale 4-7) Last Admin: 01/22/23 22:01 Dose: 5 mg Documented By: SYDNEY Sodium Chloride (0.9 % Sodium Chloride Flush 3 Ml Syringe) 3 ml IVFLUSH QSHIFT [facility] Last Admin: 01/23/23 08:21 Dose: Not Given Documented By: RUSTAM Non-Admin Reason: IV Running Labs 01/23/23 05:38 01/23/23 05:38 Labs: Laboratory Results - last 24 hr 01/22/23 01/22/23 01/22/23 09:51 09:57 09:57 MCV 91.4 MCH 30.8 MCHC 33.7 RDW 13.6 Plt Count 260 MPV 9.7 Immature Gran % (Auto) Neut % (Auto) Lymph % (Auto) [place] % (Auto) Eos % (Auto) Baso % (Auto) Lymph # (Auto) [place] # (Auto) Eos # (Auto) Baso # (Auto) Abs Immat Gran (auto) Absolute Neuts (auto) Absolute Nucleated RBC 0.000 Nucleated RBC % (auto) 0.0 Anion Gap 13 Estim Creat Clear Calc 104.2 Estimated GFR > 60 POC Glucose 113 Random Glucose 112 Calcium 9.6 COVID-19 ([facility] MARIA) COVID-19 Clin Com 01/22/23 01/22/23 01/22/23 16:34 20:28 Unknown MCV MCH MCHC RDW Plt Count MPV Immature Gran % (Auto) Neut % (Auto) Lymph % (Auto) [place] % (Auto) Eos % (Auto) Baso % (Auto) Lymph # (Auto) [place] # (Auto) Eos # (Auto) Baso # (Auto) Abs Immat Gran (auto) Absolute Neuts (auto) Absolute Nucleated RBC Nucleated RBC % (auto) Anion Gap Estim Creat Clear Calc Estimated GFR POC Glucose 98 124 H Random Glucose Calcium COVID-19 ([facility]Z MARIA) Negative COVID-19 Clin Com See Note 01/23/23 01/23/23 01/23/23 05:38 05:38 07:13 MCV 93.2 MCH 30.9 MCHC 33.2 RDW 13.8 Plt Count 204 MPV 9.9 Immature Gran % (Auto) 0.5 H Neut % (Auto) 75.8 H Lymph % (Auto) 12.5 L [place] % (Auto) 8.3 Eos % (Auto) 1.7 Baso % (Auto) 1.2 Lymph # (Auto) 1.9 [place] # (Auto) 1.3 H Eos # (Auto) 0.3 Baso # (Auto) 0.2 Abs Immat Gran (auto) 0.08 H Absolute Neuts (auto) 11.5 H Absolute Nucleated RBC 0.000 Nucleated RBC % (auto) 0.0 Anion Gap 12 Estim Creat Clear Calc 115.2 Estimated GFR > 60 POC Glucose 102 Random Glucose 106 Calcium 9.0 D COVID-19 ([facility]Z MARIA) COVID-19 Clin Com Assessment and Plan (1) Amputation of left great toe: Status: Acute Plan Patient is a 52-year-old male with a PMH significant for COPD, anxiety, depression, fibromyalgia, glaucoma, hyperlipidemia, hypertension, history of alcohol abuse with remote history of alcohol withdrawal seizure, non insulin- dependent diabetes type 2, diabetic polyneuropathy, nonhealing ulcer with osteomyelitis of left great toe who was admitted to the hospital for amputation of his left great toe earlier this morning.? Hospitalist consult for medical management. Pt currently complains of mild throbbing pain at surgical site.? Otherwise has no acute complaints. Amputation of left great toe d/t to osteomyelitis and nonhealing diabetic ulcer Pain management Plan as per vascular surgery Moh-nlyxmss-kmkilodgs type 2 diabetes Patient not on home meds SSI Diabetic diet Diabetic neuropathy Continue gabapentin HLD Continue statin HTN Continue lisinopril, hydrochlorothiazide Nicotine dependence Currently a 1 pack-a-day smoker Nicotine patches for NRT Obese. BMI 31.8 Discussed importance of weight management as this may be contributing to worsening of other comorbidities Medical Consultation complete. Will sign off Time Spent With Patient Time: Total time managing care of this patient today ____ minutes. Quality Stroke Does the patient have a stroke diagnosis?: No VTE Prior VTE?: No VTE Risk Level:: Medical - moderate - high VTE Device Contraindication: N/A - Device Ordered VTE Drug Contraindication: Treatment Not Indicated
--- NOTE | 2023-01-23 09:45 | MHC.CM.PN ---
Addendum entered by Huyen Shelby RN 01/23/23 09:47: NO HCP ON FILE PATIENT NOT INTERESTED IN COMPLETING ONE. MOTHER PASSED RECENTLY AND HE REPORTS A STRAINED RELATIONSHIP WITH STEP-FATHER. CASE MANAGEMENT AVAILABLE IF NEEDED Original Note: PATIENT IS INDEPENDENT WITH ADLS HE LIVES ALONE AND IS ASKING FOR [facility] SERVICES PLAN IS HOME TOMORROW WITH REQUEST FOR [facility]. CASE MANAGEMENT FOLLOWING FOR DC IMM 01/23 IN CHART
--- NOTE | 2023-01-23 09:56 | HO.VASCPN ---
Subjective Subjective Date of Service: 01/23/23 Patient reports: no new complaints and feels better Interval history: Complex 52-year-old gentleman status post left great toe amp. He is postop day 1. Reports he is doing fairly well but pain seems to be an issue. He was resting comfortably in bed working on his computer at the time of my visit. Physical Exam Vital Signs: Vital Signs: Last Vital Signs Temp 98 F 01/23/23 07:14 Pulse 68 01/23/23 07:14 Resp 18 01/23/23 07:14 BP 150/90 H 01/23/23 07:14 Pulse Ox 98 01/23/23 07:14 O2 Del Method Room Air 01/23/23 07:14 BMI result Body Mass Index 31.8 Const: General: cooperative, healthy appearing and comfortable Orientation/consciousness: oriented to person, oriented to place and oriented to time HEENT: Head: Yes normal to inspection Neck: Neck: Yes normal visual inspection Carotids: no bruits Chest: Chest palpation & inspection: normal inspection of the chest Resp: Effort & Inspection: normal respiratory effort and able to speak in complete sentences Auscultation: clear to auscultation bilaterally, no crackles, no rales, no rhonchi and no wheezes Cardio: Rate: regular rate Rhythm: regular rhythm Heart sounds: S1 normal heart sound present and S2 normal heart sound present Bruits: no carotid bruits Peripheral pulses: Peripheral pulses 2+ throughout GI: Inspection: Yes normal to inspection Skin: Other: Dressing clean dry intact Wounds: no wounds Hair: normal Neuro: General: oriented to person, oriented to place and oriented to time Cranial nerves: Yes CN's II-XII intact bilaterally and Yes Normal hearing present Cognition (Neuro): normal cognition Motor exam (neuro): 5/5 motor strength present throughout Extrem: Other: venous exam: No significant superficial varicosities or spider telangiectasias, minimal edema General: No clubbing, No cyanosis and No edema Psych: Appearance: grossly normal Mental Status: mental status grossly normal Speech and movement: Normal speech and movement present Progress Note: A&P Assessment and plan (1) Amputation of left great toe: Status: Acute Assessment and Plan: In short patient is doing relatively well with left great toe amputation. Will continue antibiotics for now as there was some mild surrounding cellulitis. DC IV fluids pain control. Will plan for dressing change for tomorrow. Thank you for allowing us to assist in his care Time Spent With Patient Time: Total time managing care of this patient today ____ minutes. Procedures Date of Service Date of Service: 01/23/23 Quality Stroke Does the patient have a stroke diagnosis?: No VTE Prior VTE?: No VTE Risk Level:: Medical - moderate - high VTE Device Contraindication: N/A - Device Ordered VTE Drug Contraindication: Treatment Not Indicated
[2023-01-23] MEDS: oxyCODONE HCl Immed Release 5 MG TABLET PO ×2 (11:07→16:52)
[2023-01-23 11:17] LABS: Glucose, Whole Blood 77 mg/dL (60-115)
--- NOTE | 2023-01-23 14:01 | HO.POSTANES ---
Post Anesthesia Evaluation Post Anesthesia Evaluation Vital Signs: Vital Signs Temp Pulse Resp BP Pulse Ox O2 Del Method 01/23/23 11:49 Room Air 01/23/23 07:14 98 F 68 18 150/90 H 98 Room Air 01/23/23 03:15 98.6 F 71 16 145/77 H 96 Room Air Anesthesia: General Mental Status: Awake Pain Control: Satisfactory (issues with pain control) Nausea/Vomiting: None Hydration: Adequate Anesthesia-Related Issues: No Anes. Related Issues
[2023-01-23 16:00] VITALS: BP 143/88; PULSE 63; RESP 18; TEMP 36.4; O2SAT 96
[2023-01-23] MEDS: 0.9 % Sodium Chloride Flush 3 ML SYRINGE IVFLUSH (16:51)
--- NOTE | 2023-01-23 17:03 | PC.NURSE ---
Addendum entered by Lulu Fleming RN 01/23/23 17:12: Dr Lepe made aware patient refuses sequentials Original Note: Patient refuses to wear sequentials,risk of DVT explained,ANDREW Ramirez notified,activity encouraged
[2023-01-23 17:33] LABS: Glucose, Whole Blood 110 mg/dL (60-115)
[2023-01-23 19:36] VITALS: BP 141/75; PULSE 59; RESP 18; TEMP 36.6; O2SAT 97
[2023-01-23 20:23] LABS: Glucose, Whole Blood 86 mg/dL (60-115)
[2023-01-23] MEDS: Atorvastatin Calcium 40 MG TABLET PO (21:28)
[2023-01-24] MEDS: 0.9 % Sodium Chloride Flush 3 ML SYRINGE IVFLUSH ×2 (00:15→08:39)
[2023-01-24 04:00] VITALS: BP 118/75; PULSE 66; RESP 16; TEMP 36.3; O2SAT 97
[2023-01-24] MEDS: ceFAZolin Sodium/Dextrose,Iso 2 GM/50 ML PIGGYBACK IV (04:35)
[2023-01-24] MEDS: oxyCODONE HCl Immed Release 5 MG TABLET PO ×2 (05:47→12:28)
[2023-01-24 07:24] VITALS: BP 140/87; PULSE 72; RESP 18; TEMP 36.3; O2SAT 94
[2023-01-24 07:33] LABS: Glucose, Whole Blood 115 mg/dL (60-115)
[2023-01-24] MEDS: Nicotine 21 MG PATCH.TD24 TRANSDERMA (08:39)
[2023-01-24] MEDS: lisinopriL 20 MG TABLET PO (08:39)
[2023-01-24] MEDS: Gabapentin 400 MG CAPSULE 800 MG PO ×2 (08:39→12:38)
[2023-01-24] MEDS: hydroCHLOROthiazide 25 MG TABLET PO (08:39)
[2023-01-24] MEDS: Morphine Sulfate 2 MG/ML CARTRIDGE IVPUSH (08:48)
--- NOTE | 2023-01-24 10:58 | PM.DS ---
DS: Providers Provider Date of Service: 01/24/23 Date of admission: 01/22/23 09:34 Primary care physician: Martine Mike MD Consults: 01/22/23 13:30 Consult to Hospitalist Routine Comment: Consulting Provider: Hospitalist Reason For Exam: medical mgmt DS: Diagnosis Discharge Diagnosis (1) Amputation of left great toe: Status: Acute DS: Summary Hospital Course Hospital Course: Patient presented on Sunday to undergo elective outpatient great toe amputation. Operation went without incident. He was admitted for postoperative follow-up and due to pain. Was observed for 2 days. Dressing was changed incision line appear to be healing. There is mild erythema associated with it. IV antibiotics was given during hospital stay. Upon discharge he was discharged with Keflex and Percocet for pain. He is scheduled for 2 week follow-up with me for suture and staple removal. Status at Discharge Functional status at discharge: independent ambulation Overall status at discharge: patient is back to baseline Time Spent with Patient Time attestation: Total time managing care of this patient today ____ minutes. Discharge coordination time: Greater than 30 minutes Quality: Safe Use of Opioids Does Pt have an Active Cancer Diagnosis on the Problem List?: No Quality: Stroke Does the patient have a stroke diagnosis?: No Physical Exam Vital Signs: Vital Signs: Last Vital Signs Temp 97.4 F 01/24/23 07:24 Pulse 72 01/24/23 07:24 Resp 18 01/24/23 07:24 BP 140/87 H 01/24/23 07:24 Pulse Ox 94 01/24/23 07:24 O2 Del Method Room Air 01/24/23 07:24 BMI result Body Mass Index 31.8 Const: General: cooperative, healthy appearing and no acute distress Orientation/consciousness: oriented to person, oriented to place and oriented to time HEENT: Head: Yes normal to inspection Neck: Carotids: no bruits Chest: Chest palpation & inspection: normal inspection of the chest Resp: Effort & Inspection: normal respiratory effort and able to speak in complete sentences Auscultation: clear to auscultation bilaterally Cardio: Rate: regular rate Heart sounds: S1 normal heart sound present and S2 normal heart sound present GI: Inspection: Yes normal to inspection Skin: Other: Amp site healing well General skin exam: no rashes or lesions noted Wounds: amputation site Neuro: General: oriented to person, oriented to place, oriented to time and CN's II-XI intact bilaterally Extrem: General: Yes normal to inspection, Yes full ROM and Yes no clubbing, cyanosis or edema Psych: Appearance: grossly normal and well kempt Speech and movement: Normal speech and movement present Affect: normal affect DS: Data Data Completed and Pending Pending studies at discharge: Pending at discharge 01/22/23 13:16 Surgical [PTH] Routine Labs on day of discharge: Laboratory Results - last 24 hr 01/23/23 01/23/23 01/23/23 11:10 17:27 20:11 POC Glucose 77 110 86 01/24/23 07:23 POC Glucose 115 Discharge Plan Discharge Anticipated Discharge Date/Time: 01/24/23 10:53 Patient Disposition: Home Health Service Discharge Diagnosis: Status post left great toe amputation Referrals: Martine Mike MD [Primary Care Provider] - 1 Week Discharge Medications: New cephalexin 500 mg capsule 500 mg PO BID Qty: 20 0RF oxycodone-acetaminophen [Percocet] 5-325 mg tablet 1 tab PO Q8H PRN (Reason: pain) Qty: 14 0RF Rx Instructions: Partial Fill upon patient request. Continued lisinopril-hydrochlorothiazide 20-25 mg tablet 1 tab PO DAILY Hold Instructions: BP stable off meds; follow up with PCP for blood pressure monitoring gabapentin 800 mg Tablet 800 mg PO TID atorvastatin 40 mg tablet 40 mg PO DAILY multivitamin Tablet 1 tab PO DAILY Breztri Aerosphere 160-9-4.8 mcg/actuation HFA aerosol inhaler 2 inh inhalation BID Discontinued amoxicillin 875 mg tablet 875 mg PO Q12H Discharge Orders: Discharge Order (Routine); Ordered 01/24/23 Ordered By: Abdoulaye Lepe Diet: Advance to usual diet Activity on Discharge: As tolerated Stand Alone Forms: Patient Portal Discharge page Activity Restrictions/Additional Instructions: Wound care upon discharge: xeroform, 4x4 and Kerlix wrap to be changed 3 times a week. Please call Dr. Lepe at [phone] for 2 week follow up for suture and staple removal Care Plan Goals: Heel amputated toe Health Concerns: Heal all diabetic ulcers Plan of Treatment: Postop follow-up for suture and staple removal Assessment: Status post left great toe and
--- NOTE | 2023-01-24 11:01 | W.MHC.F2F ---
Service Date Service Date: 01/24/23 Encounter Date of encounter: 01/24/23 Reasons for Services Signs and symptoms assessed: Amputation site for erythema drainage and nonhealing of the toe Reason for nursing home: wound care and postoperative assessment and/or care Homebound: Leaving the home is medically contraindicated at this time without the asist of a device and/or another person due th the listed conditions above and below. Reason homebound: unsteady gait / fall risk and non-weight bearing Certification: Based on the above findings, I certify that this patient is confined to the home and needs intermittent nursing home care, physical therapy and/or speech therapy, or continues to need occupational therapy. The patient is under my care, and I have initiated the establishment of the plan of care. The patient will be followed by a physician who will periodically review the plan of care. Time Spent With Patient Time: Total time managing care of this patient today ____ minutes.
[2023-01-24 11:15] LABS: Glucose, Whole Blood 116 mg/dL (60-115)
--- NOTE | 2023-01-24 12:10 | MHC.CM.PN ---
Addendum entered by Huyen Shelby RN 01/24/23 12:21: [facility] [place] 13:00 Original Note: PATIENT IS DC HOME WITH NEW [facility] RN AWARE OF PLAN. PATIENT WILL NEED TRANSPORT ASSIST
== END 2023-01-24 12:45 | disposition home health service (06) | DRG 256 ==
LOC: HO.SSSA 09:37 → HO.S3 13:46
PROVIDERS: Admitting Provider Surgery Vascular Surgery; PCP Internal Medicine; Responsible Provider Nurse Practitioner Acute Care; Visit Provider Surgery Vascular Surgery
PROC: 0Y6Q0Z0 Detachment at Left 1st Toe, Complete, Open Approach (ICD-10-PCS; principal; 2023-01-22 11:00)
DX: E11.51 Type 2 diabetes mellitus with diabetic peripheral angiopathy without gangrene (principal); M86.172 Other acute osteomyelitis, left ankle and foot; M86.672 Other chronic osteomyelitis, left ankle and foot; E11.69 Type 2 diabetes mellitus with other specified complication; L97.529 Non-pressure chronic ulcer of other part of left foot with unspecified severity; I70.245 Atherosclerosis of native arteries of left leg with ulceration of other part of foot; M79.7 Fibromyalgia; J44.9 Chronic obstructive pulmonary disease, unspecified; E11.42 Type 2 diabetes mellitus with diabetic polyneuropathy; E66.9 Obesity, unspecified; Z68.31 Body mass index [BMI] 31.0-31.9, adult; F17.210 Nicotine dependence, cigarettes, uncomplicated; Z71.6 Tobacco abuse counseling; Z88.8 Allergy status to other drugs, medicaments and biological substances; Z79.899 Other long term (current) drug therapy
CPT/HCPCS: 36415; 80048; 82947; 85025; 85027; 87635; 88305; 88311; J0690; J2250; J2270; J2405; J2795; J3010

== ENCOUNTER 2023-02-13 | Outpatient (REF) | payer MEDICARE, SELFPAY | END 2023-02-13 00:01 | LOC: CF | PROVIDERS: PCP Internal Medicine; Visit Provider Surgery Vascular Surgery | DX: S98.112D Complete traumatic amputation of left great toe, subsequent encounter (principal) | CPT/HCPCS: 99212 ==

== ENCOUNTER → 2023-02-27 10:25 | Outpatient (BNVA) | payer MEDICARE, SELFPAY | PROVIDERS: PCP Internal Medicine; Visit Provider Surgery Vascular Surgery | DX: Z47.81 Encounter for orthopedic aftercare following surgical amputation (principal); Z89.412 Acquired absence of left great toe | CPT/HCPCS: 99212 ==

== ENCOUNTER → 2023-03-20 10:18 | Outpatient (BNVA) | payer MEDICARE, SELFPAY | PROVIDERS: PCP Internal Medicine; Visit Provider Surgery Vascular Surgery | DX: T81.89XA Other complications of procedures, not elsewhere classified, initial encounter (principal) | CPT/HCPCS: 99212 ==

== ENCOUNTER 2023-04-09 08:58 | Day surgery (SDC) | payer MEDICARE, SELFPAY ==
[2023-04-05 10:21] VITALS: BMI 31.8
[2023-04-09] VITALS (8 sets, daily range): BP systolic 111–149; BP diastolic 69–97; PULSE 59–82; RESP 16–20; TEMP 36.1–36.5; O2SAT 97–100
[2023-04-09] MEDS: Lactated Ringers 1,000 ML 100 ML IVCONT (09:28)
[2023-04-09 09:40] LABS: Hematocrit 42.4 % (42.0-52.0); Hemoglobin 14.2 g/dl (14.0-18.0); Mean Corpuscular HGB Conc 33.5 g/dl (31.0-36.0); Mean Corpuscular Hemoglobin 30.9 pg (27.0-33.0); Mean Corpuscular Volume 92.2 fL (80.0-98.0); Mean Platelet Volume 9.4 fL (9.4-12.4); Platelet Count 240 X10*3/uL (160-400); Red Cell Distribution Width 13.3 % (11.0-16.0); White Blood Count 10.1 X10*3/uL (4.8-10.8)
[2023-04-09 09:54] LABS: Anion Gap 13 (12-20); Blood Urea Nitrogen 17 mg/dL (9-16); Calcium 9.6 mg/dL (8.4-10.2); Carbon Dioxide 27 mmol/L (22-29); Chloride 105 mmol/L (96-108); Creatinine Clr Calc Pharmacy 84.3; Estimated Glomerular Filt Rate > 60; Glucose Random 99 mg/dL (60-115); Sodium 141 mmol/L (135-145)
--- NOTE | 2023-04-09 11:46 | MHC.SHP ---
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 No changes have occurred unless specified. Time Spent With Patient Time: Total time managing care of this patient today ____ minutes.
--- NOTE | 2023-04-09 11:48 | P.CONAN_ITS ---
HPI - Anesthesia Eval Consult details Narrative: 52 yo male patient for Revision of Left great toe amputation PMFSH Active Problems Active Problems: All Active Problems (Updated 04/09/23 @ 11:50 by Leticia Zhu MD) Ulcer of left foot due to type 2 diabetes mellitus (Acute) Amputation of left great toe (Acute) Cellulitis of left lower extremity (Acute) Left hallux osteomyelitis (Acute) Osteomyelitis (Acute) Personal history of nicotine dependence (Acute) Past Medical History Medical History Anxiety and depression COPD (chronic obstructive pulmonary disease) Depression Fibromyalgia Glaucoma Hypercholesterolemia Hypertension Osteomyelitis Personal history of nicotine dependence Seizure disorder Tubular adenoma of colon Type 2 diabetes mellitus Type 2 diabetes mellitus with diabetic neuropathy Family History Family History Mother Lung cancer metastatic to brain Family history of problems with anesthesia: No Surgical History Surgical History H/O colonoscopy History of cervical discectomy History of eye surgery History of Problems with Anesthesia: No Social History Social History Household Members: None Housing: Apartment Do you presently have visiting nurse or other home services: No Patient Tobacco Use Status: Current everyday Tobacco user Tobacco use type: Cigarette Cigarette Packs Per Day: 1 Cigarettes Per Day: 10 Years Smoked: 13 e-Cigarette/Vaping Use: Never Used Second Hand Smoke Exposure: No Use of substances other than those prescribed or required for medical reasons: Yes Substance Use Type: Marijuana Substance Use Frequency: Daily Are you DNR?: No Advance Directives: No Advance Directives Information Provided: Yes Advance Directives on File: No service: No Current occupational status: disabled Current occupational exposures/hazards: No Meds Allergies Allergy/AdvReac Type Severity Reaction Status Date / Time shellfish derived Allergy Severe ANAPHYLAXIS Verified 03/20/23 10:24 [SHELLFISH DERIVED] buspirone [From BUSPAR] Allergy Unknown nausea Verified 03/20/23 10:24 bupropion [From WELLBUTRIN] AdvReac Unknown NAUSEA Verified 03/20/23 10:24 daptomycin AdvReac rhabdomyoli Verified 03/20/23 10:24 sis Active Medications: Current Medications Albuterol Sulfate (Albuterol Sulfate (0.083%) 2.5 Mg/3 Ml Vial.Neb) 2.5 mg INHALE ONCE PRN PRN Reason: Shortness of Breath/Wheezing Lactated Ringer's (Lr) 1,000 mls @ 100 mls/hr IVCONT .Q10H ISAIAH Last Admin: 04/09/23 09:28 Dose: 100 mls/hr Home Medications Medication Instructions Recorded Confirmed Last Taken Type lisinopril 20 1 tab PO DAILY 02/16/22 01/22/23 01/22/23 History mg-hydrochlorothiazide 25 mg tablet gabapentin 800 mg tablet 800 mg PO TID 07/28/22 01/22/23 01/22/23 History atorvastatin 40 mg tablet 40 mg PO DAILY 12/25/22 01/22/23 01/21/23 History multivitamin 1 tab PO DAILY 12/25/22 01/22/23 01/21/23 History budesonide 160 mcg-glycopyr 9 2 inh inhalation BID 01/22/23 01/22/23 Unknown History mcg-formot 4.8 mcg/actuation HFA inhaler (GenSpera) Exam Exam Date and Time: April 09, 2023 1148 Height,Weight and Vital Signs: Height 5 ft 7 in Weight 92 kg Last Vital Signs Temp 97.6 F 04/09/23 09:22 Pulse 71 04/09/23 09:22 Resp 16 04/09/23 09:22 BP 111/69 04/09/23 09:22 Pulse Ox 97 04/09/23 09:22 O2 Del Method Room Air 04/09/23 09:22 Pertinent Lab Results Pertinent Lab Results: Laboratory Tests 04/09/23 04/09/23 09:33 09:33 WBC 10.1 RBC 4.60 Hgb 14.2 Hct 42.4 MCV 92.2 MCH 30.9 MCHC 33.5 RDW 13.3 Plt Count 240 MPV 9.4 Absolute Nucleated RBC 0.000 Nucleated RBC % (auto) 0.0 Sodium 141 Potassium 4.0 Chloride 105 Carbon Dioxide 27 Anion Gap 13 BUN 17 H Creatinine 1.12 Estim Creat Clear Calc 84.3 Estimated GFR > 60 Random Glucose 99 Calcium 9.6 D Airway Mallampati Class: III TM Dist: >3cm Neck ROM: Full Loose/Missing/Broken Teeth: Yes (Many missing teeth. Denies broken or loose teeth) Heart: RRR Lungs: CTAB Assessment and Plan Assessment Anesthesia Assessment: Anesthesia Plan Discussed and Chart Reviewed Final Anesthetic Review Family History of Problems with Anesthesia: No History of Problems with Anesthesia: No NPO: Yes ASA Class: III Final Preanesthetic Review: No Changes in Pt Med Stat, Meds/Allgs Chart Reviewed, Consent Obtained/Reviewed and Anes Risks/Benef Reviewed Patient Risk: Intermediate Procedure Risk: Low Assessment/Block/Sedation in SS: Assess/Block/Sedation-SS Anesthetic Plan Anesthetic Plan: GA Disposition: Standard PACU
--- NOTE | 2023-04-09 13:10 | P.OP_ITS ---
Operative Note Operative Note Date of Service: 04/09/23 Narrative: Operative note by [facility] Preoperative diagnosis: Nonhealing left great toe amputation site 2. Osteomyelitis Postoperative diagnosis: Same Procedure: Left great toe ray amputation Surgeon:Abdoulaye Lepe M.D. Sheet Combining Operator: Angie Anesthesia: General Specimens: 1 - metatarsal head Drains: None Estimated blood loss: Minimal Indications: 52-year-old diabetic gentleman who underwent a left great toe amputation had a nonhealing incision site in exposed bone. He now presents for revision. The patient has signed the informed consent after reviewing risks, complications, benefits, and alternatives previously discussed with the patient. The patient was given the opportunity to ask any additional questions or voice any concerns. All questions were answered to the patient's satisfaction. Procedure in detail: Patient was brought to the operating room prior to which a time-out was called for patient identification and site verification along the dorsum of the metatarsal head we made an incision from the prior opening on back. We then dissected out using electrocautery down into the metatarsal head and circumferentially dissected out the metatarsal. Using a power saw we transected the metatarsal and removed that. There was callused and hard tissue underlying. This had to be resected in its entirety. Once this was all done it was for the bone was filed down. The wound was irrigated out thoroughly. Electrocautery was used to obtain good hemostasis. Deep layer was reapproximated using 2 0 Polysorb superficial layer with 3-0 poly Sorb and finally skin with a 2 0 nylon in a mattress fashion along with skin clips. Xeroform and a sterile dressing were applied at the end of that case. Patient tolerated the procedure well. Returned to recovery with stable vitals. This note is constructed using voice recognition software. While every effort has been made to ensure accuracy, flying squad salesperson errors may have been included. Thank you for allowing me to participate in the care of your patient. Yours sincerely, Abdoulaye Lepe MD, FACS, R.P.V.I.
[2023-04-09] MEDS: oxyCODONE HCl Immed Release 5 MG TABLET PO (13:29)
[2023-04-09] MEDS: fentaNYL citrate/PF 100 MCG/2 ML VIAL 25 MCG IVPUSH (13:30)
== END 2023-04-09 15:13 | disposition home or self-care (01) ==
PROVIDERS: PCP Internal Medicine; Visit Provider Surgery Vascular Surgery
PROC: (CPT 28810; principal; 2023-04-09 10:40)
DX: T87.89 Other complications of amputation stump (principal); L97.529 Non-pressure chronic ulcer of other part of left foot with unspecified severity; M86.172 Other acute osteomyelitis, left ankle and foot; E11.621 Type 2 diabetes mellitus with foot ulcer; E11.40 Type 2 diabetes mellitus with diabetic neuropathy, unspecified; M79.7 Fibromyalgia; J44.9 Chronic obstructive pulmonary disease, unspecified; G40.909 Epilepsy, unspecified, not intractable, without status epilepticus; E78.00 Pure hypercholesterolemia, unspecified; I10 Essential (primary) hypertension; F41.8 Other specified anxiety disorders; Z79.899 Other long term (current) drug therapy; Z88.8 Allergy status to other drugs, medicaments and biological substances; Z98.890 Other specified postprocedural states; F17.210 Nicotine dependence, cigarettes, uncomplicated
CPT/HCPCS: 28810; 36415; 80048; 85027; 88304; 88311; J0131; J0690; J2250; J2405; J2795; J3010

== ENCOUNTER → 2023-04-09 08:58 | Outpatient (BNV) | payer MEDICARE, SELFPAY | PROVIDERS: PCP Internal Medicine; Visit Provider Surgery Vascular Surgery | DX: T87.89 Other complications of amputation stump (principal); Z89.412 Acquired absence of left great toe; M86.8X7 Other osteomyelitis, ankle and foot | CPT/HCPCS: 28810 ==

== ENCOUNTER 2023-04-17 10:50 | Outpatient (AMB) | payer MEDICARE, SELFPAY ==
--- NOTE | 2023-04-17 10:58 | MHC.OFFVIS ---
Intake Intake Visit Reasons: Add-On incision open s/p toe amp revision 04/09/23 Intake Note: follow up Left great toe amp 04/09/2023, [facility] called to state that incision opened Allergies shellfish derived [SHELLFISH DERIVED] Allergy (Severe, Verified 04/17/23 11:02) ANAPHYLAXIS buspirone [From BUSPAR] Allergy (Unknown, Verified 04/17/23 11:02) nausea bupropion [From WELLBUTRIN] Adverse Reaction (Unknown, Verified 04/17/23 11:02) NAUSEA daptomycin Adverse Reaction (Verified 04/17/23 11:02) rhabdomyolisis HPI Add-On incision open s/p toe amp revision 04/09/23 HPI Details Patient is status post left great toe amputation revision. He was performed as same-day surgery subsequently went home. He had been seen by visiting nurses and of note he has a nonhealing incision line. Been doing relatively well. No other significant complaints. He was unable to tolerate Percocet but has been taking tramadol. No other postprocedure issues at the current time. He now presents for routine follow-up. [facility] Medical History Anxiety and depression COPD (chronic obstructive pulmonary disease) Depression Fibromyalgia Glaucoma Hypercholesterolemia Hypertension Osteomyelitis Personal history of nicotine dependence Seizure disorder Tubular adenoma of colon Type 2 diabetes mellitus Type 2 diabetes mellitus with diabetic neuropathy Surgical History H/O colonoscopy History of cervical discectomy History of eye surgery Family History Mother Lung cancer metastatic to brain Social History Household Members: None Housing: Apartment Do you presently have visiting nurse or other home services: No Patient Tobacco Use Status: Current everyday Tobacco user Tobacco use type: Cigarette Cigarette Packs Per Day: 1 Cigarettes Per Day: 10 Years Smoked: 13 e-Cigarette/Vaping Use: Never Used Second Hand Smoke Exposure: No Substance Use Type: Marijuana service: No Current occupational status: disabled Current occupational exposures/hazards: No Review of Systems Const All systems reviewed & are unremarkable except as noted in HPI and below Reports no additional complaints ENT Reports Normal hearing present Card Denies chest pain, Denies chest pain at rest, Denies chest pain with activity and Denies pedal edema Resp Denies cough GI Denies abdominal pain Musc Denies abnormal gait, Denies muscle cramps and Denies radiating pain into limb Skin/Breast Denies skin ulcer and Denies wounds Neuro Reports Normal hearing present and Denies abnormal gait Psych Reports no additional complaints Physical Exam Const General: cooperative, healthy appearing and comfortable Orientation/consciousness: oriented to person, oriented to place and oriented to time HEENT Head: Yes normal to inspection Neck Neck: Yes normal visual inspection Carotids: no bruits Chest Chest palpation & inspection: normal inspection of the chest Resp Effort & Inspection: normal respiratory effort and able to speak in complete sentences Auscultation: clear to auscultation bilaterally, no crackles, no rales, no rhonchi and no wheezes Cardio Rate: regular rate Rhythm: regular rhythm Heart sounds: S1 normal heart sound present and S2 normal heart sound present Bruits: no carotid bruits Peripheral pulses: Peripheral pulses 2+ throughout GI Inspection: Yes normal to inspection Skin Other: Left great toe amputation site - opening 3.5 x 1 x 0.1 cm. Clean with good granulation base mild erythema Wounds: no wounds Hair: normal Neuro General: oriented to person, oriented to place and oriented to time Cranial nerves: Yes CN's II-XII intact bilaterally and Yes Normal hearing present Cognition (Neuro): normal cognition Motor exam (neuro): 5/5 motor strength present throughout Extrem Other: venous exam: No significant superficial varicosities or spider telangiectasias, minimal edema General: No clubbing, No cyanosis and No edema Psych Appearance: grossly normal Mental Status: mental status grossly normal Speech and movement: Normal speech and movement present Assessment & Plan Assessment & Plan (1) Amputation of left great toe: Code(s): S98.112A - Complete traumatic amputation of left great toe, initial encounter Plan: In short patient has a nonhealing left great toe amputation site. I do believe it is healing and will ventrally close. We will pyridine recovery operator to alginate dressings. In addition there is some mild erythema that I would like to treat with Keflex. He will follow up with us in approximately 1 weeks time to ensure that it is going in the right direction. Thank you for allowing us to assist in this patient's care. Medications: New cephalexin 500 mg PO BID 20 caps 0RF S98.112A - Complete traumatic amputation of left great toe, initial encounter Coding Level of Care Code Est Pt Level 4 (99700) Diagnoses Amputation of left great toe S98.112A
== END 2023-04-17 11:31 | disposition home or self-care (01) ==
PROVIDERS: PCP Internal Medicine; Visit Provider Surgery Vascular Surgery
DX: S98.112D Complete traumatic amputation of left great toe, subsequent encounter (principal)
CPT/HCPCS: 99024

== ENCOUNTER → 2023-04-17 10:50 | Outpatient (BNVA) | payer MEDICARE, SELFPAY | PROVIDERS: PCP Internal Medicine; Visit Provider Surgery Vascular Surgery | DX: T81.89XA Other complications of procedures, not elsewhere classified, initial encounter (principal); Z89.412 Acquired absence of left great toe | CPT/HCPCS: 99212 ==

== ENCOUNTER 2023-04-24 10:13 | Outpatient (REF) | payer MEDICARE, SELFPAY ==
[2023-04-24 13:55] LABS: Estimated Average Glucose 111 mg/dL; Hemoglobin A1c % 5.5 %
[2023-04-24 14:00] LABS: Alanine Aminotransferase 14 U/L (0-40); Albumin Level 4.2 g/dL (3.5-5.0); Alkaline Phosphatase 84 U/L (39-117); Anion Gap 17 (12-20); Aspartate Amino Transferase 15 U/L (5-37); Bilirubin Total 0.3 mg/dL (0.0-1.0); Blood Urea Nitrogen 14 mg/dL (9-16); Calcium 9.6 mg/dL (8.4-10.2); Carbon Dioxide 22 mmol/L (22-29); Chloride 104 mmol/L (96-108); Estimated Glomerular Filt Rate > 60; Glucose Random 94 mg/dL (60-115); Potassium 4.1 mmol/L (3.3-5.1); Sodium 139 mmol/L (135-145); Total Protein 7.3 g/dL (6.5-8.0)
== END 2023-04-24 10:14 | disposition home or self-care (01) ==
LOC: HO.10HDL 10:13
PROVIDERS: Visit Provider Internal Medicine
DX: S92.112A Displaced fracture of neck of left talus, initial encounter for closed fracture (principal); E11.40 Type 2 diabetes mellitus with diabetic neuropathy, unspecified; E78.00 Pure hypercholesterolemia, unspecified; M86.171 Other acute osteomyelitis, right ankle and foot; Z72.0 Tobacco use
CPT/HCPCS: 36415; 80053; 83036; 99212

== ENCOUNTER 2023-04-24 10:56 | Outpatient (AMB) | payer MEDICARE, SELFPAY ==
--- NOTE | 2023-04-24 10:58 | A.OFFVIS_ITS ---
Intake Intake Visit Reasons: 2wk post Left great toe amp revision 04/09/23 Intake Note: Patient is here for a 2 week post left great toe amp revision 04/09/23, Allergies shellfish derived [SHELLFISH DERIVED] Allergy (Severe, Verified 04/24/23 10:59) ANAPHYLAXIS buspirone [From BUSPAR] Allergy (Unknown, Verified 04/24/23 10:59) nausea bupropion [From WELLBUTRIN] Adverse Reaction (Unknown, Verified 04/24/23 10:59) NAUSEA daptomycin Adverse Reaction (Verified 04/24/23 10:59) rhabdomyolisis HPI 2wk post Left great toe amp revision 04/09/23 HPI Details Very pleasant 52-year-old gentleman who underwent left great toe amp and revision presents for routine follow-up. He has a nonhealing incision line. He has been fairly noncompliant with his dressing care. He reports that over the weekend his toilet overflowed in the dressing got wet. He did not change his dressing since that time. He has refused visiting nursing care as well. Now presents for follow-up. Of note he did complete his course of antibiotics. [facility] Medical History Anxiety and depression COPD (chronic obstructive pulmonary disease) Depression Fibromyalgia Glaucoma Hypercholesterolemia Hypertension Osteomyelitis Personal history of nicotine dependence Seizure disorder Tubular adenoma of colon Type 2 diabetes mellitus Type 2 diabetes mellitus with diabetic neuropathy Surgical History H/O colonoscopy History of cervical discectomy History of eye surgery Family History Mother Lung cancer metastatic to brain Social History Household Members: None Housing: Apartment Do you presently have visiting nurse or other home services: No Patient Tobacco Use Status: Current everyday Tobacco user Tobacco use type: Cigarette Cigarette Packs Per Day: 1 Cigarettes Per Day: 10 Years Smoked: 13 e-Cigarette/Vaping Use: Never Used Second Hand Smoke Exposure: No Substance Use Type: Marijuana service: No Current occupational status: disabled Current occupational exposures/hazards: No Review of Systems Const All systems reviewed & are unremarkable except as noted in HPI and below Reports no additional complaints ENT Reports Normal hearing present Card Denies chest pain, Denies chest pain at rest, Denies chest pain with activity and Denies pedal edema Resp Denies cough GI Denies abdominal pain Musc Denies abnormal gait, Denies muscle cramps and Denies radiating pain into limb Skin/Breast Denies skin ulcer and Denies wounds Neuro Reports Normal hearing present and Denies abnormal gait Psych Reports no additional complaints Physical Exam Const General: cooperative, healthy appearing and comfortable Orientation/consciousness: oriented to person, oriented to place and oriented to time HEENT Head: Yes normal to inspection Neck Neck: Yes normal visual inspection Carotids: no bruits Chest Chest palpation & inspection: normal inspection of the chest Resp Effort & Inspection: normal respiratory effort and able to speak in complete sentences Auscultation: clear to auscultation bilaterally, no crackles, no rales, no rhonchi and no wheezes Cardio Rate: regular rate Rhythm: regular rhythm Heart sounds: S1 normal heart sound present and S2 normal heart sound present Bruits: no carotid bruits Peripheral pulses: Peripheral pulses 2+ throughout GI Inspection: Yes normal to inspection Skin Other: Left great toe amputation site sutures removed. Nonhealing incision line opening measures 3.5 x 1 x 0.3 cm. Reasonable granulation base. Wounds: no wounds Hair: normal Neuro General: oriented to person, oriented to place and oriented to time Cranial nerves: Yes CN's II-XII intact bilaterally and Yes Normal hearing present Cognition (Neuro): normal cognition Motor exam (neuro): 5/5 motor strength present throughout Extrem Other: venous exam: No significant superficial varicosities or spider telangiectasias, minimal edema General: No clubbing, No cyanosis and No edema Psych Appearance: grossly normal Mental Status: mental status grossly normal Speech and movement: Normal speech and movement present Assessment & Plan Assessment & Plan (1) Amputation of left great toe: Code(s): S98.112A - Complete traumatic amputation of left great toe, initial encounter Plan: In short patient has nonhealing left great toe ulcer. We did discuss the importance of local wound care. I also reiterated the importance of having care by visiting nurses. The patient will follow up with us in approximately 2-3 weeks time. Should there be any interval changes happy to see him back sooner. Thank you for allowing us to assist in his care. If there are any questions or concerns please do not hesitate to contact us. Coding Level of Care Code Est Pt Level 4 (79391) Diagnoses Amputation of left great toe S98.112A
== END 2023-04-24 11:16 | disposition home or self-care (01) ==
PROVIDERS: PCP Internal Medicine; Visit Provider Surgery Vascular Surgery
DX: L97.529 Non-pressure chronic ulcer of other part of left foot with unspecified severity (principal); Z89.412 Acquired absence of left great toe
CPT/HCPCS: 99024

== ENCOUNTER 2023-05-29 11:35 | Outpatient (AMB) | payer MEDICARE, SELFPAY ==
--- NOTE | 2023-05-29 11:36 | MHC.OFFVIS ---
Intake Intake Visit Reasons: follow up left toe amp Intake Note: 1 mo follow up Left Great toe amputation revision 04/09/23. Changes bandage QOD by [facility] Accompanied by: Self / Same As Patient Allergies shellfish derived [SHELLFISH DERIVED] Allergy (Severe, Verified 05/29/23 11:39) ANAPHYLAXIS buspirone [From BUSPAR] Allergy (Unknown, Verified 05/29/23 11:39) nausea bupropion [From WELLBUTRIN] Adverse Reaction (Unknown, Verified 05/29/23 11:39) NAUSEA daptomycin Adverse Reaction (Verified 05/29/23 11:39) rhabdomyolisis HPI follow up left toe amp HPI Details 52-year-old gentleman is status post left great toe amp revision. He has a nonhealing incision line. It appears to be doing significantly better. Of note in the interim he has quit his job from [employer]. He appears to be doing much better with that. He does have visiting nurse care. He now presents for routine follow-up. [facility] Medical History Anxiety and depression COPD (chronic obstructive pulmonary disease) Depression Fibromyalgia Glaucoma Hypercholesterolemia Hypertension Osteomyelitis Personal history of nicotine dependence Seizure disorder Tubular adenoma of colon Type 2 diabetes mellitus Type 2 diabetes mellitus with diabetic neuropathy Surgical History H/O colonoscopy History of cervical discectomy History of eye surgery Family History Mother Lung cancer metastatic to brain Social History Household Members: None Housing: Apartment Do you presently have visiting nurse or other home services: No Patient Tobacco Use Status: Current everyday Tobacco user Tobacco use type: Cigarette Cigarette Packs Per Day: 1 Cigarettes Per Day: 10 Years Smoked: 13 e-Cigarette/Vaping Use: Never Used Second Hand Smoke Exposure: No Substance Use Type: Marijuana service: No Current occupational status: disabled Current occupational exposures/hazards: No Review of Systems Const All systems reviewed & are unremarkable except as noted in HPI and below Reports no additional complaints ENT Reports Normal hearing present Card Denies chest pain, Denies chest pain at rest, Denies chest pain with activity and Denies pedal edema Resp Denies cough GI Denies abdominal pain Musc Denies abnormal gait, Denies muscle cramps and Denies radiating pain into limb Skin/Breast Denies skin ulcer and Denies wounds Neuro Reports Normal hearing present and Denies abnormal gait Psych Reports no additional complaints Physical Exam Const General: cooperative, healthy appearing and comfortable Orientation/consciousness: oriented to person, oriented to place and oriented to time HEENT Head: Yes normal to inspection Neck Neck: Yes normal visual inspection Carotids: no bruits Chest Chest palpation & inspection: normal inspection of the chest Resp Effort & Inspection: normal respiratory effort and able to speak in complete sentences Auscultation: clear to auscultation bilaterally, no crackles, no rales, no rhonchi and no wheezes Cardio Rate: regular rate Rhythm: regular rhythm Heart sounds: S1 normal heart sound present and S2 normal heart sound present Bruits: no carotid bruits Peripheral pulses: Peripheral pulses 2+ throughout GI Inspection: Yes normal to inspection Skin Other: Left great toe amputation site measures 0.5 x 2 x 0.3 cm opening clean with excellent granulation base Wounds: no wounds Hair: normal Neuro General: oriented to person, oriented to place and oriented to time Cranial nerves: Yes CN's II-XII intact bilaterally and Yes Normal hearing present Cognition (Neuro): normal cognition Motor exam (neuro): 5/5 motor strength present throughout Extrem Other: venous exam: No significant superficial varicosities or spider telangiectasias, minimal edema General: No clubbing, No cyanosis and No edema Psych Appearance: grossly normal Mental Status: mental status grossly normal Speech and movement: Normal speech and movement present Assessment & Plan Assessment & Plan (1) Amputation of left great toe: Code(s): S98.112A - Complete traumatic amputation of left great toe, initial encounter Plan: In short amputation site appears to be doing extremely well. We will continue with local wound care. We did discuss the importance of offloading. He will follow up with us in approximately 3 weeks time. Coding Level of Care Code Est Pt Level 3 (41396) Diagnoses Amputation of left great toe S98.112A
== END 2023-05-29 12:02 | disposition home or self-care (01) ==
PROVIDERS: PCP Internal Medicine; Visit Provider Surgery Vascular Surgery
DX: S98.112A Complete traumatic amputation of left great toe, initial encounter (principal)
CPT/HCPCS: 99024

== ENCOUNTER → 2023-05-29 11:35 | Outpatient (BNVA) | payer MEDICARE, SELFPAY | PROVIDERS: PCP Internal Medicine; Visit Provider Surgery Vascular Surgery ==

== ENCOUNTER 2023-06-19 09:57 | Outpatient (AMB) | payer MEDICARE, SELFPAY ==
--- NOTE | 2023-06-19 09:58 | MHC.OFFVIS ---
Intake Vital Signs 06/19/23 10:03 Height 5 ft Weight 190 lb BMI 37.1 Intake Visit Reasons: 3 week wound check Intake Note: 1 month fu for left great toe amputation revision 04/09/23.Pt stats he is still having pain in the left foot Allergies shellfish derived [SHELLFISH DERIVED] Allergy (Severe, Verified 06/19/23 10:04) ANAPHYLAXIS buspirone [From BUSPAR] Allergy (Unknown, Verified 06/19/23 10:04) nausea bupropion [From WELLBUTRIN] Adverse Reaction (Unknown, Verified 06/19/23 10:04) NAUSEA daptomycin Adverse Reaction (Verified 06/19/23 10:04) rhabdomyolisis HPI 3 week wound check HPI Details Complex 52-year-old gentleman with prior history left great toe amputation and subsequent revision. Appears to be doing relatively well. He has been offloading it much better. He has quit working in appears to be doing somewhat better. He now presents to us for follow-up for nonhealing incision line. He has had no significant interval changes. [facility] Medical History Anxiety and depression COPD (chronic obstructive pulmonary disease) Depression Fibromyalgia Glaucoma Hypercholesterolemia Hypertension Osteomyelitis Personal history of nicotine dependence Seizure disorder Tubular adenoma of colon Type 2 diabetes mellitus Type 2 diabetes mellitus with diabetic neuropathy Surgical History H/O colonoscopy History of cervical discectomy History of eye surgery Family History Mother Lung cancer metastatic to brain Social History Household Members: None Housing: Apartment Do you presently have visiting nurse or other home services: No Patient Tobacco Use Status: Current everyday Tobacco user Tobacco use type: Cigarette Cigarette Packs Per Day: 1 Cigarettes Per Day: 10 Years Smoked: 13 e-Cigarette/Vaping Use: Never Used Second Hand Smoke Exposure: No Substance Use Type: Marijuana service: No Current occupational status: disabled Current occupational exposures/hazards: No Review of Systems Const All systems reviewed & are unremarkable except as noted in HPI and below Reports no additional complaints ENT Reports Normal hearing present Card Denies chest pain, Denies chest pain at rest, Denies chest pain with activity and Denies pedal edema Resp Denies cough GI Denies abdominal pain Musc Denies abnormal gait, Denies muscle cramps and Denies radiating pain into limb Skin/Breast Denies skin ulcer and Denies wounds Neuro Reports Normal hearing present and Denies abnormal gait Psych Reports no additional complaints Physical Exam Vital Signs: BMI result Body Mass Index 37.1 Const General: cooperative, healthy appearing and comfortable Orientation/consciousness: oriented to person, oriented to place and oriented to time HEENT Head: Yes normal to inspection Neck Neck: Yes normal visual inspection Carotids: no bruits Chest Chest palpation & inspection: normal inspection of the chest Resp Effort & Inspection: normal respiratory effort and able to speak in complete sentences Auscultation: clear to auscultation bilaterally, no crackles, no rales, no rhonchi and no wheezes Cardio Rate: regular rate Rhythm: regular rhythm Heart sounds: S1 normal heart sound present and S2 normal heart sound present Bruits: no carotid bruits Peripheral pulses: Peripheral pulses 2+ throughout GI Inspection: Yes normal to inspection Skin Other: Amputation incision line measures 1.5 x 0.5 x 0.3 cm. Callus and dry eschar was removed. Wounds: no wounds Hair: normal Neuro General: oriented to person, oriented to place and oriented to time Cranial nerves: Yes CN's II-XII intact bilaterally and Yes Normal hearing present Cognition (Neuro): normal cognition Motor exam (neuro): 5/5 motor strength present throughout Extrem Other: venous exam: No significant superficial varicosities or spider telangiectasias, minimal edema General: No clubbing, No cyanosis and No edema Psych Appearance: grossly normal Mental Status: mental status grossly normal Speech and movement: Normal speech and movement present Assessment & Plan Assessment & Plan (1) Amputation of left great toe: Code(s): S98.112A - Complete traumatic amputation of left great toe, initial encounter Plan: In short patient has a nonhealing incision line status post amputation of left great toe. It appears to be doing relatively well. Did discussed local wound care and offloading. The patient will follow up with us in approximately 3 weeks time for wound surveillance. Thank you for allowing us to assist in his care. If there are any questions or concerns please do not hesitate to contact us. Coding Level of Care Code Est Pt Level 3 (91630) Diagnoses Amputation of left great toe S98.112A
[2023-06-19 10:03] VITALS: BMI 37.1
== END 2023-06-19 10:38 | disposition home or self-care (01) ==
PROVIDERS: PCP Internal Medicine; Visit Provider Surgery Vascular Surgery
DX: S98.112A Complete traumatic amputation of left great toe, initial encounter (principal)
CPT/HCPCS: 99024

== ENCOUNTER → 2023-06-19 09:57 | Outpatient (BNVA) | payer MEDICARE, SELFPAY | PROVIDERS: PCP Internal Medicine; Visit Provider Surgery Vascular Surgery ==

== ENCOUNTER 2023-07-12 10:44 | Outpatient (AMB) | payer MEDICARE, SELFPAY ==
[2023-07-12 10:52] VITALS: BMI 37.1
--- NOTE | 2023-07-12 10:52 | A.OFFVIS_ITS ---
Intake Vital Signs 07/12/23 10:52 Height 5 ft Weight 190 lb BMI 37.1 Intake Visit Reasons: 3 week follow up wound check Intake Note: 3 week follow up Left Great toe amp 04/09/23, Pt states some pain and difficulty walking, has some scabbing over amp incision, wrapped w/ alginate, no drainage Accompanied by: Self / Same As Patient Allergies shellfish derived [SHELLFISH DERIVED] Allergy (Severe, Verified 07/12/23 10:58) ANAPHYLAXIS buspirone [From BUSPAR] Allergy (Unknown, Verified 07/12/23 10:58) nausea bupropion [From WELLBUTRIN] Adverse Reaction (Unknown, Verified 07/12/23 10:58) NAUSEA daptomycin Adverse Reaction (Verified 07/12/23 10:58) rhabdomyolisis HPI 3 week follow up wound check HPI Details 52-year-old gentleman presents for follo w-up status post left great toe amputation. He had subsequent revision. It appears that he is doing much better. In addition he has quit working. He has developed a callus on this area. He does complain of occasional pain and discomfort. In general it appears to be healing relatively well. [facility] Medical History Type 2 diabetes mellitus Osteomyelitis Seizure disorder Anxiety and depression Fibromyalgia Depression Glaucoma COPD (chronic obstructive pulmonary disease) Tubular adenoma of colon Hypercholesterolemia Hypertension Type 2 diabetes mellitus with diabetic neuropathy Personal history of nicotine dependence Surgical History H/O colonoscopy History of eye surgery History of cervical discectomy Family History Mother Lung cancer metastatic to brain Social History Household Members: None Housing: Apartment Do you presently have visiting nurse or other home services: No Patient Tobacco Use Status: Current everyday Tobacco user Tobacco use type: Cigarette Cigarette Packs Per Day: 1 Cigarettes Per Day: 10 Years Smoked: 13 e-Cigarette/Vaping Use: Never Used Second Hand Smoke Exposure: No Substance Use Type: Marijuana service: No Current occupational status: disabled Current occupational exposures/hazards: No Review of Systems Const All systems reviewed & are unremarkable except as noted in HPI and below Reports no additional complaints ENT Reports Normal hearing present Card Denies chest pain, Denies chest pain at rest, Denies chest pain with activity and Denies pedal edema Resp Denies cough GI Denies abdominal pain Musc Denies abnormal gait, Denies muscle cramps and Denies radiating pain into limb Skin/Breast Denies skin ulcer and Denies wounds Neuro Reports Normal hearing present and Denies abnormal gait Psych Reports no additional complaints Physical Exam Vital Signs: BMI result Body Mass Index 37.1 Const General: cooperative, healthy appearing and comfortable Orientation/consciousness: oriented to person, oriented to place and oriented to time HEENT Head: Yes normal to inspection Neck Neck: Yes normal visual inspection Carotids: no bruits Chest Chest palpation & inspection: normal inspection of the chest Resp Effort & Inspection: normal respiratory effort and able to speak in complete sentences Auscultation: clear to auscultation bilaterally, no crackles, no rales, no rhonchi and no wheezes Cardio Rate: regular rate Rhythm: regular rhythm Heart sounds: S1 normal heart sound present and S2 normal heart sound present Bruits: no carotid bruits Peripheral pulses: Peripheral pulses 2+ throughout GI Inspection: Yes normal to inspection Skin Other: Callus was removed and underlying tissue demonstrates about a 0.2 cm opening. Overall excellent granulation bed. Wounds: wounds noted Hair: normal Neuro General: oriented to person, oriented to place and oriented to time Cranial nerves: Yes CN's II-XII intact bilaterally and Yes Normal hearing present Cognition (Neuro): normal cognition Motor exam (neuro): 5/5 motor strength present throughout Extrem Other: venous exam: No significant superficial varicosities or spider telangiectasias, minimal edema General: No clubbing, No cyanosis and No edema Psych Appearance: grossly normal Mental Status: mental status grossly normal Speech and movement: Normal speech and movement present Assessment & Plan Assessment & Plan (1) Amputation of left great toe: Code(s): S98.112A - Complete traumatic amputation of left great toe, initial encounter Plan: In short it appears to be healing relatively well. We did discuss offloading and routine wound care. He will follow up with us in approximately 3 weeks time. Thank you for allowing us to assist in his care. Coding Level of Care Code Est Pt Level 3 (95175) Diagnoses Amputation of left great toe S98.112A
== END 2023-07-12 12:10 | disposition home or self-care (01) ==
PROVIDERS: PCP Internal Medicine; Visit Provider Surgery Vascular Surgery
DX: S98.112A Complete traumatic amputation of left great toe, initial encounter (principal)
CPT/HCPCS: 99213

== ENCOUNTER → 2023-07-12 10:44 | Outpatient (BNVA) | payer MEDICARE, SELFPAY | PROVIDERS: PCP Internal Medicine; Visit Provider Surgery Vascular Surgery | DX: Z47.81 Encounter for orthopedic aftercare following surgical amputation (principal); Z89.412 Acquired absence of left great toe | CPT/HCPCS: 99212 ==

== ENCOUNTER 2023-08-14 09:41 | Outpatient (AMB) | payer MEDICARE, SELFPAY ==
--- NOTE | 2023-08-14 10:03 | MHC.OFFVIS ---
Intake Intake Visit Reasons: Incontinence Intake Note: New Patient presents for initial visit for family history of prostate cancer/urinary issues Urology Medications: none Blood Thinner: none PVR: 0ml's Gas Check Pad Maker Required: No Accompanied by: Self / Same As Patient Allergies shellfish derived [SHELLFISH DERIVED] Allergy (Severe, Verified 08/14/23 10:44) ANAPHYLAXIS buspirone [From BUSPAR] Allergy (Unknown, Verified 08/14/23 10:44) nausea bupropion [From WELLBUTRIN] Adverse Reaction (Unknown, Verified 08/14/23 10:44) NAUSEA daptomycin Adverse Reaction (Verified 08/14/23 10:44) rhabdomyolisis Medication List - Last Reconciled 08/14/23 by GEORGINA Mari atorvastatin 40 mg PO DAILY bvjpoztrez-hqjbpmvh-vgiwlplozt 160-9-4.8 mcg/actuation (Breztri Aerosphere) 2 inhalations inhalation BID gabapentin 800 mg PO TID lisinopril-hydrochlorothiazide 20-25 mg 1 tab PO DAILY multivitamin 1 tab PO DAILY oxycodone-acetaminophen 5-325 mg (Percocet) 1 tab PO Q6H PRN HPI HPI Comments History of Present Illness Details Hardeep is a 53-year-old male patient of Dr. Mike. He has a past medical history of type 2 diabetes, osteomyelitis, seizures, anxiety, depression, fibromyalgia, glaucoma, COPD, hypercholesteremia, hypertension, and nicotine dependence. He presents to the office today as a new patient for a family history of prostate cancer and urinary urgency. Discussion with the patient today he reports his father and maternal uncle to have had prostate cancer. In review of patient's chart it appears PSA from 10-16 0.4. BRANDON offered however deferred. Discussed obtaining retroperitoneal ultrasound for further assessment evaluation. Patient otherwise denies nocturia, hematuria, dysuria, foul smelling urine, changes to urinary stream, flank pain, fever, and or chills. He reports at times urinary urgency with episodes of incontinence if not near a bathroom. Discussed at length importance of managing diabetes for improvement lower urinary tract symptoms. In review of patient's chart it appears last A1c 04/12--7.5. Unable to obtain urine for urinalysis due to patient unable to void, however PVR 0 mL. He otherwise offers no other issues or concerns at this. [facility] Medical History Type 2 diabetes mellitus Osteomyelitis Seizure disorder Anxiety and depression Fibromyalgia Depression Glaucoma COPD (chronic obstructive pulmonary disease) Tubular adenoma of colon Hypercholesterolemia Hypertension Type 2 diabetes mellitus with diabetic neuropathy Personal history of nicotine dependence Surgical History H/O colonoscopy History of eye surgery History of cervical discectomy Family History Mother Lung cancer metastatic to brain Household Members: None Housing: Apartment Do you presently have visiting nurse or other home services: No Patient Tobacco Use Status: Current everyday Tobacco user Tobacco use type: Cigarette Cigarette Packs Per Day: 1 Cigarettes Per Day: 10 Years Smoked: 13 e-Cigarette/Vaping Use: Never Used Second Hand Smoke Exposure: No Substance Use Type: Marijuana service: No Current occupational status: disabled Current occupational exposures/hazards: No Review of Systems Eyes Reports as per HPI ENT Reports no additional complaints Card Reports as per HPI Resp Reports as per HPI GI Reports no additional complaints Reports as per HPI Musc Reports as per HPI Neuro Reports as per HPI Psych Reports as per HPI Endo Reports as per HPI Dheeraj/Lymph Reports no additional complaints Aller/Immun Reports no additional complaints Physical Exam Const General: cooperative, comfortable, no acute distress, well developed, alert and awake Orientation/consciousness: patient oriented x3 Limitations: no limitations HEENT Head: Yes normal to inspection, Yes normocephalic and Yes atraumatic Ears: hearing grossly normal bilaterally Eyes General: appearance normal, both eyes and all related structures Neck Neck: Yes normal visual inspection and Yes trachea midline Chest Chest palpation & inspection: normal inspection of the chest Resp Effort & Inspection: normal respiratory effort and able to speak in complete sentences Cardio Rate: regular rate GI Inspection: Yes normal to inspection General: Yes no CVA tenderness Back/Spine/Pelvis Back: no CVA tenderness Skin General skin exam: no rashes or lesions noted Neuro General: patient oriented x3 Extrem General: Yes normal to inspection Psych Appearance: grossly normal Mental Status: mental status grossly normal Speech and movement: Normal speech and movement present and Clear speech present Affect: normal affect Attitude: cooperative and Avoids eye contact (attititude/behavior) Thought process: Normal thought process present Thought content: Normal thought content present Insight: Fair insight present (Psych) Judgement: Fair judgement present (Psych) Office Procedures Post Void Residual Post Residual Void Post Void Residual (PVR): 0 [id number] Void Residual by ultrasound Assessment & Plan Assessment & Plan (1) Family history of prostate cancer: Code(s): Z80.42 - Family history of malignant neoplasm of prostate (2) Urinary urgency: Code(s): R39.15 - Urgency of urination (3) Urinary frequency: Code(s): R35.0 - Frequency of micturition Plan Unable to obtain urine for urinalysis however PVR 0 mL. Discussed at length potential causes for urinary urgency. Discussed timed voiding and scheduled toileting Will obtain retroperitoneal ultrasound for further assessment evaluation. Will obtain PSA for further assessment evaluation. BRANDON offered however deferred. Discussed at length importance of managing diabetes for improvement in lower urinary tract symptoms as well as overall health and well-being. Follow-up in 4-6 weeks with labs and imaging to be completed prior; or sooner with any issues, concerns, and or questions. Orders: Orders AMB Post Void Residual by ultrasound Today Z13.9 - Encounter for screening, unspecified US retroperitoneal comp Today R35.0 - Frequency of micturition, R39.15 - Urgency of urination AMB Urinalysis Automated Today Z13.9 - Encounter for screening, unspecified Prostate Specific Antigen Today Z80.42 - Family history of malignant neoplasm of prostate Medications: Discontinued oxycodone-acetaminophen 5-325 mg (Percocet) Partial Fill upon patient request. Discontinued Reason: Duplicate 1 tab PO Q8H PRN 14 tabs 0RF pain Patient Instructions: The patient had an opportunity to ask questions regarding the treatment plan. All questions were answered. Physical exam, labs, and imaging were discussed and reviewed in detail. As well as risks, benefits, and discussion of treatment choices. No major barriers to understanding were identified. The patient expressed understanding and agreement with the above treatment plan. The patient was made aware they should contact our office by phone for worsening of their current condition, the appearance of new symptoms, or with any questions or concerns. Compliance is encouraged with any medications and follow up testing that is ordered. It is a privilege to be allowed the opportunity to participate in? your urological care.? Again, if you have any questions or concerns If you have any questions or concerns please do not hesitate to contact me. The office is [phone]. This note is constructed using voice recognition software. While every effort has been made to ensure accuracy metal mold dresser errors may have been included. Yours sincerely, NICK Mari- Coding Level of Care Code New Pt Level 3 (53324) Diagnoses Family history of prostate cancer Z80.42 Urinary urgency R39.15 Urinary frequency R35.0 CPT Codes Post Residual Void - PVR CPT Code: 70224-[id number] Void Residual by ultrasound ([id number])
== END 2023-08-14 10:45 | disposition home or self-care (01) ==
PROVIDERS: PCP Internal Medicine; Visit Provider Nurse Practitioner Family
DX: Z80.42 Family history of malignant neoplasm of prostate (principal); R39.15 Urgency of urination; R35.0 Frequency of micturition
CPT/HCPCS: 99203

== ENCOUNTER → 2023-08-14 09:41 | Outpatient (BNVA) | payer MEDICARE, SELFPAY | PROVIDERS: PCP Internal Medicine; Visit Provider Nurse Practitioner Family | DX: Z47.81 Encounter for orthopedic aftercare following surgical amputation (principal); I73.9 Peripheral vascular disease, unspecified; R39.15 Urgency of urination; R35.0 Frequency of micturition; Z89.412 Acquired absence of left great toe; Z80.42 Family history of malignant neoplasm of prostate | CPT/HCPCS: 51798; 99202; 99212 ==

== ENCOUNTER 2023-08-14 11:16 | Outpatient (AMB) | payer MEDICARE, SELFPAY ==
[2023-08-14 11:24] VITALS: BMI 37.1
--- NOTE | 2023-08-14 11:24 | MHC.OFFVIS ---
Intake Vital Signs 08/14/23 11:24 Height 5 ft Weight 190 lb BMI 37.1 Intake Visit Reasons: 3 week wound check Intake Note: 3 week wound check Left great toe amp non-healing wound. Pt incision is scabbed over, VNA stopped coming last month. Dry, no drainage. Allergies shellfish derived [SHELLFISH DERIVED] Allergy (Severe, Verified 08/14/23 11:27) ANAPHYLAXIS buspirone [From BUSPAR] Allergy (Unknown, Verified 08/14/23 11:) nausea bupropion [From WELLBUTRIN] Adverse Reaction (Unknown, Verified 08/14/23 11:) NAUSEA daptomycin Adverse Reaction (Verified 08/14/23 11:) rhabdomyolisis HPI 3 week wound check HPI Details 53-year-old gentleman presents for follow-up status post left great toe amp. It was slow to heal. He had a callused area and appears to be significantly better. He reports no other significant complaints. Now for routine wound check follow-up. Of note last arterial testing was 12/26/2019 [facility] Medical History Type 2 diabetes mellitus Osteomyelitis Seizure disorder Anxiety and depression Fibromyalgia Depression Glaucoma COPD (chronic obstructive pulmonary disease) Tubular adenoma of colon Hypercholesterolemia Hypertension Type 2 diabetes mellitus with diabetic neuropathy Personal history of nicotine dependence Surgical History H/O colonoscopy History of eye surgery History of cervical discectomy Family History Mother Lung cancer metastatic to brain Household Members: None Housing: Apartment Do you presently have visiting nurse or other home services: No Patient Tobacco Use Status: Current everyday Tobacco user Tobacco use type: Cigarette Cigarette Packs Per Day: 1 Cigarettes Per Day: 10 Years Smoked: 13 e-Cigarette/Vaping Use: Never Used Second Hand Smoke Exposure: No Substance Use Type: Marijuana service: No Current occupational status: disabled Current occupational exposures/hazards: No Review of Systems Const All systems reviewed & are unremarkable except as noted in HPI and below Reports no additional complaints ENT Reports Normal hearing present Card Denies chest pain, Denies chest pain at rest, Denies chest pain with activity and Denies pedal edema Resp Denies cough GI Denies abdominal pain Musc Denies abnormal gait, Denies muscle cramps and Denies radiating pain into limb Skin/Breast Denies skin ulcer and Denies wounds Neuro Reports Normal hearing present and Denies abnormal gait Psych Reports no additional complaints Physical Exam Vital Signs: BMI result Body Mass Index 37.1 Const General: cooperative, healthy appearing and comfortable Orientation/consciousness: oriented to person, oriented to place and oriented to time HEENT Head: Yes normal to inspection Neck Neck: Yes normal visual inspection Carotids: no bruits Chest Chest palpation & inspection: normal inspection of the chest Resp Effort & Inspection: normal respiratory effort and able to speak in complete sentences Auscultation: clear to auscultation bilaterally, no crackles, no rales, no rhonchi and no wheezes Cardio Rate: regular rate Rhythm: regular rhythm Heart sounds: S1 normal heart sound present and S2 normal heart sound present Bruits: no carotid bruits Peripheral pulses: Peripheral pulses 2+ throughout GI Inspection: Yes normal to inspection Skin Other: Left great toe amp site completely healed over callus was removed Wounds: no wounds Hair: normal Neuro General: oriented to person, oriented to place and oriented to time Cranial nerves: Yes CN's II-XII intact bilaterally and Yes Normal hearing present Cognition (Neuro): normal cognition Motor exam (neuro): 5/5 motor strength present throughout Extrem Other: venous exam: No significant superficial varicosities or spider telangiectasias, minimal edema General: No clubbing, No cyanosis and No edema Psych Appearance: grossly normal Mental Status: mental status grossly normal Speech and movement: Normal speech and movement present Results Reviewed Results Reviewed: Noninvasive arterial testing dated 12/25/2022 was reviewed demonstrates no significant hemodynamic stenosis. Assessment & Plan Assessment & Plan (1) PAD (peripheral artery disease): Code(s): I73.9 - Peripheral vascular disease, unspecified Plan: In short patient has done extremely well status post toe amp. We discussed moisturize Ng and local protection. Along with meticulous foot care. Will schedule for 6 month arterial surveillance. Thank you for allowing us to assist in his care. Orders: Orders US arterial duplex LE BI 6 Months I73.9 - Peripheral vascular disease, unspecified Coding Level of Care Code Est Pt Level 4 (85269) Diagnoses PAD (peripheral artery disease) I73.9
== END 2023-08-14 12:21 | disposition home or self-care (01) ==
PROVIDERS: PCP Internal Medicine; Visit Provider Surgery Vascular Surgery
DX: I73.9 Peripheral vascular disease, unspecified (principal)
CPT/HCPCS: 99213

== ENCOUNTER 2023-08-22 09:51 | Outpatient (REF) | payer MEDICARE, SELFPAY ==
--- NOTE | ~2023-08-22 | CT_ITS ---
EXAMINATION: CT CHEST SCREENING CLINICAL INFORMATION: Cigarette smoker, nicotine dependence COMPARISON: None available. TECHNIQUE: Multidetector volumetric CT imaging of the chest is performed without contrast using low dose technique. Additional 2D coronal and sagittal reformatted images and axial 3D maximum intensity projection (MIP) images are generated on the CT workstation. This CT examination was performed using dose optimization techniques as appropriate, variously including the following: *Automated exposure control *Adjustment of mA and/or kV according to patient size (this includes techniques or standardized protocols for targeted exams where dose is matched to indication/reason for exam; i.e. extremities or head) *Use of iterative reconstruction technique DLP: 178 mGy-cm FINDINGS: MANAGER OF ORGANIZATIONAL DEVELOPMENT: Clear lungs. Lower cervical surgical hardware LUNGS: Trachea and bronchi are patent. No consolidations, groundglass opacities or measurable nodules. Few right upper lobe micronodules. MEDIASTINUM: Unremarkable thyroid. No pathologic lymphadenopathy. Nonenlarged heart. Trace pericardial thickening/fluid. Nonaneurysmal aorta with atherosclerotic calcifications. Nonenlarged pulmonary arteries. CORONARY ARTERY CALCIFICATION: Moderate to moderately severe. PLEURA: There is no pleural effusion. No pleural mass or thickening. AXILLA: No lymphadenopathy. UPPER ABDOMEN: Unremarkable OSSEOUS STRUCTURES: Disc spacer lower cervical spine. No suspicious osseous lesions. CT/CT lung screening IMPRESSION: Unremarkable examination. ASSESSMENT: Lung-RADS category 1: Negative RECOMMENDATION: Routine annual low-dose CT screening in 12 months.
== END 2023-08-22 09:52 | disposition home or self-care (01) ==
LOC: HO.CT 09:51
PROVIDERS: PCP Internal Medicine; Visit Provider Physician Assistant Medical
DX: Z12.2 Encounter for screening for malignant neoplasm of respiratory organs (principal); F17.210 Nicotine dependence, cigarettes, uncomplicated
CPT/HCPCS: 71271

== ENCOUNTER 2023-09-12 12:09 | Outpatient (REF) | payer MEDICARE, SELFPAY ==
--- NOTE | ~2023-09-12 | US_ITS ---
EXAMINATION: US RETROPERITONEAL COMPLETE (RENAL) CLINICAL INFORMATION: Frequency of micturition. COMPARISON: CT chest, abdomen and pelvis without contrast 09/30/2019. TECHNIQUE: Real-time imaging of the kidneys and bladder. Limited visualization due to bowel gas. FINDINGS: RIGHT KIDNEY: 10.8 x 3.6 x 4.5 cm (SAG x AP x TRV). No hydronephrosis. No renal calculi. Renal cortical thickness is normal. Limited visualization. LEFT KIDNEY: 11.5 x 5.5 x 5.7 cm (SAG x AP x TRV). Mildly dilated renal collecting system with caliectasis. Lobulated renal contour is difficult to evaluate due to bowel gas. No renal calculi. BLADDER: Well distended. Bilateral ureteral jets are not demonstrated. Prevoid bladder volume is 128.9 mL. Postvoid bladder volume is 72.4 mL. Diffuse thickening and trabeculations of the bladder wall. Prostate volume 43.5 mm, enlarged. Prostate gland appears enlarged and heterogeneous, protruding into the bladder. ADDITIONAL FINDINGS: Incidental note on limited views of the gallbladder by 0.8 x 0.5 x 0.8 cm possible gallstone. Dedicated gallbladder ultrasound recommended for further evaluation. US/US retroperitoneal comp IMPRESSION: 1. Mildly dilated left renal collecting system with caliectasis. Lobulated left renal contour is difficult to evaluate due to bowel gas. 2. Incidental note of a 0.8 cm possible gallstone on limited views of the gallbladder. Dedicated gallbladder ultrasound recommended for further evaluation.
== END 2023-09-12 12:10 | disposition home or self-care (01) ==
LOC: HO.US 12:09
PROVIDERS: PCP Internal Medicine; Visit Provider Nurse Practitioner Family
DX: R35.0 Frequency of micturition (principal); R39.15 Urgency of urination
CPT/HCPCS: 76770

== ENCOUNTER 2023-09-14 09:54 | Outpatient (REF) | payer MEDICARE, SELFPAY ==
[2023-09-14 11:18] LABS: Prostate Specific Antigen 0.48 ng/mL (<0.05-4.0)
== END 2023-09-14 09:55 | disposition home or self-care (01) ==
LOC: HO.10HDL 09:54
PROVIDERS: Visit Provider Nurse Practitioner Family
DX: Z12.5 Encounter for screening for malignant neoplasm of prostate (principal); Z80.42 Family history of malignant neoplasm of prostate
CPT/HCPCS: 36415; 84153

== ENCOUNTER 2023-10-01 08:45 | Outpatient (AMB) | payer MEDICARE, SELFPAY ==
--- NOTE | 2023-10-01 08:49 | A.OFFVIS_ITS ---
Intake Intake Visit Reasons: US f/u Intake Note: Patient presents for follow up visit for ultrasound and PSA lab results/urinary frequency Urology Medications: none Blood Thinner: none PVR: 11ml's Hydrocrane Operator Required: No Accompanied by: Self / Same As Patient Allergies shellfish derived [SHELLFISH DERIVED] Allergy (Severe, Verified 10/01/23 18:50) ANAPHYLAXIS buspirone [From BUSPAR] Allergy (Unknown, Verified 10/01/23 18:50) nausea bupropion [From WELLBUTRIN] Adverse Reaction (Unknown, Verified 10/01/23 18:50) NAUSEA daptomycin Adverse Reaction (Verified 10/01/23 18:50) rhabdomyolisis Medication List - Last Reconciled 10/01/23 by GEORGINA Mari atorvastatin 40 mg PO DAILY tyhwngewla-wvfnyzad-jwhqmgdbfh 160-9-4.8 mcg/actuation (Breztri Aerosphere) 2 inhalations inhalation BID gabapentin 800 mg PO TID lisinopril-hydrochlorothiazide 20-25 mg 1 tab PO DAILY multivitamin 1 tab PO DAILY oxycodone-acetaminophen 5-325 mg (Percocet) 1 tab PO Q6H PRN HPI HPI Comments History of Present Illness Details Hardeep is a 53-year-old male patient of Dr. Mike. He has a past medical history of type 2 diabetes, osteomyelitis, seizures, anxiety, depression, fibromyalgia, glaucoma, COPD, hypercholesteremia, hypertension, and nicotine dependence. He presents to the office today for follow-up. Of note, patient was seen approximately 6 weeks ago as a new patient for a family history of prostate cancer and urinary urgency at which time a PSA was ordered as well as a retroperitoneal ultrasound for further assessment evaluation. These results reviewed with the patient today. Bilateral kidneys with no calculi noted. The bladder is well distended. Prevoid bladder volume is approximately 130 mL. Postvoid bladder volume is approximately 70 mL diffuse thickening and trabeculations of bladder wall. Prostate volume is approximately 45ml's.Prost ate gland appears enlarged and heterogeneous, protruding into the bladder. PSA 09/15--0.5. Discussed at length potential causes of urinary urgency patient is experiencing. Discussed lifestyle modifications as well as medications. However patient discusses he does not wish to trial medication as he already feels he is on many medications. However he does fine symptoms bothersome. Discussed in office cystoscopy for further assessment evaluation. Patient otherwise denies nocturia, hematuria, dysuria, foul smelling urine, changes to urinary stream, flank pain, fever, and or chills. He reports at times urinary urgency with episodes of incontinence if not near a bathroom. Discussed at length importance of managing diabetes for improvement lower urinary tract symptoms. In review of patient's chart it appears last A1c 04/12--7.5. Unable to obtain urine for urinalysis due to patient unable to void, however PVR 11mL. He otherwise offers no other issues or concerns at this. [facility] [place] Medical History Type 2 diabetes mellitus Osteomyelitis Seizure disorder Anxiety and depression Fibromyalgia Depression Glaucoma COPD (chronic obstructive pulmonary disease) Tubular adenoma of colon Hypercholesterolemia Hypertension Type 2 diabetes mellitus with diabetic neuropathy Personal history of nicotine dependence Surgical History H/O colonoscopy History of eye surgery History of cervical discectomy Family History Mother Lung cancer metastatic to brain Social History Household Members: None Housing: Apartment Do you presently have visiting nurse or other home services: No Comment: refused bed and chair alarm Patient Tobacco Use Status: Current everyday Tobacco user Tobacco use type: Cigarette Cigarette Packs Per Day: 1 Cigarettes Per Day: 10 Years Smoked: 13 e-Cigarette/Vaping Use: Never Used Second Hand Smoke Exposure: No Substance Use Type: Marijuana service: No Current occupational status: disabled Current occupational exposures/hazards: No Review of Systems Eyes Reports as per HPI ENT Reports no additional complaints Card Reports as per HPI Resp Reports as per HPI GI Reports no additional complaints Reports as per HPI Musc Reports as per HPI Neuro Reports as per HPI Psych Reports as per HPI Endo Reports as per HPI Dheeraj/Lymph Reports no additional complaints Aller/Immun Reports no additional complaints Physical Exam Const General: cooperative, comfortable, no acute distress, well developed, alert and awake Orientation/consciousness: patient oriented x3 Limitations: no limitations HEENT Head: Yes normal to inspection, Yes normocephalic and Yes atraumatic Ears: hearing grossly normal bilaterally Eyes General: appearance normal, both eyes and all related structures Neck Neck: Yes normal visual inspection and Yes trachea midline Chest Chest palpation & inspection: normal inspection of the chest Resp Effort & Inspection: normal respiratory effort and able to speak in complete sentences Cardio Rate: regular rate GI Inspection: Yes normal to inspection General: Yes no CVA tenderness Back/Spine/Pelvis Back: no CVA tenderness Skin General skin exam: no rashes or lesions noted Neuro General: patient oriented x3 Extrem General: Yes normal to inspection Psych Appearance: grossly normal Mental Status: mental status grossly normal Speech and movement: Normal speech and movement present and Clear speech present Affect: normal affect Attitude: cooperative and Avoids eye contact (attititude/behavior) Thought process: Normal thought process present Thought content: Normal thought content present Insight: Fair insight present (Psych) Judgement: Fair judgement present (Psych) Office Procedures Post Void Residual Post Residual Void Post Void Residual (PVR): 11 83582-Oulh Void Residual by ultrasound Results Reviewed Results Reviewed: Date of Service: 09/12/23 EXAMINATION: US RETROPERITONEAL COMPLETE (RENAL) FINDINGS: RIGHT KIDNEY: 10.8 x 3.6 x 4.5 cm (SAG x AP x TRV). No hydronephrosis. No renal calculi. Renal cortical thickness is normal. Limited visualization. LEFT KIDNEY: 11.5 x 5.5 x 5.7 cm (SAG x AP x TRV). Mildly dilated renal collecting system with caliectasis. Lobulated renal contour is difficult to evaluate due to bowel gas. No renal calculi. BLADDER: Well distended. Bilateral ureteral jets are not demonstrated. Prevoid bladder volume is 128.9 mL. Postvoid bladder volume is 72.4 mL. Diffuse thickening and trabeculations of the bladder wall. Prostate volume 43.5 mm, enlarged. Prostate gland appears enlarged and heterogeneous, protruding into the bladder. ADDITIONAL FINDINGS: Incidental note on limited views of the gallbladder by 0.8 x 0.5 x 0.8 cm possible gallstone. Dedicated gallbladder ultrasound recommended for further evaluation. IMPRESSION: 1. Mildly dilated left renal collecting system with caliectasis. Lobulated left renal contour is difficult to evaluate due to bowel gas. 2. Incidental note of a 0.8 cm possible gallstone on limited views of the gallbladder. Dedicated gallbladder ultrasound recommended for further evaluation. Assessment & Plan Assessment & Plan (1) Bladder wall thickening: Code(s): N32.89 - Other specified disorders of bladder (2) Bladder trabeculation: Code(s): N32.89 - Other specified disorders of bladder (3) Urinary urgency: Code(s): R39.15 - Urgency of urination (4) Family history of prostate cancer: Code(s): Z80.42 - Family history of malignant neoplasm of prostate Plan Unable to obtain urine for urinalysis PVR 11 mL Recent retroperitoneal ultrasound results reviewed with the patient today; as noted above. Recent PSA results reviewed with the patient today; as noted above. Discussed at length lifestyle modifications to assist with urinary urgency Discuss trial of medications given lower urinary tract symptoms as well as bladder wall thickening and bladder trabeculations noted on imaging however patient does not wish to trial medications at this time; this was discussed at length Will refer to gastroenterology given gallstone noted on retroperitoneal ultrasound and patient would like to establish gastroenterology care. Discussed at length importance of managing diabetes for improvement in lower urinary symptoms as well as overall health and well-being. Discussed bladder triggers/irritants. Will schedule for in office cystoscopy for further assessment evaluation Orders: Orders AMB Urinalysis Automated Today Z13.9 - Encounter for screening, unspecified AMB Post Void Residual by ultrasound Today R35.0 - Frequency of micturition Referrals Gastroenterology Referral K80.20 - Calculus of gallbladder without cholecystitis without obstruction Patient Instructions: The patient had an opportunity to ask questions regarding the treatment plan. All questions were answered. Physical exam, labs, and imaging were discussed and reviewed in detail. As well as risks, benefits, and discussion of treatment choices. No major barriers to understanding were identified. The patient expressed understanding and agreement with the above treatment plan. The patient was made aware they should contact our office by phone for worsening of their current condition, the appearance of new symptoms, or with any questions or concerns. Compliance is encouraged with any medications and follow up testing that is ordered. It is a privilege to be allowed the opportunity to participate in? your urological care.? Again, if you have any questions or concerns If you have any questions or concerns please do not hesitate to contact me. The office is [phone]. This note is constructed using voice recognition software. While every effort has been made to ensure accuracy division manager errors may have been included. Yours sincerely, GEORGINA Mari Coding Level of Care Code Est Pt Level 3 (09356) Diagnoses Bladder wall thickening N32.89 Bladder trabeculation N32.89 Urinary urgency R39.15 Family history of prostate cancer Z80.42 CPT Codes Post Residual Void - PVR CPT Code: 43496-Kuko Void Residual by ultrasound ([id number])
== END 2023-10-01 09:49 | disposition home or self-care (01) ==
PROVIDERS: PCP Internal Medicine; Visit Provider Nurse Practitioner Family
DX: N32.89 Other specified disorders of bladder (principal); R39.15 Urgency of urination; Z80.42 Family history of malignant neoplasm of prostate
CPT/HCPCS: 99213

== ENCOUNTER → 2023-10-01 08:45 | Outpatient (BNVA) | payer MEDICARE, SELFPAY | PROVIDERS: PCP Internal Medicine; Visit Provider Nurse Practitioner Family | DX: N32.89 Other specified disorders of bladder (principal); R39.15 Urgency of urination; Z80.42 Family history of malignant neoplasm of prostate | CPT/HCPCS: 51798; 99212 ==

== ENCOUNTER 2023-12-06 10:53 | Outpatient (REF) | payer MEDICARE, SELFPAY ==
[2023-12-06 13:18] LABS: MANUAL DIFF FLAG NO
[2023-12-06 13:38] LABS: Basophils Absolute Auto 0.2 X10*3/uL (0.0-0.2); Basophils Percent Auto 1.1 % (0-2); Eosinophils Absolute Auto 0.3 X10*3/uL (0.0-0.4); Eosinophils Percent Auto 1.8 % (0-4); Hematocrit 45.3 % (42.0-52.0); Hemoglobin 15.5 g/dl (14.0-18.0); Imm Gran Abs Auto 0.05 X10*3/uL (0.00-0.03); Imm Gran Pct Auto 0.3 % (0.0-0.4); Lymphocytes Absolute Auto 2.7 X10*3/uL (1.2-4.9); Lymphocytes Percent Auto 18.4 % (20-40); Mean Corpuscular HGB Conc 34.2 g/dl (31.0-36.0); Mean Corpuscular Hemoglobin 31.7 pg (27.0-33.0); Mean Corpuscular Volume 92.6 fL (80.0-98.0); Monocytes Absolute Auto 1.1 X10*3/uL (0.1-1.2); Monocytes Percent Auto 7.1 % (2-11); Neutrophils Absolute Auto 10.5 x10*3/uL (2.0-8.3); Neutrophils Percent Auto 71.3 % (45-73); Platelet Count 245 X10*3/uL (160-400); Red Blood Count 4.89 X10*6/uL (4.60-5.80); Red Cell Distribution Width 12.9 % (11.0-16.0); White Blood Count 14.7 X10*3/uL (4.8-10.8)
[2023-12-06 13:42] LABS: Estimated Average Glucose 111 mg/dL; Hemoglobin A1c % 5.5 % (<6.0)
[2023-12-06 13:48] LABS: Alanine Aminotransferase 21 U/L (0-40); Albumin Level 4.7 g/dL (3.5-5.0); Alkaline Phosphatase 77 U/L (39-117); Anion Gap 12 (12-20); Aspartate Amino Transferase 23 U/L (5-37); Bilirubin Total 0.4 mg/dL (0.0-1.0); Blood Urea Nitrogen 9 mg/dL (9-16); Calcium 9.6 mg/dL (8.4-10.2); Carbon Dioxide 27 mmol/L (22-29); Chloride 101 mmol/L (96-108); Cholesterol 130 mg/dL (<200); Estimated Glomerular Filt Rate > 60; Glucose Random 96 mg/dL (60-115); HDL Cholesterol 44 mg/dL (>40); LDL Cholesterol Calculated 77 mg/dL (<100); Potassium 3.8 mmol/L (3.3-5.1); Sodium 136 mmol/L (135-145); Total Protein 7.7 g/dL (6.5-8.0); Triglycerides 45 mg/dL (<150)
[2023-12-06 14:05] LABS: Creatinine Urine 60.15 mg/dL; Microalbumin Urine < 5.0 mg/L
[2023-12-06 14:09] LABS: Prostate Specific Antigen Scr 0.45 ng/mL (<0.05-4.0)
== END 2023-12-06 10:54 | disposition home or self-care (01) ==
LOC: HO.10HDL 10:53
PROVIDERS: Visit Provider Internal Medicine
DX: Z12.5 Encounter for screening for malignant neoplasm of prostate (principal); E11.40 Type 2 diabetes mellitus with diabetic neuropathy, unspecified; E78.00 Pure hypercholesterolemia, unspecified; J44.9 Chronic obstructive pulmonary disease, unspecified; Z72.0 Tobacco use
CPT/HCPCS: 36415; 80053; 80061; 82043; 82570; 83036; 84153; 85025

== ENCOUNTER 2024-02-01 13:40 | Outpatient (AMB) | payer MEDICARE, SELFPAY ==
--- NOTE | 2024-02-01 13:55 | A.OFFVIS_ITS ---
Intake Visit Reasons: cysto Intake Note: Patient presents today for a CYSTOSCOPY Procedure: Meds: None Allergies to Antibiotic: No Known Allergies Blood Thinner: None Disposable Uro-G HD Cystoscope Cannula: Lot: [id number] Exp: 09/25/2026 Civil Designer Required: No Accompanied by: Self / Same As Patient Allergies shellfish derived [SHELLFISH DERIVED] Allergy (Severe, Verified 02/01/24 13:55) ANAPHYLAXIS buspirone [From BUSPAR] Allergy (Unknown, Verified 02/01/24 13:55) nausea bupropion [From WELLBUTRIN] Adverse Reaction (Unknown, Verified 02/01/24 13:55) NAUSEA daptomycin Adverse Reaction (Verified 02/01/24 13:55) rhabdomyolisis HPI Comments Details: 02/01/24--Hardeep is here for office cystoscopy. He has urinary symptoms of urgency and sometimes hesitancy. Current nicotine use. I reviewed renal ultrasound. Family history of prostate cancer. Cystoscopy findings-no suspicious bladder lesions, prominent median lobe bilobar enlargement of the prostatic urethra. Discussed trial of tamsulosin 0.4 mg daily patient will follow-up with nurse practitioner in 3 months. Review of chart: 10/01/23--Hardeep is a 53-year-old male patient of Dr. Mike. He has a past medical history of type 2 diabetes, osteomyelitis, seizures, anxiety, depression, fibromyalgia, glaucoma, COPD, hypercholesteremia, hypertension, and nicotine dependence. He presents to the office today for follow-up. Of note, patient was seen approximately 6 weeks ago as a new patient for a family history of prostate cancer and urinary urgency at which time a PSA was ordered as well as a retroperitoneal ultrasound for further assessment evaluation. These results reviewed with the patient today. Bilateral kidneys with no calculi noted. The bladder is well distended. Prevoid bladder volume is approximately 130 mL. Postvoid bladder volume is approximately 70 mL diffuse thickening and trabeculations of bladder wall. Prostate volume is approximately 45ml's.Prostate gland appears enlarged and heterogeneous, protruding into the bladder. PSA 09/15--0.5. Discussed at length potential causes of urinary urgency patient is experiencing. Discussed lifestyle modifications as well as medications. However patient discusses he does not wish to trial medication as he already feels he is on many medications. However he does fine symptoms dana thersome. Discussed in office cystoscopy for further assessment evaluation. Patient otherwise denies nocturia, hematuria, dysuria, foul smelling urine, changes to urinary stream, flank pain, fever, and or chills. He reports at times urinary urgency with episodes of incontinence if not near a bathroom. Discussed at length importance of managing diabetes for improvement lower urinary tract symptoms. In review of patient's chart it appears last A1c 04/12--7.5. Unable to obtain urine for urinalysis due to patient unable to void, however PVR 11mL. He otherwise offers no other issues or concerns at this. 02/01/2024--tamsulosin 0.4 mg daily, follow-up with nurse practitioner in 3 months [facility] Medical History Type 2 diabetes mellitus Osteomyelitis Seizure disorder Anxiety and depression Fibromyalgia Depression Glaucoma COPD (chronic obstructive pulmonary disease) Tubular adenoma of colon Hypercholesterolemia Hypertension Type 2 diabetes mellitus with diabetic neuropathy Personal history of nicotine dependence Surgical History H/O colonoscopy History of eye surgery History of cervical discectomy Family History Mother Lung cancer metastatic to brain Social History Household Members: None Housing: Apartment Do you presently have visiting nurse or other home services: No Comment: refused bed and chair alarm Patient Tobacco Use Status: Current everyday Tobacco user Tobacco use type: Cigarette Cigarette Packs Per Day: 1 Cigarettes Per Day: 10 Years Smoked: 13 e-Cigarette/Vaping Use: Never Used Second Hand Smoke Exposure: No Substance Use Type: Marijuana service: No Current occupational status: disabled Current occupational exposures/hazards: No Review of Systems Const All systems reviewed & are unremarkable except as noted in HPI and below Reports no additional complaints Eyes Reports no additional complaints ENT Reports no additional complaints Card Reports no additional complaints Resp Reports no additional complaints GI Reports no additional complaints Reports as per HPI Musc Reports no additional complaints Skin/Breast Reports system reviewed and no additional complaints, except as documented Neuro Reports no additional complaints Psych Reports no additional complaints Endo Reports no additional complaints Dheeraj/Lymph Reports no additional complaints Aller/Immun Reports no additional complaints Office Procedures Cystoscopy Consent Discussed risk and benefit or proposed procedure with the patient. Information consent for procedure given to the patient. Discussed technical aspects, risks, benefits and alternatives in full. Addressed all of the patient's questions and concerns regarding the procedure. The patient demonstrated knowledge and understanding. They wish to proceed with this procedure. Preparation The patient was prepped in the usual manner. A dinkey skinner was present and in the room. Genitalia was prepped with betadine solution in a sterile manner. Lidocaine Jelly 2% was placed into the urethra and 16Fr flexible Olympus cystoscope was inserted into the meatus after adequate lubrication. Procedure Time out per protocol performed. Bladder Inspection Bladder Inspection: The bladder was inspected in its entirety with utilization retroflexion displa bryant: Tumor(s): None visualized Trabeculation: Mild Mucosal Erthema: Not applicable Orifices: normal shape and position Urethra: normal Cystoscopy findings: prostatic urethra bilobar enlargement, prominent median lobe bulbous urethra WNL, no suspicious bladder lesions visualized [id number] DISPOSABLE SCOPE URO-G FLEXIBLE SCOPE Procedure code (CPT) selection complete Office Meds lidocaine HCl 2 % mucosal jelly in applicator Performing Provider: Alfredo Andrew MD Performing Location[facility] Administered by: Sanket Johansen LPN on 02/01/24 14:02 Dose Route Admin Location Dispensed Lot Number Expiration Date [facility] Herpetologist 10 mL intra-urethral 20 mL naproxen 500 mg tablet Performing Provider: Alfredo Andrew MD Performing Location: [facility] Administered by: Sanket Johansen LPN on 02/01/24 14:02 Dose Route Admin Location Dispensed Lot Number Expiration Date [facility] Herpetologist 500 mg PO 1 tab ciprofloxacin HCl 500 mg tablet Performing Provider: Alfredo Andrew MD Performing Location: [facility] [place] Administered by: Sanket Johansen LPN on 02/01/24 14:02 Dose Route Admin Location Dispensed Lot Number Expiration Date NDC Herpetologist 500 mg PO 1 tab Results Reviewed Results Reviewed: Date of Service: 09/12/23 EXAMINATION: US RETROPERITONEAL COMPLETE (RENAL) CLINICAL INFORMATION: Frequency of micturition. COMPARISON: CT chest, abdomen and pelvis without contrast 09/30/2019. TECHNIQUE: Real-time imaging of the kidneys and bladder. Limited visualization due to bowel gas. FINDINGS: RIGHT KIDNEY: 10.8 x 3.6 x 4.5 cm (SAG x AP x TRV). No hydronephrosis. No renal calculi. Renal cortical thickness is normal. Limited visualization. LEFT KIDNEY: 11.5 x 5.5 x 5.7 cm (SAG x AP x TRV). Mildly dilated renal collecting system with caliectasis. Lobulated renal contour is difficult to evaluate due to bowel gas. No renal calculi. BLADDER: Well distended. Bilateral ureteral jets are not demonstrated. Prevoid bladder volume is 128.9 mL. Postvoid bladder volume is 72.4 mL. Diffuse thickening and trabeculations of the bladder wall. Prostate volume 43.5 mm, enlarged. Prostate gland appears enlarged and heterogeneous, protruding into the bladder. ADDITIONAL FINDINGS: Incidental note on limited views of the gallbladder by 0.8 x 0.5 x 0.8 cm possible gallstone. Dedicated gallbladder ultrasound recommended for further evaluation. IMPRESSION: 1. Mildly dilated left renal collecting system with caliectasis. Lobulated left renal contour is difficult to evaluate due to bowel gas. 2. Incidental note of a 0.8 cm possible gallstone on limited views of the gallbladder. Dedicated gallbladder ultrasound recommended for further evaluation. Assessment & Plan Assessment & Plan (1) Bladder wall thickening: Code(s): N32.89 - Other specified disorders of bladder Category: Medical (2) Bladder trabeculation: Code(s): N32.89 - Other specified disorders of bladder Category: Medical (3) Urinary urgency: Code(s): R39.15 - Urgency of urination Category: Medical (4) Family history of prostate cancer: Code(s): Z80.42 - Family history of malignant neoplasm of prostate Category: Medical (5) Nicotine dependence: Code(s): F17.200 - Nicotine dependence, unspecified, uncomplicated Category: Medical Plan tamsulosin 0.4 mg daily, follow-up with nurse practitioner in 3 months Orders: Orders AMB Cystoscopy 02/01/24 N32.89 - Other specified disorders of bladder, R35.0 - Frequency of micturition, R39.15 - Urgency of urination, Z80.42 - Family history of malignant neoplasm of prostate Medications: New tamsulosin (Flomax) 0.4 mg PO DAILY 30 caps 4RF Patient Instructions: The patient had an opportunity to ask questions regarding treatment plan. The patient expressed understanding and agreement with the above treatment plan. The patient is aware they should contact our office by phone for worsening of their current condition or the appearance of new symptoms. Compliance is encouraged with any medications and followup testing that is ordered. It is a privilege to be allowed the opportunity to participate in the urologic care of your patient. If you have any questions or concerns regarding treatment for the above conditions please do not hesitate to contact me. The office telephone contact is [phone]. This note is constructed in part using voice recognition software. While every effort has been made to ensure accuracy mellowing machine operator errors may have been included. Yours sincerely, Alfredo Andrew MD Coding Level of Care Code Est Pt Level 4 (50677) Diagnoses Bladder wall thickening N32.89 Bladder trabeculation N32.89 Urinary urgency R39.15 Family history of prostate cancer Z80.42 Nicotine dependence F17.200 CPT Codes Cystoscopy - CPT: 22532-Palfexiuzl ([id number])
== END 2024-02-01 14:48 | disposition home or self-care (01) ==
PROVIDERS: PCP Internal Medicine; Visit Provider Urology
DX: N32.89 Other specified disorders of bladder (principal); R35.0 Frequency of micturition; R39.15 Urgency of urination; Z80.42 Family history of malignant neoplasm of prostate
CPT/HCPCS: 52000; 99214

== ENCOUNTER → 2024-02-01 13:40 | Outpatient (BNVA) | payer MEDICARE, SELFPAY | PROVIDERS: PCP Internal Medicine; Visit Provider Urology | DX: N32.89 Other specified disorders of bladder (principal); R39.15 Urgency of urination; F17.210 Nicotine dependence, cigarettes, uncomplicated; Z80.42 Family history of malignant neoplasm of prostate | CPT/HCPCS: 52000; 99212 ==

== ENCOUNTER 2024-05-05 09:02 | Outpatient (REF) | payer MEDICARE, SELFPAY ==
[2024-05-05 10:51] LABS: Estimated Average Glucose 108 mg/dL; Hemoglobin A1c % 5.4 % (<6.0)
[2024-05-05 10:52] LABS: Alanine Aminotransferase 25 U/L (0-40); Albumin Level 4.2 g/dL (3.5-5.0); Alkaline Phosphatase 68 U/L (39-117); Anion Gap 11 (12-20); Aspartate Amino Transferase 21 U/L (5-37); Bilirubin Total 0.3 mg/dL (0.0-1.0); Blood Urea Nitrogen 9 mg/dL (9-16); Calcium 9.5 mg/dL (8.4-10.2); Carbon Dioxide 30 mmol/L (22-29); Chloride 95 mmol/L (96-108); Estimated Glomerular Filt Rate > 60; Glucose Random 107 mg/dL (60-115); Potassium 3.5 mmol/L (3.3-5.1); Sodium 132 mmol/L (135-145); Total Protein 6.5 g/dL (6.5-8.0)
== END 2024-05-05 09:03 | disposition home or self-care (01) ==
LOC: HO.10HDL 09:02
PROVIDERS: Visit Provider Internal Medicine
DX: E11.40 Type 2 diabetes mellitus with diabetic neuropathy, unspecified (principal); F31.9 Bipolar disorder, unspecified; I10 Essential (primary) hypertension; F17.201 Nicotine dependence, unspecified, in remission; N32.89 Other specified disorders of bladder; R35.0 Frequency of micturition; R39.15 Urgency of urination
CPT/HCPCS: 36415; 80053; 83036; 99212

== ENCOUNTER 2024-05-05 09:09 | Outpatient (AMB) | payer MEDICARE, SELFPAY ==
--- NOTE | 2024-05-05 09:22 | A.OFFVIS_ITS ---
Intake Visit Reasons: 3m follow up Intake Note: Patient presents today for follow up on: Urinary Urgency and Frequency Urology Medications: Tamsulosin Blood Thinner: none PVR: 129ml's Repair Armature Winder Required: No Accompanied by: Self / Same As Patient Allergies shellfish derived [SHELLFISH DERIVED] Allergy (Severe, Verified 05/05/24 09:50) ANAPHYLAXIS buspirone [From BUSPAR] Allergy (Unknown, Verified 05/05/24 09:50) nausea bupropion [From WELLBUTRIN] Adverse Reaction (Unknown, Verified 05/05/24 09:50) NAUSEA daptomycin Adverse Reaction (Verified 05/05/24 09:50) rhabdomyolisis Medication List - Last Reconciled 05/05/24 by GEORGINA Mari atorvastatin 40 mg PO DAILY [id number]-xlmdodma-fktdugslvm 160-9-4.8 mcg/actuation (Breztri Aerosphere) 2 inhalations inhalation BID fluoxetine 30 mg PO DAILY gabapentin 800 mg PO TID lamotrigine mg PO lisinopril-hydrochlorothiazide 20-25 mg 1 tab PO DAILY multivitamin 1 tab PO DAILY tamsulosin (Flomax) 0.8 mg (2 x 0.4 mg) PO DAILY 90 days HPI Comments Details: Hardeep is a 53-year-old male patient of Dr. Mike. He has a past medical history of type 2 diabetes, osteomyelitis, seizures, anxiety, depression, fibromyalgia, glaucoma, COPD, hypercholesteremia, hypertension, and nicotine dependence. He presents to the office today for follow-up of his lower urinary tract symptoms, family history of prostate cancer, and microscopic hematuria in the setting of nicotine dependence. In discussion with the patient today he reports to be doing and feeling well. Of note, during last office visit patient underwent an office cystoscopy noting no suspicious bladder lesions, prominent median lobe bilobed pillar enlargement of the prostatic u rethra. He was started on Flomax 0.4 mg daily. In discussion with the patient today he does feel this has been helpful in episodes of urinary urgency and hesitancy he had been experiencing. However, at times still feels feelings of incomplete bladder emptying. In office urinalysis results reviewed with the patient today. PVR 129ml's. He otherwise denies nocturia, hematuria, dysuria, foul smelling urine, changes to urinary stream, flank pain, fever, and or chills. Discussed at length importance of managing diabetes for improvement lower urinary tract symptoms. PSAs are as follows: 10/16 0.4, 20.5, 12/15 0.5. Previous workup has included a retroperitoneal ultrasound noting bilateral kidneys with no calculi noted. The bladder is well distended. Prevoid bladder volume is approximately 130 mL. Postvoid bladder volume is approximately 70 mL diffuse thickening and trabeculations of bladder wall. Prostate volume is approximately 45ml's. Prostate gland appears enlarged and heterogeneous, protruding into the bladder. He otherwise denies any bothersome urinary issues or concerns. [facility] Medical History Type 2 diabetes mellitus Osteomyelitis Seizure disorder Anxiety and depression Fibromyalgia Depression Glaucoma COPD (chronic obstructive pulmonary disease) Tubular adenoma of colon Hypercholesterolemia Hypertension Type 2 diabetes mellitus with diabetic neuropathy Personal history of nicotine dependence Surgical History H/O colonoscopy History of eye surgery History of cervical discectomy Family History Mother Lung cancer metastatic to brain Social History Household Members: None Housing: Apartment Do you presently have visiting nurse or other home services: No Comment: refused bed and chair alarm Patient Tobacco Use Status: Current everyday Tobacco user Tobacco use type: Cigarette Cigarette Packs Per Day: 1 Cigarettes Per Day: 10 Years Smoked: 13 e-Cigarette/Vaping Use: Never Used Second Hand Smoke Exposure: No Substance Use Type: Marijuana service: No Current occupational status: disabled Current occupational exposures/hazards: No Review of Systems Eyes Reports as per HPI ENT Reports no additional complaints Card Reports as per HPI Resp Reports as per HPI GI Reports no additional complaints Reports as per HPI Musc Reports as per HPI Neuro Reports as per HPI Psych Reports as per HPI Endo Reports as per HPI Dheeraj/Lymph Reports no additional complaints Aller/Immun Reports no additional complaints Physical Exam Const General: cooperative, healthy appearing, comfortable, no acute distress, well developed, alert and awake Orientation/consciousness: patient oriented x3 Limitations: no limitations HEENT Head: Yes normal to inspection, Yes normocephalic and Yes atraumatic Ears: hearing grossly normal bilaterally Eyes General: appearance normal, both eyes and all related structures Neck Neck: Yes normal visual inspection and Yes trachea midline Chest Chest palpation & inspection: normal inspection of the chest Resp Effort & Inspection: normal respiratory effort and able to speak in complete sentences Cardio Rate: regular rate GI Inspection: Yes normal to inspection General: Yes no CVA tenderness Back/Spine/Pelvis Back: no CVA tenderness Skin General skin exam: no rashes or lesions noted Neuro General: patient oriented x3 Extrem General: Yes normal to inspection Psych Appearance: grossly normal Mental Status: mental status grossly normal Speech and movement: Normal speech and movement present and Clear speech present Affect: normal affect Attitude: cooperative and Avoids eye contact (attititude/behavior) Thought process: Normal thought process present Thought content: Normal thought content present Insight: Fair insight present (Psych) Judgement: Fair judgement present (Psych) Assessment & Plan Assessment & Plan (1) Bladder trabeculation: Code(s): N32.89 - Other specified disorders of bladder Category: Medical (2) Bladder wall thickening: Code(s): N32.89 - Other specified disorders of bladder Category: Medical (3) Urinary frequency: Code(s): R35.0 - Frequency of micturition Category: Medical (4) Urinary urgency: Code(s): R39.15 - Urgency of urination Category: Medical (5) Family history of prostate cancer: Code(s): Z80.42 - Family history of malignant neoplasm of prostate Category: Medical Plan In office urinalysis results reviewed with the patient today; as noted above. PVR 129 mL. Will increase Flomax to 0.8 mg daily; prescription provided. Discussed, educated, and stressed the importance of managing diabetes for improvement lower urinary tract symptoms as well as overall health and well- being. Discussed at length potential causes for lower urinary tract symptoms patient is experiencing. Discussed attempting to sit when voiding to relax pelvis as well as double voiding. Follow-up in 1-3 months with PVR; or sooner with any issues, concerns, and or questions. Orders: Orders AMB Urinalysis Automated Today Z13.9 - Encounter for screening, unspecified AMB Post Void Residual by ultrasound Today R35.0 - Frequency of micturition Medications: Changed From tamsulosin (Flomax) 0.4 mg PO DAILY 30 caps 4RF To tamsulosin (Flomax) This is an increase in dosage 0.8 mg (2 x 0.4 mg) PO DAILY 90 days 180 caps 0RF Discontinued oxycodone-acetaminophen 5-325 mg (Percocet) Partial Fill upon patient request. Discontinued Reason: Patient Completed Course 1 tab PO Q6H PRN 20 tabs 0RF pain Patient Instructions: The patient had an opportunity to ask questions regarding the treatment plan. All questions were answered. Physical exam, labs, and imaging were discussed and reviewed in detail. As well as risks, benefits, and discussion of treatment choices. No major barriers to understanding were identified. The patient expressed understanding and agreement with the above treatment plan. The patient was made aware they should contact our office by phone for worsening of their current condition, the appearance of new symptoms, or with any questions or concerns. Compliance is encouraged with any medications and follow up testing that is ordered. It is a privilege to be allowed the opportunity to participate in? your urological care.? Again, if you have any questions or concerns If you have any questions or concerns please do not hesitate to contact me. The office is [phone]. This note is constructed using voice recognition software. While every effort has been made to ensure accuracy gate cutter errors may have been included. Yours sincerely, GEORGINA Mari Coding Level of Care Code Est Pt Level 3 (53883) Diagnoses Bladder trabeculation N32.89 Bladder wall thickening N32.89 Urinary frequency R35.0 Urinary urgency R39.15 Family history of prostate cancer Z80.42
== END 2024-05-05 09:58 | disposition home or self-care (01) ==
PROVIDERS: PCP Internal Medicine; Visit Provider Nurse Practitioner Family
DX: N32.89 Other specified disorders of bladder (principal); R35.0 Frequency of micturition; R39.15 Urgency of urination; Z80.42 Family history of malignant neoplasm of prostate
CPT/HCPCS: 99213

== ENCOUNTER 2024-07-03 09:24 | Outpatient (AMB) | payer MEDICARE, SELFPAY ==
--- NOTE | 2024-07-03 09:34 | MHC.OFFVIS ---
Intake Visit Reasons: 2m follow up Intake Note: Patient presents today for follow up on: Urinary Urgency and Frequency Urology Medications: Tamsulosin Blood Thinner: none PVR: 19ml's Class C Driver Required: No Accompanied by: Self / Same As Patient Allergies shellfish derived [SHELLFISH DERIVED] Allergy (Severe, Verified 07/03/24 10:01) ANAPHYLAXIS buspirone [From BUSPAR] Allergy (Unknown, Verified 07/03/24 10:01) nausea bupropion [From WELLBUTRIN] Adverse Reaction (Unknown, Verified 07/03/24 10:) NAUSEA daptomycin Adverse Reaction (Verified 07/03/24 10:01) rhabdomyolisis Medication List - Last Reconciled 07/03/24 by GEORGINA Mari atorvastatin 40 mg PO DAILY swmkthnfms-eibfgocb-tfryoijgwd 160-9-4.8 mcg/actuation (Breztri Aerosphere) 2 inhalations inhalation BID fluoxetine 30 mg PO DAILY gabapentin 800 mg PO TID lamotrigine mg PO lisinopril-hydrochlorothiazide 20-25 mg 1 tab PO DAILY multivitamin 1 tab PO DAILY tamsulosin (Flomax) 0.8 mg (2 x 0.4 mg) PO DAILY 90 days HPI Comments Details: Hardeep is a 53-year-old male patient of Dr. Mike. He has a past medical history of type 2 diabetes, osteomyelitis, seizures, anxiety, depression, fibromyalgia, glaucoma, COPD, hypercholesteremia, hypertension, and nicotine dependence. He presents to the office today for follow-up of his lower urinary tract symptoms, family history of prostate cancer, and microscopic hematuria in the setting of nicotine dependence. In discussion with the patient today he reports to be doing and feeling well. Of note, during last office visit patient underwent an office cystoscopy 02/14 noting no suspicious bladder lesions, prominent median lobe bilobed pillar enlargement of the prostatic urethra. He was started on Flomax 0.4 mg daily. In discussion with the patient today he reports feeling medication as been helpful with urinary hesitancy however he continues with no sense of needing to use the bathroom. We discussed psychological medications in the affects they have on the bladder. We discussed significant decrease in PVR since last office visit here. In office urinalysis results reviewed with the patient today. No microscopic hematuria noted. He discusses his upcoming job interview today. He otherwise denies nocturia, hematuria, dysuria, foul smelling urine, changes to urinary stream, flank pain, fever, and or chills. Discussed at length importance of managing diabetes for improvement lower urinary tract symptoms. PSAs are as follows: 10/16 0.4, 09/12.5, 12/15 0.5. Previous workup has included a retroperitoneal ultrasound noting bilateral kidneys with no calculi noted. The bladder is well distended. Prevoid bladder volume is approximately 130 mL. Postvoid bladder volume is approximately 70 mL diffuse thickening and trabeculations of bladder wall. Prostate volume is approximately 45ml's. Prostate gland appears enlarged and heterogeneous, protruding into the bladder. He otherwise denies any bothersome urinary issues or concerns. [facility] Medical History Type 2 diabetes mellitus Osteomyelitis Seizure disorder Anxiety and depression Fibromyalgia Depression Glaucoma COPD (chronic obstructive pulmonary disease) Tubular adenoma of colon Hypercholesterolemia Hypertension Type 2 diabetes mellitus with diabetic neuropathy Personal history of nicotine dependence Surgical History H/O colonoscopy History of eye surgery History of cervical discectomy Family History Mother Lung cancer metastatic to brain Social History Household Members: None Housing: Apartment Do you presently have visiting nurse or other home services: No Comment: refused bed and chair alarm Patient Tobacco Use Status: Current everyday Tobacco user Tobacco use type: Cigarette Cigarette Packs Per Day: 1 Cigarettes Per Day: 10 Years Smoked: 13 e-Cigarette/Vaping Use: Never Used Second Hand Smoke Exposure: No Substance Use Type: Marijuana service: No Current occupational status: disabled Current occupational exposures/hazards: No Review of Systems Eyes Reports as per HPI ENT Reports no additional complaints Card Reports as per HPI Resp Reports as per HPI GI Reports no additional complaints Reports as per HPI Musc Reports as per HPI Neuro Reports as per HPI Psych Reports as per HPI Endo Reports as per HPI Dheeraj/Lymph Reports no additional complaints Aller/Immun Reports no additional complaints Physical Exam Const General: cooperative, healthy appearing, comfortable, no acute distress, well developed, alert and awake Orientation/consciousness: patient oriented x3 Limitations: no limitations HEENT Head: Yes normal to inspection, Yes normocephalic and Yes atraumatic Ears: hearing grossly normal bilaterally Eyes General: appearance normal, both eyes and all related structures Neck Neck: Yes normal visual inspection and Yes trachea midline Chest Chest palpation & inspection: normal inspection of the chest Resp Effort & Inspection: normal respiratory effort and able to speak in complete sentences Cardio Rate: regular rate GI Inspection: Yes normal to inspection General: Yes no CVA tenderness Back/Spine/Pelvis Back: no CVA tenderness Skin General skin exam: no rashes or lesions noted Neuro General: patient oriented x3 Extrem General: Yes normal to inspection Psych Appearance: grossly normal Mental Status: mental status grossly normal Speech and movement: Normal speech and movement present and Clear speech present Affect: normal affect Attitude: cooperative and Avoids eye contact (attititude/behavior) Thought process: Normal thought process present Thought content: Normal thought content present Insight: Fair insight present (Psych) Judgement: Fair judgement present (Psych) Office Procedures Post Void Residual Post Residual Void Post Void Residual (PVR): 19 [id number] Void Residual by ultrasound Results AMB Urinalysis, Automated UA Leukoctes 0 Maco/uL Last Edit by [employer] on 07/03/24 09:50 UA Nitrite Last Edit by [employer] on 07/03/24 09:50 UA Urobilinogen 0.2 mg/dL Last Edit by [employer] on 07/03/24 09:50 UA Protein 0 mg/dL Last Edit by [employer] on 07/03/24 09:50 UA pH 7.0 Last Edit by [employer] on 07/03/24 09:50 UA Blood 0 Cruz/uL Last Edit by [employer] on 07/03/24 09:50 UA Specific [place] 1.015 Last Edit by [employer] on 07/03/24 09:50 UA Ketone Last Edit by [employer] on 07/03/24 09:50 UA Bilirubin 0 mg/dL Last Edit by [employer] on 07/03/24 09:50 UA Glucose 0 mg/dL Last Edit by [employer] on 07/03/24 09:50 Results Reviewed Results Reviewed: Laboratory Last Values Urine pH (Auto) 7.0 07/03/24 09:48 Specific [place] (Auto) 1.015 07/03/24 09:48 Urine Protein (Auto) 0 mg/dL 07/03/24 09:48 Glucose (UA)(Auto) 0 mg/dL 07/03/24 09:48 Urine Blood (Auto) 0 Cruz/uL 07/03/24 09:48 Urine Bilirubin (Auto) 0 mg/dL 07/03/24 09:48 Urine Urobilinogen (Auto) 0.2 mg/dL 07/03/24 09:48 Leukocyte Esterase (Auto) 0 Maco/uL 07/03/24 09:48 Assessment & Plan Assessment & Plan (1) Bladder trabeculation: Code(s): N32.89 - Other specified disorders of bladder Category: Medical (2) Bladder wall thickening: Code(s): N32.89 - Other specified disorders of bladder Category: Medical (3) Urinary frequency: Code(s): R35.0 - Frequency of micturition Category: Medical (4) Urinary urgency: Code(s): R39.15 - Urgency of urination Category: Medical (5) Family history of prostate cancer: Code(s): Z80.42 - Family history of malignant neoplasm of prostate Category: Medical Plan In office urinalysis results reviewed with the patient today; as noted above. PVR 19 mL. Continue Flomax as discussed and prescribed. Discussed importance of timed/scheduled voiding. Discussed importance of limiting/quitting nicotine dependence for overall health and well-being. Discussed bladder triggers/irritants. Follow-up in 3-4 months with PVR; or sooner with any issues, concerns, and or questions. Orders: Orders AMB Urinalysis Automated Today Z13.9 - Encounter for screening, unspecified AMB Post Void Residual by ultrasound Today R35.0 - Frequency of micturition Patient Instructions: The patient had an opportunity to ask questions regarding the treatment plan. All questions were answered. Physical exam, labs, and imaging were discussed and reviewed in detail. As well as risks, benefits, and discussion of treatment choices. No major barriers to understanding were identified. The patient expressed understanding and agreement with the above treatment plan. The patient was made aware they should contact our office by phone for worsening of their current condition, the appearance of new symptoms, or with any questions or concerns. Compliance is encouraged with any medications and follow up testing that is ordered. It is a privilege to be allowed the opportunity to participate in? your urological care.? Again, if you have any questions or concerns If you have any questions or concerns please do not hesitate to contact me. The office is [phone]. This note is constructed using voice recognition software. While every effort has been made to ensure accuracy regional liaison errors may have been included. Yours sincerely, GEORGINA Mari Coding Level of Care Code Est Pt Level 3 (22060) Complex EM visit Add On G2211 Diagnoses Bladder trabeculation N32.89 Bladder wall thickening N32.89 Urinary frequency R35.0 Urinary urgency R39.15 Family history of prostate cancer Z80.42 CPT Codes Post Residual Void - PVR CPT Code: 19374-Dksl Void Residual by ultrasound ([id number])
== END 2024-07-03 10:03 | disposition home or self-care (01) ==
PROVIDERS: PCP Internal Medicine; Visit Provider Nurse Practitioner Family
DX: N32.89 Other specified disorders of bladder (principal); R35.0 Frequency of micturition; R39.15 Urgency of urination; Z80.42 Family history of malignant neoplasm of prostate; Z13.9 Encounter for screening, unspecified
CPT/HCPCS: 99213; G2211

== ENCOUNTER → 2024-07-03 09:24 | Outpatient (BNVA) | payer MEDICARE, SELFPAY | PROVIDERS: PCP Internal Medicine; Visit Provider Nurse Practitioner Family | DX: N32.89 Other specified disorders of bladder (principal); R35.0 Frequency of micturition; R39.15 Urgency of urination; F17.210 Nicotine dependence, cigarettes, uncomplicated; Z80.42 Family history of malignant neoplasm of prostate; Z79.899 Other long term (current) drug therapy | CPT/HCPCS: 51798; 81003; 99212 ==

== ENCOUNTER 2024-10-09 09:26 | Outpatient (AMB) | payer MEDICARE, SELFPAY ==
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
== END 2024-10-09 10:02 | disposition home or self-care (01) ==
PROVIDERS: PCP Internal Medicine; Visit Provider Nurse Practitioner Family
DX: N32.89 Other specified disorders of bladder (principal); R35.0 Frequency of micturition; R39.15 Urgency of urination; Z80.42 Family history of malignant neoplasm of prostate; Z13.9 Encounter for screening, unspecified
CPT/HCPCS: 99213

== ENCOUNTER → 2024-10-09 09:26 | Outpatient (BNVA) | payer MEDICARE, SELFPAY | PROVIDERS: PCP Internal Medicine; Visit Provider Nurse Practitioner Family | DX: N32.89 Other specified disorders of bladder (principal); R35.0 Frequency of micturition; R39.15 Urgency of urination; Z80.42 Family history of malignant neoplasm of prostate | CPT/HCPCS: 51798; 81003; 99212 ==

== ENCOUNTER 2024-12-02 09:44 | Outpatient (REF) | payer MEDICARE, SELFPAY ==
[2024-12-02 10:21] LABS: MANUAL DIFF FLAG NO
[2024-12-02 10:31] LABS: Basophils Absolute Auto 0.1 X10*3/uL (0.0-0.2); Basophils Percent Auto 1.5 % (0-2); Eosinophils Absolute Auto 0.3 X10*3/uL (0.0-0.4); Eosinophils Percent Auto 2.7 % (0-4); Hematocrit 43.1 % (42.0-52.0); Hemoglobin 14.5 g/dl (14.0-18.0); Imm Gran Abs Auto 0.05 X10*3/uL (0.00-0.03); Imm Gran Pct Auto 0.5 % (0.0-0.4); Lymphocytes Absolute Auto 1.7 X10*3/uL (1.2-4.9); Lymphocytes Percent Auto 17.3 % (20-40); Mean Corpuscular HGB Conc 33.6 g/dl (31.0-36.0); Mean Corpuscular Hemoglobin 32.2 pg (27.0-33.0); Mean Corpuscular Volume 95.8 fL (80.0-98.0); Mean Platelet Volume 9.2 fL (9.4-12.4); Monocytes Absolute Auto 0.9 X10*3/uL (0.1-1.2); Monocytes Percent Auto 9.8 % (2-11); Neutrophils Absolute Auto 6.5 x10*3/uL (2.0-8.3); Neutrophils Percent Auto 68.2 % (45-73); Platelet Count 288 X10*3/uL (160-400); Red Cell Distribution Width 13.3 % (11.0-16.0); White Blood Count 9.6 X10*3/uL (4.8-10.8)
--- OUTSIDE RECORDS SUMMARY | 2024-12-02 11:04 | XMS_ITS | Patient Health Record ---
Author Organization [facility] Address [address] [place] [address] Care Team Providers Care Computerized Mill Mill Recorder Name Role Phone Martine Mike Primary Care Provider Clinton Morris Unavailable [phone] Allergies Allergen (clinical drug ingredient) Drug/Non Drug Allergy documented on EMR Reaction Allergy Type Onset Date Status Shellfish (FN) Shellfish-derived Products Unknown Drug Allergy Active Reason For Referral No Information Medications Medication SIG (Take, Route, Frequency, Duration) Notes Start Date End Date Status Dulcolax (colon prep) 5 MG take at 3:00 p.m and 7:00p.m. Orally two tablets twice a day for one day for 1 day 01/19/2022 Active Dulcolax (colon prep) 5 MG take at 3:00 p.m and 7:00p.m. Orally two tablets twice a day for one day for 1 day 02/15/2022 Active Breztri Aerosphere 160-9-4.8 MCG/ACT INHALE 2 PUFFS INTO THE LUNGS TWICE DAILY Inhalation for 30 Active MiraLax (colon prep) 17 GM/SCOOP 1 238Gm bottle mixed with Gatorade or Crystal Light Orally begin at 5:00 p.m. the day before the procedure for 1 day 02/15/2022 Active Dorzolamide HCl-Timolol Mal 22.3-6.8 MG/ML INSTILL 1 DROP IN BOTH EYES TWICE DAILY Ophthalmic for 50 Active amLODIPine Besylate 5 MG TAKE 1 TABLET B Y MOUTH EVERY DAY Oral for 90 Active Gabapentin 400 MG TAKE ONE CAPSULE BY MOUTH THREE TIMES DAILY Oral for 90 Active MiraLax (colon prep) 17 GM/SCOOP 1 238Gm bottle mixed with Gatorade or Crystal Light Orally begin at 5:00 p.m. the day before the procedure for 1 day 01/19/2022 Active Lisinopril-hydroCHLOROthiaz velma 20-25 MG Oral for 90 Active Immunizations Vaccine Route Administration Date Status Comme nts Influenza Unknown 01/19/2022 Refused Social History Tobacco Use: Social History Observation Description Date Details (start date - stop date) Current Smoker NA - NA Tobacco Use/Smoking Question Answer Notes Patient is a current smoker How often do you smoke cigarettes? every day How many cigarettes a day do you smoke? 6-10 Alcohol Screen Question Answer Notes Did you have a drink containing alcohol in the p ast year? No Points 0 Interpretation Negative Section Notes: Smokes < 1 ppd; smokes marij uana. Alcohol as above Problems Problem Type SNOMED Code ICD Code Onset Dates Problem Status W/U Status Risk Notes Problem 086261057 Encounter for screening for malignant neoplasm of colon (Z12.11) Active confirmed Problem 812135051839481 Preprocedural examination (Z01.818) Active confirmed Problem 404073767 History of colon polyps (Z86.010) Active confirmed Problem Diverticulosis of colon (652551321) Diverticulosis of colon (K57.30) Active confirmed Plan Of Treatment Future Test Test Name Order Date COLONOSCOPY 01/19/2022 Next Appt Details Provider Name:Clinton Huston , 03/04/2025 03:00:00 PM, [address] [place] [address], [address], [place], [address], Insurance Providers Payer Name Payer Address Payer Phone Subscriber Number Group Number Insured Name Patient Relationship to Insured Coverage Start Date Coverage End Date [facility] [address] [address] [place] [address] [phone] [id number] LUIZA RAO Self - patient is the insured MEDICAID OF [facility] [address] [place] [address] [phone] [id number] LUIZA RAO Self - patient is the insured Medical (General) History Medical History History ICD Code Diet-controlled DM Hypertension Neuropathy in feet Renal failure in 2019, but resolved Elevated cholesterol Depression and anxiety Colonoscopy in 2016 at [facility] in [place]told of polyps that were removed Alcoholism with sobriety since 09/2020 as of the 12/2021 OV Denies [place],CVA,renal disease Asthma Surgical History Surgery Date(Month/Year) C-spine 2016 Toe--bone spur 2018 Eye surgery
--- OUTSIDE RECORDS SUMMARY | 2024-12-02 11:04 | XMS_ITS | Clinical Summary ---
Author Organization [facility] Address [address] [place] [address] Care Team Providers Care Motor Vehicle Licence Examiner Name Role Phone Unavailable Primary Care Provider Unavailabl e Social History Tobacco Use Types Packs/Day Years Used Date Smoking Tobacco: Never Assessed Sex and Gender Information Value Date Recorded Sex Assigned at Not on file Legal Sex Male 5:17 PM EST Gender Identity Not on file Sexual Orientation Not on file Plan of Treatment Health Maintenance Due Date Last Done Comments DTaP,Tdap,and Td Vaccines (1 - Tdap) 1990 Hepatitis B Vaccines (1 of 3 - 19+ 3-dose series) 1990 Pneumococcal Vaccine: 50+ Ye ars (1 of 1 - PCV) 2021 Zoster Vaccines (1 of 2) 2021 COVID-19 Vaccine (1 - 2023-2 5 season) 2024 Influenza Vaccine (#1) 2024 HIB Vaccines Aged Out No longer eligi ble based on patient's age to complete this topic HPV Vaccines Aged Out No longer eligi ble based on patient's age to complete this topic Hepatitis A Vaccines Aged Out No long er eligible based on patient's age to complete this topic IPV Vaccines Aged Out No longer eligi ble based on patient's age to complete this topic MMR Vaccines Aged Out No longer eligi ble based on patient's age to complete this topic Meningococcal ACWY Vaccine Aged Out N o longer eligible based on patient's age to complete this topic Meningococcal B Vacine Aged Out No lo nger eligible based on patient's age to complete this topic Pneumococcal Vaccine: Pediat rics (0 to 5 Years) and At-Risk Patients (6 to 64 Years) Aged Out No longer eligible b ased on patient's age to complete this topic RSV Immunization Patients Un bryan 20 months Aged Out No longer eligible b ased on patient's age to complete this topic Varicella Vaccines Aged Out No longer eligible based on patient's age to complete this topic
--- OUTSIDE RECORDS SUMMARY | 2024-12-02 11:04 | XMS_ITS ---
Author Organization [facility] Address [address] [place] [address] Care Team Providers Care Oil Well Fishing Tool Technician Name Role Phone Martine Mike Primary Care Provider Unavailab Clinton Ortiz [phone] REASON FOR VISIT FYI Update Encounters Encounter Location Date Provider Diagnosis [facility] [address] [place] [address] 10/20/2023 Clinton Huston Plan Of Treatment Next Appt Details Provider Name:Clinton Huston , 03/04/2025 03:00:00 PM, [address], [address], [place], [address], Progress Notes * LUIZA RAO EDOB: [birth year] (53 yo M)Acc No.[id number]:10/20/2023 Patient:?LUIZA RAO :1970???Age:53 Y???Sex:Male Address:[address] [address], [place], [address] * true * Date:? Generated for Printi elmer/Eloina/eTransmitting on:?12/02/2024 11:03 AM EDT
--- OUTSIDE RECORDS SUMMARY | 2024-12-02 11:04 | XMS_ITS | Patient Health Record ---
Author Organization [facility] Address [address] [place] [address] Care Team Providers Care Assistant Director Of Public Works Name Role Phone Martine Mike Primary Care Provider Unavailab Jai Cruz Unavailable [phone] Allergies Allergen (clinical drug ingredient) Drug/Non Drug Allergy documented on EMR Reaction Allergy Type Onset Date Status Shellfish (FN) Shellfish-derived Products Unknown Drug Allergy Active Reason For Referral No Information Medications Medication SIG (Take, Route, Frequency, Duration) Notes Start Date End Date Status Gabapentin 400 MG 1 capsule Orally Onc e a day for 30 day(s) Active amLODIPine Besylate 5 MG 1 tablet Orally Once a day for 30 day(s) Active Atorvastatin Calcium 40 MG 1 tablet Oral ly Once a day for 30 day(s) Active Extra Depth Orthopedic Shoes (1 Pair) with Customized Heat Molded Multidensity Innersoles (3 Pair) as directed Dx: NIDDM/Polyneuropathy (E11.42), Hammertoe Foot Deformity (M20.41,M20.42), Preulcerative Skin Lesion(s) (L85.1 01/04/2021 Active metFORMIN HCl 850 MG 1 tablet with a stiven l Orally Once a day for 30 day(s) Active Lisinopril-hydroCHLOROthia zide 20-25 MG 1 tablet Orally Once a day for 30 day(s) Active Immunizations Vaccine Route Administration Date Status Comme nts Influenza Unknown 01/04/2021 Refused Social History Tobacco Use: Social History Observation Description Date Details (start date - stop date) Current Smoker NA - NA Tobacco Use/Smoking Question Answer Notes Are you a: current smoker Alcohol Screen Question Answer Notes Did you have a drink containing alcohol in the p ast year? No Points 0 Interpretation Negative Tobacco use other than smoking: Question Answer Notes Are you an other tobacco user? No Problems Problem Type SNOMED Code ICD Code Onset Dates Problem Status W/U Status Risk Notes Problem Acquired hammer toe of right foot (7065647411053170 ) Other hammer toe(s) (acquired), right foot (M20.41) Active confirmed Problem Acquired hammer toe of left foot (6382392087937431 ) Other hammer toe(s) (acquired), left foot (M20.42) Active confirmed Problem Polyneuropathy due to type 2 diabetes mellitus (305297542) Type 2 diabetes mellitus with diabetic polyneuropathy (E11.42) Active confirmed Plan Of Treatment Pending Test Test Name Order Date [id number] NAIL, 6 OR MORE 01/04/2021 [id number] SKIN LESIONS, OVER 4 01/05/20 21 Insurance Providers Payer Name Payer Address Payer Phone Subscriber Number Group Number Insured Name Patient Relationship to Insured Coverage Start Date Coverage End Date Medicare [employer] [address] [place] [place] [address] [id number] Hardeep Beauchamp Self - patient is the insured Medical (General) History Medical History History ICD Code Anxiety Depression Diabetic High blood pressure Numbness CAD Surgical History Surgery Date(Month/Year) toe surgery neck surgery
[2024-12-02 11:49] LABS: Creatinine Urine 129.12 mg/dL; Microalbum/Creatinine Ratio Ur 5.4 ug/mg cr (<30)
[2024-12-02 12:11] LABS: Alanine Aminotransferase 24 U/L (0-40); Albumin Level 4.5 g/dL (3.5-5.0); Alkaline Phosphatase 76 U/L (39-117); Anion Gap 10 (12-20); Aspartate Amino Transferase 18 U/L (5-37); Bilirubin Total 0.4 mg/dL (0.0-1.0); Blood Urea Nitrogen 16 mg/dL (9-16); Calcium 9.3 mg/dL (8.4-10.2); Carbon Dioxide 32 mmol/L (22-29); Chloride 102 mmol/L (96-108); Cholesterol 135 mg/dL (<200); Estimated Glomerular Filt Rate > 60; Glucose Random 105 mg/dL (60-115); HDL Cholesterol 52 mg/dL (>40); LDL Cholesterol Calculated 71 mg/dL (<100); Potassium 4.2 mmol/L (3.3-5.1); Sodium 140 mmol/L (135-145); Thyroid Stimulating Hormone 0.92 uIU/mL (0.32-4.0); Total Protein 7.7 g/dL (6.5-8.0); Triglycerides 60 mg/dL (<150)
[2024-12-02 12:29] LABS: Folate 11.3 ng/mL (> or = 4.0); Vitamin B12 405 pg/mL (200-900)
== END 2024-12-02 09:45 | disposition home or self-care (01) ==
LOC: HO.10HDL 09:44
PROVIDERS: Visit Provider Internal Medicine
DX: E11.40 Type 2 diabetes mellitus with diabetic neuropathy, unspecified (principal); E78.00 Pure hypercholesterolemia, unspecified; F17.211 Nicotine dependence, cigarettes, in remission; I73.9 Peripheral vascular disease, unspecified; J44.9 Chronic obstructive pulmonary disease, unspecified
CPT/HCPCS: 36415; 80053; 80061; 82043; 82570; 82607; 82746; 84443; 85025

== ENCOUNTER 2025-02-16 16:56 | Inpatient (IN) | payer MEDICARE, MEDICAID, SELFPAY ==
[2025-02-16] VITALS (9 sets, daily range): BP systolic 78–103; BP diastolic 28–58; PULSE 53–68; RESP 14–19; TEMP 36.6–36.9; O2SAT 96–97; BMI 29.4
--- NOTE | ~2025-02-16 | CT_ITS ---
CLINICAL HISTORY: multiple syncopal episodes, hypotensive CT angiography chest with contrast. With MIP MPR Postprocessing. Comparison: Chest CT from 08/12/2023 Findings: No central pulmonary embolism. Calcified and noncalcified plaque involving the imaged aorta and its branches this PE study. Small mediastinal lymph nodes likely reactive with mild mediastinal lipomatosis. Mild cardiomegaly noted with multichamber enlargement of the heart. Mild bibasilar atelectasis and/or pneumonitis with bilateral scarring and mild emphysematous changes. No pneumothorax or pleural effusion. Mild fat deposition of the imaged liver in the imaged abdomen. Borderline adrenal hyperplasia. Nodule adjacent to the left adrenal gland is nonspecific and may reflect lymph node measuring 1.2 cm diameter (1.2 cm on image 25 of series 6 of comparison study from 08/22/2023). Mild volume loss of the imaged pancreas noted. Imaged left 8th rib fracture appears subacute to chronic old given remodeling. Degenerative changes include imaged shoulders and imaged spine. Multilevel Schmorl's nodes noted. IMPRESSION: 1. No central pulmonary embolism. 2. Mild bibasilar atelectasis/pneumonitis. 3. Subacute to chronic left 8th rib fracture with remodeling. 4. Nonspecific nodule of the imaged upper abdomen may reflect lymph node, without significant change compared to 202 This document has been electronically signed by: Jose Giraldo MD on 02/16/2025 19:54:43
--- NOTE | ~2025-02-16 | CT_ITS ---
CLINICAL HISTORY: multiple falls w LOC CT cervical spine without contrast Comparison: None available Findings: No acute fracture of the cervical spine. Mild reversal of the cervical lordosis at C4. Mild retrolisthesis at C5-C6 with disc osteophyte complex and adjacent segment changes. No definite hardware loosening at C6-C7. Metal artifacts mostly obscure C6-C7 with likely intervertebral disc replacement and/or arthroplasty. Minimal left foraminal narrowing at C6-C7. Moderate left foraminal narrowing and adjacent segment C5-C6 and C7-T1. Facet arthropathy and ligament calcifications are multifocal. No paraspinal hematoma. Additional metal artifacts noted. Scarring includes imaged lung apices. IMPRESSION: No acute fracture of the cervical spine. This document has been electronically signed by: Jose Giraldo MD on 02/16/2025 19:52:00
--- NOTE | ~2025-02-16 | XR_ITS ---
CLINICAL HISTORY: plantar ulcer near amputation site 3 view left foot Comparison: MRI of the left foot from 05/18/2022 Findings: Age indeterminate dislocation of the 2nd metatarsophalangeal joint. Lucencies of the head of the 3rd and compressed metatarsal concerning for acuity or re-injury. Findings of septic arthropathy also considered at 2nd and 3rd metatarsophalangeal joints. Fractures and/or deformities with remodeling of proximal phalanx of the 4th digit and 5th metatarsal appear old/chronic. Remodeling of the remaining 1st metatarsal is nonspecific post amputation with distal superficial ulceration and abnormal soft tissue swelling. Additional osteoarthritis is multifocal in the imaged foot. Medial malleolus deformity appears old. Calcaneal spurs noted. Portions of the midfoot and Lisfranc joints are obscured with chronic appearing deformities. No radiopaque retained foreign body. IMPRESSION: 1. Abnormal soft tissues including superficial and distal to remaining 1st metatarsal with concern for ulceration. 2. Abnormalities of the 2nd and 3rd metatarsophalangeal joints are nonspecific. Differential considerations include findings of septic arthropathy, by radiographs. This document has been electronically signed by: Jose Giraldo MD on 02/16/2025 18:56:27
--- NOTE | ~2025-02-16 | CT_ITS ---
CLINICAL HISTORY: multiple falls w LOC CT head without contrast Comparison: None available Findings: No acute intracranial hemorrhage. No midline shift or hydrocephalus. No large arterial territorial infarction by CT. Partially empty sella. Mucosal thickening of the imaged paranasal sinuses are multifocal. Imaged mastoid air cells are well aerated. No acute skull fracture. Dermal nodularity in the left periorbital regions nonspecific and may be of dermatologic origin. No skull fracture. IMPRESSION: No acute intracranial abnormality by CT. This document has been electronically signed by: Jose Giraldo MD on 02/16/2025 19:50:13
--- NOTE | ~2025-02-16 | US_ITS ---
EXAMINATION: BILATERAL CAROTID ULTRASOUND WITH DOPPLER HISTORY: syncope COMPARISON: There are no prior studies for comparison. TECHNIQUE: Real time and Color and Spectral doppler ultrasonography of the carotid and vertebral arteries was performed in multiple planes. FINDINGS: There is a small amount of plaque in both internal carotid arteries. VERTEBRAL FLOW DIRECTION: Antegrade bilaterally. PEAK SYSTOLIC VELOCITIES (in cm/sec): RIGHT: CCA: Prox: 106 Dist: 104 ICA: Prox: 83.2 Mid: 78.3 Dist: 82.6 ICA/CCA Ratio: 0.78 ECA: 123 Peak ICA end diastolic velocity (EDV): 31.7 LEFT: CCA: Prox: 108 Dist: 97.5 ICA: Prox: 64.7 Mid: 61.6 Dist: 72.9 ICA/CCA Ratio: 0.68 ECA: 121 Peak ICA end diastolic velocity (EDV): 22.4 US/US carotid duplex BI IMPRESSION: Findings consistent with 0-49% stenosis of the bilateral internal carotid arteries. Electronically signed by: Clinton Nash MD 02/17/2025 10:55 AM EDT
--- NOTE | 2025-02-16 17:10 | ECG_ITS ---
Test Reason : SYNCOPE Blood Pressure : */* mmHG Vent. Rate : 66 BPM Atrial Rate : 66 BPM P-R Int : 158 ms QRS Dur : 84 ms QT Int : 428 ms P-R-T Axes : 29 33 14 degrees QTcB Int : 448 ms Normal sinus rhythm Normal ECG When compared with ECG of 25-Dec-2022 14:43, No significant change was found Referred By: Tatyana Mullen Electronically Signed By: Rocky Farias
--- NOTE | 2025-02-16 17:26 | ED_ITS ---
HPI - Syncope General Chief Complaint: Syncope Stated Complaint: syncopal episode, bp 83/45 Time Seen by Provider: 02/16/25 17:10 Source: patient and EMS Mode of arrival: EMS Limitations: no limitations History of Present Illness ED Provider: Dr. Tatyana Mullen HPI narrative: Patient comes to the emergency room via ambulance after having a syncopal episode in a grocery store. According to the patient, he was about to check out and pain, patient started feeling like he was blacking out and had a syncopal episode. Patient is not sure but believes that he might have switch himself down to the floor and did not hit his head. However, patient states that for about a week now, he has been having daily syncopal episodes. Patient states that yesterday in his kitchen he hit the floor pretty hard with his head. Denies any headache or neck pain. Patient denies any chest pain or shortness of breath. On arrival today, blood pressure 83/45. Patient known to have history of alcoholism. Patient states that he has not had any alcohol for the last 4 years. Denies any drug use other than THC Related Data Home Medications ?Medication ?Instructions ?Recorded ?Confirmed lisinopril 20 1 tab PO DAILY 02/16/22 10/01/23 mg-hydrochlorothiazide 25 mg tablet gabapentin 800 mg tablet 800 mg PO TID 07/28/22 10/01/23 atorvastatin 40 mg tablet 40 mg PO DAILY 12/25/22 10/01/23 multivitamin 1 tab PO DAILY 12/25/22 10/01/23 budesonide 160 mcg-glycopyr 9 2 inh inhalation BID 01/22/23 10/01/23 mcg-formot 4.8 mcg/actuation HFA inhaler (Breztri Aerosphere) fluoxetine 10 mg capsule 30 mg PO DAILY 05/05/24 lamotrigine 150 mg tablet mg PO 05/05/24 Previous Rx's ?Medication ?Instructions ?Recorded tamsulosin 0.4 mg capsule (Flomax) 0.8 mg (2 x 0.4 mg) PO DAILY 90 09/11/24 days #180 caps Allergies Allergy/AdvReac Type Severity Reaction Status Date / Time shellfish derived Allergy Severe ANAPHYLAXIS Verified 02/16/25 17:10 [SHELLFISH DERIVED] buspirone [From BUSPAR] Allergy Unknown nausea Verified 02/16/25 17:10 bupropion [From WELLBUTRIN] AdvReac Unknown NAUSEA Verified 02/16/25 17:10 daptomycin AdvReac rhabdomyoli Verified 02/16/25 17:10 sis Review of Systems 2 Review of Systems: Constitutional : No Weight loss, No Fever, No Chills, No Night Sweats, No Fatigue, No Malaise ENT/Mouth : No Hearing loss, No Ear Pain, No Nasal Congestion, No Sinus Pain, No Hoarseness, No sore throat, No Rhinorrhea, No Swallowing Difficulty Eyes: No Eye Pain, No Swelling, No Redness, No Foreign Body, No Discharge, No Vision Changes Cardiovascular : No Chest Pain, No SOB, No Dyspnea on Exertion, No Orthopnea, No Edema, No Palpitations Respiratory : No Cough, No Sputum, No Wheezing, No Smoke Exposure, No Dyspnea Gastrointestinal : No Nausea, No Vomiting, No Diarrhea, No Constipation, No abdominal Pain, No Hematochezia, No Melena Genitourinary : no irregular bleeding, No Dysuria, No Urinary Frequency, No Hematuria, No Urinary Incontinence, No Urgency, No Flank Pain, No Urinary Flow Changes, No Hesitancy Musculoskeletal : No joint pain, No Myalgias, No Joint Swelling Skin : No Skin Lesions, No rash Neuro : No Weakness, No Numbness, No Paresthesias, multiple episodes of loss of consciousness, syncope, No Dizziness, No Headache Psych : No Anxiety/Panic, No Depression, No SI/HI/AH/VH, No Social Issues, Heme/Lymph: No Bruising, No Bleeding,No Lymphadenopathy Endocrine : No Polyuria, No Polydipsia, No Temperature Intolerance [facility] Past Medical History Medical History Type 2 diabetes mellitus Osteomyelitis Seizure disorder Anxiety and depression Fibromyalgia Depression Glaucoma COPD (chronic obstructive pulmonary disease) Tubular adenoma of colon Hypercholesterolemia Hypertension Type 2 diabetes mellitus with diabetic neuropathy Personal history of nicotine dependence Surgical History H/O colonoscopy History of eye surgery History of cervical discectomy Family History Family History Mother Lung cancer metastatic to brain Social History Social History Household Members: None Housing: Apartment Do you presently have visiting nurse or other home services: No Comment: refused bed and chair alarm Patient Tobacco Use Status: Current everyday Tobacco user Tobacco use type: Cigarette Cigarette Packs Per Day: 1 Cigarettes Per Day: 10 Years Smoked: 13 Smoked in Last 30 Days: No e-Cigarette/Vaping Use: Never Used Second Hand Smoke Exposure: No Use of substances other than those prescribed or required for medical reasons: Yes Substance Use Type: Marijuana Substance Use Frequency: Occasionally Advance Directives: No Advance Directives Information Provided: Yes Do you have a plan to hurt others: No Plan service: No Current occupational status: disabled Current occupational exposures/hazards: No Physical Exam 2 Vital Signs: Vital Signs: Last Vital Signs Temp 98.4 F 02/16/25 21:24 Pulse 53 02/16/25 21:24 Resp 17 02/16/25 21:24 BP 100/57 L 02/16/25 21:24 Pulse Ox 97 02/16/25 21:24 O2 Del Method Room Air 02/16/25 21:24 BMI result Body Mass Index 29.4 Const: Other: Appearance: Alert. Oriented X3. No acute distress. Eyes: Pupils equal, round and reactive to light. ENT: Pharynx normal. Neck: Normal inspection. Neck supple. No lymph nodes noted. No crepitus CVS: Normal heart rate and rhythm. Pulses normal. Normal S1 and S2 Respiratory: No respiratory distress. Breath sounds normal. No Wheezing. No rales Abdomen: Soft and nontender. No rigidity. No distention. Skin: Skin warm and dry. Normal skin color. Normal skin turgor. Extremities: No lower extremity edema. No Lacerations. No Rash. 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 On the sole of the foot, patient has a large callus expressing foamy fluid Neuro: Oriented X 3. No motor deficit. No sensory deficit. Moving all extremities. No slurred speech. CN 2 through 12 grossly intact Psych: calm, cooperative, normal affect Course Course Course Narrative: Patient reports multiple episodes of syncope, patient states that he has had 7 within a week, 1 daily Patient receiving 2 L of IV fluids. Medications Administered Discontinued Medications Generic Name Dose Route Start Last Admin Trade Name Freq PRN Reason Stop Dose Admin Sodium Chloride 2,000 mls @ 999 mls/hr 02/16/25 17:23 02/16/25 18:40 Ns IVCONT 02/16/25 19:23 Infused .Q2H1M ONE Infusion Iohexol 100 ml 02/16/25 18:30 02/16/25 18:31 Iohexol 350 Mg/Ml 100 Ml Infus..Btl IV 02/16/25 18:31 65 ml ONCE ONE Administration Medical Decision Making Medical Decision Making [facility] Narrative: My interpretation of labs: Patient's hematology and chemistry did not show any acute abnormality, normal troponin, urinalysis negative for UTI and drugs of abuse other than THC, ETOH negative, serology negative Orthostatic vitals negative CTA negative for pulmonary embolism Head and cervical spine CT showed no acute abnormality CT for pulmonary embolism negative It is possible that patient may have had syncopal episode secondary to dehydration, multiple blood pressure medications including hydrochlorothiazide, lisinopril, tamsulosin, Orthostatic vitals were negative Since states that he does not experience chest pain or shortness of breath prior to the syncopal episodes. Differential Diagnosis Differential Diagnoses: The differential diagnosis associated with the presentation includes (Pulmonary embolism, orthostatic hypotension, arrhythmias, dehydration) Admission/Observation Consideration of admission/observation: Escalation of care including admission/observation considered Consult Healthcare Provider Management of the patient was discussed with: Hospitalist Lab Data [facility] Lab Attestation statement: I reviewed the patient's lab results. 02/16/25 17:46 02/16/25 17:46 Labs: Lab Results 02/16/25 02/16/25 02/16/25 Range/Units 17:46 17:47 21:29 WBC 11.0 H (4.8-10.8) X10*3/uL RBC 3.66 L (4.60-5.80) X10*6/uL Hgb 11.8 L (14.0-18.0) g/dl Hct 34.3 L D (42.0-52.0) % MCV 93.7 (80.0-98.0) fL MCH 32.2 (27.0-33.0) pg MCHC 34.4 (31.0-36.0) g/dl RDW 13.1 (11.0-16.0) % Plt Count 199 D (160-400) X10*3/uL MPV 9.1 L (9.4-12.4) fL Immature Gran % (Auto) 0.5 H (0.0-0.4) % Neut % (Auto) 75.2 H (45-73) % Lymph % (Auto) 13.2 L (20-40) % Miller % (Auto) 9.1 (2-11) % Eos % (Auto) 1.3 (0-4) % Baso % (Auto) 0.7 (0-2) % Lymph # (Auto) 1.5 (1.2-4.9) X10*3/uL Miller # (Auto) 1.0 (0.1-1.2) X10*3/uL Eos # (Auto) 0.1 (0.0-0.4) X10*3/uL Baso # (Auto) 0.1 (0.0-0.2) X10*3/uL Abs Immat Gran (auto) 0.05 H (0.00-0.03) X10*3/uL Absolute Neuts (auto) 8.2 (2.0-8.3) x10*3/uL Absolute Nucleated RBC 0.000 (0.0-0.012) X10*3/uL Nucleated RBC % (auto) 0.0 (0.0-0.2) /100WBC PT 10.7 L (10.9-12.4) SEC INR 0.9 (0.9-1.1) Sodium 136 (135-145) mmol/L Potassium 3.7 (3.3-5.1) mmol/L Chloride 103 (96-108) mmol/L Carbon Dioxide 25 (22-29) mmol/L Anion Gap 12 (12-20) BUN 17 H (9-16) mg/dL Creatinine 1.03 (0.5-1.4) mg/dL Estim Creat Clear Calc 86.5 Estimated GFR > 60 Random Glucose 80 (60-115) mg/dL Lactic Acid 1.0 (0.5-2.0) mmol/L Calcium 8.3 L D (8.4-10.2) mg/dL Magnesium 1.8 (1.6-2.6) mg/dL Total Bilirubin 0.4 (0.0-1.0) mg/dL Direct Bilirubin 0.1 (0.0-0.5) mg/dL AST 17 (5-37) U/L ALT 19 (0-40) U/L Alkaline Phosphatase 57 (39-117) U/L Troponin I High Sens < 2.7 (<3.5-35.0) ng/L Total Protein 6.3 L (6.5-8.0) g/dL Albumin 4.1 (3.5-5.0) g/dL TSH 1.38 (0.32-4.0) uIU/mL Urine Color Yellow Urine Appearance Clear Urine pH 7.0 (5.0-9.0) Ur Specific [place] 1.020 (1.005-1.025) Urine Protein Negative (Neg-Trace) mg/dL Urine Glucose (UA) Negative (Negative) mg/dL Urine Ketones Negative (Negative) mg/dL Urine Blood Negative (Negative) Urine Nitrite Negative (Negative) Ur Leukocyte Esterase Negative (Negative) Urine Opiates Screen Not Detected (Not Detect) Ur Buprenorphine Scrn Not Detected (Not Detect) ng/mL Ur Oxycodone Screen Not Detected (Not Detect) ng/mL Urine Methadone Screen Not Detected (Not Detect) ng/mL Urine Fentanyl Screen Not Detected (Not Detect) Ur Barbiturates Screen Not Detected (Not Detect) Ur Phencyclidine Scrn Not Detected (Not Detect) Ur Amphetamines Screen Not Detected (Not Detect) U Benzodiazepines Scrn Not Detected (Not Detect) Urine Cocaine Screen Not Detected (Not Detect) U Marijuana (THC) Screen POSITIVE H (Not Detect) Ethyl Alcohol < 10 mg/dL Influenza Type A (PCR) NEGATIVE (Negative) Influenza Type B (PCR) NEGATIVE (Negative) RSV RNA Qual (PCR) NEGATIVE (Negative) SARS-CoV-2 RNA (RT-PCR) NEGATIVE (Negative) Independent Interpretation I performed an independent interpretation of an: EKG and CT Scan Interpretation: 1. No central pulmonary embolism. 2. Mild bibasilar atelectasis/pneumonitis. 3. Subacute to chronic left 8th rib fracture with remodeling. 4. Nonspecific nodule of the imaged upper abdomen may reflect lymph node, without significant change compared to 2022 No acute fracture of the cervical spine. No acute intracranial abnormality by CT. Radiology Impression Discussion of test interpretation with radiology: I have reviewed the radiologist's reading. Critical Care Time Critical Care Time Critical Care Time: Yes Total Critical Care Time: 60 Attestation: I have personally provided critical care time. Time includes review of lab data, radiology results, discussion with consultants, and monitoring for potential decompensation. Intervention performed as documented. Discharge Plan Discharge Clinical Impression: Syncope Prescriptions: No Action tamsulosin [Flomax] 0.4 mg capsule 0.8 mg PO DAILY 90 Days Qty: 180 1RF Rx Instructions: This is an increase in dosage lisinopril-hydrochlorothiazide 20-25 mg tablet 1 tab PO DAILY gabapentin 800 mg Tablet 800 mg PO TID atorvastatin 40 mg tablet 40 mg PO DAILY multivitamin Tablet 1 tab PO DAILY Breztri Aerosphere 160-9-4.8 mcg/actuation HFA aerosol inhaler 2 inh inhalation BID lamotrigine 150 mg tablet PO fluoxetine 10 mg capsule 30 mg PO DAILY Print Language: [place]
[2025-02-16] MEDS: 0.9 % Sodium Chloride 2,000 ML 999 ML IVCONT (17:28)
[2025-02-16 17:54] LABS: MANUAL DIFF FLAG NO
[2025-02-16 17:55] LABS: Basophils Absolute Auto 0.1 X10*3/uL (0.0-0.2); Basophils Percent Auto 0.7 % (0-2); Eosinophils Absolute Auto 0.1 X10*3/uL (0.0-0.4); Eosinophils Percent Auto 1.3 % (0-4); Hematocrit 34.3 % (42.0-52.0); Hemoglobin 11.8 g/dl (14.0-18.0); Imm Gran Abs Auto 0.05 X10*3/uL (0.00-0.03); Imm Gran Pct Auto 0.5 % (0.0-0.4); Lymphocytes Absolute Auto 1.5 X10*3/uL (1.2-4.9); Lymphocytes Percent Auto 13.2 % (20-40); Mean Corpuscular HGB Conc 34.4 g/dl (31.0-36.0); Mean Corpuscular Hemoglobin 32.2 pg (27.0-33.0); Mean Corpuscular Volume 93.7 fL (80.0-98.0); Mean Platelet Volume 9.1 fL (9.4-12.4); Monocytes Percent Auto 9.1 % (2-11); Neutrophils Absolute Auto 8.2 x10*3/uL (2.0-8.3); Neutrophils Percent Auto 75.2 % (45-73); Platelet Count 199 X10*3/uL (160-400); Red Blood Count 3.66 X10*6/uL (4.60-5.80); Red Cell Distribution Width 13.1 % (11.0-16.0)
[2025-02-16 18:01] LABS: INTERNATIONAL NORM RATIO 0.9 (0.9-1.1); Prothrombin Time 10.7 SEC (10.9-12.4)
[2025-02-16 18:15] LABS: Alanine Aminotransferase 19 U/L (0-40); Albumin Level 4.1 g/dL (3.5-5.0); Alkaline Phosphatase 57 U/L (39-117); Anion Gap 12 (12-20); Aspartate Amino Transferase 17 U/L (5-37); Bilirubin Direct 0.1 mg/dL (0.0-0.5); Bilirubin Total 0.4 mg/dL (0.0-1.0); Blood Urea Nitrogen 17 mg/dL (9-16); Calcium 8.3 mg/dL (8.4-10.2); Carbon Dioxide 25 mmol/L (22-29); Chloride 103 mmol/L (96-108); Creatinine Clr Calc Pharmacy 86.5; Estimated Glomerular Filt Rate > 60; Ethanol < 10 mg/dL; Glucose Random 80 mg/dL (60-115); Magnesium 1.8 mg/dL (1.6-2.6); Potassium 3.7 mmol/L (3.3-5.1); Sodium 136 mmol/L (135-145); Total Protein 6.3 g/dL (6.5-8.0)
[2025-02-16 18:19] LABS: Troponin-I High Sensitivity < 2.7 ng/L (<3.5-35.0)
[2025-02-16] MEDS: iohexoL 350 MG/ML 100 ML INFUS..BTL IV (18:31)
[2025-02-16 18:32] LABS: TSH reflex Free T4 1.38 uIU/mL (0.32-4.0)
[2025-02-16 18:35] LABS: Influenza A PCR NEGATIVE (Negative); Influenza B PCR NEGATIVE (Negative); Resp Syncy Virus RNA Qual PCR NEGATIVE (Negative); SARS COV2 PCR INHOUSE NEGATIVE (Negative)
[2025-02-16 21:38] LABS: Appearance Urine Clear; Color Urine Yellow; Glucose Urine UA Negative (Negative); Leukocyte Esterase Urine Negative (Negative); Nitrite Urine Negative (Negative); Urine Blood Negative (Negative); Urine Ketones Negative (Negative); Urine Protein Negative (Neg-Trace)
[2025-02-16 21:48] LABS: Amphetamine Screen Urine Not Detected (Not Detect); Barbiturates, Urine Not Detected (Not Detect); Benzodiazepines Screen Urine Not Detected (Not Detect); Buprenorphine Scr Not Detected (Not Detect); Cannabinoid Screen Urine POSITIVE (Not Detect); Cocaine Screen Urine Not Detected (Not Detect); Fentanyl, urine Not Detected (Not Detect); Methadone Screen, Urine Not Detected (Not Detect); Opiate Screen Urine Not Detected (Not Detect); Oxycodone Screen Urine Not Detected (Not Detect); Phencyclidine Screen Urine Not Detected (Not Detect)
--- NOTE | 2025-02-16 22:09 | PC.NURSE ---
Pt resting comfortably on stretcher, call whiting in reach and patient educated on use.
--- NOTE | 2025-02-16 23:21 | P.HPHOSP_ITS ---
History of Present Illness Date of Service: 02/17/25 Attending physician on admission: Jessica Nelson Chief Complaint: syncope Patient is a 54-year-old male with past medical history [id number] diabetes type 2, sciatica, left big toe amputation, depression, bladder dysfunction, peripheral neuropathy, PAD, hyperlipidemia, syncope, cellulitis presents to the emergency department after being brought in by events from a local [employer] and shop grocery store where patient had a syncopal episode witnessed while catching out of the food cashier. Patient states he believes he was out for 10 seconds. Patient states prior he had walked through the aisles of the grocery store and towards the end, started to feel more confused and it felt like his eyes had exploded and he started experiencing ringing in the ears. 911 was called and patient was transported to the emergency department. In the emergency department, CT of the head and cervical spine were negative for acute findings. CTA negative for pulmonary embolism. Left foot x- ray suggest possible septic arthropathy involving the 2nd and 3rd meta tarsal phalangeal joints. There is an obvious open ulceration on the bottom of the left foot near the base of the tarsals. Patient states for the last 2 weeks patient has been having almost daily episodes where before he was having an episode maybe once a month similar to what happened at the grocery store. Patient denies any new medications. Patient is compliant with his current medications. Patient denies any issues with low blood sugar. Blood sugar was checked at the scene and was within normal limits. EKG on arrival normal sinus rhythm, no ischemic changes. QTC 448. No record of echocardiogram from past visits. Incidentally patient reports that he has not had a car for the last 3 weeks as it is being repaired at the local tank truck mechanic. Patient has been walking longer distances daily. Patient states he is having severe pain in the left foot secondary to an opened area on the upper dorsum of left foot at the base of the phalanges. Patient states it has been draining. Patient denies any fever, chills or night sweats associated with this finding. Patient does not follow currently with the wound care clinic or podiatry. X-ray completed of the left foot and notes ulceration of 1st metatarsal and abnormalities of the 2nd and 3rd metatarsophalangeal joints nonspecific but differentials include septic arthropathy. MRI ordered and pending. Patient is started on vanco and Zosyn. Blood cultures were collected in the ED. patient has received 1 L of IV fluids. Lactic acid 0.6. CRP and ESR pending. This suspected infection may be contributing to patient's hypotension and syncopal episodes. Review of Systems 2 Review of Systems: Patient is reporting significant left lower leg pain considered chronic due to his known PID but also likely acute with current ulceration. Patient denies any chest pain, shortness of breath at rest, abdominal pain, nausea or vomiting. Patient denies any headache, fever, chills or night sweats. Yes all other systems are reviewed and are negative [facility] Medical History Type 2 diabetes mellitus Osteomyelitis Seizure disorder Anxiety and depression Fibromyalgia Depression Glaucoma COPD (chronic obstructive pulmonary disease) Tubular adenoma of colon Hypercholesterolemia Hypertension Type 2 diabetes mellitus with diabetic neuropathy Personal history of nicotine dependence Cognitive capacity: Alert and orientated x3 Functional capacity: independent ambulation Family History Mother Lung cancer metastatic to brain Surgical History H/O colonoscopy History of eye surgery History of cervical discectomy Social History Household Members: None Housing: Apartment Do you presently have visiting nurse or other home services: No Comment: refused bed and chair alarm Patient Tobacco Use Status: Current everyday Tobacco user Tobacco use type: Cigarette Cigarette Packs Per Day: 1 Cigarettes Per Day: 10 Years Smoked: 13 Smoked in Last 30 Days: No e-Cigarette/Vaping Use: Never Used Second Hand Smoke Exposure: No Use of substances other than those prescribed or required for medical reasons: Yes Substance Use Type: Marijuana Substance Use Frequency: Occasionally Advance Directives: No Advance Directives Information Provided: Yes Do you have a plan to hurt others: No Plan Nutrition Risks: No Nutritional Risk service: No Current occupational status: disabled Current occupational exposures/hazards: No Ebola Risk: Travel/Contact With Anyone From Affected Area/s: No Has Patient Experienced Ebola Symptoms: No Meds Allergies Allergy/AdvReac Type Severity Reaction Status Date / Time shellfish derived Allergy Severe ANAPHYLAXIS Verified 02/16/25 17:10 [SHELLFISH DERIVED] buspirone [From BUSPAR] Allergy Unknown nausea Verified 02/16/25 17:10 bupropion [From WELLBUTRIN] AdvReac Unknown NAUSEA Verified 02/16/25 17:10 daptomycin AdvReac rhabdomyoli Verified 02/16/25 17:10 sis Active Medications: Current Medications Acetaminophen (Acetaminophen 325 Mg Tablet) 650 mg PO Q6H PRN PRN Reason: Pain, Mild 1-3,fever,headache Albuterol/Ipratropium (Albuterol/Iprat 2.5/0.5mg 3 Ml Ampul.Neb) 3 ml INHALE Q4H PRN PRN Reason: Shortness of Breath/Wheezing Calcium Carbonate (Calcium Carbonate 750 Mg Tab.Chew) 750 mg PO Q4H PRN PRN Reason: Heartburn Enoxaparin Sodium (Enoxaparin Sodium 40 Mg/0.4 Ml Syringe) 40 mg SUBCUT Q24H [facility] Magnesium Hydroxide (Milk Of Magnesia 30 Ml Oral.Susp) 30 ml PO DAILY PRN PRN Reason: Constipation Melatonin (Melatonin 3 Mg Tablet) 6 mg PO BEDTIME PRN PRN Reason: Insomnia Ondansetron HCl (Ondansetron Hcl 4 Mg/2 Ml Vial) 4 mg IVPUSH Q8H PRN PRN Reason: Nausea and Vomiting Sodium Chloride (0.9 % Sodium Chloride Flush 3 Ml Syringe) 3 ml IVFLUSH QSHIFT [facility] Home Medications ?Medication ?Instructions ?Recorded ?Confirmed ?Last Taken ?Type lisinopril 20 1 tab PO DAILY 02/16/22 10/01/23 01/22/23 History mg-hydrochlorothiazide 25 mg tablet gabapentin 800 mg tablet 800 mg PO TID 07/28/22 10/01/23 01/22/23 History atorvastatin 40 mg tablet 40 mg PO DAILY 12/25/22 10/01/23 01/21/23 History multivitamin 1 tab PO DAILY 12/25/22 10/01/23 01/21/23 History budesonide 160 mcg-glycopyr 9 2 inh inhalation BID 01/22/23 10/01/23 Unknown History mcg-formot 4.8 mcg/actuation HFA inhaler (Breztri Aerosphere) fluoxetine 10 mg capsule 30 mg PO DAILY 05/05/24 Unknown History lamotrigine 150 mg tablet mg PO 05/05/24 Unknown History Physical Exam 2 Vital Signs and Narrative: Vital Signs: Last Vital Signs Temp 97.8 F 02/16/25 23:01 Pulse 56 02/16/25 23:01 Resp 18 02/16/25 23:01 BP 95/53 L 02/16/25 23:01 Pulse Ox 96 02/16/25 23:01 O2 Del Method Room Air 02/16/25 23:01 BMI result Body Mass Index 29.4 Alert and orientated X3, able to give good history. Neuro: CN II-X11 intact, no deficits, visual acuity intact EYES: PERRLA, EOM intact, conjunctiva pink, sclera nonicteric ENT: hearing intact, no issues with swallowing, uvula midline, lips moist, nares patent no epistaxis Cardiac: S1 S2 RRR, no murmur, no JVD, no edema in Lower ext Pulmonary: lungs clear to auscultation B Abdominal: BS active in all 4 quadrants, no guarding, tenderness, rebounding MSK: strength 5/5 upper and lower extremities : no CVA tenderness no bladder distension Extremities: no edema in lower extremities, PT and DP pulses palpable +2, left foot dorsum ulceration at the base of the tarsals, scar Left big toe base Psych: mood stable, judgement and insight good Skin: Open ulceration bottom of left foot Results Labs 02/16/25 17:46 02/16/25 17:46 Labs: Laboratory Results - last 24 hr 02/16/25 02/16/25 02/16/25 17:46 17:47 21:29 MCV 93.7 MCH 32.2 MCHC 34.4 RDW 13.1 Plt Count 199 D MPV 9.1 L Immature Gran % (Auto) 0.5 H Neut % (Auto) 75.2 H Lymph % (Auto) 13.2 L Ogle % (Auto) 9.1 Eos % (Auto) 1.3 Baso % (Auto) 0.7 Lymph # (Auto) 1.5 Ogle # (Auto) 1.0 Eos # (Auto) 0.1 Baso # (Auto) 0.1 Abs Immat Gran (auto) 0.05 H Absolute Neuts (auto) 8.2 Absolute Nucleated RBC 0.000 Nucleated RBC % (auto) 0.0 PT 10.7 L INR 0.9 Anion Gap 12 Estim Creat Clear Calc 86.5 Estimated GFR > 60 Random Glucose 80 Lactic Acid 1.0 Calcium 8.3 L D Magnesium 1.8 Total Bilirubin 0.4 Direct Bilirubin 0.1 AST 17 ALT 19 Alkaline Phosphatase 57 Total Protein 6.3 L Albumin 4.1 TSH 1.38 Urine Color Yellow Urine Appearance Clear Urine pH 7.0 Ur Specific [place] 1.020 Urine Protein Negative Urine Glucose (UA) Negative Urine Ketones Negative Urine Blood Negative Urine Nitrite Negative Ur Leukocyte Esterase Negative Urine Opiates Screen Not Detected Ur Buprenorphine Scrn Not Detected Ur Oxycodone Screen Not Detected Urine Methadone Screen Not Detected Urine Fentanyl Screen Not Detected Ur Barbiturates Screen Not Detected Ur Phencyclidine Scrn Not Detected Ur Amphetamines Screen Not Detected U Benzodiazepines Scrn Not Detected Urine Cocaine Screen Not Detected U Marijuana (THC) Screen POSITIVE H Ethyl Alcohol < 10 Influenza Type A (PCR) NEGATIVE Influenza Type B (PCR) NEGATIVE RSV RNA Qual (PCR) NEGATIVE SARS-CoV-2 RNA (RT-PCR) NEGATIVE ECG Attestation: I personally reviewed and interpreted this ECG as follows: (Normal sinus rhythm QTC 448) Prior ECG tracings: available for review Imaging Radiologist's Impressions: L foot xray IMPRESSION: 1. Abnormal soft tissues including superficial and distal to remaining 1st metatarsal with concern for ulceration. 2. Abnormalities of the 2nd and 3rd metatarsophalangeal joints are nonspecific. Differential considerations include findings of septic arthropathy, by radiographs. HEAD CT IMPRESSION: No acute intracranial abnormality by CT. Cervical spine IMPRESSION: No acute fracture of the cervical spine. IMPRESSION: 1. No central pulmonary embolism. 2. Mild bibasilar atelectasis/pneumonitis. 3. Subacute to chronic left 8th rib fracture with remodeling. 4. Nonspecific nodule of the imaged upper abdomen may reflect lymph node, without significant change compared to TA Assessment and Plan (1) Syncope: Qualifiers: Syncope type: unspecified Qualified Code(s): R55 - Syncope and collapse Status: Acute Plan Patient is a 54-year-old male with past medical history [id number] diabetes type 2, sciatica, left big toe amputation, depression, bladder dysfunction, peripheral neuropathy, PAD, hyperlipidemia, syncope, cellulitis is being admitted for witnessed syncopal episode, left foot ulceration. Syncope with persistent hypotension -orthostatics initially normal -consider neuro consultation based on pt's pre syncopal symptoms as described in HPI, CT head and CT cervial spine neg for acute findings -recent hospitalizations for same situation, no echo or carotid Dopplers completed. We will order echo and carotid Dopplers. -continue orthostatics Q shift x3 -checking random cortisol in AM, consider hydrocortisone if indicated -IV fluids continue -hold antihypertensives and tamsulosin -TEDS -telemetry -cardiology consult if indicated -may be related to suspected infection of left foot, no sepsis identified at this time Left foot ulceration/ possible septic arthropathy via Xray -MRI of left foot pending -incurred after patient lost access to his car due to mechanical problems. Patient has been walking daily which cause the left foot ulceration to open. -patient does not follow with the wound care clinic or Podiatry at this time -podiatry is not available inpatient, pt will likely need outpatient podiatry care -wound care consult ordered -patient is started on vanco and Zosyn, follow BC's -patient also has known history of PAD -infectious disease consult if indicated -ortho/general surgery consultation if indicated -gabapentin, tramadol ordered for pain management. Patient did receive 1 dose of Dilaudid 0.5 mg IV x1 with good effect -patient educated not to walk barefoot (pt states he does normally walk barefoot at home) Ghy-glrsjlo-mczjbinua diabetes type 2 -sliding scale insulin -diabetic diet DVT prophylaxis: Lovenox PPI prophylaxis: Omeprazole Med rec pending, did start patient's night psychiatric meds and gabapentin Full code status Quality Stroke Does the patient have a stroke diagnosis?: No Reason for No Anti-thrombotic by Day Two: N/A - Med Ordered VTE Prior VTE?: No VTE Risk Level:: Medical - moderate - high VTE Device Contraindication: N/A - Device Ordered VTE Drug Contraindication: N/A - Med Ordered
[2025-02-17] VITALS (8 sets, daily range): BP systolic 90–136; BP diastolic 51–73; PULSE 53–65; RESP 15–19; TEMP 36.1–37; O2SAT 96–100
[2025-02-17 00:10] LABS: Lactic Acid 0.6 mmol/L (0.5-2.0)
[2025-02-17] MEDS: lamoTRIgine 25 MG TABLET 75 MG PO (00:10)
[2025-02-17] MEDS: HYDROmorphone HCl 1 MG/ML SYRINGE 0.5 MG SUBCUT (00:11)
[2025-02-17] MEDS: traZODone HCL 50 MG TABLET PO (00:11)
[2025-02-17] MEDS: Gabapentin 400 MG CAPSULE 800 MG PO ×2 (00:11→09:16)
[2025-02-17] MEDS: FLUoxetine HCl 10 MG CAPSULE 30 MG PO (00:11)
[2025-02-17] MEDS: Enoxaparin Sodium 40 MG/0.4 ML SYRINGE SUBCUT (00:12)
[2025-02-17] MEDS: Acetaminophen 325 MG TABLET 975 MG PO (00:13)
[2025-02-17] MEDS: 0.9 % Sodium Chloride Flush 3 ML SYRINGE IVFLUSH (00:15)
[2025-02-17 00:21] LABS: B Type Natriuretic Peptide 79 pg/mL (<100)
[2025-02-17] MEDS: Piperacillin Sodium/Tazobactam 4.5 GM in 0.9 % Sodium Chloride 100 ML IV ×3 (00:43→13:04)
[2025-02-17] MEDS: 0.9 % Sodium Chloride 1,000 ML 100 ML IVCONT ×2 (01:41→11:04)
[2025-02-17] MEDS: vancomycin/NS 2,000 MG/500 ML PLAST..BAG 250 MG IV (01:41)
[2025-02-17] MEDS: traMADoL HCL 50 MG TABLET 25 MG PO ×2 (01:50→08:27)
[2025-02-17 05:35] LABS: MANUAL DIFF FLAG NO
[2025-02-17 05:36] LABS: Basophils Absolute Auto 0.1 X10*3/uL (0.0-0.2); Basophils Percent Auto 0.8 % (0-2); Eosinophils Absolute Auto 0.2 X10*3/uL (0.0-0.4); Hematocrit 30.9 % (42.0-52.0); Hemoglobin 10.7 g/dl (14.0-18.0); Imm Gran Abs Auto 0.03 X10*3/uL (0.00-0.03); Imm Gran Pct Auto 0.4 % (0.0-0.4); Lymphocytes Absolute Auto 2.2 X10*3/uL (1.2-4.9); Lymphocytes Percent Auto 25.9 % (20-40); Mean Corpuscular HGB Conc 34.6 g/dl (31.0-36.0); Mean Corpuscular Hemoglobin 32.5 pg (27.0-33.0); Mean Corpuscular Volume 93.9 fL (80.0-98.0); Monocytes Absolute Auto 1.1 X10*3/uL (0.1-1.2); Neutrophils Absolute Auto 4.8 x10*3/uL (2.0-8.3); Neutrophils Percent Auto 57.9 % (45-73); Platelet Count 172 X10*3/uL (160-400); Red Blood Count 3.29 X10*6/uL (4.60-5.80); Red Cell Distribution Width 13.1 % (11.0-16.0); White Blood Count 8.3 X10*3/uL (4.8-10.8)
[2025-02-17 05:58] LABS: Alanine Aminotransferase 13 U/L (0-40); Albumin Level 3.3 g/dL (3.5-5.0); Anion Gap 9 (12-20); Aspartate Amino Transferase 15 U/L (5-37); Bilirubin Total 0.5 mg/dL (0.0-1.0); Blood Urea Nitrogen 13 mg/dL (9-16); Calcium 8.1 mg/dL (8.4-10.2); Carbon Dioxide 23 mmol/L (22-29); Chloride 110 mmol/L (96-108); Creatinine Clr Calc Pharmacy 117.2; Estimated Glomerular Filt Rate > 60; Glucose Random 128 mg/dL (60-115); Potassium 3.5 mmol/L (3.3-5.1); Sodium 138 mmol/L (135-145); Total Protein 5.2 g/dL (6.5-8.0)
[2025-02-17 06:05] LABS: Alkaline Phosphatase 50 U/L (39-117)
[2025-02-17 06:09] LABS: Erythrocyte Sedimentation Rate 13 MM/HR (0-15)
[2025-02-17 06:10] LABS: Cortisol Random 7.2 ug/dL
[2025-02-17] MEDS: Omeprazole 20 MG CAPSULE.DR PO (06:37)
--- NOTE | 2025-02-17 06:43 | PHA.PROG ---
Admission Date/Time: February 16, 2025 22:35 Indication: bone + joint Weight in k.2 kg Adjusted body weight in Kg: [place] body weight in Kg: Obesity Dosing Indication % IBW: BMI 29.4 Serum Creatinine - Last 168 Hours 02/16/25 02/17/25 17:46 05:00 Creatinine 1.03 0.76 Estimated CrCl and GFR - Last 168 Hours 02/16/25 02/17/25 17:46 05:00 Estim Creat Clear Calc 86.5 117.2 Estimated GFR > 60 > 60 Vancomycin Loading Dose: 2000mg X1 Current Vancomycin Dosing Regimen: 1250mg Q12H Vancomycin Monitoring using AUC goal of 400 - 600 range with trough as surrogate marker: 504 Date and Time for next Vancomycin Level to be drawn: 02/18 @1200 Pharmacist Comments on Vancomycin Plan: Pt's SCr appears stable. Targeting higher trough per indication so starting off a little aggressive. Predicted trough 15.2. To be adjusted as needed per renal function and trough tomorrow. Vancomycin dosing will take advantage of [employer] as a clinical decision support tool that uses Bayesian modeling to calculate individual patient's pharmacokinetic parameters and forecast the patient's drug concentration time course with the target goal AUC 24 range of 400 - 600 mg/L/hr.
[2025-02-17 07:31] LABS: Glucose, Whole Blood 162 mg/dL (60-115)
[2025-02-17] MEDS: Insulin Lispro 100 UNIT/ML 3 ML VIAL SUBCUT (08:22)
--- NOTE | 2025-02-17 08:30 | P.PNIM_ITS ---
Subjective Subjective Date of Service: 02/17/25 Interval History: not dizzy, left foot plantar drainage and pain Physical Exam 2 Vital Signs: Vital Signs: Last Vital Signs Temp 97.7 F 02/17/25 06:41 Pulse 65 02/17/25 06:41 Resp 18 02/17/25 06:41 BP 96/57 L 02/17/25 06:41 Pulse Ox 97 02/17/25 06:41 O2 Del Method Room Air 02/17/25 06:41 BMI result Body Mass Index 29.4 General: AO X 3, no acute distress Resp: CTA bilateral, no accessory muscles used CVS: S1,S2,RRR GI: soft, non tender, non distended Neuro: motor grossly intact, alert Psych: appropriate affect, appropriate insight left foot plantar ulcer Objective Data Active Medications Acetaminophen (Acetaminophen 325 Mg Tablet) 650 mg PO Q6H PRN PRN Reason: Pain, Mild 1-3,fever,headache Acetaminophen (Acetaminophen 325 Mg Tablet) 975 mg PO Q8H [facility] Last Admin: 02/17/25 00:13 Dose: 975 mg Documented By: NICOLE Albuterol/Ipratropium (Albuterol/Iprat 2.5/0.5mg 3 Ml Ampul.Neb) 3 ml INHALE Q4H PRN PRN Reason: Shortness of Breath/Wheezing Calcium Carbonate (Calcium Carbonate 750 Mg Tab.Chew) 750 mg PO Q4H PRN PRN Reason: Heartburn Dextrose (Dextrose 50 % 25 Gm/50 Ml Syringe) 25 gm IVPUSH Q15M PRN; Protocol PRN Reason: per Hypoglycemia Standing Ord. Enoxaparin Sodium (Enoxaparin Sodium 40 Mg/0.4 Ml Syringe) 40 mg SUBCUT Q24H [facility] Last Admin: 02/17/25 00:12 Dose: 40 mg Documented By: NICOLE Glucose (Glucose Gel 15 Gm Gel..Gram.) 15 gm PO Q15M PRN; Protocol PRN Reason: per Hypoglycemia Standing Ord. Piperacillin Sod/Tazobactam (Sod 4.5 gm/ Sodium Chloride) 100 mls @ 200 mls/hr IV Q6H [facility] Last Infusion: 02/17/25 01:14 Dose: Infused Documented By: YECENIA Sodium Chloride (Ns) 1,000 mls @ 100 mls/hr IVCONT .Q10H [facility] Last Admin: 02/17/25 01:41 Dose: 100 mls/hr Documented By: YECENIA Vancomycin HCl 1,250 mg/ (Sodium Chloride) 250 mls @ 166.667 mls/hr IV Q12H [facility] Insulin Human Lispro (Insulin Lispro 100 Unit/Ml 3 Ml Vial) 0 unit SUBCUT QIDACHS [facility]; Protocol Lamotrigine (Lamotrigine 25 Mg Tablet) 75 mg PO BEDTIME [facility] Last Admin: 02/17/25 00:10 Dose: 75 mg Documented By: NICOLE Magnesium Hydroxide (Milk Of Magnesia 30 Ml Oral.Susp) 30 ml PO DAILY PRN PRN Reason: Constipation Melatonin (Melatonin 3 Mg Tablet) 6 mg PO BEDTIME PRN PRN Reason: Insomnia Omeprazole (Omeprazole 20 Mg Capsule.Dr) 20 mg PO DAILY@0630 [facility] Last Admin: 02/17/25 06:37 Dose: 20 mg Documented By: YECENIA Ondansetron HCl (Ondansetron Hcl 4 Mg/2 Ml Vial) 4 mg IVPUSH Q8H PRN PRN Reason: Nausea and Vomiting Pharmacy Consult (Consult Rx Vancomycin Dosing) 1 each MISCELLANE DAILY PRN PRN Reason: Consult order Sodium Chloride (0.9 % Sodium Chloride Flush 3 Ml Syringe) [facility] Last Admin: 02/17/25 00:15 Dose: 3 ml Documented By: NICOLE Tramadol HCl (Tramadol Hcl 50 Mg Tablet) 25 mg PO Q6H PRN PRN Reason: Pain, Moderate(Pain Scale 4-6) Last Admin: 02/17/25 01:50 Dose: 25 mg Documented By: YECENIA Trazodone HCl (Trazodone Hcl 50 Mg Tablet) 50 mg PO BEDTIME [facility] Last Admin: 02/17/25 00:11 Dose: 50 mg Documented By: NICOLE Labs 02/17/25 05:00 02/17/25 05:00 Labs: Laboratory Results - last 24 hr 02/16/25 02/16/25 02/16/25 17:46 17:47 21:29 MCV 93.7 MCH 32.2 MCHC 34.4 RDW 13.1 Plt Count 199 D MPV 9.1 L Immature Gran % (Auto) 0.5 H Neut % (Auto) 75.2 H Lymph % (Auto) 13.2 L [place] % (Auto) 9.1 Eos % (Auto) 1.3 Baso % (Auto) 0.7 Lymph # (Auto) 1.5 [place] # (Auto) 1.0 Eos # (Auto) 0.1 Baso # (Auto) 0.1 Abs Immat Gran (auto) 0.05 H Absolute Neuts (auto) 8.2 Absolute Nucleated RBC 0.000 Nucleated RBC % (auto) 0.0 ESR Hold Purple Top PT 10.7 L INR 0.9 Anion Gap 12 Estim Creat Clear Calc 86.5 Estimated GFR > 60 POC Glucose Random Glucose 80 Lactic Acid 1.0 Calcium 8.3 L D Magnesium 1.8 Total Bilirubin 0.4 Direct Bilirubin 0.1 AST 17 ALT 19 Alkaline Phosphatase 57 B-Natriuretic Peptide Total Protein 6.3 L Albumin 4.1 TSH 1.38 Random Cortisol Urine Color Yellow Urine Appearance Clear Urine pH 7.0 Ur Specific [place] 1.020 Urine Protein Negative Urine Glucose (UA) Negative Urine Ketones Negative Urine Blood Negative Urine Nitrite Negative Ur Leukocyte Esterase Negative Urine Opiates Screen Not Detected Ur Buprenorphine Scrn Not Detected Ur Oxycodone Screen Not Detected Urine Methadone Screen Not Detected Urine Fentanyl Screen Not Detected Ur Barbiturates Screen Not Detected Ur Phencyclidine Scrn Not Detected Ur Amphetamines Screen Not Detected U Benzodiazepines Scrn Not Detected Urine Cocaine Screen Not Detected U Marijuana (THC) Screen POSITIVE H Ethyl Alcohol < 10 Influenza Type A (PCR) NEGATIVE Influenza Type B (PCR) NEGATIVE RSV RNA Qual (PCR) NEGATIVE SARS-CoV-2 RNA (RT-PCR) NEGATIVE 02/16/25 02/16/25 02/17/25 23:43 23:47 05:00 MCV 93.9 MCH 32.5 MCHC 34.6 RDW 13.1 Plt Count 172 MPV 9.0 L Immature Gran % (Auto) 0.4 Neut % (Auto) 57.9 Lymph % (Auto) 25.9 [place] % (Auto) 13.0 H Eos % (Auto) 2.0 Baso % (Auto) 0.8 Lymph # (Auto) 2.2 [place] # (Auto) 1.1 Eos # (Auto) 0.2 Baso # (Auto) 0.1 Abs Immat Gran (auto) 0.03 Absolute Neuts (auto) 4.8 Absolute Nucleated RBC 0.000 Nucleated RBC % (auto) 0.0 ESR 13 Hold Purple Top SEE NOTE PT INR Anion Gap 9 L Estim Creat Clear Calc 117.2 Estimated GFR > 60 POC Glucose Random Glucose 128 H Lactic Acid 0.6 Calcium 8.1 L Magnesium Total Bilirubin 0.5 Direct Bilirubin AST 15 ALT 13 Alkaline Phosphatase 50 B-Natriuretic Peptide 79 Total Protein 5.2 L Albumin 3.3 L TSH Random Cortisol 7.2 Urine Color Urine Appearance Urine pH Ur Specific [place] Urine Protein Urine Glucose (UA) Urine Ketones Urine Blood Urine Nitrite Ur Leukocyte Esterase Urine Opiates Screen Ur Buprenorphine Scrn Ur Oxycodone Screen Urine Methadone Screen Urine Fentanyl Screen Ur Barbiturates Screen Ur Phencyclidine Scrn Ur Amphetamines Screen U Benzodiazepines Scrn Urine Cocaine Screen U Marijuana (THC) Screen Ethyl Alcohol Influenza Type A (PCR) Influenza Type B (PCR) RSV RNA Qual (PCR) SARS-CoV-2 RNA (RT-PCR) 02/17/25 07:28 MCV MCH MCHC RDW Plt Count MPV Immature Gran % (Auto) Neut % (Auto) Lymph % (Auto) [place] % (Auto) Eos % (Auto) Baso % (Auto) Lymph # (Auto) [place] # (Auto) Eos # (Auto) Baso # (Auto) Abs Immat Gran (auto) Absolute Neuts (auto) Absolute Nucleated RBC Nucleated RBC % (auto) ESR Hold Purple Top PT INR Anion Gap Estim Creat Clear Calc Estimated GFR POC Glucose 162 H Random Glucose Lactic Acid Calcium Magnesium Total Bilirubin Direct Bilirubin AST ALT Alkaline Phosphatase B-Natriuretic Peptide Total Protein Albumin TSH Random Cortisol Urine Color Urine Appearance Urine pH Ur Specific [place] Urine Protein Urine Glucose (UA) Urine Ketones Urine Blood Urine Nitrite Ur Leukocyte Esterase Urine Opiates Screen Ur Buprenorphine Scrn Ur Oxycodone Screen Urine Methadone Screen Urine Fentanyl Screen Ur Barbiturates Screen Ur Phencyclidine Scrn Ur Amphetamines Screen U Benzodiazepines Scrn Urine Cocaine Screen U Marijuana (THC) Screen Ethyl Alcohol Influenza Type A (PCR) Influenza Type B (PCR) RSV RNA Qual (PCR) SARS-CoV-2 RNA (RT-PCR) Assessment and Plan (1) Ulcer of left foot due to type 2 diabetes mellitus: Status: Acute Plan 54M PMH DM, left 1st toe amp, sciatica, mood disorder, pvd, BPH presented with syncope and draining LLE DFU Syncope Likely due to orthostatic hypotension Improved with IV fluids Continue to hold lisinopril and hydrochlorothiazide Left foot ulcer due to diabetes and peripheral vascular disease Low ESR, but painful and actively draining Continue vancomycin and Zosyn Follow up vascular and Infectious Disease Diabetes with neuropathy Insulin sliding scale Gabapentin BPH Flomax Mood disorder Fluoxetine DVT prophylaxis with Lovenox Full Code reason for continued hospitalization: Given diabetic foot ulcer with risk for progression to sepsis expected require at least 2 midnights inpatient for IV antibiotics and cultures Quality Stroke Does the patient have a stroke diagnosis?: No Reason for No Anti-thrombotic by Day Two: N/A - Med Ordered VTE Prior VTE?: No VTE Risk Level:: Medical - moderate - high VTE Device Contraindication: N/A - Device Ordered VTE Drug Contraindication: N/A - Med Ordered
--- NOTE | 2025-02-17 08:56 | PHA.MEDREC ---
Pharmacy Consult ? Medication Reconciliation Pharmacy has completed the medication reconciliation, spoke with patient to confirm list.
[2025-02-17 09:07] LABS: Glucose, Whole Blood 69 mg/dL (60-115)
[2025-02-17] MEDS: Tamsulosin HCL 0.4 MG CAPSULE 0.8 MG PO (09:11)
[2025-02-17] MEDS: Atorvastatin Calcium 40 MG TABLET PO (09:13)
[2025-02-17] MEDS: Multivitamin TABLET 1 TAB PO (09:13)
[2025-02-17] MEDS: lamoTRIgine 25 MG TABLET 150 MG PO (10:11)
[2025-02-17 11:50] LABS: Glucose, Whole Blood 83 mg/dL (60-115)
--- NOTE | 2025-02-17 11:58 | PM.CNGS ---
History of Present Illness Consult details Consult date: 02/17/25 Reason for consult: wound care Narrative: 54-year-old diabetic gentleman well known to me for prior history of left great toe amputation. He presented to the hospital with a nonhealing left plantar ulcer. Reports that it began about 3-4 weeks prior. It would has increased as he has lost his car and has been walking more recently. He developed this plantar ulceration at the base of his 2nd toe. Initially was a dry callus subsequently opened up and now has serous drainage. It became quite painful and a source of concern for him. He now presents for follow-up. Of note his left great toe amputation which is on the same side was performed on 04/09/2023. Review of Systems Review of Systems: Yes all other systems are reviewed and are negative Constitutional: Constitutional: Reports no additional constitutional complaints ENT: Reports Normal hearing present Cardiovascular: Cardiovascular: Denies chest pain, Denies chest pain at rest, Denies chest pain with activity and Denies pedal edema Respiratory: Respiratory: Denies cough Gastrointestinal: Gastrointestinal: Denies abdominal pain Musculoskeletal: Musculoskeletal: Denies abnormal gait, Denies muscle cramps and Denies radiating pain into limb Integumentary/Breasts: Skin/Breast: Denies skin ulcer and Denies wounds Neurologic: Reports Normal hearing present and Denies abnormal gait Psychiatric: Psychiatric: Reports no additional psychiatric complaints PMFSH Past Medical History Medical History Type 2 diabetes mellitus Osteomyelitis Seizure disorder Anxiety and depression Fibromyalgia Depression Glaucoma COPD (chronic obstructive pulmonary disease) Tubular adenoma of colon Hypercholesterolemia Hypertension Type 2 diabetes mellitus with diabetic neuropathy Personal history of nicotine dependence Family History Family History Mother Lung cancer metastatic to brain Surgical History Surgical History H/O colonoscopy History of eye surgery History of cervical discectomy Social History Social History Household Members: None Housing: Apartment Do you presently have visiting nurse or other home services: No Comment: refused bed and chair alarm Patient Tobacco Use Status: Current everyday Tobacco user Tobacco use type: Cigarette Cigarette Packs Per Day: 1 Cigarettes Per Day: 10 Years Smoked: 13 Smoked in Last 30 Days: No e-Cigarette/Vaping Use: Never Used Second Hand Smoke Exposure: No Use of substances other than those prescribed or required for medical reasons: Yes Substance Use Type: Marijuana Substance Use Frequency: Occasionally Advance Directives: No Advance Directives Information Provided: Yes Do you have a plan to hurt others: No Plan Nutrition Risks: No Nutritional Risk service: No Current occupational status: disabled Current occupational exposures/hazards: No Travel History Ebola Risk: Travel/Contact With Anyone From Affected Area/s: No Has Patient Experienced Ebola Symptoms: No Meds Allergies Allergy/AdvReac Type Severity Reaction Status Date / Time shellfish derived Allergy Severe ANAPHYLAXIS Verified 02/16/25 17:10 [SHELLFISH DERIVED] buspirone [From BUSPAR] Allergy Unknown nausea Verified 02/16/25 17:10 bupropion [From WELLBUTRIN] AdvReac Unknown NAUSEA Verified 02/16/25 17:10 daptomycin AdvReac rhabdomyoli Verified 02/16/25 17:10 sis Active Medications: Current Medications Acetaminophen (Acetaminophen 325 Mg Tablet) 650 mg PO Q6H PRN PRN Reason: Pain, Mild 1-3,fever,headache Acetaminophen (Acetaminophen 325 Mg Tablet) 975 mg PO Q8H [facility] [place] Last Admin: 02/17/25 09:03 Dose: Not Given Albuterol/Ipratropium (Albuterol/Iprat 2.5/0.5mg 3 Ml Ampul.Neb) 3 ml INHALE Q4H PRN PRN Reason: Shortness of Breath/Wheezing Atorvastatin Calcium (Atorvastatin Calcium 40 Mg Tablet) 40 mg PO DAILY [facility] Last Admin: 02/17/25 09:13 Dose: 40 mg Calcium Carbonate (Calcium Carbonate 750 Mg Tab.Chew) 750 mg PO Q4H PRN PRN Reason: Heartburn Dextrose (Dextrose 50 % 25 Gm/50 Ml Syringe) 25 gm IVPUSH Q15M PRN; Protocol PRN Reason: per Hypoglycemia Standing Ord. Enoxaparin Sodium (Enoxaparin Sodium 40 Mg/0.4 Ml Syringe) 40 mg SUBCUT Q24H [facility] [place] Last Admin: 02/17/25 00:12 Dose: 40 mg Gabapentin (Gabapentin 400 Mg Capsule) 800 mg PO TID [facility] Last Admin: 02/17/25 09:16 Dose: 800 mg Glucose (Glucose Gel 15 Gm Gel..Gram.) 15 gm PO Q15M PRN; Protocol PRN Reason: per Hypoglycemia Standing Ord. Piperacillin Sod/Tazobactam (Sod 4.5 gm/ Sodium Chloride) 100 mls @ 200 mls/hr IV Q6H [facility] Last Infusion: 02/17/25 09:17 Dose: Infused Sodium Chloride (Ns) 1,000 mls @ 100 mls/hr IVCONT .Q10H [facility] Last Admin: 02/17/25 11:04 Dose: 100 mls/hr Vancomycin HCl 1,250 mg/ (Sodium Chloride) 250 mls @ 166.667 mls/hr IV Q12H [facility] Insulin Human Lispro (Insulin Lispro 100 Unit/Ml 3 Ml Vial) 0 unit SUBCUT QIDACHS [facility] [place]; Protocol Last Admin: 02/17/25 08:22 Dose: 2 unit Lamotrigine (Lamotrigine 25 Mg Tablet) 75 mg PO BEDTIME [facility] [place] Last Admin: 02/17/25 00:10 Dose: 75 mg Lamotrigine (Lamotrigine 25 Mg Tablet) 150 mg PO DAILY [facility] [place] Last Admin: 02/17/25 10:11 Dose: 150 mg Magnesium Hydroxide (Milk Of Magnesia 30 Ml Oral.Susp) 30 ml PO DAILY PRN PRN Reason: Constipation Melatonin (Melatonin 3 Mg Tablet) 6 mg PO BEDTIME PRN PRN Reason: Insomnia Multivitamins/Vitamin C (Multivitamin Tablet) 1 tab PO DAILY [facility] [place] Last Admin: 02/17/25 09:13 Dose: 1 tab Nicotine (Nicotine 21 Mg Patch.Td24) 21 mg TRANSDERMA DAILY [facility] Omeprazole (Omeprazole 20 Mg Capsule.Dr) 20 mg PO DAILY@0630 [facility] Last Admin: 02/17/25 06:37 Dose: 20 mg Ondansetron HCl (Ondansetron Hcl 4 Mg/2 Ml Vial) 4 mg IVPUSH Q8H PRN PRN Reason: Nausea and Vomiting Pharmacy Consult (Consult Rx Vancomycin Dosing) 1 each MISCELLANE DAILY PRN PRN Reason: Consult order Sodium Chloride (0.9 % Sodium Chloride Flush 3 Ml Syringe) 3 ml IVFLUSH QSHIFT [facility] [place] Last Admin: 02/17/25 09:02 Dose: Not Given Tamsulosin HCl (Tamsulosin Hcl 0.4 Mg Capsule) 0.8 mg PO DAILY [facility] Last Admin: 02/17/25 09:11 Dose: 0.8 mg Tramadol HCl (Tramadol Hcl 50 Mg Tablet) 25 mg PO Q6H PRN PRN Reason: Pain, Moderate(Pain Scale 4-6) Last Admin: 02/17/25 08:27 Dose: 25 mg Trazodone HCl (Trazodone Hcl 50 Mg Tablet) 50 mg PO BEDTIME [facility] Home Medications ?Medication ?Instructions ?Recorded ?Confirmed ?Last Taken ?Type lisinopril 20 1 tab PO DAILY 02/16/22 02/17/25 1 Day Ago History mg-hydrochlorothiazide 25 mg tablet ~02/16/25 gabapentin 800 mg tablet 800 mg PO TID 07/28/22 02/17/25 1 Day Ago History ~02/16/25 atorvastatin 40 mg tablet 40 mg PO DAILY 12/25/22 02/17/25 1 Day Ago History ~02/16/25 multivitamin 1 tab PO DAILY 12/25/22 02/17/25 1 Day Ago History ~02/16/25 budesonide 160 mcg-glycopyr 9 2 inh inhalation BID 01/22/23 02/17/25 1 Day Ago History mcg-formot 4.8 mcg/actuation HFA ~02/16/25 inhaler (Breztri Aerosphere) fluoxetine 10 mg capsule 10 mg PO TID 05/05/24 02/17/25 1 Day Ago History ~02/16/25 lamotrigine 150 mg tablet 150 mg PO DAILY 05/05/24 02/17/25 1 Day Ago History ~02/16/25 lamotrigine 150 mg tablet 75 mg PO BEDTIME 02/17/25 02/17/25 02/16/25 History nicotine 21 mg/24 hr daily 1 patch topical DAILY 02/17/25 02/17/25 02/16/25 History transdermal patch trazodone 50 mg tablet 50 mg PO BEDTIME 02/17/25 02/17/25 02/16/25 History Physical Exam Vital Signs: Vital Signs: Last Vital Signs Temp 98.6 F 02/17/25 08:51 Pulse 60 02/17/25 08:58 Resp 19 02/17/25 08:51 BP 99/60 02/17/25 08:58 Pulse Ox 99 02/17/25 08:51 O2 Del Method Room Air 02/17/25 08:51 BMI result Body Mass Index 29.4 Const: General: cooperative, healthy appearing and comfortable Orientation/consciousness: oriented to person, oriented to place and oriented to time HEENT: Head: Yes normal to inspection Neck: Neck: Yes normal visual inspection Carotids: no bruits Chest: Chest palpation & inspection: normal inspection of the chest Resp: Effort & Inspection: normal respiratory effort and able to speak in complete sentences Auscultation: clear to auscultation bilaterally, no crackles, no rales, no rhonchi and no wheezes Cardio: Rate: regular rate Rhythm: regular rhythm Heart sounds: S1 normal heart sound present and S2 normal heart sound present Bruits: no carotid bruits Peripheral pulses: Peripheral pulses 2+ throughout GI: Inspection: Yes normal to inspection Skin: Other: Left great toe amp site healed well Left 2nd toe plantar surface a proximally 1 cm opening. Tracts down to bone. Serous drainage no fluid collection noted. Wounds: no wounds Hair: normal Neuro: General: oriented to person, oriented to place and oriented to time Cranial nerves: Yes CN's II-XII intact bilaterally and Yes Normal hearing present Cognition (Neuro): normal cognition Motor exam (neuro): 5/5 motor strength present throughout Extrem: Other: venous exam: No significant superficial varicosities or spider telangiectasias, minimal edema General: No clubbing, No cyanosis and No edema Psych: Appearance: grossly normal Mental Status: mental status grossly normal Speech and movement: Normal speech and movement present Results Labs 02/17/25 05:00 02/17/25 05:00 Labs: Abnormal lab results 02/16/25 02/16/25 02/17/25 Range/Units 17:46 21:29 05:00 WBC 11.0 H (4.8-10.8) X10*3/uL RBC 3.66 L 3.29 L (4.60-5.80) X10*6/uL Hgb 11.8 L 10.7 L (14.0-18.0) g/dl Hct 34.3 L D 30.9 L (42.0-52.0) % MPV 9.1 L 9.0 L (9.4-12.4) fL Immature Gran % (Auto) 0.5 H (0.0-0.4) % Neut % (Auto) 75.2 H (45-73) % Lymph % (Auto) 13.2 L (20-40) % [place] % (Auto) 13.0 H (2-11) % Abs Immat Gran (auto) 0.05 H (0.00-0.03) X10*3/uL PT 10.7 L (10.9-12.4) SEC Chloride 110 H (96-108) mmol/L Anion Gap 9 L (12-20) BUN 17 H (9-16) mg/dL POC Glucose (60-115) mg/dL Random Glucose 128 H (60-115) mg/dL Calcium 8.3 L D 8.1 L (8.4-10.2) mg/dL Total Protein 6.3 L 5.2 L (6.5-8.0) g/dL Albumin 3.3 L (3.5-5.0) g/dL U Marijuana (THC) Screen POSITIVE H (Not Detect) 02/17/25 Range/Units 07:28 WBC (4.8-10.8) X10*3/uL RBC (4.60-5.80) X10*6/uL Hgb (14.0-18.0) g/dl Hct (42.0-52.0) % MPV (9.4-12.4) fL Immature Gran % (Auto) (0.0-0.4) % Neut % (Auto) (45-73) % Lymph % (Auto) (20-40) % [place] % (Auto) (2-11) % Abs Immat Gran (auto) (0.00-0.03) X10*3/uL PT (10.9-12.4) SEC Chloride (96-108) mmol/L Anion Gap (12-20) BUN (9-16) mg/dL POC Glucose 162 H (60-115) mg/dL Random Glucose (60-115) mg/dL Calcium (8.4-10.2) mg/dL Total Protein (6.5-8.0) g/dL Albumin (3.5-5.0) g/dL U Marijuana (THC) Screen (Not Detect) Short CBC 02/16/25 02/17/25 Range/Units 17:46 05:00 WBC 11.0 H 8.3 (4.8-10.8) X10*3/uL Hgb 11.8 L 10.7 L (14.0-18.0) g/dl Hct 34.3 L D 30.9 L (42.0-52.0) % Plt Count 199 D 172 (160-400) X10*3/uL BMP 02/16/25 02/17/25 17:46 05:00 Sodium 136 138 Potassium 3.7 3.5 Chloride 103 110 H Carbon Dioxide 25 23 BUN 17 H 13 Creatinine 1.03 0.76 Calcium 8.3 L D 8.1 L Liver Function 02/16/25 02/17/25 Range/Units 17:46 05:00 Total Bilirubin 0.4 0.5 (0.0-1.0) mg/dL Direct Bilirubin 0.1 (0.0-0.5) mg/dL AST 17 15 (5-37) U/L ALT 19 13 (0-40) U/L Alkaline Phosphatase 57 50 (39-117) U/L Albumin 4.1 3.3 L (3.5-5.0) g/dL Urine 02/16/25 Range/Units 21:29 Urine Color Yellow Urine Appearance Clear Urine pH 7.0 (5.0-9.0) Ur Specific [place] 1.020 (1.005-1.025) Urine Protein Negative (Neg-Trace) mg/dL Urine Glucose (UA) Negative (Negative) mg/dL All other labs normal. Assessment and Plan (1) PAD (peripheral artery disease): Status: Acute Plan In short patient has nonhealing left foot ulcer. His arterial status appears to be stable but I have taken the liberty of ordering noninvasive arterial testing to rule that out. In addition the concern here is that he does have wound that does track to bone. I do think he has underlying osteomyelitis. Will follow up with MRI and go from there. Thank you for allowing us to assist in his care. If there are any questions or concerns please do not hesitate to contact us. Procedures Date of Service Date of Service: 02/17/25
--- NOTE | 2025-02-17 12:17 | P.DS_ITS ---
DS: Providers Provider Date of Service: 02/17/25 Date of admission: 02/17/25 08:41 Date of discharge: 02/17/25 Primary care physician: Martine Mike MD Consults: 02/16/25 23:44 Consult to Wound Care Routine Reason for consultation: L foot wound 02/17/25 08:28 Consult to Infectious Diseases Routine Consulting Provider: [facility] Reason for consultation: left foot plantar ulcer Consult to Vascular Surgery Routine Consulting Provider: [facility] Reason for consultation: dfu, Left foot, plantar DS: Diagnosis Discharge Diagnosis (1) PAD (peripheral artery disease): Status: Acute DS: Summary Hospital Course Hospital Course: from initial hpi: 54-year-old male with past medical history [id number]-[id number] diabetes type 2, sciatica, left big toe amputation, depression, bladder dysfunction, peripheral neuropathy, PAD, hyperlipidemia, syncope, cellulitis presents to the emergency department after being brought in by events from a local [employer] and shop grocery store where patient had a syncopal episode witnessed while catching out 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 Patient states he believes he was out for 10 seconds. Patient states prior he had walked through the aisles of the grocery store and towards the end, started to feel more confused and it felt like his eyes had exploded and he started experiencing ringing in the ears. 911 was called and patient was transported to the emergency department. In the emergency department, CT of the head and cervical spine were negative for acute findings. CTA negative for pulmonary embolism. Left foot x-ray suggest possible septic arthropathy involving the 2nd and 3rd meta tarsal phalangeal joints. There is an obvious open ulceration on the bottom of the left foot near the base of the tarsals. Patient states for the last 2 weeks patient has been having almost daily episodes where before he was having an episode maybe once a month similar to what happened at the grocery store. Patient denies any new medications. Patient is compliant with his current medications. Patient denies any issues with low blood sugar. Blood sugar was checked at the scene and was within normal limits. EKG on arrival normal sinus rhythm, no ischemic changes. QTC 448. No record of echocardiogram from past visits. Incidentally patient reports that he has not had a car for the last 3 weeks as it is being repaired at the local roll mechanic. Patient has been walking longer distances daily. Patient states he is having severe pain in the left foot secondary to an opened area on the upper dorsum of left foot at the base of the phalanges. Patient states it has been draining. Patient denies any fever, chills or night sweats associated with this finding. Patient does not follow currently with the wound care clinic or podiatry. X-ray completed of the left foot and notes ulceration of 1st metatarsal and abnormalities of the 2nd and 3rd metatarsophalangeal joints nonspecific but differentials include septic arthropathy. MRI ordered and pending. Patient is started on vanco and Zosyn. Blood cultures were collected in the ED. patient has received 1 L of IV fluids. Lactic acid 0.6. CRP and ESR pending. This suspected infection may be contributing to patient's hypotension and syncopal episodes. hospital course: Patient was admitted for syncope. This was likely due to orthostatic hypotension and dehydration. He improved with IV fluids and his lisinopril and hydrochlorothiazide have been held. For left foot ulcer due to diabetes and peripheral vascular disease was treated with vancomycin Zosyn was seen by vascular recommended MRI there is some concern for underlying osteomyelitis. Plan was for ID consult, MRI, echo, continued IV antibiotics, however, patient decided to leave against medical advice. He was able to express understanding of the risks of doing so including . For diabetes with neuropathy was continued with insulin sliding scale and gabapentin. For BPH continued on Flomax. For mood disorder continued on Lamictal Time Attestation Discharge Coordination Time (in mins): 34 Quality: Safe Use of Opioids Does Pt have an Active Cancer Diagnosis on the Problem List?: No Quality: Stroke Does the patient have a stroke diagnosis?: No Physical Exam Vital Signs: Vital Signs: Last Vital Signs Temp 97.0 F 02/17/25 11:59 Pulse 55 02/17/25 11:59 Resp 15 02/17/25 11:59 BP 136/73 02/17/25 11:59 Pulse Ox 100 02/17/25 11:59 O2 Del Method Room Air 02/17/25 11:59 BMI result Body Mass Index 29.4 Const: General: cooperative, healthy appearing and comfortable Orientation/consciousness: oriented to person, oriented to place and oriented to time HEENT: Head: Yes normal to inspection Neck: Neck: Yes normal visual inspection Carotids: no bruits Chest: Chest palpation & inspection: normal inspection of the chest Resp: Effort & Inspection: normal respiratory effort and able to speak in complete sentences Auscultation: clear to auscultation bilaterally, no crackles, no rales, no rhonchi and no wheezes Cardio: Rate: regular rate Rhythm: regular rhythm Heart sounds: S1 normal heart sound present and S2 normal heart sound present Bruits: no carotid bruits Peripheral pulses: Peripheral pulses 2+ throughout GI: Inspection: Yes normal to inspection Skin: Other: Left great toe amp site healed well Left 2nd toe plantar surface a proximally 1 cm opening. Tracts down to bone. Serous drainage no fluid collection noted. Wounds: no wounds Hair: normal Neuro: General: oriented to person, oriented to place and oriented to time Cranial nerves: Yes CN's II-XII intact bilaterally and Yes Normal hearing present Cognition (Neuro): normal cognition Motor exam (neuro): 5/5 motor strength present throughout Extrem: Other: venous exam: No significant superficial varicosities or spider telangiectasias, minimal edema General: No clubbing, No cyanosis and No edema Psych: Appearance: grossly normal Mental Status: mental status grossly normal Speech and movement: Normal speech and movement present DS: Data Data Completed and Pending Completed studies during hospitalization [Text1]: Procedures Detachment at Left 1st Toe, Complete, Open Approach (01/22/23) Labs on day of discharge: Laboratory Results - last 24 hr 02/16/25 02/16/25 02/16/25 17:46 17:47 21:29 WBC 11.0 H RBC 3.66 L Hgb 11.8 L Hct 34.3 L D MCV 93.7 MCH 32.2 MCHC 34.4 RDW 13.1 Plt Count 199 D MPV 9.1 L Immature Gran % (Auto) 0.5 H Neut % (Auto) 75.2 H Lymph % (Auto) 13.2 L [place] % (Auto) 9.1 Eos % (Auto) 1.3 Baso % (Auto) 0.7 Lymph # (Auto) 1.5 [place] # (Auto) 1.0 Eos # (Auto) 0.1 Baso # (Auto) 0.1 Abs Immat Gran (auto) 0.05 H Absolute Neuts (auto) 8.2 Absolute Nucleated RBC 0.000 Nucleated RBC % (auto) 0.0 ESR Hold Purple Top PT 10.7 L INR 0.9 Sodium 136 Potassium 3.7 Chloride 103 Carbon Dioxide 25 Anion Gap 12 BUN 17 H Creatinine 1.03 Estim Creat Clear Calc 86.5 Estimated GFR > 60 POC Glucose Random Glucose 80 Lactic Acid 1.0 Calcium 8.3 L D Magnesium 1.8 Total Bilirubin 0.4 Direct Bilirubin 0.1 AST 17 ALT 19 Alkaline Phosphatase 57 Troponin I High Sens < 2.7 B-Natriuretic Peptide Total Protein 6.3 L Albumin 4.1 TSH 1.38 Random Cortisol Urine Color Yellow Urine Appearance Clear Urine pH 7.0 Ur Specific [place] 1.020 Urine Protein Negative Urine Glucose (UA) Negative Urine Ketones Negative Urine Blood Negative Urine Nitrite Negative Ur Leukocyte Esterase Negative Urine Opiates Screen Not Detected Ur Buprenorphine Scrn Not Detected Ur Oxycodone Screen Not Detected Urine Methadone Screen Not Detected Urine Fentanyl Screen Not Detected Ur Barbiturates Screen Not Detected Ur Phencyclidine Scrn Not Detected Ur Amphetamines Screen Not Detected U Benzodiazepines Scrn Not Detected Urine Cocaine Screen Not Detected U Marijuana (THC) Screen POSITIVE H Ethyl Alcohol < 10 Influenza Type A (PCR) NEGATIVE Influenza Type B (PCR) NEGATIVE RSV RNA Qual (PCR) NEGATIVE SARS-CoV-2 RNA (RT-PCR) NEGATIVE 02/16/25 02/16/25 02/17/25 23:43 23:47 05:00 WBC 8.3 RBC 3.29 L Hgb 10.7 L Hct 30.9 L MCV 93.9 MCH 32.5 MCHC 34.6 RDW 13.1 Plt Count 172 MPV 9.0 L Immature Gran % (Auto) 0.4 Neut % (Auto) 57.9 Lymph % (Auto) 25.9 [place] % (Auto) 13.0 H Eos % (Auto) 2.0 Baso % (Auto) 0.8 Lymph # (Auto) 2.2 [place] # (Auto) 1.1 Eos # (Auto) 0.2 Baso # (Auto) 0.1 Abs Immat Gran (auto) 0.03 Absolute Neuts (auto) 4.8 Absolute Nucleated RBC 0.000 Nucleated RBC % (auto) 0.0 ESR 13 Hold Purple Top SEE NOTE PT INR Sodium 138 Potassium 3.5 Chloride 110 H Carbon Dioxide 23 Anion Gap 9 L BUN 13 Creatinine 0.76 Estim Creat Clear Calc 117.2 Estimated GFR > 60 POC Glucose Random Glucose 128 H Lactic Acid 0.6 Calcium 8.1 L Magnesium Total Bilirubin 0.5 Direct Bilirubin AST 15 ALT 13 Alkaline Phosphatase 50 Troponin I High Sens B-Natriuretic Peptide 79 Total Protein 5.2 L Albumin 3.3 L TSH Random Cortisol 7.2 Urine Color Urine Appearance Urine pH Ur Specific [place] Urine Protein Urine Glucose (UA) Urine Ketones Urine Blood Urine Nitrite Ur Leukocyte Esterase Urine Opiates Screen Ur Buprenorphine Scrn Ur Oxycodone Screen Urine Methadone Screen Urine Fentanyl Screen Ur Barbiturates Screen Ur Phencyclidine Scrn Ur Amphetamines Screen U Benzodiazepines Scrn Urine Cocaine Screen U Marijuana (THC) Screen Ethyl Alcohol Influenza Type A (PCR) Influenza Type B (PCR) RSV RNA Qual (PCR) SARS-CoV-2 RNA (RT-PCR) 02/17/25 02/17/25 02/17/25 07:28 09:02 11:46 WBC RBC Hgb Hct MCV MCH MCHC RDW Plt Count MPV Immature Gran % (Auto) Neut % (Auto) Lymph % (Auto) [place] % (Auto) Eos % (Auto) Baso % (Auto) Lymph # (Auto) [place] # (Auto) Eos # (Auto) Baso # (Auto) Abs Immat Gran (auto) Absolute Neuts (auto) Absolute Nucleated RBC Nucleated RBC % (auto) ESR Hold Purple Top PT INR Sodium Potassium Chloride Carbon Dioxide Anion Gap BUN Creatinine Estim Creat Clear Calc Estimated GFR POC Glucose 162 H 69 83 Random Glucose Lactic Acid Calcium Magnesium Total Bilirubin Direct Bilirubin AST ALT Alkaline Phosphatase Troponin I High Sens B-Natriuretic Peptide Total Protein Albumin TSH Random Cortisol Urine Color Urine Appearance Urine pH Ur Specific [place] Urine Protein Urine Glucose (UA) Urine Ketones Urine Blood Urine Nitrite Ur Leukocyte Esterase Urine Opiates Screen Ur Buprenorphine Scrn Ur Oxycodone Screen Urine Methadone Screen Urine Fentanyl Screen Ur Barbiturates Screen Ur Phencyclidine Scrn Ur Amphetamines Screen U Benzodiazepines Scrn Urine Cocaine Screen U Marijuana (THC) Screen Ethyl Alcohol Influenza Type A (PCR) Influenza Type B (PCR) RSV RNA Qual (PCR) SARS-CoV-2 RNA (RT-PCR) Discharge Plan Discharge Anticipated Discharge Date/Time: 02/17/25 12:16 Patient Disposition: Left Against Medical Advice Discharge Diagnosis: syncope, possible om Referrals: Martine Mike MD [Primary Care Provider] - 1 Week Discharge Medications: No Action tamsulosin [Flomax] 0.4 mg capsule 0.8 mg PO DAILY 90 Days Qty: 180 1RF Rx Instructions: This is an increase in dosage lisinopril-hydrochlorothiazide 20-25 mg tablet 1 tab PO DAILY gabapentin 800 mg Tablet 800 mg PO TID atorvastatin 40 mg tablet 40 mg PO DAILY multivitamin Tablet 1 tab PO DAILY Breztri Aerosphere 160-9-4.8 mcg/actuation HFA aerosol inhaler 2 inh inhalation BID lamotrigine 150 mg tablet 75 mg PO BEDTIME nicotine 21 mg/24 hr patch 24 hour 1 patch topical DAILY trazodone 50 mg tablet 50 mg PO BEDTIME lamotrigine 150 mg tablet 150 mg PO DAILY fluoxetine 10 mg capsule 10 mg PO TID Discharge Orders: Discharge Order (Routine); Ordered 02/17/25 Ordered By: Vicente Self Print Language: Citizen Of [place] Care Plan Goals: recovery Health Concerns: possible OM, syncope Plan of Treatment: stop bp meds for now, cannot properly treat/work up infection Assessment: see above
--- NOTE | 2025-02-17 12:41 | MHC.CM.PN ---
Addendum entered by Melisa Elizalde 02/17/25 12:50: CORRECTION!!! Patient is leaving AMA/Not home self care. Original Note: CM met with Patient at bedside, in the ED, and addressed IMM with him, providing Patient with the original and a copy will be placed on the chart. Patient lives alone in an apartment and is functionally independent. Patient has been medically cleared for dc to home today, self care. PCP is Dr. Mike and Father/Clinton is HCP. Shuttle will transport Patient home a 2 PM; RN is aware.
--- NOTE | 2025-02-17 13:12 | PC.NURSE ---
pt leaving ama and signed form, pt alert, risks reviewed with pt, pt will f/u with pcp and wound care per pt, nad, no complaints, skin wpd
[2025-02-18 04:56] LABS: CRP High Sensitivity 9.1 mg/L
== END 2025-02-17 14:55 | disposition left against medical advice (07) | DRG 312 ==
LOC: HO.ED 17:58 → HO.EDOVER 22:40
PROVIDERS: Nurse Practitioner Family; Admitting Provider Internal Medicine; Emergency Provider Emergency Medicine; PCP Internal Medicine; Visit Provider Internal Medicine
DX: I95.1 Orthostatic hypotension (principal); L97.429 Non-pressure chronic ulcer of left heel and midfoot with unspecified severity; M86.9 Osteomyelitis, unspecified; E11.621 Type 2 diabetes mellitus with foot ulcer; E11.69 Type 2 diabetes mellitus with other specified complication; M79.7 Fibromyalgia; E86.0 Dehydration; F17.210 Nicotine dependence, cigarettes, uncomplicated; Z71.6 Tobacco abuse counseling; E11.42 Type 2 diabetes mellitus with diabetic polyneuropathy; E11.51 Type 2 diabetes mellitus with diabetic peripheral angiopathy without gangrene; Z20.822 Contact with and (suspected) exposure to COVID-19; Z59.82 Transportation insecurity; Z79.899 Other long term (current) drug therapy
CPT/HCPCS: 0241U; 36415; 70450; 71275; 72125; 73620; 80048; 80053; 80076; 80307; 81003; 82533; 82947; 83605; 83735; 83880; 84443; 84484; 85025; 85610; 85652; 86141; 87040; 93005; 93880; 99222; 99285; J1171; J1650; J2543; J3370; Q9967

== ENCOUNTER → 2025-02-16 17:10 | Outpatient (BNV) | payer MEDICARE, MEDICAID, SELFPAY | PROVIDERS: Admitting Provider Internal Medicine; Emergency Provider Emergency Medicine; PCP Internal Medicine; Visit Provider Internal Medicine Cardiovascular Disease | DX: R55 Syncope and collapse (principal) | CPT/HCPCS: 93010 ==

== ENCOUNTER → 2025-02-16 17:23 | Outpatient (BNV) | payer MEDICARE, MEDICAID, SELFPAY | PROVIDERS: Emergency Provider Emergency Medicine; PCP Internal Medicine; Visit Provider Radiology Neuroradiology | DX: E11.621 Type 2 diabetes mellitus with foot ulcer (principal); R55 Syncope and collapse | CPT/HCPCS: 70450; 71275; 72125; 73620 ==

== ENCOUNTER → 2025-02-16 22:35 | Outpatient (BNV) | payer MEDICARE, MEDICAID, SELFPAY | PROVIDERS: Admitting Provider Internal Medicine; Emergency Provider Emergency Medicine; PCP Internal Medicine; Visit Provider Nurse Practitioner Family | DX: E11.621 Type 2 diabetes mellitus with foot ulcer (principal); L97.529 Non-pressure chronic ulcer of other part of left foot with unspecified severity; I73.9 Peripheral vascular disease, unspecified; R55 Syncope and collapse | CPT/HCPCS: 99223; 99239 ==

== ENCOUNTER 2025-02-17 08:41 | Outpatient (BNV) | payer MEDICARE, MEDICAID, SELFPAY | END 2025-02-17 09:50 | PROVIDERS: Admitting Provider Internal Medicine; Emergency Provider Emergency Medicine; PCP Internal Medicine; Visit Provider Radiology Diagnostic Radiology | DX: R55 Syncope and collapse (principal) | CPT/HCPCS: 93880 ==

== ENCOUNTER → 2025-02-17 08:41 | Outpatient (BNV) | payer MEDICARE, MEDICAID, SELFPAY | PROVIDERS: Admitting Provider Internal Medicine; Emergency Provider Emergency Medicine; PCP Internal Medicine; Visit Provider Surgery Vascular Surgery | DX: I73.9 Peripheral vascular disease, unspecified (principal) | CPT/HCPCS: 99222 ==

== ENCOUNTER 2025-04-15 09:37 | Outpatient (REF) | payer MEDICARE, SELFPAY ==
--- OUTSIDE RECORDS SUMMARY | 2025-04-15 10:08 | XMS_ITS | Clinical Summary ---
Author Organization [facility] Address [address] [place] [address] Phone Care Team Providers Care Mobile Sales Assistant Name Role Phone Wilbur Tadeo MD Primary Care Provider Allergies Active Allergy Reactions Criticality Noted Date Comments Buspirone GI Upset Medium 01/19/2024 Daptomycin Hyponatremia Medium 01/19/2024 Fish Derived Anaphylaxis High 06/21/2018 Medications atorvastatin (LIPITOR) 10 MG tablet Take 40 mg by mouth nightly at bedtime. Active lisinopril (PRINIVIL,ZESTR IL) 5 MG tablet Take 5 mg by mouth daily. Active metFORMIN (GLUCOPHAGE) 500 MG tablet Take 500 mg by mouth 2 (two) times a day with meals. Active gabapentin (NEURONTIN) 300 MG capsule Take 400 mg by mouth 3 (three) times a day. Active pregabalin (LYRICA) 150 MG capsule Take 150 mg by mouth 2 (two) times a day. Active lisinopril-hydr oCHLOROthiazide (PRINZIDE,ZESTO RETIC) 10-12.5 mg per tablet Take 2 tablets by mouth daily. Active nicotine (NICODERM CQ) 21 mg/[address] 1 patch onto the skin daily. 12/09/2023 Active BREZTRI AEROSPHERE 160-9-4.8 mcg/actuation inhaler Inhale 2 puffs into the lungs 2 (two) times a day. 01/15/2024 Active buPROPion (WELLBUTRIN SR) 150 MG SR 12 hr tablet Take 150 mg by mouth 2 (two) times a day. Active Active Problems Problem Noted Date Diagnosed Date Suicidal ideation 01/19/2024 Social History Tobacco Use Types Packs/Day Years Used Date Smoking Tobacco: Every Day Smokeless Tobacco: Never Tobacco Cessation:Ready to Q uit: Not Asked; Counseling Given: Not Answered Alcohol Use Standard Drinks/Week Comments Yes 0 (1 standard drink = 0.6 oz pur e alcohol) 1 liter of vodka per day Education Answer Date Recorded Are you interested in more education? Not on stephen e 01/19/2023 Are you concerned about learning? Not on file 01/19/2023 No 01/19/2023 No 01/19/2023 Digital Access Answer Date Recorded No 02/17/2023 No 02/17/2023 Reliable internet access at home? Not on file 02/17/2023 Device with a working camera? Not on file Intimate Partner Violence Answer Date R ecorded Are you denied basic needs s uch as food, clothing, or medical care? No 01/19/2024 In the past 12 months have y ou been in a relationship with a person who hurts, threatens, or tries to control you? No 01/19/2024 Are you denied basic needs s uch as food, clothing, or medical care? No 01/19/2024 In the past 12 months have y ou been in a relationship with a person who hurts, threatens, or tries to control you? No 01/19/2024 Sex and Gender Information Value Date Recorded Sex Assigned at Male 06/21/2018 7:14 PM EDT Legal Sex Male 6:31 PM EDT Gender Identity Male 06/21/2018 7:14 PM EDT Sexual Orientation Not on file Last Filed Vital Signs Vital Sign Reading Time Taken Comments Blood Pressure 124/83 01/21/2024 7:44 AM EDT Pulse 89 01/21/2024 7:44 AM EDT Temperature 36.4 C (97.5 F) 01/21/2024 7:44 AM EDT Respiratory Rate 18 01/21/2024 7:44 AM EDT Oxygen Saturation 95% 01/21/2024 7:44 AM EDT Inhaled Oxygen Concentration - - Weight 79.3 kg (174 lb 13.2 oz) 01/20/2024 8:17 PM EDT Height 172.7 cm (5' 7.99 ) 01/20/2024 8:17 PM ED T Body Mass Index 26.59 01/20/2024 8:17 PM EDT Plan of Treatment Health Maintenance Due Date Last Done Comments Adult Td,Tdap Booster 1970 LIPID PANEL 1971 DEPRESSION SCREENING 1983 SMOKING Hx and SMOKELESS TOBACCO SCREENING 1984 HEPATITIS C SCREENING 1989 HIV ONE-TIME SCREENING (18-6 5 YEARS) 1989 COLOGUARD 2016 COLONOSCOPY 2016 COLORECTAL CANCER SCREENING 2016 FIT TEST 2016 FOBT 2016 SIGMOIDOSCOPY 2016 VIRTUAL COLONOSCOPY 2016 PNEUMOCOCCAL VACCINES (50+ years) (2 of 2 - PCV) 08/27/2019 08/27/2018 ZOSTER VACCINES (1 of 2) 2021 COVID-19 VACCINE (3 - 2023-2 5 season) 2024 03/09/2021, 03/04/2021 CREATININE LEVEL 01/18/2025 01/19/2024, 06/21/2018 POTASSIUM LEVEL 01/18/2025 01/19/2024, 06/21/2018 SCREENING FOR DIABETES 01/18/2027 01/19/2024 HEPATITIS A VACCINES Aged Out No long er eligible based on patient's age to complete this topic HIB VACCINES Aged Out No longer eligi ble based on patient's age to complete this topic MENINGOCOCCAL VACCINES (ACWY) Aged Out No longer eligible based on patient's age to complete this topic MENINGOCOCCAL VACCINES (B) Aged Out N o longer eligible based on patient's age to complete this topic Medical Devices Not on file Procedures Procedure Name Priority Date/Time Associated Diagnosis Comments BASIC METABOLIC PANEL STAT 01/19/2024 4:10 PM EDT from Last 3 Months or Most Recently Relevant to Health Maintenance Results * (ABNORMAL) Basic metabolic panel (01/19/2024 4:10 PM EDT) SODIUM 131(L) 133 - 146 mmol/L [facility] CHLORIDE 90(L) 96 - 108 mmol/L [facility] POTASSIUM 3.5 3.3 - 5.1 mmol/L [facility] CO2 20(L) 21 - 35 mmol/L [facility] BUN 11 6 - 19 mg/dL [facility] CREATININE 0.90 0.5 - 1.5 mg/dL [facility] GLUCOSE 115(H) 70 - 99 mg/dL [facility] CALCIUM 10.0 8.4 - 10.3 mg/dL [facility] EGFR 103 >59 mL/min/1.7 3m2 [facility] Comment:Estimated glomerular filtration rate calculated using the CKD-EPI refit equation. ANION GAP 25(H) 10 - 20 mmol/L [facility] Blood 01/19/2024 4:10 PM EDT 01/19/2024 4:16 PM EDT Bucky Saenz MD LAB BLOOD ORDERABLES Final Result Performing Organization Address City/State/[facility] Co de Phone Number [facility] [address] [place] [address] from Last 3 Months or Most Recently Relevant to Health Maintenance [place] [address] [place] [address] ONE CARE MEDICARE REPLACEMENT MEDICARE PART A & B MEDICARE REPLACEMENT Member Subscriber Plan / Payer (Ef fective 2022-Present) Name:Hardeep Beauchamp Relation to Subscriber:Self Name:Hardeep Beauchamp Payer ID:[id number] (NAIC) Group ID:[id number] Type:Medicare Address: [place] [id number] MEDICARE PART A & B MEDICARE REPLACEMENT Member Subscriber Plan / Payer (Ef fective 2022-Present) Name:Hardeep Beauchamp Relation to Subscriber:Self Name:Hardeep Beauchamp Payer ID:[id number] (NAIC) Group ID:[id number] Type:Medicare Address: [place] [id number] MEDICARE PART A & B MEDICARE REPLACEMENT Member Subscriber Plan / Payer (Ef fective 2022-Present) Name:Hardeep Beauchamp Relation to Subscriber:Self Name:Hardeep Beauchamp Payer ID:[id number] (NAIC) Group ID:[id number] Type:Medicare Address: [place] [id number] MEDICARE PART A & [place] [address] [address] MEDICARE REPLACEMENT MEDICARE PART A & [place] [address] MEDICARE REPLACEMENT MEDICARE PART A & B Care Teams Mobile Sales Assistant Relationship Specialty Start Date End Date Wilbur Tadeo MD [address] [place] [address] [place] [address] PCP - General Internal Medicine 06/21/18 Additional Source Comments The information contained in this document represents components of the legal health record. It is not the complete legal health record.[facility]
--- OUTSIDE RECORDS SUMMARY | 2025-04-15 10:09 | XMS_ITS | Clinical Summary ---
Author Organization [facility] Address [address] [place] [address] Care Team Providers Care Mounter Clarinets Name Role Phone Unavailable Primary Care Provider [...] Vaccine (1 - 2023-2 5 season) 2024 Depression Screening 09/24/2024 Influenza Vaccine (#1) 2025 HIB Vaccines Aged Out No longer eligi [...] age to complete this topic Meningococcal B Vaccine Aged Out No l onger eligible based on patient's age to complete this topic RSV Immunization Patients Un bryan 20 months Aged Out No longer eligible b ased on patient's age to complete this topic Varicella Vaccines Aged Out No longer eligible based on patient's age to complete this topic
--- OUTSIDE RECORDS SUMMARY | 2025-04-15 10:09 | XMS_ITS | Patient Health Record ---
Author Organization [facility] Address [address] [place] [address] Care Team Providers Care Business Project Manager Name Role Phone Martine Mike Primary Care Provider Clinton Morris Unavailable [phone] Allergies Allergen (clinical drug ingredient) Drug/Non Drug [...] Problem Status W/U Status Risk Notes Problem 994971500 Encounter for screening for malignant neoplasm of colon (Z12.11) Active confirmed Problem 408953125625026 Preprocedural examination (Z01.818) Active confirmed Problem 225296931 History of colon polyps (Z86.010) Active confirmed Problem Diverticulosis of colon (574150865) Diverticulosis of colon (K57.30) Active confirmed Encounters Encounter Location Date Provider Diagnosis [facility] [address] [place] [address] 01/28/2025 Clinton Huston [facility] [address] [place] [address] 03/04/2025 Clinton Huston Plan Of Treatment Future Test Test Name Order Date COLONOSCOPY 01/19/2022 Next Appt Details Provider Name:Clinton Huston , 06/23/2025 01:00:00 PM, [address], [address], [place], [address], Insurance Providers Payer Name Payer Address Payer Phone Subscriber Number Group Number Insured Name Patient Relationship to Insured Coverage Start Date Coverage End Date MEDICARE OF [place] [address] [place] [id number] LUIZA RAO Self - patient is the insured MEDICAID OF [facility] [address] [place] [address] [id number] LUIZA RAO Self - patient is the insured Medical (General) History Medical History History ICD Code Diet-controlled DM Hypertension Neuropathy in feet Renal failure in 2019, but resolved Elevated cholesterol Depression and anxiety Colonoscopy in 2015 at [facility] [place]told of polyps that were removed Alcoholism with sobriety since 09/2020 as of the 12/2021 OV Denies ME,CVA,renal disease Asthma Surgical History Surgery Date(Month/Year) C-spine 2016 Toe--bone spur 2018 Eye surgery
--- OUTSIDE RECORDS SUMMARY | 2025-04-15 10:09 | XMS_ITS | Patient Health Record ---
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 Name Role Phone Martine Mike Primary Care Provider Unavailab Jai Cruz Unavailable [phone] Allergies Allergen (clinical drug ingredient) Drug/Non Drug Allergy documented on EMR Reaction Allergy Type Onset Date Status Shellfish (FN) Shellfish-derived Products Unknown Drug Allergy Active Reason For Referral No Information Medications Medication SIG (Take, Route, Frequency, Duration) Notes Start Date End Date Status Gabapentin 400 MG 1 capsule Orally Onc e a day; Duration: 30 day(s) Active amLODIPine Besylate 5 MG 1 tablet Orally Once a day; Duration: 30 day(s) Active Atorvastatin Calcium 40 MG 1 tablet Oral ly Once a day; Duration: 30 day(s) Active Extra Depth Orthopedic Shoes (1 Pair) with Customized Heat Molded Multidensity Innersoles (3 Pair) as directed Dx: NIDDM/Polyneuropathy (E11.42), Hammertoe Foot Deformity (M20.41,M20.42), Preulcerative Skin Lesion(s) (L85.1 01/04/2021 Active metFORMIN HCl 850 MG 1 tablet with a stiven l Orally Once a day; Duration: 30 day(s) Active Lisinopril-hydroCHLOROthia zide 20-25 MG 1 tablet Orally Once a day; Duration: 30 day(s) Active Immunizations Vaccine Route Administration [...] Problem Acquired hammer toe of right foot (1587023153526176 ) Other hammer toe(s) (acquired), right foot (M20.41) Active confirmed Problem Acquired hammer toe of left foot (0526442419858441 ) Other hammer toe(s) (acquired), left foot (M20.42) Active confirmed Problem Polyneuropathy due to type 2 diabetes mellitus (226750101) Type 2 diabetes mellitus with diabetic polyneuropathy (E11.42) Active confirmed Plan Of Treatment Pending Test Test Name Order Date [id number] NAIL, 6 OR MORE 01/04/2021 [id number] SKIN LESIONS, OVER 4 01/05/20 21 Insurance Providers Payer Name Payer Address Payer Phone Subscriber Number Group Number Insured Name Patient Relationship to Insured Coverage Start Date Coverage End Date Medicare National [employer] [address] [facility] [place] [address] [id number] Hardeep Beauchamp Self - patient is the insured Medical (General) History Medical History History ICD Code Anxiety Depression Diabetic High blood pressure Numbness CAD Surgical History Surgery Date(Month/Year) toe surgery neck surgery
[2025-04-15 11:46] LABS: Prostate Specific Antigen 1.21 ng/mL (<0.05-4.0)
== END 2025-04-15 09:38 | disposition home or self-care (01) ==
LOC: HO.10HDL 09:37
PROVIDERS: Visit Provider Nurse Practitioner Family
DX: R39.15 Urgency of urination (principal); Z80.42 Family history of malignant neoplasm of prostate
CPT/HCPCS: 36415; 84153

== ENCOUNTER 2025-04-17 09:00 | Outpatient (RCR) | payer MEDICARE, SELFPAY | END 2025-04-17 16:43 | disposition home or self-care (01) | LOC: HO.WCC 09:00 | PROVIDERS: PCP Internal Medicine; Visit Provider Surgery Surgical Oncology | DX: E11.621 Type 2 diabetes mellitus with foot ulcer (principal); L97.522 Non-pressure chronic ulcer of other part of left foot with fat layer exposed; E11.40 Type 2 diabetes mellitus with diabetic neuropathy, unspecified; I10 Essential (primary) hypertension; F17.200 Nicotine dependence, unspecified, uncomplicated; L84 Corns and callosities; Z79.2 Long term (current) use of antibiotics; Z79.891 Long term (current) use of opiate analgesic; Z79.899 Other long term (current) drug therapy; Z89.412 Acquired absence of left great toe; F12.90 Cannabis use, unspecified, uncomplicated | CPT/HCPCS: 11042; 97597; 99212; 99213 ==

== ENCOUNTER 2025-04-17 22:10 | Inpatient (IN) | payer OTHER, SELFPAY ==
[2025-04-17 22:11] VITALS: BP 155/77; PULSE 92; RESP 16; TEMP 36.6; O2SAT 98; BMI 26.6
--- NOTE | 2025-04-17 22:17 | PC.NURSE ---
Kaylene - patient's sister in law [phone], wanted to leave phone number for contact purposes.
--- NOTE | 2025-04-17 22:21 | ECG_ITS ---
Test Reason : MED CLEAR Blood Pressure : */* mmHG Vent. Rate : 53 BPM Atrial Rate : 53 BPM P-R Int : 164 ms QRS Dur : 90 ms QT Int : 442 ms P-R-T Axes : 45 25 21 degrees QTcB Int : 414 ms Sinus bradycardia Otherwise normal ECG When compared with ECG of 16-Feb-2025 17:15, No significant change was found Referred By: Generic ED Physician Electronically Signed By: Rocky Farias
--- NOTE | 2025-04-17 22:25 | ED.PSYCH ---
HPI - Psych General Chief Complaint: Psychiatric Symptoms Stated Complaint: SI Time Seen by Provider: 04/17/25 22:24 Source: patient Mode of arrival: ambulatory Limitations: no limitations History of Present Illness ED Provider: HPI Narrative: Patient's history of bipolar disorder been feeling increasingly depressed for last few days with suicidal thoughts for no reasons today patient's sudden in the car and tried to connect the hose to his car exhaust for 30 minutes which did not work called his stepsister who called the [id number] patient's does not know why he is feeling like this no prior history of similar times in the past Related Data Home Medications ?Medication ?Instructions ?Recorded ?Confirmed lisinopril 20 1 tab PO DAILY 02/16/22 04/18/25 mg-hydrochlorothiazide 25 mg tablet gabapentin 800 mg tablet 800 mg PO TID 07/28/22 04/18/25 budesonide 160 mcg-glycopyr 9 2 inh inhalation BID 01/22/23 04/18/25 mcg-formot 4.8 mcg/actuation HFA inhaler (Breztri Aerosphere) fluoxetine 10 mg capsule 20 mg PO DAILY 05/05/24 04/19/25 lamotrigine 150 mg tablet 150 mg PO BEDTIME 05/05/24 04/18/25 lamotrigine 150 mg tablet 75 mg PO DAILY 02/17/25 04/18/25 trazodone 50 mg tablet 50 mg PO BEDTIME 02/17/25 04/18/25 Previous Rx's ?Medication ?Instructions ?Recorded tamsulosin 0.4 mg capsule (Flomax) 0.8 mg (2 x 0.4 mg) PO DAILY 90 03/11/25 days #180 caps lurasidone 20 mg tablet 20 mg PO QPM 30 days #30 tabs 04/23/25 nicotine (polacrilex) 4 mg gum 4 mg buccal Q2H PRN nicotine 04/23/25 cravings 30 days #100 ea nicotine 21 mg/24 hr daily 1 patch topical DAILY PRN smoking 04/23/25 transdermal patch cessation 28 days #28 ea Allergies Allergy/AdvReac Type Severity Reaction Status Date / Time shellfish derived (SHELLFISH Allergy Severe ANAPHYLAXIS Verified 04/17/25 22:16 DERIVED) buspirone (From BUSPAR) Allergy Unknown nausea Verified 04/17/25 22:16 bupropion (From WELLBUTRIN) AdvReac Unknown NAUSEA Verified 04/17/25 22:16 daptomycin AdvReac rhabdomyoli Verified 04/17/25 22:16 sis Review of Systems Review of Systems: Yes all other systems are reviewed and are negative [facility] Past Medical History Medical History (Updated 04/23/25 @ 12:18 by Jose Fuller MD) Sciatic nerve pain Alcohol use disorder, severe, in sustained remission MDD (major depressive disorder), recurrent severe, without psychosis Type 2 diabetes mellitus Osteomyelitis Seizure disorder Anxiety and depression Fibromyalgia Depression Glaucoma COPD (chronic obstructive pulmonary disease) Tubular adenoma of colon Hypercholesterolemia Hypertension Type 2 diabetes mellitus with diabetic neuropathy Personal history of nicotine dependence Surgical History H/O colonoscopy History of eye surgery History of cervical discectomy Family History Family History Mother Lung cancer metastatic to brain Social History Social History Household Members: None Housing: Apartment Do you presently have visiting nurse or other home services: No Comment: refused bed and chair alarm Patient Tobacco Use Status: Current everyday Tobacco user Tobacco use type: Cigarette Cigarette Packs Per Day: 0.5 Cigarettes Per Day: 10.0 Years Smoked: 13 Smoked in Last 30 Days: Yes e-Cigarette/Vaping Use: Never Used Patient Given Instructions on How to Stop Smoking: No Second Hand Smoke Exposure: No Use of substances other than those prescribed or required for medical reasons: Yes Substance Use Type: Marijuana Currently Displaying Signs/Symptoms of Drug Intoxication Withdrawal: No Have you been hit, kicked, punched, or otherwise hurt by someone within the past year? If so, by whom?: No Do you feel safe in your current relationship?: No Current Relationship Is there a partner from a previous relationship who is making you feel unsafe now?: No Are you made to feel afraid or neglected: No Spiritual Healthcare Practices: n/a Bahai Healthcare Practices: n/a Cultural Healthcare Practices: n/a Advance Directives: No Advance Directives Information Provided: No Do you have thoughts of harming others: None Do you have a plan to hurt others: No Plan Recently lost weight without trying: No How much weight loss: Not applicable Eating poorly because of decreased appetite: No Nutrition screen score: 0 Nutrition Risks: No Nutritional Risk Poor oral hygiene: No service: Yes Current occupational status: disabled Current occupational exposures/hazards: No Sexual orientation: Straight/Heterosexual Physical Exam Vital Signs: Vital Signs: Last Vital Signs Temp 97.8 F 04/23/25 08:00 Pulse 78 04/23/25 08:00 Resp 18 04/23/25 08:00 BP 118/74 04/23/25 08:00 Pulse Ox 98 04/23/25 08:00 O2 Del Method Room Air 04/23/25 08:00 BMI result Body Mass Index 26.6 Appearance: Alert. Oriented X3. No acute distress. Eyes: PERRLA, No Nystagmus ENT: Pharynx normal. Oral Mucosa moist Neck: Normal inspection. Neck supple. CVS: Normal heart rate and rhythm. Pulses normal. Respiratory: No respiratory distress. Equal air entry bilateral, no wheezing/rales/rhonchi Abdomen: Soft and nontender. Bowel sounds are present, no mass palpable, no CVA tenderness Skin: Skin warm and dry. Normal skin color. Normal skin turgor. Extremities: No lower extremity edema. No calf tenderness psych: Stable mood with no suicidal ideation no hallucination or delusion Neuro: Oriented X 3. No motor deficit. No sensory deficit.No cerebellar signs , cranial nerves II-XII intact Course Course Course Narrative: Time: 08:38 Date: 04/18/25 Provider: Latonya Greenwood, DO Patient in physician observation for psychiatric evaluation.? No acute events reported overnight. No current complaints. VS stable.? Pending CARE team evaluation. Will continue to monitor. Reevaluation(s) Reevaluation #1: Time: 07:35 Date: 04/19/25 Provider: Latonya Greenwood, DO Patient in physician observation for psychiatric evaluation.? No acute events reported overnight. No current complaints. VS stable.? Patient is in bed search status. Will continue to monitor. Reevaluation #2: DR. Seay's progress note 04/20/2025 10:48. VSS, no issue reported by nursing overnight, care team input is appreciated, patient meet criteria for inpatient treatment, patient is under section 12, expected to leave to today. Time: 10:50 Reevaluation #3: observation ended 04/20/25 SHANDA 1300 admitted inpatient Medications Administered Discontinued Medications Generic Name Dose Route Start Last Admin Trade Name Rere PRN Reason Stop Dose Admin Acetaminophen 650 mg 04/20/25 12:32 04/21/25 20:39 Acetaminophen 325 Mg Tablet PO 650 mg Q6H PRN Administration Headache/Pain, Scale 1-10 Fluoxetine HCl 30 mg 04/18/25 09:00 04/19/25 08:14 Fluoxetine Hcl 10 Mg Capsule PO 30 mg DAILY ISAIAH Administration Fluoxetine HCl 20 mg 04/20/25 09:00 04/23/25 08:35 Fluoxetine Hcl 20 Mg Capsule PO 20 mg DAILY ISAIAH Administration Gabapentin 800 mg 04/18/25 09:00 04/23/25 08:35 Gabapentin 400 Mg Capsule PO 800 mg TID ISAIAH Administration Hydrochlorothiazide 25 mg 04/18/25 09:15 04/23/25 08:35 Hydrochlorothiazide 25 Mg Tablet PO 25 mg DAILY ISAIAH Administration Lamotrigine 150 mg 04/18/25 21:00 04/22/25 20:40 Lamotrigine 100 Mg Tablet PO 150 mg BEDTIME ISAIAH Administration Lamotrigine 75 mg 04/18/25 09:00 04/23/25 08:35 Lamotrigine 25 Mg Tablet PO 75 mg DAILY ISAIAH Administration Lisinopril 20 mg 04/18/25 09:15 04/23/25 08:35 Lisinopril 20 Mg Tablet PO 20 mg DAILY ISAIAH Administration Lorazepam 1 mg 04/18/25 05:35 04/18/25 05:39 Lorazepam 1 Mg Tablet PO 04/18/25 05:36 1 mg ONCE ONE Administration Lurasidone HCl 20 mg 04/18/25 17:00 04/22/25 17:11 Lurasidone Hcl 20 Mg Tablet PO 20 mg DAILY@1700 ISAIAH Administration Nicotine 21 mg 04/18/25 09:00 04/20/25 07:47 Nicotine 21 Mg Patch.Td24 TRANSDERMA 21 mg DAILY ISAIAH Administration Nicotine Polacrilex 4 mg 04/20/25 12:32 04/21/25 20:39 Nicotine Polacrilex 2 Mg Gum BUCCAL 4 mg Q2H PRN Administration Nicotine Cravings Pt Own (Budesonide- 2 inhalation 04/18/25 10:00 04/23/25 08:34 Glycopyr-Formoterol INHALE 2 inhalation [Breztri Aerosphere] RBID ISAIAH Administration 160-9-4.8 Mc Olanzapine 10 mg 04/18/25 11:21 04/18/25 11:24 Olanzapine Odt 10 Mg Tab.Rapdis TRANSLINGU 04/18/25 11:22 10 mg ONCE ONE Administration Tamsulosin HCl 0.8 mg 04/18/25 09:00 04/23/25 08:35 Tamsulosin Hcl 0.4 Mg Capsule PO 0.8 mg DAILY ISAIAH Administration Trazodone HCl 50 mg 04/18/25 21:00 04/19/25 19:56 Trazodone Hcl 50 Mg Tablet PO 50 mg BEDTIME ISAIAH Administration Trazodone HCl 50 mg 04/20/25 21:22 04/22/25 20:40 Trazodone Hcl 50 Mg Tablet PO 50 mg BEDTIME MRX1 PRN Administration insomnia Medical Decision Making Lab Data 04/17/25 22:51 04/21/25 07:46 Labs: Lab Results 04/17/25 04/17/25 04/17/25 Range/Units 22:51 22:52 22:53 WBC 12.2 H (4.8-10.8) X10*3/uL RBC 3.56 L (4.60-5.80) X10*6/uL Hgb 11.1 L (14.0-18.0) g/dl Hct 32.3 L (42.0-52.0) % MCV 90.7 (80.0-98.0) fL MCH 31.2 (27.0-33.0) pg MCHC 34.4 (31.0-36.0) g/dl RDW 14.5 (11.0-16.0) % Plt Count 235 D (160-400) X10*3/uL MPV 8.9 L (9.4-12.4) fL Immature Gran % (Auto) 0.2 (0.0-0.4) % Neut % (Auto) 68.9 (45-73) % Lymph % (Auto) 19.2 L (20-40) % [place] % (Auto) 9.5 (2-11) % Eos % (Auto) 1.3 (0-4) % Baso % (Auto) 0.9 (0-2) % Lymph # (Auto) 2.3 (1.2-4.9) X10*3/uL [place] # (Auto) 1.2 (0.1-1.2) X10*3/uL Eos # (Auto) 0.2 (0.0-0.4) X10*3/uL Baso # (Auto) 0.1 (0.0-0.2) X10*3/uL Abs Immat Gran (auto) 0.03 (0.00-0.03) X10*3/uL Absolute Neuts (auto) 8.4 H (2.0-8.3) x10*3/uL Absolute Nucleated RBC 0.000 (0.0-0.012) X10*3/uL Nucleated RBC % (auto) 0.0 (0.0-0.2) /100WBC Sodium 136 (135-145) mmol/L Potassium 3.6 (3.3-5.1) mmol/L Chloride 104 (96-108) mmol/L Carbon Dioxide 24 (22-29) mmol/L Anion Gap 12 (12-20) BUN 16 (9-16) mg/dL Creatinine 0.86 (0.5-1.4) mg/dL Estim Creat Clear Calc 99.3 Estimated GFR > 60 Random Glucose 94 (60-115) mg/dL Calcium 8.9 D (8.4-10.2) mg/dL Urine Color Yellow Urine Appearance Clear Urine pH 7.0 (5.0-9.0) Ur Specific [place] 1.015 (1.005-1.025) Urine Protein Negative (Neg-Trace) mg/dL Urine Glucose (UA) Negative (Negative) mg/dL Urine Ketones Trace (Negative) mg/dL Urine Blood Negative (Negative) Urine Nitrite Negative (Negative) Ur Leukocyte Esterase Small (1+) H (Negative) Urine RBC 0-2 (0-2) /HPF Urine WBC 6-10 H (0-5) /HPF Ur Squamous Epith Cells 0-2 (0-2) /HPF Urine Bacteria None Seen (None Seen) Hyaline Casts 0-2 (0-2) /LPF Salicylates < 5.0 L (15-30) mg/dL Urine Opiates Screen Not Detected (Not Detect) Ur Buprenorphine Scrn Not Detected (Not Detect) ng/mL Ur Oxycodone Screen Not Detected (Not Detect) ng/mL Urine Methadone Screen Not Detected (Not Detect) ng/mL Urine Fentanyl Screen Not Detected (Not Detect) Ur Barbiturates Screen Not Detected (Not Detect) Ur Phencyclidine Scrn Not Detected (Not Detect) Ur Amphetamines Screen Not Detected (Not Detect) U Benzodiazepines Scrn Not Detected (Not Detect) Urine Cocaine Screen Not Detected (Not Detect) U Marijuana (THC) Screen POSITIVE H (Not Detect) Ethyl Alcohol 10 mg/dL Discharge Plan Discharge Clinical Impression: Suicidal intent Patient Disposition: Admitted As Inpatient Interventions: Admission Worksheet (ED) Last Done: 04/20/25 13:00 Discharge Date/Time: 04/20/25 13:33
[2025-04-17 22:59] LABS: MANUAL DIFF FLAG NO
[2025-04-17 23:00] LABS: Appearance Urine Clear; Glucose Urine UA Negative (Negative); PH 7.0 (5.0-9.0); Specific Gravity - Urine 1.015 (1.005-1.025); UMIC TRIGGER UACC YES
[2025-04-17 23:00] LABS: Hematocrit 32.3 % (42.0-52.0); Hemoglobin 11.1 g/dl (14.0-18.0); Imm Gran Abs Auto 0.03 X10*3/uL (0.00-0.03); Imm Gran Pct Auto 0.2 % (0.0-0.4); Lymphocytes Absolute Auto 2.3 X10*3/uL (1.2-4.9); Mean Corpuscular HGB Conc 34.4 g/dl (31.0-36.0); Mean Corpuscular Hemoglobin 31.2 pg (27.0-33.0); Mean Corpuscular Volume 90.7 fL (80.0-98.0); NRBC Abs Auto 0.000 X10*3/uL (0.0-0.012); NRBC Pct Auto 0.0 /100WBC (0.0-0.2); Platelet Count 235 X10*3/uL (160-400); Red Blood Count 3.56 X10*6/uL (4.60-5.80); White Blood Count 12.2 X10*3/uL (4.8-10.8)
[2025-04-17 23:05] LABS: UACC Culture Trigger YES
[2025-04-17 23:10] LABS: Cannabinoid Screen Urine POSITIVE (Not Detect)
[2025-04-17 23:11] LABS: Anion Gap 12 (12-20); Blood Urea Nitrogen 16 mg/dL (9-16); Calcium 8.9 mg/dL (8.4-10.2); Carbon Dioxide 24 mmol/L (22-29); Chloride 104 mmol/L (96-108); Creatinine Clr Calc Pharmacy 99.3; Estimated Glomerular Filt Rate > 60; Potassium 3.6 mmol/L (3.3-5.1); Sodium 136 mmol/L (135-145)
[2025-04-17 23:16] LABS: Salicylate < 5.0 mg/dL (15-30)
--- NOTE | 2025-04-18 05:56 | PC.NURSE ---
pt calm and cooperative, slept well most of the night. Pt woke up around 0500 became increasingly agitated and noted to be pacing in the room. Pt stating he regrets coming here he made a big mistake, wishes he waited until the morning to reach out about his medications. Pt requesting something for anxiety, aware, pt medicated per nov. Pt now calmly resting in bed. plan of care ongoing
[2025-04-18 06:38] VITALS: BP 112/67; PULSE 54; RESP 17; TEMP 36.4; O2SAT 98
--- NOTE | 2025-04-18 07:34 | PC.NURSE ---
Assumed care of patient at 0645, patient appears to be in no apparent distress this am, sleeping, respirations even and unlabored. Continue plan of care for CARE team evaluation
--- NOTE | 2025-04-18 08:54 | PHA.MEDREC ---
Pharmacy Consult ? Medication Reconciliation Pharmacy has reviewed the medication reconciliation done by nursing.
[2025-04-18 09:39] VITALS: BP 112/67
[2025-04-18] MEDS: Nicotine 21 MG PATCH.TD24 TRANSDERMA (09:39)
[2025-04-18] MEDS: PT OWN (Budesonide-Glycopyr-Formoterol [Breztri Aerosphere] 160-9-4.8 mc 2 EACH INHALE ×2 (09:55→20:40)
--- NOTE | 2025-04-18 10:18 | PC.NURSE ---
Addendum entered by Griselda Falcon RN 04/18/25 11:21: pt continues to be agitated, occasionally resting but immediately gets back up to pace around. this RN encouraged medication to help calm down, pt agreeable to taking PO medications but does report that Ativan does not help too much . Provider contacted, plan for 10mg PO Zyprexa Original Note: pt visibly agitated in his room, pacing, ripped patient gown off. Pt now aware that he is an inpatient bedsearch which has made him considerably upset. This RN offered medication to help him calm down and offered activities to help distract himself, pt declined both
[2025-04-18] MEDS: OLANZapine ODT 10 MG TAB.RAPDIS TRANSLINGU (11:24)
--- NOTE | 2025-04-18 11:33 | PC.NURSE ---
Pt willingly took PO [place], apologized for behavior I'm sorry, I'm just not used to being holed up like this, I should have never made a sick joke about killing myself, I just have a fucked up sense of humor, I'm sorry
[2025-04-18 16:17] VITALS: BP 121/75; PULSE 65; RESP 18; TEMP 36.6; O2SAT 98
--- NOTE | 2025-04-18 18:13 | PC.NURSE ---
Latuda held until after 6pm in order for patient to take with dinner
--- NOTE | 2025-04-18 19:13 | PC.NURSE ---
Took of care, from Susan pt resting in room, no sign of distress.
--- NOTE | 2025-04-19 01:29 | PC.NURSE ---
pt is sleeping.
[2025-04-19 06:24] VITALS: BP 129/68; PULSE 62; RESP 16; TEMP 36.8; O2SAT 96
--- NOTE | 2025-04-19 07:09 | PC.NURSE ---
Assumed care of patient at 0645, patient appears to be sleeping, respirations even and unlabored, no apparent distress is noted. Continue plan of care for IPLOC
[2025-04-19] MEDS: Nicotine 21 MG PATCH.TD24 TRANSDERMA (08:16)
[2025-04-19] MEDS: PT OWN (Budesonide-Glycopyr-Formoterol [Breztri Aerosphere] 160-9-4.8 mc 2 EACH INHALE ×2 (08:16→19:57)
--- NOTE | 2025-04-19 08:17 | PC.NURSE ---
Pt refused morning flomax sometimes it makes me pass out
--- NOTE | 2025-04-19 16:36 | PC.NURSE ---
Pt has been calm and cooperative all day, offering no complaints to this RN
[2025-04-19 19:24] VITALS: BP 124/83; PULSE 61; RESP 14; TEMP 37.1; O2SAT 98
--- NOTE | 2025-04-20 03:37 | PC.NURSE ---
Assumed care of pt from Ellen DHILLON at 0300. Pt requesting TV be turned off and pt went back to bed, no apparent distress at this time. Safety checks in place.
[2025-04-20 06:48] VITALS: RESP 14
[2025-04-20 07:09] VITALS: BP 115/77; PULSE 57; RESP 16; TEMP 37.3; O2SAT 97
[2025-04-20] MEDS: Nicotine 21 MG PATCH.TD24 TRANSDERMA (07:47)
--- NOTE | 2025-04-20 08:21 | PC.NURSE ---
assumed care of patient at 0645, patient is awake and alert, often ambulating around unit. patient medicated per nov, states he does not feel as if he needs his inhaler at this time. patient states he ate breakfast. patient is calm, cooperative and polite
[2025-04-20] MEDS: PT OWN (Budesonide-Glycopyr-Formoterol [Breztri Aerosphere] 160-9-4.8 mc 2 EACH INHALE ×2 (11:30→21:07)
--- NOTE | 2025-04-20 12:49 | PC.NURSE ---
Report given to Darlene RN, awaiting transport. Pt resting comfortably in bed.
[2025-04-20 13:39] VITALS: BP 143/82; PULSE 94; RESP 18; TEMP 36.4; O2SAT 96
[2025-04-20 13:48] VITALS: BMI 25.1
--- NOTE | 2025-04-20 15:34 | PC.ADMIT ---
Pt arrived at 1306 from [facility]. Pt brought himself here after a failed suicide attempt in which he said he attached a hose to the exhaust of his car and put the other end in his trunk. Pt reports I knew it wasnt going to work since I crushed the hose in the trunk. But I sat there for like 30min-1hr feeling sorry for myself, wishing I would . Then I called my sister in law for help . Pt reports he had a med change about a month ago where his latuda was increased. He states he recently has been feeling more suicidal which isnt normal for him. On that day he took two extra gabapentin to feel better but reports It made me feel like a zombie. Like I wasnt even in control of my body. I felt like someone else was doing the actions and I was just watching . Pt reports being very glad to be alive and be here for help. Pt is a smoker, NRT ordered, does not want quitworks. Pt has a medical history of DM2, which he reports he no longer has d/t weight loss and diet. He has an amputation of great left toe, with an indent underneath. Previously this was an ulcer but has healed. Pt reports he follows up with wound care and received a graduation certificate from there. Next appointment is in two months. No s/s of infection, fully healed. Pt ambulated independently. Pt's medical history includes urinary frequency/urgency. Pt signed a CV with TESSY. He has been visible, calm, cooperative and pleasant on the unit. He reports not having drank ETOH in 4 years.
[2025-04-20 20:02] VITALS: BP 122/89; PULSE 69; RESP 16; TEMP 36.3; O2SAT 97
[2025-04-21 08:00] VITALS: BP 118/59; PULSE 57; RESP 17; TEMP 36.1; O2SAT 100
[2025-04-21 08:26] LABS: Hemoglobin A1C 135.6277 umol/L; Total Hemoglobin (HGBA1C) 3705.5197 umol/L
[2025-04-21 08:41] LABS: Glucose, Whole Blood 113 mg/dL (60-115)
[2025-04-21] MEDS: PT OWN (Budesonide-Glycopyr-Formoterol [Breztri Aerosphere] 160-9-4.8 mc 2 EACH INHALE ×2 (08:54→20:38)
--- NOTE | 2025-04-21 09:00 | HO.PSYADMNOT ---
HPI Date of Service: 04/21/25 Chief Complaint: Depression/SI Sources of Information: patient interviewed, chart reviewed and crisis/core team assessment reviewed HPI Subjective Notes: Conditional Voluntary and 3 Day Narrative: Patient seen on 04/20/2025 Patient is a 54-year-old male with history of depression, alcohol use disorder in sustained recovery , who presents for near suicide attempt in the face of overwhelmed emotions. Patient reports that he has been chronically depressed for years however about a month ago he was started on Latuda which significantly improved his mood and depression was mostly gone. Patient felt for the 1st time in years he had a chance to recover his life and overcome crippling depression; part of this hopeful outlook involved getting a car so he could start getting around and not feel so isolated alone in his apartment. This past he took 2 extra gabapentins since his sciatica was having a flare (something he does from time to time) which he said made him feel a little loopy. Short while afterwards, patient was dealing with a car dealership since his newly bought car was having significant problems; the dealership was unresponsive leave in patient thinking he was stuck with a lemon. Patient had an overwhelming crushing feeling that his hopes were dashed and that he will return to depression and never climb out of it and thought Everything i do turns to shit... Patient denies any history of SI; however in this moment a feeling despair, thought about ending his life. He got a hose and attached to his exhaust pipe but as he did so, he saw the hose was clamped shut by the trunk and he knew that it would not work; patient said knowing this he just sat in his car, sobbed for awhile and then called his [id number] who helped him get to crisis. Patient denies that there was any SI leading up to that moment and reports that by the next day all SI had resolved; he says he was never in any danger and is very glad that this episode is over and at this point feels he is returning to being optimistic. Reflecting, patient thinks that the combination of being a little loopy from the extra gabapentin allowed his emotions to get overly dysregulated by the upsetting news of his car... Patient has been sober from alcohol for 4 years; denies any other drug use; denies any history of manic type episodes; denies any AVH Past Psychiatric History: amputation of great left toe Patient used to be diabetic but has beaten it with diet and exercise Medical Evaluation Reviewed: Yes FOR[facility] Medical History (Updated 04/23/25 @ 12:18 by Jose Fuller MD) Sciatic nerve pain Alcohol use disorder, severe, in sustained remission MDD (major depressive disorder), recurrent severe, without psychosis Type 2 diabetes mellitus Osteomyelitis Seizure disorder Anxiety and depression Fibromyalgia Depression Glaucoma COPD (chronic obstructive pulmonary disease) Tubular adenoma of colon Hypercholesterolemia Hypertension Type 2 diabetes mellitus with diabetic neuropathy Personal history of nicotine dependence Surgical History H/O colonoscopy History of eye surgery History of cervical discectomy Family History: None Social History: Worked in the [employer] field for years at a fairly high level; currently unemployed but making plans to re-enter the work force Alcoholism and depression hurt his career; now sober for 4 years Not no children Close to his brother and [id number] Substance History: Sober from alcohol for 4 years Diagnostics Vital Signs (24Hr): Vital Signs - 24 hr 04/20/25 13:39 04/20/25 20:02 04/21/25 08:00 Temperature 97.6 F 97.4 F 97 F Pulse Rate 94 69 57 Respiratory Rate 18 16 17 Blood Pressure 143/82 H 122/89 118/59 L Pulse Oximetry 96 97 100 Oxygen Delivery Method Room Air Room Air Room Air BMI result Body Mass Index 25.1 Labs 04/17/25 22:51 04/21/25 07:46 Labs: Laboratory Results - last 48 hr 04/21/25 04/21/25 07:46 08:13 POC Glucose 113 Estimat Average Glucose 111 Hemoglobin A1c % 5.5 Meds/Allergies Meds Home Medications ?Medication ?Instructions ?Recorded ?Confirmed ?Type lisinopril 20 1 tab PO DAILY 02/16/22 04/18/25 History mg-hydrochlorothiazide 25 mg tablet gabapentin 800 mg tablet 800 mg PO TID 07/28/22 04/18/25 History budesonide 160 mcg-glycopyr 9 2 inh inhalation BID 01/22/23 04/18/25 History mcg-formot 4.8 mcg/actuation HFA inhaler (Breztri Aerosphere) fluoxetine 10 mg capsule 20 mg PO DAILY 05/05/24 04/19/25 History lamotrigine 150 mg tablet 150 mg PO BEDTIME 05/05/24 04/18/25 History lamotrigine 150 mg tablet 75 mg PO DAILY 02/17/25 04/18/25 History trazodone 50 mg tablet 50 mg PO BEDTIME 02/17/25 04/18/25 History Allergies Allergies Allergy/AdvReac Type Severity Reaction Status Date / Time shellfish derived (SHELLFISH Allergy Severe ANAPHYLAXIS Verified 04/17/25 22:16 DERIVED) buspirone (From BUSPAR) Allergy Unknown nausea Verified 04/17/25 22:16 bupropion (From WELLBUTRIN) AdvReac Unknown NAUSEA Verified 04/17/25 22:16 daptomycin AdvReac rhabdomyoli Verified 04/17/25 22:16 sis Mental Status Exam Mental Status Exam Narrative: Pt is alert and oriented; behavior is cooperative, friendly and calm; patient is not in distress; dressed in casual attire with unkempt hair but adequate hygiene; mood is described as better and affect congruent; eye contact appropriate; Speech is normal rate, volume and prosody and not pressured; no psychomotor agitation/retardation present; thought process is organized and goal directed; Thought content is on tx; otherwise pertinent to relevant topics and without any delusional content, paranoid ideations or grandiosity; denies any SI/HI. Denies AVH and there is no evidence of perceptual disturbance. Patients insight and judgment appear intact. Assessment & Plan Assessment & Plan (1) MDD (major depressive disorder), recurrent severe, without psychosis: Status: Acute Code(s): F33.2 - Major depressive disorder, recurrent severe without psychotic features (2) Alcohol use disorder, severe, in sustained remission: Status: Acute Code(s): F10.21 - Alcohol dependence, in remission (3) Sciatic nerve pain: Status: Acute Code(s): M54.30 - Sciatica, unspecified side Plan Patient is a 54-year-old male with history of depression, alcohol use disorder in sustained recovery, who presents for near suicide attempt in the face of overwhelmed emotions. Patient reports that he has been chronically depressed for years however about a month ago he was started on Latuda which significantly improved his mood and depression was mostly gone. Patient felt for the 1st time in years he had a chance to recover his life and overcome crippling depression; part of this hopeful outlook involved getting a car so he could start getting around and not feel so isolated alone in his apartment. This past he took 2 extra gabapentins since his sciatica was having a flare (something he does from time to time) which he said made him feel a little loopy. Short while afterwards, patient was dealing with a car dealership since his newly bought car was having significant problems; the dealership was unresponsive leave in patient thinking he was stuck with a lemon. Patient had an overwhelming crushing feeling that his hopes were dashed and that he will return to depression and never climb out of it and thought Everything i do turns to shit... Patient denies any history of SI; however in this moment a feeling despair, thought about ending his life. He got a hose and attached to his exhaust pipe but as he did so, he saw the hose was clamped shut by the trunk and he knew that it would not work; patient said knowing this he just sat in his car, sobbed for awhile and then called his [id number] who helped him get to crisis. Patient denies that there was any SI leading up to that moment and reports that by the next day all SI had resolved; he says he was never in any danger and is very glad that this episode is over and at this point feels he is returning to being optimistic. Reflecting, patient thinks that the combination of being a little loopy from the extra gabapentin allowed his emotions to get overly dysregulated by the upsetting news of his car... Patient has been sober from alcohol for 4 years; denies any other drug use; denies any history of manic type episodes; denies any AVH Formulation/clinical reasoning: Patient has history of MDD which seems to be successfully treated with the newly started medication Latuda, started about a month ago. Ug Designer agrees with patient's assessment that this moment of dysregulation was due to combination of emotional dysregulation due to extra gabapentin and thinking his hopes were; patient feels this moment has resolved and he is pretty close to his baseline, again hopeful and without depression; patient sign a CV but later signed a 3 day notice. Will continue patient on current medication regimen and monitor him. However va underwriter agrees that this episode is resolved and it is likely patient is back to his baseline. If he remains stable will proceed with discharge. -discussed antihypertension medications; patient agrees to continue for now and work out whether or not to remain on them with outpatient provider Plan: CV Q 15 minute checks Continue home medication regimen Monitor Patient educated on: diagnosis, medication risk/benefits, substance abuse, therapeutic strategies and medical condition Informed Consent: understands Reason for continued inpatient stay Substantial Risk for: stable for discharge and rapid decompensation Statement Statement: I have reviewed the history and physical and performed a pertinent examination on my patient. No changes have occurred unless specified. If the History and Physical was not performed prior to admission, the Hospitalist's service will be consulted for completing the admission physical. Time Spent With Patient Time: Total time managing care of this patient today ____ minutes.
[2025-04-21 09:04] LABS: Alanine Aminotransferase 18 U/L (0-40); Albumin Level 5.0 g/dL (3.5-5.0); Alkaline Phosphatase 99 U/L (39-117); Anion Gap 13 (12-20); Aspartate Amino Transferase 19 U/L (5-37); Blood Urea Nitrogen 21 mg/dL (9-16); Calcium 9.7 mg/dL (8.4-10.2); Carbon Dioxide 28 mmol/L (22-29); Chloride 102 mmol/L (96-108); Cholesterol 258 mg/dL (<200); Creatinine Clr Calc Pharmacy 89.9; Estimated Glomerular Filt Rate > 60; HDL Cholesterol 55 mg/dL (>40); Potassium 4.1 mmol/L (3.3-5.1); Sodium 139 mmol/L (135-145); Total Protein 8.1 g/dL (6.5-8.0); Triglycerides 88 mg/dL (<150)
[2025-04-21 20:00] VITALS: BP 123/71; PULSE 66; RESP 18; TEMP 36.8; O2SAT 100
[2025-04-22 08:00] VITALS: BP 113/64; PULSE 60; RESP 16; TEMP 36.3; O2SAT 100
[2025-04-22] MEDS: PT OWN (Budesonide-Glycopyr-Formoterol [Breztri Aerosphere] 160-9-4.8 mc 2 EACH INHALE ×2 (09:04→20:43)
--- NOTE | 2025-04-22 09:20 | P.PNPSI_ITS ---
Subjective Subjective Date of Service: 04/22/25 Reason For Visit: Depression/SI Interim History: Met with patient; discussed with team Patient reports he is feeling good and that he is back to his regular self, hopeful about his future and looking forward to getting back to his life. Discussed his struggles with social anxiety and came up with some strategies for approaching getting to know other people; he also plans to go back to AA since he found it a social network that was encouraging. Patient is planning to seek employment in [employer] and discussed some learning modules to help him get updated. Patient has outpatient provider with whom he has a good rapport; he very much wants a therapist and feels that had he had a therapist, he probably would not have gotten so dysregulated; psychosocial rehabilitation counselor contacting patient's clinic and trying to expedite this. Patient says he feels ready for discharge; without any SI at all, mood is good and patient is sleeping and eating well. Mental Status Exam Mental Status Exam Narrative: Pt is alert and oriented; behavior is cooperative, friendly and calm; engaged in treatment; appropriate with peers and staff; patient is not in distress; dressed in casual attire with unkempt hair but adequate hygiene; mood is described as good and affect congruent; eye contact appropriate; Speech is normal rate, volume and prosody and not pressured; no psychomotor agitation/retardation present; thought process is organized and goal directed; Thought content is on tx; otherwise pertinent to relevant topics and without any delusional content, paranoid ideations or grandiosity; denies any SI/HI. Denies AVH and there is no evidence of perceptual disturbance. Patients insight and judgment are intact. Diagnostics Vital Signs (24Hr): Vital Signs - 24 hr 04/21/25 20:00 04/22/25 08:00 Temperature 98.2 F 97.3 F Pulse Rate 66 60 Respiratory Rate 18 16 Blood Pressure 123/71 113/64 Pulse Oximetry 100 100 Oxygen Delivery Method Room Air Room Air BMI result Body Mass Index 25.1 Labs 04/17/25 22:51 04/21/25 07:46 Labs: Laboratory Results - last 48 hr 04/21/25 04/21/25 07:46 08:13 Sodium 139 Potassium 4.1 Chloride 102 Carbon Dioxide 28 Anion Gap 13 BUN 21 H Creatinine 0.95 Estim Creat Clear Calc 89.9 Estimated GFR > 60 POC Glucose 113 Random Glucose 109 Estimat Average Glucose 111 Hemoglobin A1c % 5.5 Calcium 9.7 D Total Bilirubin 0.8 AST 19 ALT 18 Alkaline Phosphatase 99 Total Protein 8.1 H Albumin 5.0 Triglycerides 88 Cholesterol 258 H LDL Cholesterol, Calc 186 H HDL Cholesterol 55 TSH 1.17 Medications Medications Current Medications Acetaminophen (Acetaminophen 325 Mg Tablet) 650 mg PO Q6H PRN PRN Reason: Headache/Pain, Scale 1-10 Last Admin: 04/21/25 20:39 Dose: 650 mg Al Hydroxide/Mg Hydroxide (Magnesium Hydrox/Alum Hydrox 30 Ml Oral.Susp) 30 ml PO Q6H PRN PRN Reason: Heartburn/Nausea Fluoxetine HCl (Fluoxetine Hcl 20 Mg Capsule) 20 mg PO DAILY [facility] Last Admin: 04/22/25 09:05 Dose: 20 mg Gabapentin (Gabapentin 400 Mg Capsule) 800 mg PO TID [facility] Last Admin: 04/22/25 09:05 Dose: 800 mg Hydrochlorothiazide (Hydrochlorothiazide 25 Mg Tablet) 25 mg PO DAILY [facility] Last Admin: 04/22/25 09:06 Dose: 25 mg Hydroxyzine HCl (Hydroxyzine Hcl 25 Mg Tablet) 25 mg PO Q6H PRN PRN Reason: mild anxiety Lamotrigine (Lamotrigine 100 Mg Tablet) 150 mg PO BEDTIME [facility] Last Admin: 04/21/25 20:39 Dose: 150 mg Lamotrigine (Lamotrigine 25 Mg Tablet) 75 mg PO DAILY [facility] Last Admin: 04/22/25 09:05 Dose: 75 mg Lisinopril (Lisinopril 20 Mg Tablet) 20 mg PO DAILY [facility] Last Admin: 04/22/25 09:06 Dose: 20 mg Lurasidone HCl (Lurasidone Hcl 20 Mg Tablet) 20 mg PO DAILY@1700 [facility] Last Admin: 04/21/25 17:54 Dose: 20 mg Magnesium Hydroxide (Milk Of Magnesia 30 Ml Oral.Susp) 30 ml PO DAILY PRN PRN Reason: Constipation Nicotine Polacrilex (Nicotine Polacrilex 2 Mg Gum) 4 mg BUCCAL Q2H PRN PRN Reason: Nicotine Cravings Last Admin: 04/21/25 20:39 Dose: 4 mg Pt Own (Budesonide- Glycopyr-Formoterol [Breztri Aerosphere] 160-9-4.8 Mc 2 inhalation INHALE [facility]ID [facility] Last Admin: 04/22/25 09:04 Dose: 2 inhalation Olanzapine (Olanzapine 5 Mg Tablet) 5 mg PO TID PRN PRN Reason: agitation Tamsulosin HCl (Tamsulosin Hcl 0.4 Mg Capsule) 0.8 mg PO DAILY [facility] Last Admin: 04/22/25 09:05 Dose: 0.8 mg Trazodone HCl (Trazodone Hcl 50 Mg Tablet) 50 mg PO BEDTIME MRX1 PRN PRN Reason: insomnia Last Admin: 04/21/25 20:41 Dose: 50 mg Allergies Allergies Allergy/AdvReac Type Severity Reaction Status Date / Time shellfish derived (SHELLFISH Allergy Severe ANAPHYLAXIS Verified 04/17/25 22:16 DERIVED) buspirone (From BUSPAR) Allergy Unknown nausea Verified 04/17/25 22:16 bupropion (From WELLBUTRIN) AdvReac Unknown NAUSEA Verified 04/17/25 22:16 daptomycin AdvReac rhabdomyoli Verified 04/17/25 22:16 sis Assessment & Plan Assessment & Plan (1) MDD (major depressive disorder), recurrent severe, without psychosis: Status: Acute Code(s): F33.2 - Major depressive disorder, recurrent severe without psychotic features (2) Alcohol use disorder, severe, in sustained remission: Status: Acute Code(s): F10.21 - Alcohol dependence, in remission (3) Suicidal intent: Status: Acute Code(s): R45.851 - Suicidal ideations Plan Patient is a 54-year-old male with history of depression, alcohol use disorder in sustained recovery, who presents for near suicide attempt in the face of overwhelmed emotions. Patient reports that he has been chronically depressed for years however about a month ago he was started on Latuda which significantly improved his mood and depression was mostly gone. Patient felt for the 1st time in years he had a chance to recover his life and overcome crippling depression; part of this hopeful outlook involved getting a car so he could start getting around and not feel so isolated alone in his apartment. This past he took 2 extra gabapentins since his sciatica was having a flare (something he does from time to time) which he said made him feel a little loopy. Short while afterwards, patient was dealing with a car dealership since his newly bought car was having significant problems; the dealership was unresponsive leave in patient thinking he was stuck with a lemon. Patient had an overwhelming crushing feeling that his hopes were dashed and that he will return to depression and never climb out of it and thought Everything i do turns to shit... Patient denies any history of SI; however in this moment a feeling despair, thought about ending his life. He got a hose and attached to his exhaust pipe but as he did so, he saw the hose was clamped shut by the trunk and he knew that it would not work; patient said knowing this he just sat in his car, sobbed for awhile and then called his [id number] who helped him get to crisis. Patient denies that there was any SI leading up to that moment and reports that by the next day all SI had resolved; he says he was never in any danger and is very glad that this episode is over and at this point feels he is returning to being optimistic. Reflecting, patient thinks that the combination of being a little loopy from the extra gabapentin allowed his emotions to get overly dysregulated by the upsetting news of his car... Patient has been sober from alcohol for 4 years; denies any other drug use; denies any history of manic type episodes; denies any AVH Formulation/clinical reasoning: Patient has history of MDD which seems to be successfully treated with the newly started medication Latuda, started about a month ago. Occupational Therapy Co Director agrees with patient's assessment that this moment of dysregulation was due to combination of emotional dysregulation due to extra gabapentin and thinking his hopes were; patient feels this moment has resolved and he is pretty close to his baseline, again hopeful and without depression; patient sign a CV but later signed a 3 day notice. Will continue patient on current medication regimen and monitor him. However aligner typewriter agrees that this episode is resolved and it is likely patient is back to his baseline. If he remains stable will proceed with discharge. -discussed antihypertension medications; patient agrees to continue for now and work out whether or not to remain on them with outpatient provider Hospital course: Patient reports he is feeling good and that he is back to his regular self, hopeful about his future and looking forward to getting back to his life. Discussed his struggles with social anxiety and came up with some strategies for approaching getting to know other people; he also plans to go back to AA since he found it a social network that was encouraging. Patient is planning to seek employment in [employer] and discussed some learning modules to help him get updated. Patient has outpatient provider with whom he has a good rapport; he very much wants a therapist and feels that had he had a therapist, he probably would not have gotten so dysregulated; psychosocial rehabilitation counselor contacting patient's clinic and trying to expedite this. -Patient says he feels ready for discharge; without any SI at all, mood is good and patient is sleeping and eating well. He remains in good behavioral and impulse control and appropriate with peers and staff; he is engaged in treatment, attending groups and open during one-to-one sessions. Patient has outpatient providers established. He is future oriented and aligner typewriter agrees that he has returned to baseline. Patient has a 3 day notice that is coming due however he would like to discharge sooner. Occupational Therapy Co Director agrees that patient is not in imminent risk for harm to self or others and appropriate to return to the community for treatment. Patient's request for discharge honored. Plan: CV Q 15 minute checks Continue home medication regimen Monitor Patient educated on: diagnosis, medication risk/benefits, substance abuse, therapeutic strategies and medical condition Informed Consent: understands Reason for continued inpatient stay Substantial Risk for: stable for discharge and rapid decompensation Statement Statement: Patient educated on: diagnosis, medication risk/benefits and therapeutic strategies Informed Consent: understands Reason for continued inpatient stay Substantial Risk for: stable for discharge Time Spent With Patient Time: Total time managing care of this patient today ____ minutes.
[2025-04-22 20:00] VITALS: BP 114/61; PULSE 66; TEMP 36.1; O2SAT 97
[2025-04-23 08:00] VITALS: BP 118/74; PULSE 78; RESP 18; TEMP 36.6; O2SAT 98
[2025-04-23] MEDS: PT OWN (Budesonide-Glycopyr-Formoterol [Breztri Aerosphere] 160-9-4.8 mc 2 EACH INHALE (08:34)
--- NOTE | 2025-04-23 09:02 | P.DS_ITS ---
DS: Providers Provider Date of Service: 04/23/25 Date of admission: 04/20/25 12:32 Date of discharge: 04/23/25 Primary care physician: Martine Mike MD Attending physician on admission: Jose Fuller Attending physician on discharge: Jose Fuller DS: Medications Discharge Medications Home Medications: Home Medications ?Medication ?Instructions ?Recorded ?Confirmed lisinopril 20 1 tab PO DAILY 02/16/2203/25 mg-hydrochlorothiazide 25 mg tablet gabapentin 800 mg tablet 800 mg PO TID 07/28/2204/18 budesonide 160 mcg-glycopyr 9 2 inh inhalation BID 10/1604/18/25 mcg-formot 4.8 mcg/actuation HFA inhaler (Breztri Aerosphere) fluoxetine 10 mg capsule 20 mg PO DAILY 05/05/2403/25 lamotrigine 150 mg tablet 150 mg PO BEDTIME 05/05/24 0 04/18/25 lamotrigine 150 mg tablet 75 mg PO DAILY 02/17/2503/25 trazodone 50 mg tablet 50 mg PO BEDTIME 02/17/25 Previous Rx's ?Medication ?Instructions ?Recorded tamsulosin 0.4 mg capsule (Flomax) 0.8 mg (2 x 0.4 mg) PO DAILY 90 03/11/25 days #180 caps lurasidone 20 mg tablet 20 mg PO QPM 30 days #30 tab s 04/23/25 nicotine (polacrilex) 4 mg gum 4 mg buccal Q2H PRN adrian otine 04/23/25 cravings 30 days #100 ea nicotine 21 mg/24 hr daily 1 patch topical DAILY PRN s moking 04/23/25 transdermal patch cessation 28 days #28 ea Mental Status Exam Mental Status Exam Narrative: Pt is alert and oriented; behavior is cooperative, friendly and calm; engaged in treatment; appropriate with peers and staff; patient is not in distress; dressed in casual attire with unkempt hair but adequate hygiene; mood is described as good and affect congruent; eye contact appropriate; Speech is normal rate, volume and prosody and not pressured; no psychomotor agitation/retardation present; thought process is organized and goal directed; Thought content is on tx; otherwise pertinent to relevant topics and without any delusional content, paranoid ideations or grandiosity; denies any SI/HI. Denies AVH and there is no evidence of perceptual disturbance. Patients insight and judgment are intact. Data Data Completed and Pending Completed studies during hospitalization [Text1]: 04/17/25 04/17/25 04/17/25 22:51 22:52 22:53 WBC 12.2 H RBC 3.56 L Hgb 11.1 L Hct 32.3 L MCV 90.7 MCH 31.2 MCHC 34.4 RDW 14.5 Plt Count 235 D MPV 8.9 L Immature Gran % (Auto) 0.2 Neut % (Auto) 68.9 Lymph % (Auto) 19.2 L Florence % (Auto) 9.5 Eos % (Auto) 1.3 Baso % (Auto) 0.9 Lymph # (Auto) 2.3 Florence # (Auto) 1.2 Eos # (Auto) 0.2 Baso # (Auto) 0.1 Abs Immat Gran (auto) 0.03 Absolute Neuts (auto) 8.4 H Absolute Nucleated RBC 0.000 Nucleated RBC % (auto) 0.0 Sodium 136 Potassium 3.6 Chloride 104 Carbon Dioxide 24 Anion Gap 12 BUN 16 Creatinine 0.86 Estim Creat Clear Calc 99.3 Estimated GFR > 60 POC Glucose Random Glucose 94 Estimat Average Glucose Hemoglobin A1c % Calcium 8.9 D Total Bilirubin AST ALT Alkaline Phosphatase Total Protein Albumin Triglycerides Cholesterol LDL Cholesterol, Calc HDL Cholesterol TSH Urine Color Yellow Urine Appearance Clear Urine pH 7.0 Ur Specific [place] 1.015 Urine Protein Negative Urine Glucose (UA) Negative Urine Ketones Trace Urine Blood Negative Urine Nitrite Negative Ur Leukocyte Esterase Small (1+) H Urine RBC 0-2 Urine WBC 6-10 H Ur Squamous Epith Cells 0-2 Urine Bacteria None Seen Hyaline Casts 0-2 Salicylates < 5.0 L Urine Opiates Screen Not Detected Ur Buprenorphine Scrn Not Detected Ur Oxycodone Screen Not Detected Urine Methadone Screen Not Detected Urine Fentanyl Screen Not Detected Ur Barbiturates Screen Not Detected Ur Phencyclidine Scrn Not Detected Ur Amphetamines Screen Not Detected U Benzodiazepines Scrn Not Detected Urine Cocaine Screen Not Detected U Marijuana (THC) Screen POSITIVE H Ethyl Alcohol 10 04/21/25 04/21/25 07:46 08:13 WBC RBC Hgb Hct MCV MCH MCHC RDW Plt Count MPV Immature Gran % (Auto) Neut % (Auto) Lymph % (Auto) Florence % (Auto) Eos % (Auto) Baso % (Auto) Lymph # (Auto) Florence # (Auto) Eos # (Auto) Baso # (Auto) Abs Immat Gran (auto) Absolute Neuts (auto) Absolute Nucleated RBC Nucleated RBC % (auto) Sodium 139 Potassium 4.1 Chloride 102 Carbon Dioxide 28 Anion Gap 13 BUN 21 H Creatinine 0.95 Estim Creat Clear Calc 89.9 Estimated GFR > 60 POC Glucose 113 Random Glucose 109 Estimat Average Glucose 111 Hemoglobin A1c % 5.5 Calcium 9.7 D Total Bilirubin 0.8 AST 19 ALT 18 Alkaline Phosphatase 99 Total Protein 8.1 H Albumin 5.0 Triglycerides 88 Cholesterol 258 H LDL Cholesterol, Calc 186 H HDL Cholesterol 55 TSH 1.17 Urine Color Urine Appearance Urine pH Ur Specific [place] Urine Protein Urine Glucose (UA) Urine Ketones Urine Blood Urine Nitrite Ur Leukocyte Esterase Urine RBC Urine WBC Ur Squamous Epith Cells Urine Bacteria Hyaline Casts Salicylates Urine Opiates Screen Ur Buprenorphine Scrn Ur Oxycodone Screen Urine Methadone Screen Urine Fentanyl Screen Ur Barbiturates Screen Ur Phencyclidine Scrn Ur Amphetamines Screen U Benzodiazepines Scrn Urine Cocaine Screen U Marijuana (THC) Screen Ethyl Alcohol 04/17/25 Unknown Urine clean catch - Clean Catch Midstream Urine Culture - Final No growth. DS: Summary Hospital Course Hospital Course: Patient is a 54-year-old male with history of depression, alcohol use disorder in sustained recovery, who presents for near suicide attempt in the face of overwhelmed emotions. Patient reports that he has been chronically depressed for years however about a month ago he was started on Latuda which significantly improved his mood and depression was mostly gone. Patient felt for the 1st time in years he had a chance to recover his life and overcome crippling depression; part of this hopeful outlook involved getting a car so he could start getting around and not feel so isolated alone in his apartment. This past he took 2 extra gabapentins since his sciatica was having a flare (something he does from time to time) which he said made him feel a little loopy. Short while afterwards, patient was dealing with a car dealership since his newly bought car was having significant problems; the dealership was unresponsive leave in patient thinking he was stuck with a lemon. Patient had an overwhelming crushing feeling that his hopes were dashed and that he will return to depression and never climb out of it and thought Everything i do turns to shit... Patient denies any history of SI; however in this moment a feeling despair, thought about ending his life. He got a hose and attached to his exhaust pipe but as he did so, he saw the hose was clamped shut by the trunk and he knew that it would not work; patient said knowing this he just sat in his car, sobbed for awhile and then called his [id number] who helped him get to crisis. Patient denies that there was any SI leading up to that moment and reports that by the next day all SI had resolved; he says he was never in any danger and is very glad that this episode is over and at this point feels he is returning to being optimistic. Reflecting, patient thinks that the combination of being a little loopy from the extra gabapentin allowed his emotions to get overly dysregulated by the upsetting news of his car... Patient has been sober from alcohol for 4 years; denies any other drug use; denies any history of manic type episodes; denies any AVH Formulation/clinical reasoning: Patient has history of MDD which seems to be successfully treated with the newly started medication Latuda, started about a month ago. Straddle Bug Driver agrees with patient's assessment that this moment of dysregulation was due to combination of emotional dysregulation due to extra gabapentin and thinking his hopes were; patient feels this moment has resolved and he is pretty close to his baseline, again hopeful and without depression; patient sign a CV but later signed a 3 day notice. Will continue patient on current medication regimen and monitor him. However typewriter tester agrees that this episode is resolved and it is likely patient is back to his baseline. If he remains stable will proceed with discharge. -discussed antihypertension medications; patient agrees to continue for now and work out whether or not to remain on them with outpatient provider Hospital course: Patient reports he is feeling good and that he is back to his regular self, hopeful about his future and looking forward to getting back to his life. Discussed his struggles with social anxiety and came up with some strategies for approaching getting to know other people; he also plans to go back to AA since he found it a social network that was encouraging. Patient is planning to seek employment in [employer] and discussed some learning modules to help him get updated. Patient has outpatient provider with whom he has a good rapport; he very much wants a therapist and feels that had he had a therapist, he probably would not have gotten so dysregulated; social work supervisor contacting patient's clinic and trying to expedite this. -Patient says he feels ready for discharge; without any SI at all, mood is good and patient is sleeping and eating well. He remains in good behavioral and impulse control and appropriate with peers and staff; he is engaged in treatment, attending groups and open during one-to-one sessions. Patient has outpatient providers established. He is future oriented and typewriter tester agrees that he has returned to baseline. Patient has a 3 day notice that is coming due however he would like to discharge sooner. Straddle Bug Driver agrees that patient is not in imminent risk for harm to self or others and appropriate to return to the community for treatment. Patient's request for discharge honored. Plan: CV Q 15 minute checks Continue home medication regimen Monitor Patient educated on: diagnosis, medication risk/benefits, substance abuse, therapeutic strategies and medical condition Informed Consent: unders Status at Discharge Functional status at discharge: independent ambulation Overall status at discharge: patient is back to baseline Time Spent with Patient Time attestation: Total time managing care of this patient today ____ minutes. Time spent: Less than 30 minutes Discharge Plan Discharge Anticipated Discharge Date/Time: 04/23/25 11:30 Patient Disposition: Home, Self-Care Discharge Diagnosis: MDD, recurrent, severe, without psychotic features, in full remission Referrals: Richelle Mclean: [facility] [Other] - 05/13/25 9:00 am Referral Note: Hospital discharge appointment for psychiatric medication management Appointment is in person at [facility] in [place], [place] Martine Mike MD [Primary Care Provider, Internal Medicine] Referral Note: please follow up Discharge Medications: New nicotine (polacrilex) 4 mg gum 4 mg buccal Q2H PRN (Reason: nicotine cravings) 30 Days Qty: 100 0RF Continued tamsulosin [Flomax] 0.4 mg capsule 0.8 mg PO DAILY 90 Days Qty: 180 1RF Rx Instructions: This is an increase in dosage lisinopril-hydrochlorothiazide 20-25 mg tablet 1 tab PO DAILY gabapentin 800 mg Tablet 800 mg PO TID Jd Bowmanphere 160-9-4.8 mcg/actuation HFA aerosol inhaler 2 inh inhalation BID lamotrigine 150 mg tablet 75 mg PO DAILY trazodone 50 mg tablet 50 mg PO BEDTIME lurasidone 20 mg tablet 20 mg PO QPM 30 Days Qty: 30 0RF Rx Instructions: take with food lamotrigine 150 mg tablet 150 mg PO BEDTIME fluoxetine 10 mg capsule 20 mg PO DAILY Patient Comments: pt reports his provider decreased his dose to 20mg Changed nicotine 21 mg/24 hr patch 24 hour 1 patch topical DAILY PRN (Reason: smoking cessation) 28 Days Qty: 28 0RF Rx Instructions: Remove at bedtime Discharge Orders: Discharge Order (Routine); Ordered 04/23/25 Ordered By: Jose Fuller Diet: Regular diet Activity on Discharge: As tolerated Stand Alone Forms: Patient Portal Discharge page, Community Support Print Language: Hungarian Care Plan Goals: Maintain mood and safe behaviors Take medications as prescribed Continue to pursue sobriety Practice coping skills Continue with outpatient providers and reach out to them as needed Health Concerns: Mood stability and behaviors History of hypertension Neuropathy Plan of Treatment: Follow up with your PCP, psychiatric provider and other outpatient providers regarding above concerns Take medications as prescribed Assessment: Risk assessment at time of discharge:? Patient was interviewed prior to discharge and found to be fully oriented and without any SI or HI. Patient has improved insight and judgment and wants to continue treatment. Patient is not in imminent risk of harm to self or others and has a safety plan that includes presenting to the closest ER or calling 911 if feeling unsafe.? Patient has been observed closely by nursing and unit staff throughout admission; patient has not engaged in any behaviors that suggest dangerousness to self or others and has demonstrated appropriate behaviors and impulse control Discharge Date/Time: 04/23/25 11:30
== END 2025-04-23 11:30 | disposition home or self-care (01) | DRG 885 ==
LOC: HO.ED 04-19 08:59 → HO.PM5 04-20 12:44
PROVIDERS: Admitting Provider Psychiatry & Neurology Psychiatry; Emergency Provider Internal Medicine; PCP Internal Medicine; Visit Provider Psychiatry & Neurology Psychiatry
DX: F33.2 Major depressive disorder, recurrent severe without psychotic features (principal); R45.851 Suicidal ideations; F10.21 Alcohol dependence, in remission; F17.210 Nicotine dependence, cigarettes, uncomplicated; M54.30 Sciatica, unspecified side; Z71.6 Tobacco abuse counseling; Z79.899 Other long term (current) drug therapy
CPT/HCPCS: 36415; 80048; 80053; 80061; 80179; 80307; 81001; 81003; 82947; 83036; 84443; 85025; 87086; 93005; 99285; S9485

== ENCOUNTER → 2025-04-17 22:21 | Outpatient (BNV) | payer MEDICARE, SELFPAY | PROVIDERS: Emergency Provider Internal Medicine; PCP Internal Medicine; Visit Provider Internal Medicine Cardiovascular Disease | DX: R00.1 Bradycardia, unspecified (principal) | CPT/HCPCS: 93010 ==

== ENCOUNTER → 2025-04-20 12:32 | Outpatient (BNV) | payer OTHER, SELFPAY | PROVIDERS: Admitting Provider Psychiatry & Neurology Psychiatry; Emergency Provider Internal Medicine; PCP Internal Medicine; Visit Provider Psychiatry & Neurology Psychiatry | DX: F33.2 Major depressive disorder, recurrent severe without psychotic features (principal); F10.21 Alcohol dependence, in remission; M54.30 Sciatica, unspecified side; R45.851 Suicidal ideations | CPT/HCPCS: 90792; 99231; 99238 ==

== ENCOUNTER 2025-06-22 09:47 | Outpatient (AMB) | payer OTHER, MEDICAID, SELFPAY ==
--- OUTSIDE RECORDS SUMMARY | 2025-03-04 11:00 | XMS_ITS ---
Author Organization [facility] Address [address] [place] [address] Care Team Providers Care Bait Maker Name Role Phone Martine Mike Primary Care Provider Unavailab Clinton Ortiz [phone] REASON FOR VISIT colon screening Encounters Encounter Location Date Provider Diagnosis [facility] [address] [place] [address] 03/04/2025 Clinton Huston Plan Of Treatment Next Appt Details Provider Name:Clinton Huston , 06/23/2025 01:00:00 PM, [address], [address], [place], [address], Progress Notes * LUIZA RAO EDOB: [birth year] (54 yo M)Acc No.[id number]:03/04/2025 Progress Notes Patient: Janelle DANNAMILOLUIZA Provider: Roxanne Huston MD :1970 A ge:54 Y S ex:Male Date:03/04/2025 Address:[address] [place] [address], [id number] Pcp:Martine Mike Subjective: * Chief Complaints: * 1 . Colon screening. * Medical History: Objective: * Vitals: Assessment: Plan: * Treatment: * * The named appointment provid er may or may not be the originator of this progress note, and it is not deemed complete until electronically signed by the appointment provider. Sign off status: Pending * Provider: Roxanne Huston MD Date: 0 03/04/2025 Generated for Lavell payne/Eloina/Shauna on: 0 06/22/2025 10:44 AM NIRANJANT
--- NOTE | 2025-06-22 09:47 | MHC.OFFVIS ---
Intake Visit Reasons: follow up/labs Intake Note: patient presents today for: follow up/labs urology medications: tamsulosin blood thinners: none labs done 02/17/25: PSA 1.21 today's PVR: 27mls Wage And Hour Investigator Required: No Accompanied by: Self / Same As Patient Allergies shellfish derived (SHELLFISH DERIVED) Allergy (Severe, Verified 06/22/25 10:17) ANAPHYLAXIS buspirone (From BUSPAR) Allergy (Unknown, Verified 06/22/25 10:17) nausea bupropion (From WELLBUTRIN) Adverse Reaction (Unknown, Verified 06/22/25 10:17) NAUSEA daptomycin Adverse Reaction (Verified 06/22/25 10:17) rhabdomyolisis Medication List - Last Reconciled 06/22/25 by NICK Mari-LOREN [id number] 160-9-4.8 mcg/actuation (Breztri Aerosphere) 2 inhalations inhalation BID fluoxetine 20 mg PO DAILY gabapentin 800 mg PO TID lamotrigine 75 mg PO DAILY lamotrigine 150 mg PO BEDTIME lisinopril-hydrochlorothiazide 20-25 mg 1 tab PO DAILY lurasidone 20 mg PO QPM 30 days nicotine 1 patch topical DAILY PRN 28 days nicotine (polacrilex) 4 mg buccal Q2H PRN 30 days tamsulosin (Flomax) 0.8 mg (2 x 0.4 mg) PO DAILY 90 days trazodone 50 mg PO BEDTIME HPI Comments Details: Hardeep is a 54-year-old male patient of Dr. Mike. He has a past medical history of type 2 diabetes, osteomyelitis, seizures, anxiety, depression, fibromyalgia, glaucoma, COPD, hypercholesteremia, hypertension, and nicotine dependence. He presents to the office today for follow-up of his lower urinary tract symptoms, family history of prostate cancer, and microscopic hematuria in the setting of nicotine dependence In discussion with the patient today he reports to be doing and feeling well. He reports no bothersome urinary issues or concerns. He reports having discontinued Flomax as he felt this made him fatigued as well as caused issues with impotence. Unable to obtain urine for urinalysis as patient unable to void however PVR 27 mL. He is enquiring PRN follow-up as he does not feel he has any bothersome urinary issues or concerns. We did discuss annual surveillance monitoring of PSAs given family history however he does not feel this is necessary at this time and will/plan to follow-up with his PCP. He denies nocturia, hematuria, dysuria, foul smelling urine, changes to urinary stream, flank pain, fever, and or chills. PSAs are as follows: 10/16 0.4, 20.5, 12/15 0.5, 04/17 1.2 Previous workup has included a retroperitoneal ultrasound 09/15 noting bilateral kidneys with no calculi noted. The bladder is well distended. Prevoid bladder volume is approximately 130 mL. Postvoid bladder volume is approximately 70 mL diffuse thickening and trabeculations of bladder wall. Prostate volume is approximately 45ml's. Prostate gland appears enlarged and heterogeneous, protruding into the bladder. He otherwise denies any bothersome urinary issues or concerns. [facility] Medical History Sciatic nerve pain Alcohol use disorder, severe, in sustained remission MDD (major depressive disorder), recurrent severe, without psychosis Type 2 diabetes mellitus Osteomyelitis Seizure disorder Anxiety and depression Fibromyalgia Depression Glaucoma COPD (chronic obstructive pulmonary disease) Tubular adenoma of colon Hypercholesterolemia Hypertension Type 2 diabetes mellitus with diabetic neuropathy Personal history of nicotine dependence Surgical History H/O colonoscopy History of eye surgery History of cervical discectomy Family History Mother Lung cancer metastatic to brain Social History Household Members: None Housing: Apartment Do you presently have visiting nurse or other home services: No Comment: refused bed and chair alarm Patient Tobacco Use Status: Current everyday Tobacco user Tobacco use type: Cigarette Cigarette Packs Per Day: 0.5 Cigarettes Per Day: 10.0 Years Smoked: 13 e-Cigarette/Vaping Use: Never Used Second Hand Smoke Exposure: No Substance Use Type: Marijuana service: Yes Current occupational status: disabled Current occupational exposures/hazards: No Sexual orientation: Straight/Heterosexual Review of Systems Eyes Reports as per HPI ENT Reports no additional complaints Card Reports as per HPI Resp Reports as per HPI GI Reports no additional complaints Reports as per HPI Musc Reports as per [facility] Neuro Reports as per HPI Psych Reports as per HPI Endo Reports as per HPI Dheeraj/Lymph Reports no additional complaints Aller/Immun Reports no additional complaints Physical Exam Const General: cooperative, healthy appearing, comfortable, no acute distress, well developed, alert and awake Orientation/consciousness: patient oriented x3 Limitations: no limitations HEENT Head: Yes normal to inspection, Yes normocephalic and Yes atraumatic Ears: hearing grossly normal bilaterally Eyes General: appearance normal, both eyes and all related structures Neck Neck: Yes normal visual inspection and Yes trachea midline Chest Chest palpation & inspection: normal inspection of the chest Resp Effort & Inspection: normal respiratory effort and able to speak in complete sentences Cardio Rate: regular rate GI Inspection: Yes normal to inspection General: Yes no CVA tenderness Back/Spine/Pelvis Back: no CVA tenderness Skin General skin exam: no rashes or lesions noted Neuro General: patient oriented x3 Extrem General: Yes normal to inspection Psych Appearance: grossly normal Mental Status: mental status grossly normal Speech and movement: Normal speech and movement present and Clear speech present Affect: normal affect Attitude: cooperative and Avoids eye contact (attititude/behavior) Thought process: Normal thought process present Thought content: Normal thought content present Insight: Fair insight present (Psych) Judgement: Fair judgement present (Psych) Assessment & Plan Assessment & Plan (1) Urinary urgency: Code(s): R39.15 - Urgency of urination Category: Medical (2) Urinary frequency: Code(s): R35.0 - Frequency of micturition Category: Medical (3) Bladder wall thickening: Code(s): N32.89 - Other specified disorders of bladder Category: Medical (4) Bladder trabeculation: Code(s): N32.89 - Other specified disorders of bladder Category: Medical (5) Family history of prostate cancer: Code(s): Z80.42 - Family history of malignant neoplasm of prostate Category: Medical Plan Unable to obtain urine for urinalysis as patient unable to void however PVR 27 mL. He currently denies any bothersome urinary issues or concerns. He reports be happy with current voiding parameters. Recent PSA results reviewed with the patient today; as noted above. We discussed surveillance monitoring of PSAs He would like to follow-up with PCP at this time. All questions were answered. Follow-up PRN; or sooner with any issues, concerns, and or questions. Orders: Orders AMB Post Void Residual by ultrasound Today R39.15 - Urgency of urination Patient Instructions: The patient had an opportunity to ask questions regarding the treatment plan. All questions were answered. Physical exam, labs, and imaging were discussed and reviewed in detail. As well as risks, benefits, and discussion of treatment choices. No major barriers to understanding were identified. The patient expressed understanding and agreement with the above treatment plan. The patient was made aware they should contact our office by phone for worsening of their current condition, the appearance of new symptoms, or with any questions or concerns. Compliance is encouraged with any medications and follow up testing that is ordered. It is a privilege to be allowed the opportunity to participate in? your urological care.? Again, if you have any questions or concerns If you have any questions or concerns please do not hesitate to contact me. The office is [phone]. This note is constructed using voice recognition software. While every effort has been made to ensure accuracy economic forecaster errors may have been included. Yours sincerely, GEORGINA Mari Coding Level of Care Code Est Pt Level 3 (58804) Diagnoses Urinary urgency R39.15 Urinary frequency R35.0 Bladder wall thickening N32.89 Bladder trabeculation N32.89 Family history of prostate cancer Z80.42
--- OUTSIDE RECORDS SUMMARY | 2025-06-22 10:44 | XMS_ITS | Clinical Summary ---
Author Organization [facility] Address [address] [place] [id number] Phone Care Team Providers Care Gear Shaver Set Up Operator Name Role Phone Wilbur Tadeo MD Primary [...] 08/27/2018 ZOSTER VACCINES (1 of 2) 2021 CREATININE LEVEL 01/18/2025 01/19/2024, 06/21/2018 POTASSIUM LEVEL 01/18/2025 01/19/2024, 06/21/2018 INFLUENZA VACCINE (#1) 2025 COVID-19 VACCINE (3 - 2024-2 6 season) 2025 03/09/2021, 03/04/2021 SCREENING FOR DIABETES 01/18/2027 01/19/2024 HEPATITIS A [...] EDT) SODIUM 131(L) 133 - 146 mmol/L [facility] CHLORIDE 90(L) 96 - 108 mmol/L [facility] POTASSIUM 3.5 3.3 - 5.1 mmol/L [facility] CO2 20(L) 21 - 35 mmol/L [facility] BUN 11 6 - 19 mg/dL [facility] CREATININE 0.90 0.5 - 1.5 mg/dL [facility] GLUCOSE 115(H) 70 - 99 mg/dL [facility] CALCIUM 10.0 8.4 - 10.3 mg/dL [facility] EGFR 103 >59 mL/min/1.7 3m2 [facility] Comment:Estimated glomerular filtration rate calculated using the CKD-EPI refit equation. ANION GAP 25(H) 10 - 20 mmol/L [facility] Blood 01/19/2024 4:10 PM EDT 01/19/2024 4:16 PM EDT Bucky Saenz MD LAB BLOOD ORDERABLES Final Result Performing Organization Address City/State/[facility] Co de Phone Number [address] [phone] from Last 3 Months or Most Recently Relevant to Health Maintenance [place] [address] [address] [place] [address] MEDICARE PART A & B CARE MEDICARE REPLACEMENT [place] [id number] MEDICARE PART A & B CARE MEDICARE REPLACEMENT MEDICARE PART A & [place] [address] [place] [address] MEDICARE REPLACEMENT MEDICARE PART A & [place] [address] CARE MEDICARE REPLACEMENT MEDICARE PART A & B [facility] MEDICARE REPLACEMENT MEDICARE PART A & B Care Teams Gear Shaver Set Up Operator Relationship Specialty Start Date End Date Wilbur Tadeo MD [address] [place] [address] [place] [address] PCP - General Internal Medicine 06/21/18 Additional Source Comments The information contained in this document represents components of the legal health record. It is not the complete legal health record.[facility]
--- OUTSIDE RECORDS SUMMARY | 2025-06-22 10:44 | XMS_ITS | Patient Health Record ---
[facility] Address [address] [place] [address] Care Team Providers Care Vp Securities Name Role Phone Martine Mike Primary Care Provider Unavailab Jai Cruz Unavailable [phone] Allergies Allergen (clinical drug ingredient) Drug/Non Drug [...] Problem Acquired hammer toe of right foot (8095647376701092 ) Other hammer toe(s) (acquired), right foot (M20.41) Active confirmed Problem Acquired hammer toe of left foot (6641195171981741 ) Other hammer toe(s) (acquired), left foot (M20.42) Active confirmed Problem Polyneuropathy due to type 2 diabetes mellitus (005611189) Type 2 diabetes mellitus with diabetic polyneuropathy (E11.42) Active confirmed Plan Of Treatment Pending Test Test Name Order Date [id number] NAIL, 6 OR MORE 01/04/2021 [id number] SKIN LESIONS, OVER 4 01/05/20 21 Insurance Providers Payer Name Payer Address Payer Phone Subscriber Number Group Number Insured Name Patient Relationship to Insured Coverage Start Date Coverage End Date Medicare National [employer] [address] [place] [address] [id number] Hardeep Beauchamp Self - patient is the insured Medical (General) History Medical History History ICD Code Anxiety Depression Diabetic High blood pressure Numbness CAD Surgical History Surgery Date(Month/Year) toe surgery neck surgery
--- OUTSIDE RECORDS SUMMARY | 2025-06-22 10:44 | XMS_ITS | Clinical Summary ---
Author Organization [facility] ity Address [address] [place] [address] Care Team Providers Care Tiler'S Assistant Name Role Phone Unavailable Primary Care Provider [...] 2021 Zoster Vaccines (1 of 2) 2021 Depression Screening 09/24/2024 COVID-19 Vaccine (1 - 2023-2 5 season) 2025 Influenza Vaccine (#1) 2025 RSV Immunization Adult Patie nts (1 - 1-dose 75+ series) 2046 HIB Vaccines Aged Out No longer eligi [...]
--- OUTSIDE RECORDS SUMMARY | 2025-06-22 10:44 | XMS_ITS | Patient Health Record ---
Author Organization [facility] Address [address] [place] [address] Care Team Providers Care Electronic Device Repairer Name Role Phone Martine Mike Primary Care Provider Clinton Morris Unavailable [phone] Allergies Allergen (clinical drug ingredient) Drug/Non Drug [...] Problem Status W/U Status Risk Notes Problem [id number] Encounter for screening for malignant neoplasm of colon (Z12.11) Active confirmed Problem [id number] Preprocedural examination (Z01.818) Active confirmed Problem 585603439 History of colon polyps (Z86.010) Active confirmed Problem Diverticulosis of colon (927033885) Diverticulosis of colon (K57.30) Active confirmed Encounters Encounter Location Date Provider Diagnosis [facility] [address] [place] [address] 01/28/2025 Clinton Huston [facility] [address] [place] [address] 03/04/2025 Clinton Huston Plan Of Treatment Future Test Test Name Order Date COLONOSCOPY 01/19/2022 Next Appt Details Provider Name:Clinton Huston , 06/23/2025 01:00:00 PM, [address], [address], [place], [address], Insurance Providers Payer Name Payer Address Payer Phone Subscriber Number Group Number Insured Name Patient Relationship to Insured Coverage Start Date Coverage End Date MEDICARE OF [place] [address] [place] [address] [id number] LUIZA RAO Self - patient is the insured MEDICAID OF [facility] [address] [place] [address] [id number] LUIZA RAO Self - patient is the insured Medical (General) History Medical History History ICD Code Diet-controlled DM Hypertension Neuropathy in feet Renal failure in 2019, but resolved Elevated cholesterol Depression and anxiety Colonoscopy in 2015 at [facility] in [place]told of polyps that were removed Alcoholism with sobriety since 09/2020 as of the 12/2021 OV Denies IA,CVA,renal disease Asthma Surgical History Surgery Date(Month/Year) C-spine 2016 Toe--bone spur 2018 Eye surgery
== END 2025-06-22 10:30 | disposition home or self-care (01) ==
LOC: HO.HUSH 09:48
PROVIDERS: PCP Internal Medicine; Visit Provider Nurse Practitioner Family
DX: R39.15 Urgency of urination (principal); R35.0 Frequency of micturition; N32.89 Other specified disorders of bladder; Z80.42 Family history of malignant neoplasm of prostate
CPT/HCPCS: 99213

== ENCOUNTER 2025-08-17 11:38 | Outpatient (REF) | payer OTHER, SELFPAY ==
[2025-08-17 13:19] LABS: MANUAL DIFF FLAG NO
[2025-08-17 13:23] LABS: Hematocrit 42.9 % (42.0-52.0); Hemoglobin 14.3 g/dl (14.0-18.0); Imm Gran Abs Auto 0.05 X10*3/uL (0.00-0.03); Imm Gran Pct Auto 0.4 % (0.0-0.4); Lymphocytes Absolute Auto 1.8 X10*3/uL (1.2-4.9); Mean Corpuscular HGB Conc 33.3 g/dl (31.0-36.0); Mean Corpuscular Hemoglobin 30.8 pg (27.0-33.0); Mean Corpuscular Volume 92.5 fL (80.0-98.0); NRBC Abs Auto 0.000 X10*3/uL (0.0-0.012); NRBC Pct Auto 0.0 /100WBC (0.0-0.2); Platelet Count 261 X10*3/uL (160-400); Red Blood Count 4.64 X10*6/uL (4.60-5.80); White Blood Count 11.3 X10*3/uL (4.8-10.8)
[2025-08-17 14:10] LABS: Alanine Aminotransferase 26 U/L (0-40); Albumin Level 4.8 g/dL (3.5-5.0); Alkaline Phosphatase 79 U/L (39-117); Anion Gap 11 (12-20); Aspartate Amino Transferase 22 U/L (5-37); Blood Urea Nitrogen 16 mg/dL (9-16); Calcium 9.4 mg/dL (8.4-10.2); Carbon Dioxide 28 mmol/L (22-29); Chloride 101 mmol/L (96-108); Cholesterol 231 mg/dL (<200); Estimated Glomerular Filt Rate > 60; HDL Cholesterol 41 mg/dL (>40); Potassium 4.0 mmol/L (3.3-5.1); Sodium 136 mmol/L (135-145); Total Protein 7.5 g/dL (6.5-8.0); Triglycerides 92 mg/dL (<150)
--- OUTSIDE RECORDS SUMMARY | 2025-08-17 15:29 | XMS_ITS | Clinical Summary ---
Author Organization [facility] ity Address [address] [place] [address] Care Team Providers Care Materials Handling Equipment Operator Name Role Phone Unavailable Primary Care Provider [...] Depression Screening 09/24/2024 COVID-19 Vaccine (1 - 2024-2 6 season) 2025 Influenza Vaccine (#1) 2025 RSV [...]
--- OUTSIDE RECORDS SUMMARY | 2025-08-17 15:29 | XMS_ITS | Clinical Summary ---
Author Organization [facility] Address [address] [place] [id number] Phone Care Team Providers Care Finishing Range Supervisor Name Role Phone Wilbur Tadeo MD Primary [...] 03/09/2021, 03/04/2021 SCREENING FOR DIABETES 01/18/2027 01/19/2024 RSV VACCINE (1 - 1-dose 75+ series) 2046 HEPATITIS A VACCINES Aged Out No long [...] Date/Time Associated Diagnosis Comments BASIC METABOLIC PANEL (BMP) STAT 01/19/2024 4:10 PM EDT from Last 3 Months or Most Recently Relevant to Health Maintenance Results * (ABNORMAL) Basic metabolic panel (01/19/2024 4:10 PM EDT) SODIUM 131(L) 133 - 146 mmol/L [facility] CHLORIDE 90(L) 96 - 108 mmol/L [facility] POTASSIUM 3.5 3.3 - 5.1 mmol/L [facility] CO2 20(L) 21 - 35 mmol/L [facility] BUN 11 6 - 19 mg/dL [facility] CREATININE 0.90 0.5 - 1.5 mg/dL [facility] GLUCOSE 115(H) 70 - 99 mg/dL [facility] CALCIUM 10.0 8.4 - 10.3 mg/dL [facility] EGFR 103 >59 mL/min/1.7 3m2 [facility] Comment:Estimated glomerular filtration rate calculated using the CKD-EPI refit equation. ANION GAP 25(H) 10 - 20 mmol/L [facility] Blood 01/19/2024 4:10 PM EDT 01/19/2024 4:16 PM EDT us Bucky Saenz MD LAB BLOOD BKR ORDERABLES Fi nal Result Performing Organization Address City/State/[facility] Co de Phone Number [address] [address] from Last 3 Months or Most Recently Relevant to Health Maintenance Insurance [facility] MEDICARE REPLACEMENT MEDICARE PART A & B MEDICARE REPLACEMENT MEDICARE PART A & B MEDICARE REPLACEMENT MEDICARE PART A & [place] [address] [place] [address] MEDICARE REPLACEMENT MEDICARE PART A & B [facility] MEDICARE REPLACEMENT MEDICARE PART A & B [employer] MEDICARE REPLACEMENT MEDICARE PART A & B Care Teams Finishing Range Supervisor Relationship Specialty Start Date End Date Wilbur Tadeo MD [address] [place] [address] [place] [address] PCP - General Internal Medicine 06/21/18 Additional Source Comments The information contained in this document represents components of the legal health record. It is not the complete legal health record.[facility]
== END 2025-08-17 11:39 | disposition home or self-care (01) ==
LOC: HO.10HDL 11:38
PROVIDERS: Visit Provider Internal Medicine
DX: Z12.5 Encounter for screening for malignant neoplasm of prostate (principal); N40.0 Benign prostatic hyperplasia without lower urinary tract symptoms; E11.40 Type 2 diabetes mellitus with diabetic neuropathy, unspecified; F04 Amnestic disorder due to known physiological condition; I73.9 Peripheral vascular disease, unspecified; J20.9 Acute bronchitis, unspecified; Z72.0 Tobacco use
CPT/HCPCS: 36415; 80053; 80061; 83036; 84153; 85025